=== PATIENT | male | born 1950 | race Caucasian/White ===

== ENCOUNTER 2016-05-22 19:21 | Inpatient (IN) ==
[2016-05-22 20:03] LABS: Basophils % 0.2 %; Segmented Neutrophils % 90.3 %
[2016-05-22 20:05] LABS: Basophils # 0.1 K/mcL (0.0-0.2); Hematocrit 33.7 % (37.5-50.1); Immature Granulocytes % 0.8 % (0-4); Lymphocytes # 0.7 K/mcL (0.6-4.6); Lymphocytes % 2.6 %; Mean Corpuscular HGB Conc 32.6 g/dL (31.6-35.5); Mean Corpuscular Hemoglobin 26.6 pg (28.0-33.3); Mean Corpuscular Volume 81.6 fL (83.0-100.0); Mean Platelet Volume 9.2 fL (9.4-12.4); Monocytes # 1.6 K/mcL (0.0-1.3); Monocytes % 6.1 %; Platelet Count 377 K/mcL (140-400); Red Blood Count 4.13 M/mcL (4.19-5.50); Red Cell Distribution Width 17.1 % (11.5-14.5)
[2016-05-22] MEDS: Ipratropium/Albuterol Neb 3 ML IH SCH ×2 (20:09→20:10)
[2016-05-22] MEDS ORDERED: Piperacillin/Tazobactam 3.375 GM in D5% in Water (Mini-Bag+) 100 ML IVPB ONE (20:11)
[2016-05-22] MEDS ORDERED: Vancomycin 1,000 MG in D5% in Water 250 ML IVPB ONE (20:11)
[2016-05-22 20:21] LABS: Albumin 2.3 g/dL (3.5-5.0); Albumin/Globulin Ratio 0.4 (1.1-2.2); Bilirubin,Total 0.8 mg/dL (0.2-1.2); Calcium 10.3 mg/dL (8.6-10.8); Potassium 5.1 mEq/L (3.5-4.5); Total Protein 8.3 g/dL (6.0-8.3)
[2016-05-22 20:23] LABS: Dohle Bodies Present (Not Present); Large Platelets Present (Not Present); Platelet Estimate Normal (Normal)
[2016-05-22 20:24] LABS: Polychromasia 1+ (Not Present)
--- NOTE | 2016-05-22 21:05 | Emergency Department Note ---
Disposition Clinical Impression: Pneumothorax Qualifiers: Pneumothorax type: spontaneous, primary Qualified Code(s): J93.11 - Primary spontaneous pneumothorax Pneumonia Qualifiers: Pneumonia type: due to unspecified organism Laterality: right Lung location: unspecified part of lung Qualified Code(s): J18.9 - Pneumonia, unspecified organism Disposition: Admitted As Inpatient SOB HPI - General Chief Complaint: ED Shortness of Breath/Dyspnea Stated Complaint: HEIDI Time Seen by Provider: 05/22/16 19:35 Source: patient Limitations: no limitations Nursing Notes Reviewed: Yes Vital Signs Reviewed: Yes - History of Present Illness Patient comes in complaining shortness of breath that has been going on for a couple weeks. Patient notes a progressively getting worse. Patient states that he was put on antibiotic but his family doctor but he is not sure what antibiotic it was. States his symptoms are continuing to get worse. Also notes he said some discharge coming from his trach. Patient denies fevers and chills denies chest pain. The family notes that he said a decrease in his exercise tolerance. - Related Data Home Medications Medication Instructions Recorded Confirmed Calcitriol [Rocaltrol] 0.5 mcg PO BID 03/08/15 05/22/16 Calcium Carbonate/Vitamin D3 1 each PO DAILY 03/08/15 05/22/16 [Calcium 500 + D Tablet] Guaifenesin 400 mg PO AD 04/24/16 05/22/16 Previous Rx's Medication Instructions Recorded Lenvatinib Mesylate [Lenvima] 24 mg PO DAILY #30 capsule 03/22/16 OxyCODONE/APAP 7.5/325 [Percocet 1 tab PO Q6H PRN #120 tablet 05/07/16 7.5/325] Venlafaxine XR (24 HR) [Effexor Xr] 37.5 mg PO DAILY #30 cap.er.24h 05/10/16 Levothyroxine [Synthroid] 175 mcg PO DAILY #30 tablet 05/15/16 Allergies Allergy/AdvReac Type Severity Reaction Status Date / Time No Known Allergies Allergy Verified 05/22/16 22:43 All systems ED: reviewed and negative except as stated. Past Medical History - Past Medical History Source: obtained from family Medical history: Reports: cancer, COPD, hyperlipidemia, hypertension, thyroid disease Psychiatric history: Reports: anxiety, depression - Social History Smoking Status: Current every day smoker Smokeless Tobacco Status: No Alcohol use: Reports: none Drug use: Reports: none Physical Exam - General Limitations: physical limitation General appearance: alert - Head Head exam: atraumatic, normocephalic, normal inspection - Eye Eye exam: Present: normal appearance, PERRL, EOMI - ENT ENT exam: normal exam, normal oropharynx, mucous membranes moist - Neck Neck exam: Present: full ROM, other (Discharged noted from trach). Absent: tenderness - Chest Chest inspection: Present: normal inspection, symmetric chest wall rise - Respiratory Respiratory exam: Present: wheezes, prolonged expiratory phase - Cardiovascular Cardiovascular exam: Present: tachycardia - Abdominal Exam Abdominal exam: Present: soft, Non-Tender. Absent: tenderness, distention, guarding, rebound, rigidity - Extremities Exam Extremities exam: Present: normal inspection, full ROM. Absent: tenderness, pedal edema - Back Exam Back exam: Present: normal inspection, full ROM. Absent: tenderness - Neurological Exam Neurological exam: Present: alert, oriented X3 - Psychiatric Psychiatric exam: Present: normal affect, normal mood - Skin Skin exam: Present: warm, dry, intact, normal color Course - Consultations Consultation #1: Cardiothoracic surgeons consult digit. Due to patient's low oxygen saturation and symptoms, chest tube was electively ordered Vital Signs Temperature 97.6 F 05/22/16 19:43 Pulse Rate 120 05/22/16 19:43 Respiratory Rate 26 05/22/16 19:43 Blood Pressure 136/82 05/22/16 19:43 O2 Sat by Pulse Oximetry 98 05/22/16 19:43 Temperature 97.6 F 05/22/16 19:43 Pulse Rate 99 05/22/16 23:28 Respiratory Rate 24 05/22/16 23:28 Blood Pressure 144/79 05/22/16 23:28 O2 Sat by Pulse Oximetry 96 05/22/16 23:28 Oxygen Delivery Oxygen Delivery Trach Mask Procedures - Chest Tube Chest Tube 1 Chest Tube Location: fifth interspace Chest Tube Prep: sterile drapes applied Local Anesthetic: lidocaine 1% Amount of Anesthesia Used (mL): 5 Incision Made With: #10 blade Post Procedure: sutured to skin Tube Drainage: none Post Procedure CXR?: Yes Patient Tolerated Procedure: Yes Shortness of Breath/Dyspnea - Differential Diagnosis Likely: acute exacerbation of chronic obstructive airways disease, congestive heart failure, pneumonia, pulmonary embolism, pneumothorax - Lab Data Result diagrams: 05/22/16 19:48 05/22/16 19:48 Lab Results 05/22/16 05/22/16 05/22/16 Range/Units 19:48 19:48 19:48 WBC 26.6 H (4.3-11.1) K/mcL RBC 4.13 L (4.19-5.50) M/mcL Hgb 11.0 L (12.9-16.9) g/dL Hct 33.7 L (37.5-50.1) % MCV 81.6 L (83.0-100.0) fL MCH 26.6 L (28.0-33.3) pg MCHC 32.6 (31.6-35.5) g/dL RDW 17.1 H (11.5-14.5) % Plt Count 377 (140-400) K/mcL MPV 9.2 L (9.4-12.4) fL Immature Gran % 0.8 (0-4) % Seg Neutrophils % 90.3 % Lymphocytes % 2.6 % Monocytes % 6.1 % Eosinophils % 0.0 % Basophils % 0.2 % Neutrophils # 24.0 H (1.6-8.9) K/mcL Lymphocytes # 0.7 (0.6-4.6) K/mcL Monocytes # 1.6 H (0.0-1.3) K/mcL Eosinophils # 0.0 (0.0-0.6) K/mcL Basophils # 0.1 (0.0-0.2) K/mcL Dohle Bodies Present A (Not Present) Platelet Estimate Normal (Normal) Large Platelets Present A (Not Present) Polychromasia 1+ A (Not Present) Sodium 131 L (136-145) mEq/L Potassium 5.1 H (3.5-4.5) mEq/L Chloride 89 L (98-109) mEq/L Carbon Dioxide 27 (19-29) mEq/L BUN 39 H (8-26) mg/dL Creatinine 1.79 H (0.72-1.25) mg/dL Est GFR ( Amer) 46 L (> 60) Est GFR (Non-Af Amer) 38 L (> 60) BUN/Creatinine Ratio 22 (6-26) Glucose 147 H (70-99) mg/dL Calculated Osmolality 284 (280-300) Lactic Acid (0.5-2.2) mmol/L Calcium 10.3 (8.6-10.8) mg/dL Total Bilirubin 0.8 (0.2-1.2) mg/dL AST 20 (5-34) Units/L ALT 20 (0-55) Units/L Alkaline Phosphatase 113 (38-126) Units/L Troponin I (0-0.03) ng/mL B-Natriuretic Peptide 60 (0-100) pg/mL Serum Total Protein 8.3 (6.0-8.3) g/dL Albumin 2.3 L (3.5-5.0) g/dL Globulin 6.0 H (2.4-3.5) g/dL Albumin/Globulin Ratio 0.4 L (1.1-2.2) 05/22/16 05/22/16 Range/Units 19:48 21:11 WBC (4.3-11.1) K/mcL RBC (4.19-5.50) M/mcL Hgb (12.9-16.9) g/dL Hct (37.5-50.1) % MCV (83.0-100.0) fL MCH (28.0-33.3) pg MCHC (31.6-35.5) g/dL RDW (11.5-14.5) % Plt Count (140-400) K/mcL MPV (9.4-12.4) fL Immature Gran % (0-4) % Seg Neutrophils % % Lymphocytes % % Monocytes % % Eosinophils % % Basophils % % Neutrophils # (1.6-8.9) K/mcL Lymphocytes # (0.6-4.6) K/mcL Monocytes # (0.0-1.3) K/mcL Eosinophils # (0.0-0.6) K/mcL Basophils # (0.0-0.2) K/mcL Dohle Bodies (Not Present) Platelet Estimate (Normal) Large Platelets (Not Present) Polychromasia (Not Present) Sodium (136-145) mEq/L Potassium (3.5-4.5) mEq/L Chloride (98-109) mEq/L Carbon Dioxide (19-29) mEq/L BUN (8-26) mg/dL Creatinine (0.72-1.25) mg/dL Est GFR ( Amer) (> 60) Est GFR (Non-Af Amer) (> 60) BUN/Creatinine Ratio (6-26) Glucose (70-99) mg/dL Calculated Osmolality (280-300) Lactic Acid 2.0 (0.5-2.2) mmol/L Calcium (8.6-10.8) mg/dL Total Bilirubin (0.2-1.2) mg/dL AST (5-34) Units/L ALT (0-55) Units/L Alkaline Phosphatase (38-126) Units/L Troponin I 0.03 (0-0.03) ng/mL B-Natriuretic Peptide (0-100) pg/mL Serum Total Protein (6.0-8.3) g/dL Albumin (3.5-5.0) g/dL Globulin (2.4-3.5) g/dL Albumin/Globulin Ratio (1.1-2.2) - Radiology Data Radiology results reviewed: Yes I reviewed the patient's radiology results. Chest X-Ray 05/22/16 19:37 IMPRESSION: There is a small right pneumothorax, approximately 15%. Right lower lobe consolidation is also noted possibly representing pneumonia. D/ / Ant Alvarado MD / Ant Alvarado MD Interpreting Provider: Ant Alvarado MD - EKG Data EKG attestation: Yes I reviewed and interpreted this EKG. EKG shows normal: Reports: sinus rhythm Rate: Reports: tachycardia Rhythm: Reports: NSR Critical Care Time Total Critical Care Time: 60 Attestation: Critical care performed: Time is exclusive of separately billable procedures. Time includes: direct patient care, patient reassessment, coordination of patient care, interpretation of data (laboratory data, radiology data, and respiratory data), review of patient's medical records, medical consultation and documentation of patient care. Procedures included in critical care time: Procedures excluded from critical care time:
[2016-05-23] MEDS ORDERED: Lidocaine -MPF 1% 2 ML VIAL ONE (00:28)
[2016-05-23] MEDS ORDERED: *HR* OxyCODONE/APAP 7.5/325 TABLET PO PRN (02:20)
[2016-05-23] MEDS ORDERED: Ondansetron 4 MG/2 ML VIAL IVP PRN ×2 (02:25→11:13)
[2016-05-23] MEDS ORDERED: Acetaminophen 325 MG TABLET PO PRN ×2 (02:25→11:13)
[2016-05-23] MEDS ORDERED: *HR* Morphine 2 MG/ML SYRINGE IVP PRN (02:25)
[2016-05-23] MEDS ORDERED: Naloxone 0.4 MG/ML INJ IVP PRN ×2 (02:25→11:13)
[2016-05-23] MEDS ORDERED: GuaiFENesin Liq 200 MG/10 ML UDC PO PRN ×3 (02:30→11:13)
[2016-05-23] MEDS ORDERED: Vancomycin 1,250 MG in D5% in Water 250 ML IVPB SCH ×3 (03:00→20:00)
[2016-05-23] MEDS ORDERED: 0.9 % Sodium Chloride 1,000 ML IVC SCH (03:15)
[2016-05-23] MEDS: Ipratropium/Albuterol Neb 3 ML IH SCH ×3 (05:18→16:54)
[2016-05-23] MEDS ORDERED: Piperacillin/Tazobactam 3.375 GM in D5% in Water (Mini-Bag+) 100 ML IVPB SCH (06:00)
[2016-05-23] MEDS ORDERED: *HR* Enoxaparin 30 MG/0.3 ML SYRINGE SQ SCH (06:00)
--- NOTE | 2016-05-23 06:31 | Internal Med History&Physical ---
Date of Encounter: 05/23/16 Time of Encounter: 01:20 Internal Medicine - H&P: HPI Chief complaint: SOB X 1 week Admitted From: Emergency Dept Plans for Post Hospital Care: Home History of present illness: Mr. 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 He reports drainage of copious amount of yellow-green secretion from tracheostomy. He denies chest pain or trauma. No fever, chills or rigors. His sisters reports much more dyspnea even with mild exertion. The patient was evaluated by his by his PCP and prescribed an antibiotic recently, but been unable to return for follow-up. He lives alone but his sisters come around often. They are very surportive. The patient continues to smoke. He is FULL CODE as per discussion, he vehemently states he does not want to be intubated, his sister Cici Cantrell ([phone]) is his NOK/POA. Medical history: Follicular thyroid cancer, COPD, hyperlipidemia, hypertension, thyroid disease Surgical history: Thyroidectomy for thyroid cancer. Psychiatric history: anxiety, depression Smoking Status: Current every day smoker Smokeless Tobacco Status: No Alcohol use: none Drug use: none Family Hx: Mother: HTN, DM2, SANJEEV: HEART DISEASE, sister: HTN Vital Signs Temperature 97.6 F 05/22/16 19:43 Pulse Rate 120 05/22/16 19:43 Respiratory Rate 26 05/22/16 19:43 Blood Pressure 136/82 05/22/16 19:43 O2 Sat by Pulse Oximetry 98 05/22/16 19:43 Temperature 97.6 F 05/22/16 19:43 Pulse Rate 99 05/22/16 23:28 Respiratory Rate 24 05/22/16 23:28 Blood Pressure 144/79 05/22/16 23:28 O2 Sat by Pulse Oximetry 96 05/22/16 23:28 O/E: Not in distress palor+, anicteric, afebrile to touch, acyanotic HEENT: No cervical or jugular lymphadenopathy, tracheostomy with a oxygen mccall. Chest: Tachypneic, expiratory wheezing, scatter, reduced air entry on the right , pleux tube connected to under-water seal, Heart: RRR, HS1/2. Abdomen: non-distended, soft, non-tender, no masses : No flank tenderness, no CVA tenderness, no suprapubic tenderness PROJECT INTERNSHIP: AAO X 3, no gross focal neurological deficits SKIN: No active skin lesions. Extemities: No pedal edema. 05/22/16 19:48 Lab Results 05/22/16 05/22/16 05/22/16 Range/Units 19:48 19:48 19:48 WBC 26.6 H (4.3-11.1) K/mcL RBC 4.13 L (4.19-5.50) M/mcL Hgb 11.0 L (12.9-16.9) g/dL Hct 33.7 L (37.5-50.1) % MCV 81.6 L (83.0-100.0) fL MCH 26.6 L (28.0-33.3) pg MCHC 32.6 (31.6-35.5) g/dL RDW 17.1 H (11.5-14.5) % Plt Count 377 (140-400) K/mcL MPV 9.2 L (9.4-12.4) fL Immature Gran % 0.8 (0-4) % Seg Neutrophils % 90.3 % Lymphocytes % 2.6 % Monocytes % 6.1 % Eosinophils % 0.0 % Basophils % 0.2 % Neutrophils # 24.0 H (1.6-8.9) K/mcL Lymphocytes # 0.7 (0.6-4.6) K/mcL Monocytes # 1.6 H (0.0-1.3) K/mcL Eosinophils # 0.0 (0.0-0.6) K/mcL Basophils # 0.1 (0.0-0.2) K/mcL Dohle Bodies Present A (Not Present) Platelet Estimate Normal (Normal) Large Platelets Present A (Not Present) Polychromasia 1+ A (Not Present) Sodium 131 L (136-145) mEq/L Potassium 5.1 H (3.5-4.5) mEq/L Chloride 89 L (98-109) mEq/L Carbon Dioxide 27 (19-29) mEq/L BUN 39 H (8-26) mg/dL Creatinine 1.79 H (0.72-1.25) mg/dL Est GFR ( Amer) 46 L (> 60) Est GFR (Non-Af Amer) 38 L (> 60) BUN/Creatinine Ratio 22 (6-26) Glucose 147 H (70-99) mg/dL Calculated Osmolality 284 (280-300) Lactic Acid (0.5-2.2) mmol/L Calcium 10.3 (8.6-10.8) mg/dL Total Bilirubin 0.8 (0.2-1.2) mg/dL AST 20 (5-34) Units/L ALT 20 (0-55) Units/L Alkaline Phosphatase 113 (38-126) Units/L Troponin I (0-0.03) ng/mL B-Natriuretic Peptide 60 (0-100) pg/mL Serum Total Protein 8.3 (6.0-8.3) g/dL Albumin 2.3 L (3.5-5.0) g/dL Globulin 6.0 H (2.4-3.5) g/dL Albumin/Globulin Ratio 0.4 L (1.1-2.2) 05/22/16 05/22/16 Range/Units 19:48 21:11 WBC (4.3-11.1) K/mcL RBC (4.19-5.50) M/mcL Hgb (12.9-16.9) g/dL Hct (37.5-50.1) % MCV (83.0-100.0) fL MCH (28.0-33.3) pg MCHC (31.6-35.5) g/dL RDW (11.5-14.5) % Plt Count (140-400) K/mcL MPV (9.4-12.4) fL Immature Gran % (0-4) % Seg Neutrophils % % Lymphocytes % % Monocytes % % Eosinophils % % Basophils % % Neutrophils # (1.6-8.9) K/mcL Lymphocytes # (0.6-4.6) K/mcL Monocytes # (0.0-1.3) K/mcL Eosinophils # (0.0-0.6) K/mcL Basophils # (0.0-0.2) K/mcL Dohle Bodies (Not Present) Platelet Estimate (Normal) Large Platelets (Not Present) Polychromasia (Not Present) Sodium (136-145) mEq/L Potassium (3.5-4.5) mEq/L Chloride (98-109) mEq/L Carbon Dioxide (19-29) mEq/L BUN (8-26) mg/dL Creatinine (0.72-1.25) mg/dL Est GFR ( Amer) (> 60) Est GFR (Non-Af Amer) (> 60) BUN/Creatinine Ratio (6-26) Glucose (70-99) mg/dL Calculated Osmolality (280-300) Lactic Acid 2.0 (0.5-2.2) mmol/L Calcium (8.6-10.8) mg/dL Total Bilirubin (0.2-1.2) mg/dL AST (5-34) Units/L ALT (0-55) Units/L Alkaline Phosphatase (38-126) Units/L Troponin I 0.03 (0-0.03) ng/mL B-Natriuretic Peptide (0-100) pg/mL Serum Total Protein (6.0-8.3) g/dL Albumin (3.5-5.0) g/dL Globulin (2.4-3.5) g/dL Albumin/Globulin Ratio (1.1-2.2) CXR: There is a small right pneumothorax, approximately 15%. Right lower lobe consolidation is also noted possibly representing pneumonia. imp Acute on chronic respiratory failure Spontaneous right pneumothorax related pneumonia and COPD s/p chest tube placement to under water seal. Right lobar pneumonia s/p trachesotomy after thyroidectomy for thyroid cancer Acute renal failure Chronic morbidities HTN HLD COPD Hypothyroidism s/p thyroidectomy for thyroid cancer Mild chronic microcytic , hypochromic anemia, iron deficiency vs anemia of chronic medical disease. PLAN Admit Chest tube care, connect to under water seal Serial CXR Triple antiboitic coverage for HCAP: Vanco/Zosyn and Levaquin. Oxygen supplementation via tracheostomy mccall. Bundle Breaker care Tracheostomy care IV hydration, trend serum creatinine and BUN DVT prophylaxis with Lovenox. I discussed my findings and assessment with the patient, his family at bedside, they verbalized understanding and are agreeable to admission. He is high risk as he is symptoms of pneumothrorax, especially in the setting of right lobar pneumonia in a patient with background COPD who continues to smoke. Past Med Surg Social Fam HX - Past Medical History Medical history: cancer, COPD, hyperlipidemia, hypertension, thyroid disease Psychiatric history: anxiety, depression - Social History Smoking Status: Current every day smoker Smokeless Tobacco Status: No Alcohol use: none Drug use: none Internal Medicine - H&P: Meds Calcitriol [Rocaltrol] 0.5 mcg PO BID 03/08/15 [History] Calcium Carbonate/Vitamin D3 [Calcium 500 + D Tablet] 1 each PO DAILY 03/08/15 [ History] Lenvatinib Mesylate [Lenvima] 24 mg PO DAILY #30 capsule 03/22/16 [Rx] Guaifenesin 400 mg PO AD 04/24/16 [History] OxyCODONE/APAP 7.5/325 [Percocet 7.5/325] 1 tab PO Q6H PRN #120 tablet 05/07/16 [Rx] Venlafaxine XR (24 HR) [Effexor Xr] 37.5 mg PO DAILY #30 cap.er.24h 05/10/16 [Rx ] Levothyroxine [Synthroid] 175 mcg PO DAILY #30 tablet 05/15/16 [Rx] Allergies No Known Allergies Allergy (Verified 05/22/16 22:43) All Systems PM: A 10-system review of systems was performed and is negative for pertinent findings except as documented above in the HPI. - Constitutional Vitals: Temp Pulse Resp BP Pulse Ox 98.8 F 86 28 126/69 95 05/23/16 02:30 05/23/16 06:06 05/23/16 06:06 05/23/16 06:06 05/23/16 06:06 Internal Med - H&P Results - Labs CBC & Chem 7: 05/24/16 03:13 05/24/16 03:13 - Impressions ITS Impressions Chest X-Ray 05/23/16 00:55 IMPRESSION: 1. Minimal increase in the small right pleural effusion status post percutaneous chest tube. D/ / Haile Bah MD / Haile Bah MD Interpreting Provider: Haile Bah MD Chest X-Ray 05/23/16 01:25 IMPRESSION: 1. No significant change. D/ / Haile Bah MD / Haile Bah MD Interpreting Provider: Haile Bah MD
--- NOTE | 2016-05-23 07:03 | Pulmonology Consult Note ---
Addendum entered and electronically signed by Adiel Duran DO 05/23/16 15:49: Signout was provided to the admitting hospitalist, Dr. Vela, who accepted the patient for transfer. Original Note: <Alfred Sotelo W - Last Filed: 05/23/16 11:24> Date of Encounter: 05/23/16 Medications and Allergies Calcitriol [Rocaltrol] 0.5 mcg PO BID 03/08/15 [History] Calcium Carbonate/Vitamin D3 [Calcium 500 + D Tablet] 1 each PO DAILY 03/08/15 [ History] Lenvatinib Mesylate [Lenvima] 24 mg PO DAILY #30 capsule 03/22/16 [Rx] Guaifenesin 400 mg PO AD 04/24/16 [History] OxyCODONE/APAP 7.5/325 [Percocet 7.5/325] 1 tab PO Q6H PRN #120 tablet 05/07/16 [Rx] Venlafaxine XR (24 HR) [Effexor Xr] 37.5 mg PO DAILY #30 cap.er.24h 05/10/16 [Rx ] Levothyroxine [Synthroid] 175 mcg PO DAILY #30 tablet 05/15/16 [Rx] Allergies No Known Allergies Allergy (Verified 05/22/16 22:43) All Systems: A 10-system review of systems was performed and is negative for pertinent findings except as documented above in the HPI. Physical Examination Vital Signs: Vital Signs, Last 4 Hours Temp Pulse Resp BP Pulse Ox 05/23/16 07:52 94 05/23/16 07:24 97.7 F 05/23/16 06:06 86 28 126/69 95 05/23/16 05:22 30 124/71 95 05/23/16 05:15 88 28 124/71 96 Results - Laboratory Findings CBC and BMP: 05/23/16 09:28 05/23/16 09:28 Abnormal lab findings: Abnormal lab results WBC 26.6 K/mcL (4.3-11.1) H 05/22/16 19:48 RBC 4.13 M/mcL (4.19-5.50) L 05/22/16 19:48 Hgb 11.0 g/dL (12.9-16.9) L 05/22/16 19:48 Hct 33.7 % (37.5-50.1) L 05/22/16 19:48 MCV 81.6 fL (83.0-100.0) L 05/22/16 19:48 MCH 26.6 pg (28.0-33.3) L 05/22/16 19:48 RDW 17.1 % (11.5-14.5) H 05/22/16 19:48 MPV 9.2 fL (9.4-12.4) L 05/22/16 19:48 Neutrophils # 24.0 K/mcL (1.6-8.9) H 05/22/16 19:48 Monocytes # 1.6 K/mcL (0.0-1.3) H 05/22/16 19:48 Dohle Bodies Present (Not Present) A 05/22/16 19:48 Large Platelets Present (Not Present) A 05/22/16 19:48 Polychromasia 1+ (Not Present) A 05/22/16 19:48 Sodium 131 mEq/L (136-145) L 05/22/16 19:48 Potassium 5.1 mEq/L (3.5-4.5) H 05/22/16 19:48 Chloride 89 mEq/L (98-109) L 05/22/16 19:48 BUN 39 mg/dL (8-26) H 05/22/16 19:48 Creatinine 1.79 mg/dL (0.72-1.25) H 05/22/16 19:48 Est GFR ( Amer) 46 (> 60) L 05/22/16 19:48 Est GFR (Non-Af Amer) 38 (> 60) L 05/22/16 19:48 Glucose 147 mg/dL (70-99) H 05/22/16 19:48 POC Glucose 119 (58-89) H 05/23/16 02:20 Albumin 2.3 g/dL (3.5-5.0) L 05/22/16 19:48 Globulin 6.0 g/dL (2.4-3.5) H 05/22/16 19:48 Albumin/Globulin Ratio 0.4 (1.1-2.2) L 05/22/16 19:48 - Clinical Findings Intake & Output: Intake & Output 05/22/16 05/23/1605/23/16 23:59 07:59 15:59 Intake Total 0 / 0 180 / 180 Output Total 220 / 220 400 / 400 Balance -220 / -220 -220 / -220 Weight 75.75 kg Consult Discharge Plan - Plan Referrals: Dalton Monterroso Jr, MD [Primary Care Provider] - - Attending Attestation I examined this patient and my medical decision-making was reviewed with the MATERIAL MANAGER/PA/Advanced Practice Nurse/Resident Physician. I agree with the documented findings, disposition and treatment plan as described except to the extent set forth below. Impression: 1. Acute Respiratory Failure 2. Spontaneous PTX s/p Pleural Drain 3. Sepsis s/tHAP 4. COPD 5. Chronic Trach 6. SHWETA 7. Metastatic Thyroid CA Plan: 1. Good Sats on Trach collar wean to keep O2 sats >88% to 92% 2. Cont Chest tube to suction; CT Thorax 3. BP stable. lacate wnl. Cultures pending, ABx Vanc/Pip-Tazo/Levaquin covering for atypicals PSDA and MRSA 4. Cont Duonebs and Steroids 5. improved with IV fluids (normalized) monitor UOP 6. continued f/u with ENT as outpatient 7. Oncology Consult DVT prophylaxis with Lovenox CODE: Full <Adiel Duran - Last Filed: 05/23/16 13:14> Date of Encounter: 05/23/16 Time of Encounter: 07:03 Assessment and Plan (1) Pneumothorax Current Visit: Yes Status: Acute Patient had pneumothorax on presentation, 9-Nepalese chest tube was placed in the emergency department. CT scan showed a hydropneumothorax, patient will likely require a larger chest tube. IR has been consulted for placement. Qualifiers: Pneumothorax type: spontaneous, primary Qualified Code(s): J93.11 - Primary spontaneous pneumothorax (2) Pneumonia Current Visit: Yes Status: Acute Patient appears to have consolidation on chest CT concerning for pneumonia. Would cultures and sputum cultures been obtained. We will cover with broad coverage empirically with vancomycin Levaquin and Zosyn. Qualifiers: Pneumonia type: due to unspecified organism Laterality: right Lung location: unspecified part of lung Qualified Code(s): J18.9 - Pneumonia, unspecified organism (3) Follicular thyroid cancer Current Visit: No Status: Acute Issue is currently on treatment for follicular thyroid carcinoma. Patient takes tyrosine kinase inhibitor at home. We will continue this. (4) Lung metastasis Current Visit: No Status: Acute Patient has significant lung metastasis as seen on CT. There are multiple nodules throughout the lungs that are stable from approximately 1 month ago. Qualifiers: Laterality: right Qualified Code(s): C78.01 - Secondary malignant neoplasm of right lung (5) 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 Visit: No Status: Acute Continue usual trach care. Patient is on the trach mask supplemental oxygen. There is no evidence of drainage from the trach at this time. (6) DVT prophylaxis Current Visit: Yes Status: Acute Lovenox 40 mg subcutaneous daily. History of Present Illness Consult date: 05/23/16 Requesting physician: Trey Mckeon Reason for consult: dyspnea Chief complaint: Dyspnea History of present illness: Patient is a 66-year-old male with history of follicular thyroid carcinoma with metastatic lung disease and chronic tracheostomy who presents with progressive shortness of breath. Per records, the patient had progressive shortness of breath over several days and also increased amount of thick drainage from his tracheostomy. Apparently he was recently started on an antibiotic as an outpatient but is unknown what this was. At the time of my exam the patient states he feels better, he has no acute complaints at this time. He states his breathing is improved. Past Med Surg Social Fam HX - Past Medical History Medical history: cancer, COPD, hyperlipidemia, hypertension, thyroid disease Psychiatric history: anxiety, depression - Past Surgical History Surgical History: tracheostomy - Social History Smoking Status: Current every day smoker Smokeless Tobacco Status: No Alcohol use: none Drug use: none ROS unobtainable: other (Patient is minimally verbal with the tracheostomy therefore review of systems was unable to be obtained) All Systems: A 10-system review of systems was performed and is negative for pertinent findings except as documented above in the HPI. Physical Examination Vital Signs: Vital Signs, Last 4 Hours Pulse Resp BP Pulse Ox 05/23/16 06:06 86 28 126/69 95 05/23/16 05:22 30 124/71 95 05/23/16 05:15 88 28 124/71 96 05/23/16 04:11 93 40 134/74 95 05/23/16 03:08 93 40 159/91 95 General appearance: no acute distress ENT: oropharynx dry Neck: other (Tracheostomy present, dressing is clean and dry.) Effort: normal Auscultation: right: rhonchi Cardiovascular: regular rate and rhythm Gastrointestinal: normoactive bowel sounds, soft, non-tender, non-distended Extremities: no cyanosis, no edema, no clubbing normal mental status, non-focal exam Results - Laboratory Findings CBC and BMP: 05/23/16 09:28 05/23/16 09:28 Abnormal lab findings: Abnormal lab results WBC 26.6 K/mcL (4.3-11.1) H 05/22/16 19:48 RBC 4.13 M/mcL (4.19-5.50) L 05/22/16 19:48 Hgb 11.0 g/dL (12.9-16.9) L 05/22/16 19:48 Hct 33.7 % (37.5-50.1) L 05/22/16 19:48 MCV 81.6 fL (83.0-100.0) L 05/22/16 19:48 MCH 26.6 pg (28.0-33.3) L 05/22/16 19:48 RDW 17.1 % (11.5-14.5) H 05/22/16 19:48 MPV 9.2 fL (9.4-12.4) L 05/22/16 19:48 Neutrophils # 24.0 K/mcL (1.6-8.9) H 05/22/16 19:48 Monocytes # 1.6 K/mcL (0.0-1.3) H 05/22/16 19:48 Dohle Bodies Present (Not Present) A 05/22/16 19:48 Large Platelets Present (Not Present) A 05/22/16 19:48 Polychromasia 1+ (Not Present) A 05/22/16 19:48 Sodium 131 mEq/L (136-145) L 05/22/16 19:48 Potassium 5.1 mEq/L (3.5-4.5) H 05/22/16 19:48 Chloride 89 mEq/L (98-109) L 05/22/16 19:48 BUN 39 mg/dL (8-26) H 05/22/16 19:48 Creatinine 1.79 mg/dL (0.72-1.25) H 05/22/16 19:48 Est GFR ( Amer) 46 (> 60) L 05/22/16 19:48 Est GFR (Non-Af Amer) 38 (> 60) L 05/22/16 19:48 Glucose 147 mg/dL (70-99) H 05/22/16 19:48 POC Glucose 119 (58-89) H 05/23/16 02:20 Albumin 2.3 g/dL (3.5-5.0) L 05/22/16 19:48 Globulin 6.0 g/dL (2.4-3.5) H 05/22/16 19:48 Albumin/Globulin Ratio 0.4 (1.1-2.2) L 05/22/16 19:48 - Clinical Findings Intake & Output: Intake & Output 05/22/16 05/22/16 05/23/16 15:59 23:59 07:59 Intake Total 0 / 0 Output Total 220 / 220 Balance -220 / -220 Weight 75.75 kg
[2016-05-23] MEDS ORDERED: LENVATINIB PO SCH (09:00)
[2016-05-23] MEDS ORDERED: Levofloxacin 750 MG/150 ML 750 MG/150 ML BAG IVPB SCH (09:00)
[2016-05-23] MEDS ORDERED: Venlafaxine XR (24 HR) 37.5 MG CAP.ER.24H PO SCH (09:00)
[2016-05-23] MEDS ORDERED: Calcium 500-Vit D3 PO SCH (09:00)
--- NOTE | 2016-05-23 09:08 | Cardiothoracic Consult Note ---
Date of Encounter: 05/23/16 Time of Encounter: 09:06 Assessment and Plan (1) Pneumothorax Current Visit: Yes Status: Acute The patient is a 66-year-old hypertensive man with COPD and metastatic follicular cell thyroid carcinoma. He presented to [facility] merged permanent with worsening shortness of breath and dyspnea exertion. Chest x-ray revealed a right spontaneous pneumothorax and a small bore chest tube was inserted in the emergency department. The chest tube has been on suction and immediately after the procedure there was no change in the size of the pneumothorax. the chest tube should remain on suction until the pneumothorax resolves. The assessment and plan as outlined above was discussed with the patient and/or family members who expressed understanding and agreement. All questions were answered. Qualifiers: Pneumothorax type: spontaneous, primary Qualified Code(s): J93.11 - Primary spontaneous pneumothorax - History of Present Illness Consult date: 05/23/16 Requesting physician: Alfred Sotelo Consult reason: Chest tube management. Chief complaint: Right spontaneous pneumothorax. History of present illness: Mr. Parikh is a 66 year old hypertensive man with COPD and metastatic follicular cell thyroid carcinoma who has had progressive shortness of breath and dyspnea on exertion for the last several days. The respiratory symptoms became significantly last evening and the patient was evaluated at [facility] emergency department. The patient was found to have a right spontaneous pneumothorax and a chest tube was inserted in the emergency department. The patient was admitted and CT surgery was consulted for chest tube management. Past Med Surg Social Fam HX - Past Medical History Medical history: cancer (Follicular cell thyroid carcinoma), COPD, hyperlipidemia, hypertension, thyroid disease (Hypothyroidism (surgically induced)) Psychiatric history: anxiety, depression - Past Surgical History Surgical History: thyroidectomy, tracheostomy - Social History Smoking Status: Current every day smoker Smokeless Tobacco Status: No Alcohol use: none Drug use: none Occupational status: retired Current living situation: Home - Independent Activity Level: Independent ambulation Recent Out of Country Travel Within the Last 8 Weeks: No Exposure or Possible Exposure to Illness During Travel: No Medications and Allergies Calcitriol [Rocaltrol] 0.5 mcg PO BID 03/08/15 [History] Calcium Carbonate/Vitamin D3 [Calcium 500 + D Tablet] 1 each PO DAILY 03/08/15 [ History] Lenvatinib Mesylate [Lenvima] 24 mg PO DAILY #30 capsule 03/22/16 [Rx] Guaifenesin 400 mg PO AD 04/24/16 [History] OxyCODONE/APAP 7.5/325 [Percocet 7.5/325] 1 tab PO Q6H PRN #120 tablet 05/07/16 [Rx] Venlafaxine XR (24 HR) [Effexor Xr] 37.5 mg PO DAILY #30 cap.er.24h 05/10/16 [Rx ] Levothyroxine [Synthroid] 175 mcg PO DAILY #30 tablet 05/15/16 [Rx] Allergies No Known Allergies Allergy (Verified 05/22/16 22:43) All Systems Review: A 10-system review of systems was performed and is negative for pertinent findings except as documented above in the HPI. Physical Examination Vital Signs, Last 4 Hours Temp Pulse Resp BP Pulse Ox 05/23/16 07:52 94 05/23/16 07:24 97.7 F 05/23/16 06:06 86 28 126/69 95 05/23/16 05:22 30 124/71 95 05/23/16 05:15 88 28 124/71 96 General: Conversant, No Apparent Distress HEENT: Atraumatic, Normocephaly, Other (Permanent tracheostomy) Neck: No JVD, Normal carotid pulses Cardiac: Reg Rate and Rhythm, Normal S1 and S2, No Murmur Lungs: Normal Breath Sounds, No Wheeze, Rales, Rhonchi Neuro: Alert and responsive, No focal deficits noted Vascular: Normal capillary refill Abdomen: Soft, Non-tender Skin: No rashes noted on visualized skin Musculoskeletal: No Chest Wall Tenderness Extremities: No Clubbing, No Cyanosis, No Edema Results 05/22/16 19:48 05/22/16 19:48 - Imaging Chest Xray: image reviewed (Right lateral pneumothorax, unchanged after chest tube insertion.) Consult Discharge Plan - Plan Referrals: Dalton Monterroso Jr, MD [Primary Care Provider] -
[2016-05-23 09:36] LABS: Basophils % 0.1 %; Eosinophils % 0.2 %; Hematocrit 29.2 % (37.5-50.1); Hemoglobin 9.6 g/dL (12.9-16.9); Immature Granulocytes % 1.1 % (0-4); Immature Platelets 1.8 % (1.1-6.1); Lymphocytes # 0.5 K/mcL (0.6-4.6); Lymphocytes % 2.6 %; Mean Corpuscular HGB Conc 32.9 g/dL (31.6-35.5); Mean Corpuscular Hemoglobin 26.3 pg (28.0-33.3); Mean Platelet Volume 8.8 fL (9.4-12.4); Monocytes % 5.2 %; Neutrophils # 16.7 K/mcL (1.6-8.9); Platelet Count 349 K/mcL (140-400); Red Blood Count 3.65 M/mcL (4.19-5.50); Red Cell Distribution Width 16.8 % (11.5-14.5); Segmented Neutrophils % 90.8 %
[2016-05-23 09:55] LABS: BUN/Creatinine Ratio 31 (6-26); Blood Urea Nitrogen 32 mg/dL (8-26); Calcium 9.2 mg/dL (8.6-10.8); Carbon Dioxide 28 mEq/L (19-29); Chloride 92 mEq/L (98-109); Glucose 148 mg/dL (70-99); Osmolality,Calculated 280 (280-300); Potassium 4.3 mEq/L (3.5-4.5); Sodium 130 mEq/L (136-145); eGFR For African Americans > 60 (> 60); eGFR For Non-African Americans > 60 (> 60)
[2016-05-23] MEDS: MethylPREDNISolone 40 MG/ML VIAL IVP SCH ×3 (11:25→23:36)
[2016-05-23] MEDS ORDERED: MethylPREDNISolone 40 MG/ML VIAL IVP SCH (12:00)
[2016-05-23] MEDS ORDERED: 0.9 % Sodium Chloride 500 ML IVC ONE (12:50)
[2016-05-23] MEDS: Vancomycin 750 MG in D5% in Water 250 ML IVPB SCH (13:34)
[2016-05-23] MEDS: *HR* Morphine 2 MG/ML SYRINGE IVP PRN (13:40)
--- NOTE | 2016-05-23 14:40 | Electrocardiograph Report ---
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
--- NOTE | 2016-05-23 14:53 | IR Procedure Note ---
Date of procedure: 05/23/16 Consent Obtained: Verbal consent Timeout: Correct patient and procedure verified, Correct site verified, Time out performed, Skin prep completed Local anesthetic: Lidocaine 1% Indications: Small 8-9fr pleural drain placed in ER not working well. Procedure Performed: Replacement of chest tube for larger bore drain Site/Technique: Right lateral chest. Initially tried exchange, though course was kinked. Results/Findings: Pt reaccessed using u/s by myself at bedside in unit. 14fr chest tube used. Estimated blood loss (cc): 1 Complications: None; Tolerated procedure well Post Procedure Treatment Plan: New 14fr chest tube placed. Tolerated well.
[2016-05-23] MEDS: Piperacillin/Tazobactam 3.375 GM in D5% in Water (Mini-Bag+) 100 ML IVPB SCH ×2 (15:21→21:17)
[2016-05-23] MEDS: *HR* OxyCODONE/APAP 7.5/325 TABLET PO PRN (17:33)
[2016-05-23] MEDS ORDERED: Furosemide 40 MG/4 ML VIAL IVP ONE (18:05)
[2016-05-23 18:25] LABS: ABG Base Excess 7.1 mEq/L (-2.0 to 3.0); ABG HCO3 32.5 mEQ/L (21-27); ABG Oxygen Saturation 95 % (95-98); ABG PCO2 49 mmHg (35-45); ABG PH 7.43 pH Units (7.32-7.45); ABG PO2 72 mmHg (85-104); Blood Gas FiO2 60 %
--- NOTE | 2016-05-23 19:17 | Event Note ---
Date of Encounter: 05/23/16 Time of Encounter: 18:10 I was called by the RN to evaluate this patient. Tachypneic, tachycardic. Was otherwise stable in the ICU prior to transfer to . DVT prophylaxis with lovenox was resumed today. Gave a dose of lasix iv, got an abg and a cxr. Will obtain a ct angio of the chset. D/W nursing staff.
[2016-05-24] MEDS: Ipratropium/Albuterol Neb 3 ML IH SCH ×5 (00:04→22:39)
[2016-05-24] MEDS: Vancomycin 750 MG in D5% in Water 250 ML IVPB SCH ×2 (00:09→13:38)
[2016-05-24 03:23] LABS: Basophils % 0.1 %; Hematocrit 31.7 % (37.5-50.1); Hemoglobin 10.4 g/dL (12.9-16.9); Immature Granulocytes % 0.8 % (0-4); Lymphocytes # 0.3 K/mcL (0.6-4.6); Lymphocytes % 1.6 %; Mean Corpuscular HGB Conc 32.8 g/dL (31.6-35.5); Mean Corpuscular Volume 79.3 fL (83.0-100.0); Mean Platelet Volume 9.2 fL (9.4-12.4); Monocytes # 0.3 K/mcL (0.0-1.3); Monocytes % 1.5 %; Neutrophils # 20.5 K/mcL (1.6-8.9); Platelet Count 319 K/mcL (140-400); Red Cell Distribution Width 16.7 % (11.5-14.5)
[2016-05-24 03:35] LABS: BUN/Creatinine Ratio 27 (6-26); Blood Urea Nitrogen 23 mg/dL (8-26); Calcium 9.3 mg/dL (8.6-10.8); Carbon Dioxide 29 mEq/L (19-29); Chloride 91 mEq/L (98-109); Glucose 180 mg/dL (70-99); Osmolality,Calculated 278 (280-300); Potassium 4.2 mEq/L (3.5-4.5); Sodium 130 mEq/L (136-145); eGFR For African Americans > 60 (> 60); eGFR For Non-African Americans > 60 (> 60)
[2016-05-24] MEDS ORDERED: *HR* Enoxaparin 40 MG/0.4 ML SYRINGE SQ SCH (06:00)
[2016-05-24] MEDS: Piperacillin/Tazobactam 3.375 GM in D5% in Water (Mini-Bag+) 100 ML IVPB SCH ×3 (06:19→21:26)
[2016-05-24] MEDS: MethylPREDNISolone 40 MG/ML VIAL IVP SCH ×4 (06:19→23:01)
[2016-05-24] MEDS: *HR* Enoxaparin 40 MG/0.4 ML SYRINGE SQ SCH (06:21)
--- NOTE | 2016-05-24 07:15 | Cardiothoracic Progress Note ---
Date of Encounter: 05/24/16 Time of Encounter: 07:11 - Assessment and plan (1) Pneumothorax Current Visit: Yes Status: Acute The patient is a 66-year-old hypertensive man with COPD and metastatic follicular cell thyroid carcinoma. He presented to [facility] with worsening shortness of breath and dyspnea exertion. Chest x-ray revealed a right spontaneous pneumothorax and a small bore chest tube was inserted in the emergency department. The small bore chest tube was replaced with a larger chest tube which resolved the pneumothorax. The chest tube should remain on suction today. The chest x-ray will be repeated tomorrow morning. The assessment and plan as outlined above was discussed with the patient and/or family members who expressed understanding and agreement. All questions were answered. Qualifiers: Pneumothorax type: spontaneous, primary Qualified Code(s): J93.11 - Primary spontaneous pneumothorax - Subjective Interval history: The patient is resting comfortably in his hospital bed. He is breathing comfortably and has no complaints. Vital Signs, Last 4 Hours Temp Pulse Resp BP Pulse Ox 05/24/16 05:57 22 93 L 05/24/16 04:40 86 05/24/16 04:24 98.1 F 85 22 144/86 92 L [place] Flow Rate Oxygen Flow Rate (LPM) 10 Clinical Data, last 8 Hours Output, Chest Tube Drainage 100 Amount [Right Lateral Chest #4 ] Weight 05/22/16 05/23/16 05/24/16 23:59 23:59 23:59 Weight 75.75 kg 76.9 kg - Physical Examination General: Conversant, No Apparent Distress Neck: No JVD, Normal carotid pulses Cardiac: Reg Rate and Rhythm, Normal S1 and S2, No Murmur Incision: No signs of infection, Dry/intact dressing Chest tubes: Minimal drainage, Other (No air leak.) Lungs: Normal Breath Sounds, No Wheeze, Rales, Rhonchi Neuro: Alert and responsive, No focal deficits noted Vascular: Normal capillary refill Musculoskeletal: No Chest Wall Tenderness Extremities: No Clubbing, No Cyanosis, No Edema - Labs 05/24/16 03:13 05/24/16 03:13 Lab Results, Last 24 hours 05/23/16 05/23/16 05/24/16 09:28 09:28 03:13 WBC 18.4 H 21.3 H Hgb 9.6 L 10.4 L Hct 29.2 L 31.7 L Plt Count 349 319 Sodium 130 L Potassium 4.3 Chloride 92 L Carbon Dioxide 28 BUN 32 H Creatinine 1.03 Glucose 148 H Calcium 9.2 05/24/16 03:13 WBC Hgb Hct Plt Count Sodium 130 L Potassium 4.2 Chloride 91 L Carbon Dioxide 29 BUN 23 Creatinine 0.84 Glucose 180 H Calcium 9.3 - Imaging Chest Xray: image reviewed (No pneumothorax.) Consult Discharge Plan - Plan Referrals: Dalton Monterroso Jr, MD [Primary Care Provider] -
--- NOTE | 2016-05-24 07:34 | Pulmonology Progress Note ---
Date of Encounter: 05/24/16 Time of Encounter: 07:34 Assessment and Plan (1) Sepsis Current Visit: Yes Status: Acute Qualifiers: Sepsis type: sepsis due to unspecified organism Qualified Code(s): A41.9 - Sepsis, unspecified organism (2) DVT prophylaxis Current Visit: Yes Status: Acute (3) Pneumonia Current Visit: Yes Status: Acute Qualifiers: Pneumonia type: due to unspecified organism Laterality: right Lung location: unspecified part of lung Qualified Code(s): J18.9 - Pneumonia, unspecified organism (4) Pneumothorax Current Visit: Yes Status: Acute Qualifiers: Pneumothorax type: spontaneous, primary Qualified Code(s): J93.11 - Primary spontaneous pneumothorax (5) Follicular thyroid cancer Current Visit: No Status: Acute (6) Lung metastasis Current Visit: No Status: Acute Qualifiers: Laterality: right Qualified Code(s): C78.01 - Secondary malignant neoplasm of right lung (7) 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 Visit: No Status: Acute Subjective Principal diagnosis: PTX Interval history: Transferred out of ICU last night but overnight became acutely dyspneic and hypoxic CTA done which was negative for PE. Resolved He is quite comfortable now and generally appears much better than my exam in ICU yesterday CT notable for dense RML consolidation and improving but not totally resolved PTx Objective PUL Vital signs: Last Vital Signs Temp 98.5 F 05/24/16 07:24 Pulse 89 05/24/16 07:24 Resp 20 05/24/16 07:24 BP 152/81 05/24/16 07:24 Pulse Ox 92 L 05/24/16 07:24 General appearance: no acute distress ENT: oropharynx moist Effort: normal Auscultation: bilateral: diminished breath sounds, wheezes, rhonchi Cardiovascular: regular rate and rhythm Gastrointestinal: non-tender normal mental status, non-focal exam mood appropriate Results - Laboratory Findings CBC and BMP: 05/24/16 03:13 05/24/16 03:13 ABG ABG pH 7.43 pH Units (7.32-7.45) 05/23/16 18:15 ABG pCO2 49 mmHg (35-45) H 05/23/16 18:15 ABG pO2 72 mmHg (85-104) L 05/23/16 18:15 ABG O2 Saturation 95 % (95-98) 05/23/16 18:15 Abnormal lab findings: Abnormal lab results WBC 21.3 K/mcL (4.3-11.1) H 05/24/16 03:13 RBC 4.00 M/mcL (4.19-5.50) L 05/24/16 03:13 Hgb 10.4 g/dL (12.9-16.9) L 05/24/16 03:13 Hct 31.7 % (37.5-50.1) L 05/24/16 03:13 MCV 79.3 fL (83.0-100.0) L 05/24/16 03:13 MCH 26.0 pg (28.0-33.3) L 05/24/16 03:13 RDW 16.7 % (11.5-14.5) H 05/24/16 03:13 MPV 9.2 fL (9.4-12.4) L 05/24/16 03:13 Neutrophils # 20.5 K/mcL (1.6-8.9) H 05/24/16 03:13 Lymphocytes # 0.3 K/mcL (0.6-4.6) L 05/24/16 03:13 Dohle Bodies Present (Not Present) A 05/22/16 19:48 Large Platelets Present (Not Present) A 05/22/16 19:48 Polychromasia 1+ (Not Present) A 05/22/16 19:48 ABG pCO2 49 mmHg (35-45) H 05/23/16 18:15 ABG pO2 72 mmHg (85-104) L 05/23/16 18:15 ABG HCO3 32.5 mEQ/L (21-27) H 05/23/16 18:15 ABG Total CO2 34.0 mEq/L (20-26) H 05/23/16 18:15 ABG Base Excess 7.1 mEq/L (-2.0 to 3.0) H 05/23/16 18:15 Sodium 130 mEq/L (136-145) L 05/24/16 03:13 Chloride 91 mEq/L (98-109) L 05/24/16 03:13 BUN/Creatinine Ratio 27 (6-26) H 05/24/16 03:13 Glucose 180 mg/dL (70-99) H 05/24/16 03:13 POC Glucose 119 (58-89) H 05/23/16 02:20 Calculated Osmolality 278 (280-300) L 05/24/16 03:13 Albumin 2.3 g/dL (3.5-5.0) L 05/22/16 19:48 Globulin 6.0 g/dL (2.4-3.5) H 05/22/16 19:48 Albumin/Globulin Ratio 0.4 (1.1-2.2) L 05/22/16 19:48 - Diagnostic Findings Chest x-ray: report reviewed, image reviewed CT scan - chest: report reviewed, image reviewed - Clinical Findings Intake & Output: Intake & Output 05/23/16 05/23/16 05/24/16 15:59 23:59 07:59 Intake Total 2230 / 2230 590 / 590 100 / 100 Output Total 1000 / 1000 1500 / 1500 100 / 100 Balance 1230 / 1230 -910 / -910 0 / 0 Weight 76.9 kg Consult Discharge Plan - Plan Referrals: Dalton Monterroso Jr, MD [Primary Care Provider] - - Attending Attestation Impression: 1. Acute Respiratory Failure 2. Spontaneous PTX (likely s/t PNA) s/p Pleural Drain 14F catheter placed yesterday by IR improvement in PTx 3. Sepsis s/t HAP (RML consolidation) 4. COPD with acute exacerbation 5. Chronic Trach 6. SHWETA 7. Metastatic Thyroid CA Plan: 1. Good Sats on Trach collar wean to keep O2 sats >88% to 92% 2. Cont Chest tube to suction; 3. BP stable. lacate wnl. Cultures pending, ABx Vanc/Pip-Tazo/Levaquin covering for atypicals PSDA and MRSA; Bronch based upon clinical course/cultures 4. Cont Duonebs and Steroids 5. improved with IV fluids (normalized) monitor UOP 6. continued f/u with ENT as outpatient 7. Oncology Consult DVT prophylaxis with Lovenox
[2016-05-24] MEDS: Venlafaxine XR (24 HR) 37.5 MG CAP.ER.24H PO SCH (08:17)
[2016-05-24] MEDS: *HR* OxyCODONE/APAP 7.5/325 TABLET PO PRN ×3 (08:17→23:01)
[2016-05-24] MEDS: Levofloxacin 750 MG/150 ML 750 MG/150 ML BAG IVPB SCH (08:18)
[2016-05-24] MEDS: Patient Taking Own Medication 1 EACH PO SCH (08:19)
[2016-05-24] MEDS: amLODIPine 5 MG TABLET PO SCH (11:37)
--- NOTE | 2016-05-24 17:17 | Internal Med Progress Note ---
Date of Encounter: 05/24/16 Time of Encounter: 10:50 - Assessment and plan (1) Pneumonia Current Visit: Yes Status: Acute Assessment and plan: Day 3 on Zosyn, Levflox and Vanco Continue same Qualifiers: Pneumonia type: due to unspecified organism Laterality: right Lung location: unspecified part of lung Qualified Code(s): J18.9 - Pneumonia, unspecified organism (2) Pneumothorax Current Visit: Yes Status: Acute Assessment and plan: Continue chest tube Management of chest tube per CTS Qualifiers: Pneumothorax type: spontaneous, primary Qualified Code(s): J93.11 - Primary spontaneous pneumothorax (3) Sepsis Current Visit: Yes Status: Acute Assessment and plan: Afebrile, BP WNL. Lactate WNL. Sputum and blood cultures WNL. continue antibiotics, as above Qualifiers: Sepsis type: sepsis due to unspecified organism Qualified Code(s): A41.9 - Sepsis, unspecified organism (4) Follicular thyroid cancer Current Visit: Yes Status: Chronic Assessment and plan: follow oncology (5) Hypertension Current Visit: Yes Status: Chronic Qualifiers: Hypertension type: essential hypertension Qualified Code(s): I10 - Essential (primary) hypertension (6) 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 Status: Chronic Assessment and plan: suction prn (7) SHWETA (acute kidney injury) Current Visit: Yes Status: Acute - Subjective Interval history: 66 Y/O M with Metastatic follicular thyroid CA , COPD Admitted for management of acute respiratory failure , sepsis secondary to HCAP , COPDE and Spontaneous pneumothorax, SHWETA Seen at bedside, reports improvement Was transferred from ICU to SDU yesterday with acute worsening of his respiratory status. CTA ruled out PE, he improved with lasix and O2 He is s/p chest tube insertion and being followed by CTS BP noted to be high on vital signs, patient denies prior hx of same - Constitutional Vitals: Temp Pulse Resp BP Pulse Ox 97.9 F 85 16 155/99 92 L 05/24/16 15:33 05/24/16 15:33 05/24/16 15:33 05/24/16 15:33 05/24/16 15:33 General appearance: Present: A&O X 3, pleasant, no acute distress - Head Head exam: Present: atraumatic, normocephalic - Eye Eye exam: Present: PERRL, conjuntiva pink, sclera anicteric Pupils: Present: PERRL - ENT ENT exam: Present: mucous membranes moist - Neck Additional comments: on trach collar, minimal serous secretions - Respiratory Respiratory exam: Present: rhonchi Additional comments: chest tube connected to suction - Cardiovascular Cardiovascular exam: Present: RRR, +S1, +S2 - GI/Abdominal GI/Abdominal exam: Present: normal bowel sounds, soft, no peritoneal signs. Absent: distended, tenderness - Extremities Exam Extremities exam: Present: warm, radial pulses palpable and symetrical. Absent : calf tenderness, cyanotic, pedal edema - Neurological Exam Neurological exam: Present: CN II-XII intact, oriented X3, no focal deficits, speech deficit. Absent: pronater drift, facial droop - Skin Skin exam: Present: dry, intact Internal Medicine: Result - Labs CBC & Chem 7: 05/24/16 03:13 05/24/16 03:13 Labs: Short CBC 05/24/16 Range/Units 03:13 WBC 21.3 H (4.3-11.1) K/mcL Hgb 10.4 L (12.9-16.9) g/dL Hct 31.7 L (37.5-50.1) % Plt Count 319 (140-400) K/mcL Neutrophils # 20.5 H (1.6-8.9) K/mcL BMP 05/24/16 03:13 Sodium 130 L Potassium 4.2 Chloride 91 L Carbon Dioxide 29 BUN 23 Creatinine 0.84 Glucose 180 H Calcium 9.3 - ABG Interpretation ABG results: ABG ABG pH 7.43 pH Units (7.32-7.45) 05/23/16 18:15 ABG pCO2 49 mmHg (35-45) H 05/23/16 18:15 ABG pO2 72 mmHg (85-104) L 05/23/16 18:15 ABG O2 Saturation 95 % (95-98) 05/23/16 18:15 - Impressions Impressions Chest X-Ray 05/23/16 18:04 IMPRESSION: 1. Improving right pleural effusion. 2. Small right apical pneumothorax D/ / Osorio Bourne MD / Osorio Bourne MD Interpreting Provider: Osorio Bourne MD Chest CTA 05/23/16 18:33 IMPRESSION: Decreasing size of right hydropneumothorax, after right chest tube placement. Improving atelectasis of the right lower lobe. Persistent dense consolidation within the right middle lobe, likely pneumonia. Persistent sequela of diffuse pulmonary metastatic disease. No findings to suggest large central pulmonary embolism as discussed above. D/ / Epifanio Garcia MD / Epifanio Garcia MD Interpreting Provider: Epifanio Garcia MD Chest X-Ray 05/24/16 06:00 IMPRESSION: Supportive tubing, including right basilar chest tube, are in stable positions. Persistent consolidation in right lung base. Possible small component of pleural effusion. No pneumothorax is identified. D/ / Dario Rogers MD / Dario Rogers MD Interpreting Provider: Dario Rogers MD Consult Discharge Plan - Plan Referrals: Dalton Monterroso Jr, MD [Primary Care Provider] -
[2016-05-24 22:41] LABS: Adenovirus Not Detected (Not Detect); Bordetella Pertussis Not Detected (Not Detect); Chlamydophila pneumoniae Not Detected (Not Detect); Coronavirus 229E Not Detected (Not Detect); Coronavirus HKU1 Not Detected (Not Detect); Coronavirus NL63 Not Detected (Not Detect); Coronavirus OC43 Not Detected (Not Detect); Human Metapneumovirus Not Detected (Not Detect); Human Rhinovirus/Enterovirus Not Detected (Not Detect); Influenza A Subtype 2009 H1 Not Detected (Not Detect); Influenza A Untypeable Not Detected (Not Detect); Influenza B Not Detected (Not Detect); Mycoplasma pneumoniae Not Detected (Not Detect); Parainfluenza Virus 1 Not Detected (Not Detect); Parainfluenza Virus 2 Not Detected (Not Detect); Parainfluenza Virus 3 Not Detected (Not Detect); Parainfluenza Virus 4 Not Detected (Not Detect); Respiratory Syncytial Virus Not Detected (Not Detect)
[2016-05-25] MEDS: Vancomycin 1,250 MG in D5% in Water 250 ML IVPB SCH ×2 (02:25→15:32)
[2016-05-25] MEDS: Ipratropium/Albuterol Neb 3 ML IH SCH ×4 (04:41→23:06)
[2016-05-25] MEDS: MethylPREDNISolone 40 MG/ML VIAL IVP SCH ×4 (06:13→23:50)
[2016-05-25] MEDS: *HR* Enoxaparin 40 MG/0.4 ML SYRINGE SQ SCH (06:14)
[2016-05-25] MEDS: Piperacillin/Tazobactam 3.375 GM in D5% in Water (Mini-Bag+) 100 ML IVPB SCH ×3 (06:14→22:25)
--- NOTE | 2016-05-25 08:33 | Cardiothoracic Progress Note ---
Date of Encounter: 05/25/16 Time of Encounter: 08:32 - Assessment and plan (1) Pneumothorax Current Visit: Yes Status: Acute The patient is a 66-year-old hypertensive man with COPD and metastatic follicular cell thyroid carcinoma. He presented to [facility] with worsening shortness of breath and dyspnea exertion. Chest x-ray revealed a right spontaneous pneumothorax and a small bore chest tube was inserted in the emergency department. The small bore chest tube was replaced with a larger chest tube which resolved the pneumothorax initially; however, the patient has a new right apical pneumothorax this morning. The chest tube should remain on suction today. The chest x-ray will be repeated tomorrow morning. The assessment and plan as outlined above was discussed with the patient and/or family members who expressed understanding and agreement. All questions were answered. Qualifiers: Pneumothorax type: spontaneous, primary Qualified Code(s): J93.11 - Primary spontaneous pneumothorax - Subjective Interval history: The patient is resting comfortably in his hospital bed. He is breathing comfortably and has no complaints. Vital Signs, Last 4 Hours Temp Pulse Resp BP Pulse Ox 05/25/16 07:49 92 05/25/16 07:12 97.7 F 87 16 134/83 97 05/25/16 04:41 15 95 Oxgyen Flow Rate Oxygen Flow Rate (LPM) 10 Clinical Data, last 8 Hours Output, Chest Tube Drainage 30 Amount [Right Lateral Chest #4 ] Output, Urine Amount 250 Weight 05/23/16 05/24/16 05/25/16 23:59 23:59 23:59 Weight 75.75 kg 76.9 kg 77 kg - Physical Examination General: Conversant, No Apparent Distress Cardiac: Reg Rate and Rhythm, Normal S1 and S2, No Murmur Chest tubes: Minimal drainage, Other (No air leak.) Lungs: Normal Breath Sounds, No Wheeze, Rales, Rhonchi Neuro: Alert and responsive, No focal deficits noted Vascular: Normal capillary refill Musculoskeletal: No Chest Wall Tenderness Extremities: No Clubbing, No Cyanosis, No Edema - Labs 05/24/16 03:13 05/24/16 03:13 - Imaging Chest Xray: image reviewed (New right apical pneumothorax.) Consult Discharge Plan - Plan Referrals: Dalton Monterroso Jr, MD [Primary Care Provider] -
--- NOTE | 2016-05-25 08:57 | Pulmonology Progress Note ---
Date of Encounter: 05/25/16 Time of Encounter: 08:56 Assessment and Plan (1) Pneumonia Current Visit: Yes Status: Acute Impression: 1. Acute Respiratory Failure 2. Spontaneous PTX (likely s/t PNA) s/p Pleural Drain 14F catheter placed development of PTx overnight ?related to clogging of small bore catheter this was flushed with temporary air leak noted in chest tube. 3. Sepsis s/t HAP (RML consolidation) 4. COPD with acute exacerbation 5. Chronic Trach 6. SHWETA 7. Metastatic Thyroid CA Plan: 1. Good Sats on Trach collar wean to keep O2 sats >88% to 92% 2. Cont Chest tube to suction; Repeat CXR. may need to flush catheter BID 3. BP stable. lacate wnl. Cultures pending, Prelim GNR (?PSDA) cont ABx Vanc/ Pip-Tazo/Levaquin covering for atypicals PSDA and MRSA; Bronch based upon clinical course/cultures 4. Cont Duonebs and Steroids 5. improved with IV fluids (normalized) monitor UOP 6. continued f/u with ENT as outpatient 7. Oncology f/u DVT prophylaxis with Lovenox Qualifiers: Pneumonia type: due to unspecified organism Laterality: right Lung location: unspecified part of lung Qualified Code(s): J18.9 - Pneumonia, unspecified organism (2) Sepsis Current Visit: Yes Status: Acute Qualifiers: Sepsis type: sepsis due to unspecified organism Qualified Code(s): A41.9 - Sepsis, unspecified organism (3) DVT prophylaxis Current Visit: Yes Status: Acute (4) Pneumothorax Current Visit: Yes Status: Acute Qualifiers: Pneumothorax type: spontaneous, primary Qualified Code(s): J93.11 - Primary spontaneous pneumothorax (5) Follicular thyroid cancer Current Visit: Yes Status: Chronic (6) Lung metastasis Current Visit: No Status: Acute Qualifiers: Laterality: right Qualified Code(s): C78.01 - Secondary malignant neoplasm of right lung (7) 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 Status: Chronic Subjective Principal diagnosis: PTX Interval history: Much better color today. He reports he feels much better with less secretions from trach noted CXR today showed return of PTx Pleural drain has remained on wall suction Objective PUL Vital signs: Last Vital Signs Temp 97.7 F 05/25/16 07:12 Pulse 92 05/25/16 07:49 Resp 16 05/25/16 07:12 BP 134/83 05/25/16 07:12 Pulse Ox 97 05/25/16 07:12 General appearance: no acute distress ENT: oropharynx moist Auscultation: bilateral: diminished breath sounds, wheezes (improved from prior exam ), rhonchi Cardiovascular: regular rate and rhythm Gastrointestinal: non-tender Extremities: no edema Musculoskeletal: no deformities normal mental status, non-focal exam mood appropriate Results - Laboratory Findings CBC and BMP: 05/24/16 03:13 05/24/16 03:13 ABG ABG pH 7.43 pH Units (7.32-7.45) 05/23/16 18:15 ABG pCO2 49 mmHg (35-45) H 05/23/16 18:15 ABG pO2 72 mmHg (85-104) L 05/23/16 18:15 ABG O2 Saturation 95 % (95-98) 05/23/16 18:15 Abnormal lab findings: Abnormal lab results WBC 21.3 K/mcL (4.3-11.1) H 05/24/16 03:13 RBC 4.00 M/mcL (4.19-5.50) L 05/24/16 03:13 Hgb 10.4 g/dL (12.9-16.9) L 05/24/16 03:13 Hct 31.7 % (37.5-50.1) L 05/24/16 03:13 MCV 79.3 fL (83.0-100.0) L 05/24/16 03:13 MCH 26.0 pg (28.0-33.3) L 05/24/16 03:13 RDW 16.7 % (11.5-14.5) H 05/24/16 03:13 MPV 9.2 fL (9.4-12.4) L 05/24/16 03:13 Neutrophils # 20.5 K/mcL (1.6-8.9) H 05/24/16 03:13 Lymphocytes # 0.3 K/mcL (0.6-4.6) L 05/24/16 03:13 Dohle Bodies Present (Not Present) A 05/22/16 19:48 Large Platelets Present (Not Present) A 05/22/16 19:48 Polychromasia 1+ (Not Present) A 05/22/16 19:48 ABG pCO2 49 mmHg (35-45) H 05/23/16 18:15 ABG pO2 72 mmHg (85-104) L 05/23/16 18:15 ABG HCO3 32.5 mEQ/L (21-27) H 05/23/16 18:15 ABG Total CO2 34.0 mEq/L (20-26) H 05/23/16 18:15 ABG Base Excess 7.1 mEq/L (-2.0 to 3.0) H 05/23/16 18:15 Sodium 130 mEq/L (136-145) L 05/24/16 03:13 Chloride 91 mEq/L (98-109) L 05/24/16 03:13 BUN/Creatinine Ratio 27 (6-26) H 05/24/16 03:13 Glucose 180 mg/dL (70-99) H 05/24/16 03:13 POC Glucose 119 (58-89) H 05/23/16 02:20 Calculated Osmolality 278 (280-300) L 05/24/16 03:13 Albumin 2.3 g/dL (3.5-5.0) L 05/22/16 19:48 Globulin 6.0 g/dL (2.4-3.5) H 05/22/16 19:48 Albumin/Globulin Ratio 0.4 (1.1-2.2) L 05/22/16 19:48 Vancomycin Trough 9.1 mcg/mL (10-20) L 05/25/16 00:34 - Microbiology Findings Microbiology Findings: Microbiology, Last 48 Hours 05/24/16 08:05 Sputum Culture - Preliminary Sputum Gram Negative Marlon Yeast Species - Diagnostic Findings Chest x-ray: report reviewed CT scan - chest: report reviewed, image reviewed - Clinical Findings Intake & Output: Intake & Output 05/24/16 05/25/16 05/25/16 23:59 07:59 15:59 Intake Total 300 / 300 450 / 450 Output Total 705 / 705 280 / 280 Balance -405 / -405 170 / 170 Weight 77 kg Consult Discharge Plan - Plan Referrals: Dalton Monterroso Jr, MD [Primary Care Provider] -
[2016-05-25] MEDS: Venlafaxine XR (24 HR) 37.5 MG CAP.ER.24H PO SCH (09:49)
[2016-05-25] MEDS: amLODIPine 5 MG TABLET PO SCH (09:50)
[2016-05-25] MEDS: Levofloxacin 750 MG/150 ML 750 MG/150 ML BAG IVPB SCH (09:50)
[2016-05-25 09:56] LABS: Basophils % 0.1 %; Hematocrit 34.2 % (37.5-50.1); Hemoglobin 10.9 g/dL (12.9-16.9); Immature Granulocytes % 1.5 % (0-4); Lymphocytes # 0.6 K/mcL (0.6-4.6); Lymphocytes % 2.7 %; Mean Corpuscular HGB Conc 31.9 g/dL (31.6-35.5); Mean Corpuscular Volume 81.4 fL (83.0-100.0); Mean Platelet Volume 9.2 fL (9.4-12.4); Monocytes # 0.4 K/mcL (0.0-1.3); Neutrophils # 19.3 K/mcL (1.6-8.9); Platelet Count 434 K/mcL (140-400); Segmented Neutrophils % 93.7 %
[2016-05-25 09:59] LABS: Alanine Aminotransferase 31 Units/L (0-55); Albumin/Globulin Ratio 0.3 (1.1-2.2); Alkaline Phosphatase 110 Units/L (38-126); Aspartate Amino Transferase 31 Units/L (5-34); BUN/Creatinine Ratio 31 (6-26); Bilirubin,Total 0.3 mg/dL (0.2-1.2); Blood Urea Nitrogen 30 mg/dL (8-26); Calcium 8.9 mg/dL (8.6-10.8); Carbon Dioxide 31 mEq/L (19-29); Chloride 90 mEq/L (98-109); Globulin 5.4 g/dL (2.4-3.5); Glucose 231 mg/dL (70-99); Osmolality,Calculated 288 (280-300); Potassium 4.2 mEq/L (3.5-4.5); Sodium 132 mEq/L (136-145); Total Protein 7.2 g/dL (6.0-8.3); eGFR For African Americans > 60 (> 60); eGFR For Non-African Americans > 60 (> 60)
[2016-05-25 10:01] LABS: Albumin 1.8 g/dL (3.5-5.0)
[2016-05-25] MEDS: Patient Taking Own Medication 1 EACH PO SCH (10:35)
--- NOTE | 2016-05-25 11:37 | Internal Med Progress Note ---
Date of Encounter: 05/25/16 Time of Encounter: 09:40 - Assessment and plan (1) Pneumonia Current Visit: Yes Status: Acute Assessment and plan: Day 4 on Zosyn, Levflox and Vanco Sputum culture with GNR Will follow sensitivity when available and de-escalate antibiotics prn Continue same regimen for now Qualifiers: Pneumonia type: due to unspecified organism Laterality: right Lung location: unspecified part of lung Qualified Code(s): J18.9 - Pneumonia, unspecified organism (2) Pneumothorax Current Visit: Yes Status: Acute Assessment and plan: Continue chest tube Management of chest tube per CTS Qualifiers: Pneumothorax type: spontaneous, primary Qualified Code(s): J93.11 - Primary spontaneous pneumothorax (3) Sepsis Current Visit: Yes Status: Acute Assessment and plan: Afebrile, BP WNL. Lactate WNL. Sputum culture noted Blood culture preliminary negative Persistent leukocytosis, will monitor continue antibiotics, as above Qualifiers: Sepsis type: sepsis due to unspecified organism Qualified Code(s): A41.9 - Sepsis, unspecified organism (4) Follicular thyroid cancer Current Visit: Yes Status: Chronic Assessment and plan: follow oncology (5) Hypertension Current Visit: Yes Status: Chronic Qualifiers: Hypertension type: essential hypertension Qualified Code(s): I10 - Essential (primary) hypertension (6) 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 Status: Chronic Assessment and plan: suction prn (7) SHWETA (acute kidney injury) Current Visit: Yes Status: Resolved Assessment and plan: Resolved, creatinine WNL - Subjective Interval history: 66 Y/O M with Metastatic follicular thyroid CA , COPD Admitted for management of acute respiratory failure , sepsis secondary to HCAP , COPDE and Spontaneous pneumothorax, SHWETA Seen at bedside, reports improvement, has no new complains New diagnosis of HTN yesterday BP has improved with meds CXR today shows persistence of pneumothorax, CTS is on board Sputum culture growing GNR and yeast, patient is on triple a/b coverage Blood culture preliminary negative - Constitutional Vitals: Temp Pulse Resp BP Pulse Ox 97.9 F 90 18 121/76 93 L 05/25/16 11:09 05/25/16 11:17 05/25/16 11:09 05/25/16 11:09 05/25/16 11:09 General appearance: Present: A&O X 3, pleasant, no acute distress - Head Head exam: Present: atraumatic, normocephalic - Eye Eye exam: Present: PERRL, conjuntiva pink, sclera anicteric Pupils: Present: PERRL - ENT ENT exam: Present: mucous membranes moist - Neck Additional comments: Trach collar with mucoid discharge - Respiratory Respiratory exam: Present: rhonchi Additional comments: Chest tube no air leak - Cardiovascular Cardiovascular exam: Present: RRR, +S1, +S2 - GI/Abdominal GI/Abdominal exam: Present: normal bowel sounds, soft, no peritoneal signs. Absent: tenderness - Extremities Exam Extremities exam: Present: normal inspection, warm. Absent: pedal edema - Neurological Exam Neurological exam: Present: CN II-XII intact, oriented X3, no focal deficits, speech deficit (From trach). Absent: pronater drift, facial droop - Skin Skin exam: Present: dry Internal Medicine: Result - Labs CBC & Chem 7: 05/25/16 09:35 05/25/16 09:35 Labs: Short CBC 05/25/16 Range/Units 09:35 WBC 20.6 H (4.3-11.1) K/mcL Hgb 10.9 L (12.9-16.9) g/dL Hct 34.2 L (37.5-50.1) % Plt Count 434 H (140-400) K/mcL Neutrophils # 19.3 H (1.6-8.9) K/mcL BMP 05/25/16 09:35 Sodium 132 L Potassium 4.2 Chloride 90 L Carbon Dioxide 31 H BUN 30 H Creatinine 0.97 Glucose 231 H Calcium 8.9 Liver Function 05/25/16 Range/Units 09:35 Total Bilirubin 0.3 (0.2-1.2) mg/dL AST 31 (5-34) Units/L ALT 31 (0-55) Units/L Alkaline Phosphatase 110 (38-126) Units/L Albumin 1.8 L D (3.5-5.0) g/dL - ABG Interpretation ABG results: ABG ABG pH 7.43 pH Units (7.32-7.45) 05/23/16 18:15 ABG pCO2 49 mmHg (35-45) H 05/23/16 18:15 ABG pO2 72 mmHg (85-104) L 05/23/16 18:15 ABG O2 Saturation 95 % (95-98) 05/23/16 18:15 - Impressions Impressions Chest X-Ray 05/25/16 06:00 IMPRESSION: Right apical pneumothorax. Stable bibasilar atelectasis D/ / Juan J Licea MD / Juan J Licea MD Interpreting Provider: Juan J Licea MD Consult Discharge Plan - Plan Referrals: Dalton Monterroso Jr, MD [Primary Care Provider] -
[2016-05-25] MEDS: *HR* Morphine 2 MG/ML SYRINGE IVP PRN ×2 (17:43→22:24)
[2016-05-25 17:56] LABS: ABG Base Excess 10.6 mEq/L (-2.0 to 3.0); ABG HCO3 34.3 mEQ/L (21-27); ABG Oxygen Saturation 93 % (95-98); ABG PCO2 41 mmHg (35-45); ABG PH 7.53 pH Units (7.32-7.45); ABG PO2 59 mmHg (85-104); ABG TCO2 35.6 mEq/L (20-26); Blood Gas FiO2 28 %
[2016-05-25] MEDS: *HR* OxyCODONE/APAP 7.5/325 TABLET PO PRN (20:46)
[2016-05-26 00:34] LABS: Basophils % 0.1 %; Hematocrit 30.6 % (37.5-50.1); Hemoglobin 9.9 g/dL (12.9-16.9); Immature Granulocytes % 0.8 % (0-4); Lymphocytes # 0.6 K/mcL (0.6-4.6); Lymphocytes % 4.1 %; Mean Corpuscular HGB Conc 32.4 g/dL (31.6-35.5); Mean Corpuscular Hemoglobin 26.2 pg (28.0-33.3); Mean Platelet Volume 9.2 fL (9.4-12.4); Monocytes # 0.6 K/mcL (0.0-1.3); Monocytes % 3.6 %; Platelet Count 339 K/mcL (140-400); Red Blood Count 3.78 M/mcL (4.19-5.50); Red Cell Distribution Width 16.7 % (11.5-14.5); Segmented Neutrophils % 91.4 %
[2016-05-26] MEDS ORDERED: *HR* LORazepam 2 MG/ML VIAL IVP STA (01:45)
[2016-05-26] MEDS ORDERED: *HR* LORazepam 2 MG/ML VIAL ONE (01:48)
[2016-05-26] MEDS: *HR* OxyCODONE/APAP 7.5/325 TABLET PO PRN (01:54)
[2016-05-26] MEDS: Vancomycin 1,250 MG in D5% in Water 250 ML IVPB SCH (02:12)
[2016-05-26] MEDS: *HR* Morphine 2 MG/ML SYRINGE IVP PRN (02:54)
[2016-05-26] MEDS ORDERED: *HR* LORazepam 2 MG/ML VIAL IVP ONE (03:35)
[2016-05-26] MEDS ORDERED: Haloperidol Lactate 5 MG/ML VIAL IVP ONE (03:35)
[2016-05-26] MEDS: Ipratropium/Albuterol Neb 3 ML IH SCH ×4 (03:50→22:41)
[2016-05-26] MEDS: Piperacillin/Tazobactam 3.375 GM in D5% in Water (Mini-Bag+) 100 ML IVPB SCH (06:06)
[2016-05-26] MEDS: MethylPREDNISolone 40 MG/ML VIAL IVP SCH ×3 (06:06→15:10)
[2016-05-26] MEDS: *HR* Enoxaparin 40 MG/0.4 ML SYRINGE SQ SCH (06:06)
[2016-05-26] MEDS ORDERED: Aminoglycoside Consult 1 EACH MC ONE (09:05)
[2016-05-26] MEDS: Levofloxacin 750 MG/150 ML 750 MG/150 ML BAG IVPB SCH (09:20)
--- NOTE | 2016-05-26 11:45 | Cardiothoracic Progress Note ---
Date of Encounter: 05/26/16 Time of Encounter: 11:43 - Assessment and plan (1) Pneumothorax Current Visit: Yes Status: Acute The patient is a 66-year-old hypertensive man with COPD and metastatic follicular cell thyroid carcinoma. He presented to [facility] with worsening shortness of breath and dyspnea exertion. Chest x-ray revealed a right spontaneous pneumothorax and a small bore chest tube was inserted in the emergency department. The small bore chest tube was replaced with a larger chest tube which resolved the pneumothorax initially; however, the patient has a persistent right apical pneumothorax this morning. This may be due to clogging of the small bore chest tube. The chest tube should remain on suction today. The chest x-ray will be repeated tomorrow morning, and if the patient has a persistent pneumothorax a larger chest tube should be considered. The assessment and plan as outlined above was discussed with the patient and/or family members who expressed understanding and agreement. All questions were answered. Qualifiers: Pneumothorax type: spontaneous, primary Qualified Code(s): J93.11 - Primary spontaneous pneumothorax - Subjective Interval history: The patient is resting comfortably in his hospital bed. He is breathing comfortably and has no complaints. Vital Signs, Last 4 Hours Temp Pulse Resp BP Pulse Ox 05/26/16 11:29 97.4 F L 86 14 123/98 94 L 05/26/16 10:21 14 95 05/26/16 09:25 70 95 Oxgyen Flow Rate Oxygen Flow Rate (LPM) 3.5 Clinical Data, last 8 Hours Output, Chest Tube Drainage 20 Amount [Right Lateral Chest #4 ] Output, Chest Tube Drainage 0 Amount [Right Lateral Chest #4 ] Weight 05/24/16 05/25/16 05/26/16 23:59 23:59 23:59 Weight 76.9 kg 77 kg 76.6 kg - Physical Examination General: Conversant, No Apparent Distress Neck: No JVD, Normal carotid pulses Cardiac: Reg Rate and Rhythm, Normal S1 and S2, No Murmur Incision: No signs of infection Chest tubes: Minimal drainage, Other (No air leak.) Lungs: Normal Breath Sounds, No Wheeze, Rales, Rhonchi Neuro: Alert and responsive, No focal deficits noted Extremities: No Clubbing, No Cyanosis, No Edema - Labs 05/26/16 00:27 05/25/16 09:35 Lab Results, Last 24 hours 05/26/16 00:27 WBC 15.4 H Hgb 9.9 L Hct 30.6 L Plt Count 339 - Imaging Chest Xray: image reviewed (No change in right apical pneumothorax.) Consult Discharge Plan - Plan Referrals: Dalton Monterroso Jr, MD [Primary Care Provider] -
--- NOTE | 2016-05-26 14:36 | Internal Med Progress Note ---
Date of Encounter: 05/26/16 Time of Encounter: 09:45 - Assessment and plan (1) Pneumonia Current Visit: Yes Status: Acute Assessment and plan: Received 4 days of Zosyn, Levflox and Vanco Sputum culture with pansnsitive psudomonas, sensitive to Levoflox Bld culture is negative D/C Zosyn and Vanco Continue Levoflox, day 5 Taper down steroids Continue O2 therapy Qualifiers: Pneumonia type: due to unspecified organism Laterality: right Lung location: unspecified part of lung Qualified Code(s): J18.9 - Pneumonia, unspecified organism (2) Pneumothorax Current Visit: Yes Status: Acute Assessment and plan: Continue chest tube Management of chest tube per CTS Qualifiers: Pneumothorax type: spontaneous, primary Qualified Code(s): J93.11 - Primary spontaneous pneumothorax (3) Sepsis Current Visit: Yes Status: Acute Assessment and plan: Afebrile, BP WNL. Lactate WNL. Sputum culture noted Blood culture preliminary negative Persistent leukocytosis, will monitor continue antibiotics, as above Qualifiers: Sepsis type: sepsis due to unspecified organism Qualified Code(s): A41.9 - Sepsis, unspecified organism (4) Follicular thyroid cancer Current Visit: Yes Status: Chronic Assessment and plan: follow oncology (5) Hypertension Current Visit: Yes Status: Chronic Assessment and plan: Increase amlodipine Qualifiers: Hypertension type: essential hypertension Qualified Code(s): I10 - Essential (primary) hypertension (6) 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 Status: Chronic Assessment and plan: suction prn (7) SHWETA (acute kidney injury) Current Visit: Yes Status: Resolved Assessment and plan: Resolved, creatinine WNL (8) Delirium Current Visit: Yes Status: Acute Assessment and plan: Oreintation and reoreintation Avoid benzodiazepine fall precautions - Subjective Interval history: 66 Y/O M with Metastatic follicular thyroid CA , COPD Admitted for management of acute respiratory failure , sepsis secondary to HCAP from hansen-sensitive pseudomonas, COPDE and Spontaneous pneumothorax, SHWETA In this admission, with new diagnosis of HTN Patient said to have been agitated and somewhat aggressive to staff and received ativan and haldol At my time of review, he was fast asleep with vocal response to name call and greetings His CXR shows pneumothorax is persistent Sputum culture with pseudomonas hansen-sensitive Will de-escalate to Levoquin only - Constitutional Vitals: Temp Pulse Resp BP Pulse Ox 97.4 F L 79 14 123/98 99 05/26/16 11:29 05/26/16 12:25 05/26/16 11:29 05/26/16 11:29 05/26/16 13:16 General appearance: Present: pleasant, no acute distress - Head Head exam: Present: atraumatic, normocephalic - Eye Eye exam: Present: PERRL, conjuntiva pink, sclera anicteric Pupils: Present: PERRL - Neck Additional comments: trach, no discharge - Respiratory Respiratory exam: Present: rhonchi - Cardiovascular Cardiovascular exam: Present: RRR, +S1, +S2 - GI/Abdominal GI/Abdominal exam: Present: normal bowel sounds, soft, no peritoneal signs. Absent: tenderness - Extremities Exam Extremities exam: Absent: pedal edema - Neurological Exam Additional comments: Sleeping but rousable to name call MOves all limbs spontaneously - Skin Skin exam: Present: dry Internal Medicine: Result - Labs CBC & Chem 7: 05/26/16 00:27 05/25/16 09:35 Labs: Short CBC 05/26/16 Range/Units 00:27 WBC 15.4 H (4.3-11.1) K/mcL Hgb 9.9 L (12.9-16.9) g/dL Hct 30.6 L (37.5-50.1) % Plt Count 339 (140-400) K/mcL Neutrophils # 14.0 H (1.6-8.9) K/mcL - ABG Interpretation ABG results: ABG ABG pH 7.53 pH Units (7.32-7.45) H 05/25/16 17:47 ABG pCO2 41 mmHg (35-45) 05/25/16 17:47 ABG pO2 59 mmHg (85-104) L 05/25/16 17:47 ABG O2 Saturation 93 % (95-98) L 05/25/16 17:47 - Impressions Impressions Chest X-Ray 05/26/16 06:00 IMPRESSION: No change. D/ / 05/26/2016 10:20:30 Jeremy Ochoa MD / earnold Interpreting Provider: Jeremy Ochoa MD Consult Discharge Plan - Plan Referrals: Dalton Monterroso Jr, MD [Primary Care Provider] -
--- NOTE | 2016-05-26 14:55 | Pulmonology Progress Note ---
Date of Encounter: 05/26/16 Time of Encounter: 14:51 Assessment and Plan (1) Pneumonia Current Visit: Yes Status: Acute Impression: 1. Acute Respiratory Failure 2. Spontaneous PTX (likely s/t PNA) s/p Pleural Drain 14F catheter placed development of PTx overnight ?related to clogging of small bore catheter this was flushed with temporary air leak noted in chest tube.. [place] pus continues to come from pleural space discussed case with cardiothoracic surgery today possible upgrade to a larger bore chest tube based upon clinical course of no resolution of pneumothorax with increased purulent drainage clinically patient appears to be improving decreased white count and is on appropriate antimicrobials 3. Sepsis s/t HAP (RML consolidation) has pansensitive pseudomonas 4. COPD with acute exacerbation 5. Chronic Trach Plan: 1. Good Sats on Trach collar wean to keep O2 sats >88% to 92% 2. Cont Chest tube to suction; 3. BP stable. lacate wnl. Cultures pending, continue Levaquin recommend at least 14 day course 4. Cont Duonebs and Steroids 5. improved with IV fluids (normalized) monitor UOP DVT prophylaxis with Lovenox Qualifiers: Pneumonia type: due to unspecified organism Laterality: right Lung location: unspecified part of lung Qualified Code(s): J18.9 - Pneumonia, unspecified organism (2) Sepsis Current Visit: Yes Status: Acute Qualifiers: Sepsis type: sepsis due to unspecified organism Qualified Code(s): A41.9 - Sepsis, unspecified organism (3) DVT prophylaxis Current Visit: Yes Status: Acute (4) Pneumothorax Current Visit: Yes Status: Acute Qualifiers: Pneumothorax type: spontaneous, primary Qualified Code(s): J93.11 - Primary spontaneous pneumothorax (5) Follicular thyroid cancer Current Visit: Yes Status: Chronic (6) Lung metastasis Current Visit: No Status: Acute Qualifiers: Laterality: right Qualified Code(s): C78.01 - Secondary malignant neoplasm of right lung (7) 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 Status: Chronic Subjective Principal diagnosis: PTX Interval history: Overnight up really became altered and combative and was given anxiolytics 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 Remains afebrile Objective PUL Vital signs: Last Vital Signs Temp 97.4 F L 05/26/16 11:29 Pulse 79 05/26/16 12:25 Resp 14 05/26/16 11:29 BP 123/98 05/26/16 11:29 Pulse Ox 99 05/26/16 13:16 General appearance: lethargic, asleep Effort: normal Auscultation: right: diminished breath sounds, bilateral: rhonchi Cardiovascular: regular rate and rhythm Gastrointestinal: tender Extremities: no clubbing unable to assess due to mental status Results - Laboratory Findings CBC and BMP: 05/26/16 00:27 05/25/16 09:35 ABG ABG pH 7.53 pH Units (7.32-7.45) H 05/25/16 17:47 ABG pCO2 41 mmHg (35-45) 05/25/16 17:47 ABG pO2 59 mmHg (85-104) L 05/25/16 17:47 ABG O2 Saturation 93 % (95-98) L 05/25/16 17:47 Abnormal lab findings: Abnormal lab results WBC 15.4 K/mcL (4.3-11.1) H 05/26/16 00:27 RBC 3.78 M/mcL (4.19-5.50) L 05/26/16 00:27 Hgb 9.9 g/dL (12.9-16.9) L 05/26/16 00:27 Hct 30.6 % (37.5-50.1) L 05/26/16 00:27 MCV 81.0 fL (83.0-100.0) L 05/26/16 00:27 MCH 26.2 pg (28.0-33.3) L 05/26/16 00:27 RDW 16.7 % (11.5-14.5) H 05/26/16 00:27 MPV 9.2 fL (9.4-12.4) L 05/26/16 00:27 Neutrophils # 14.0 K/mcL (1.6-8.9) H 05/26/16 00:27 Dohle Bodies Present (Not Present) A 05/22/16 19:48 Large Platelets Present (Not Present) A 05/22/16 19:48 Polychromasia 1+ (Not Present) A 05/22/16 19:48 ABG pH 7.53 pH Units (7.32-7.45) H 05/25/16 17:47 ABG pO2 59 mmHg (85-104) L 05/25/16 17:47 ABG HCO3 34.3 mEQ/L (21-27) H 05/25/16 17:47 ABG Total CO2 35.6 mEq/L (20-26) H 05/25/16 17:47 ABG O2 Saturation 93 % (95-98) L 05/25/16 17:47 ABG Base Excess 10.6 mEq/L (-2.0 to 3.0) H 05/25/16 17:47 Sodium 132 mEq/L (136-145) L 05/25/16 09:35 Chloride 90 mEq/L (98-109) L 05/25/16 09:35 Carbon Dioxide 31 mEq/L (19-29) H 05/25/16 09:35 BUN 30 mg/dL (8-26) H 05/25/16 09:35 BUN/Creatinine Ratio 31 (6-26) H 05/25/16 09:35 Glucose 231 mg/dL (70-99) H 05/25/16 09:35 POC Glucose 119 (58-89) H 05/23/16 02:20 Albumin 1.8 g/dL (3.5-5.0) L D 05/25/16 09:35 Globulin 5.4 g/dL (2.4-3.5) H 05/25/16 09:35 Albumin/Globulin Ratio 0.3 (1.1-2.2) L 05/25/16 09:35 - Microbiology Findings Microbiology Findings: Microbiology, Last 48 Hours 05/24/16 08:05 Sputum Culture - Preliminary Sputum Pseudomonas aeruginosa Yeast Species - Clinical Findings Intake & Output: Intake & Output 05/25/16 05/26/16 05/26/16 23:59 07:59 15:59 Intake Total 350 / 350 100 / 100 236 / 236 Output Total 430 / 430 0 / 0 Balance -80 / -80 100 / 100 216 / 216 Weight 76.6 kg Consult Discharge Plan - Plan Referrals: Dalton Monterroso Jr, MD [Primary Care Provider] -
[2016-05-26] MEDS: amLODIPine 5 MG TABLET PO SCH (15:07)
[2016-05-26] MEDS: Venlafaxine XR (24 HR) 37.5 MG CAP.ER.24H PO SCH (15:07)
[2016-05-26] MEDS: Patient Taking Own Medication 1 EACH PO SCH (15:08)
[2016-05-27] MEDS: *HR* Enoxaparin 40 MG/0.4 ML SYRINGE SQ SCH (05:10)
[2016-05-27] MEDS: Ipratropium/Albuterol Neb 3 ML IH SCH ×4 (05:20→22:50)
[2016-05-27 06:20] LABS: Basophils % 0.2 %; Hematocrit 34.3 % (37.5-50.1); Hemoglobin 10.7 g/dL (12.9-16.9); Immature Granulocytes % 1.1 % (0-4); Lymphocytes # 0.6 K/mcL (0.6-4.6); Lymphocytes % 3.9 %; Mean Corpuscular HGB Conc 31.2 g/dL (31.6-35.5); Mean Corpuscular Hemoglobin 25.4 pg (28.0-33.3); Mean Corpuscular Volume 81.5 fL (83.0-100.0); Mean Platelet Volume 9.2 fL (9.4-12.4); Monocytes # 0.8 K/mcL (0.0-1.3); Monocytes % 4.7 %; Neutrophils # 14.4 K/mcL (1.6-8.9); Platelet Count 414 K/mcL (140-400); Red Blood Count 4.21 M/mcL (4.19-5.50); Red Cell Distribution Width 16.9 % (11.5-14.5); Segmented Neutrophils % 90.1 %
[2016-05-27 06:36] LABS: BUN/Creatinine Ratio 42 (6-26); Blood Urea Nitrogen 33 mg/dL (8-26); Calcium 8.2 mg/dL (8.6-10.8); Carbon Dioxide 29 mEq/L (19-29); Chloride 97 mEq/L (98-109); Glucose 154 mg/dL (70-99); Osmolality,Calculated 292 (280-300); Potassium 4.7 mEq/L (3.5-4.5); Sodium 136 mEq/L (136-145); eGFR For African Americans > 60 (> 60); eGFR For Non-African Americans > 60 (> 60)
--- NOTE | 2016-05-27 07:17 | Cardiothoracic Progress Note ---
Date of Encounter: 05/27/16 Time of Encounter: 07:15 - Assessment and plan (1) Pneumothorax Current Visit: Yes Status: Acute The patient is a 66-year-old hypertensive man with COPD and metastatic follicular cell thyroid carcinoma. He has a persistent right apical pneumothorax despite a smallbore chest tube being in appropriate position. A larger chest tube will be inserted later today in hopes of resolving the pneumothorax and allowing more complete drainage of the purulent pleural effusion. The assessment and plan as outlined above was discussed with the patient and/or family members who expressed understanding and agreement. All questions were answered. Qualifiers: Pneumothorax type: spontaneous, primary Qualified Code(s): J93.11 - Primary spontaneous pneumothorax - Subjective Interval history: The patient is resting comfortably in his hospital bed. He is breathing comfortably and has no complaints. Vital Signs, Last 4 Hours Temp Pulse Resp BP Pulse Ox 05/27/16 03:50 97.5 F L 74 22 126/77 93 L Oxgyen Flow Rate Oxygen Flow Rate (LPM) 10 Clinical Data, last 8 Hours Output, Chest Tube Drainage 10 Amount [Right Lateral Chest #4 ] Output, Chest Tube Drainage 20 Amount [Right Lateral Chest #4 ] Output, Urine Amount 325 Weight 05/25/16 05/26/16 05/27/16 23:59 23:59 23:59 Weight 77 kg 76.6 kg 75.3 kg - Physical Examination General: Conversant, No Apparent Distress Neck: No JVD, Normal carotid pulses Cardiac: Reg Rate and Rhythm, Normal S1 and S2, No Murmur Incision: No signs of infection, Dry/intact dressing Chest tubes: Minimal drainage, Other (No air leak.) Lungs: Normal Breath Sounds, No Wheeze, Rales, Rhonchi Neuro: Alert and responsive, No focal deficits noted Vascular: Normal capillary refill Extremities: No Clubbing, No Cyanosis, No Edema - Labs 05/27/16 05:05 05/27/16 05:05 Lab Results, Last 24 hours 05/27/16 05/27/16 05:05 05:05 WBC 16.0 H Hgb 10.7 L Hct 34.3 L Plt Count 414 H Sodium 136 Potassium 4.7 H Chloride 97 L Carbon Dioxide 29 BUN 33 H Creatinine 0.78 Glucose 154 H Calcium 8.2 L - Imaging Chest Xray: image reviewed (Small right apical pneumothorax, unchanged.) Consult Discharge Plan - Plan Referrals: Dalton Monterroso Jr, MD [Primary Care Provider] -
[2016-05-27] MEDS: Venlafaxine XR (24 HR) 37.5 MG CAP.ER.24H PO SCH (08:46)
[2016-05-27] MEDS: amLODIPine 5 MG TABLET PO SCH (08:47)
[2016-05-27] MEDS: Levofloxacin 750 MG/150 ML 750 MG/150 ML BAG IVPB SCH (08:49)
[2016-05-27] MEDS: MethylPREDNISolone 40 MG/ML VIAL IVP SCH ×3 (08:50→14:53)
[2016-05-27] MEDS: Patient Taking Own Medication 1 EACH PO SCH (08:59)
[2016-05-27] MEDS ORDERED: Sennosides 8.6 MG TABLET PO PRN (10:26)
[2016-05-27] MEDS: *HR* Morphine 2 MG/ML SYRINGE IVP PRN (12:37)
--- NOTE | 2016-05-27 13:40 | Operative Note ---
Date of procedure: 05/27/16 Pre-op diagnosis: Persistent right apical pneumothorax. Post-op diagnosis: same Procedure: 1. Right chest tube insertion. Implants: 1. 32 Czech chest tube. Complications: None. Anesthesia: local Local Anesthetics: 1% Lidocaine HCL SubQ (cc) (7) Surgeon: González Clarke Specimen: None. Condition: stable Disposition: floor Procedure in Detail: INDICATIONS FOR PROCEDURE: The patient is a 66-year-old hypertensive man with COPD and metastatic follicular cell thyroid carcinoma. He presented to [facility] with worsening shortness of breath and dyspnea exertion. Chest x-ray revealed a right spontaneous pneumothorax and a small bore chest tube was inserted in the emergency department. The chest tube has been on suction and immediately after the procedure there was no change in the size of the pneumothorax. This smallbore chest tube however would become blocked easily with the thick pleural effusion, thus requiring multiple flushes to reestablish patency. Although the right lateral pneumothorax resolved initially, a subsequent right apical pneumothorax developed once the chest tube became blocked. The pneumothorax did not resolve despite multiple flushes. A large bore chest tube was thought to be indicated to help resolve the issue. FINDINGS AT PROCEDURE: The lung was not adherent to the parietal pleura. A free space was available for chest tube insertion. Air escape was noted with chest tube insertion. DESCRIPTION OF PROCEDURE: After obtaining informed operative consent from the patient, he was placed in the left lateral decubitus position in his hospital bed. The patient's right lateral chest was and prepped and draped in a sterile fashion. The skin, subcutaneous tissue, and latissimus dorsi muscle was anesthetized with lidocaine 1% without epinephrine. A transverse incision was then made in the right midaxillary line in the lower intercostal space. Incision was carried through the skin and subcutaneous tissue to the latissimus dorsi muscle. Additional lidocaine 1% without epinephrine was then used and further anesthetize the latissimus dorsi muscle group. Using blunt dissection with a hemostat a lower intercostal space was entered. Upon entering the space a finger sweep was performed and this revealed no adhesion between the lung and the chest wall. A 32 Czech chest tube was then inserted posteriorly and apically through the incision. This was advanced to 20 cm. The chest tube was then secured to the skin edge. Sterile dressings were then applied to the chest tube site. The smallbore chest tube was removed. This site was covered with a sterile dressing. Chest x-ray was pending at time of dictation. There were no procedure complications. The patient tolerated the procedure well.
--- NOTE | 2016-05-27 14:46 | Internal Med Progress Note ---
Date of Encounter: 05/27/16 Time of Encounter: 09:50 - Assessment and plan (1) Pneumonia Current Visit: Yes Status: Acute Assessment and plan: Received 4 days of Zosyn, Levflox and Vanco Sputum culture with pansnsitive psudomonas, sensitive to Levoflox Bld culture is negative D/C Zosyn and Vanco Continue Levoflox, day 6 Taper down steroids Continue O2 therapy Qualifiers: Pneumonia type: due to unspecified organism Laterality: right Lung location: unspecified part of lung Qualified Code(s): J18.9 - Pneumonia, unspecified organism (2) Pneumothorax Current Visit: Yes Status: Acute Assessment and plan: Continue chest tube Management of chest tube per CTS Qualifiers: Pneumothorax type: spontaneous, primary Qualified Code(s): J93.11 - Primary spontaneous pneumothorax (3) Sepsis Current Visit: Yes Status: Acute Assessment and plan: Afebrile, BP WNL. Lactate WNL. Sputum culture noted Blood culture preliminary negative Persistent leukocytosis, will monitor continue antibiotics, as above Qualifiers: Sepsis type: sepsis due to unspecified organism Qualified Code(s): A41.9 - Sepsis, unspecified organism (4) Follicular thyroid cancer Current Visit: Yes Status: Chronic Assessment and plan: follow oncology (5) Hypertension Current Visit: Yes Status: Chronic Assessment and plan: Now controlled, continue amlodipine Qualifiers: Hypertension type: essential hypertension Qualified Code(s): I10 - Essential (primary) hypertension (6) 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 Status: Chronic Assessment and plan: suction prn (7) SHWETA (acute kidney injury) Current Visit: Yes Status: Resolved Assessment and plan: Resolved, creatinine WNL (8) Delirium Current Visit: Yes Status: Resolved Assessment and plan: Oreintation and reoreintation Avoid benzodiazepine fall precautions - Subjective Interval history: 66 Y/O M with Metastatic follicular thyroid CA , COPD Admitted for management of acute respiratory failure , sepsis secondary to HCAP from hansen-sensitive pseudomonas, COPDE and Spontaneous pneumothorax, SHWETA SHWETA has resolved In this admission, with new diagnosis of HTN and One episode of agitation requiring ativan and haldol Has since been stable Seen today, no new complains CXR with persistent pneumothorax, plan by CTS for larger chest tube placement - Constitutional Vitals: Temp Pulse Resp BP Pulse Ox 97.5 F L 123 20 132/78 98 05/27/16 11:25 05/27/16 12:01 05/27/16 12:01 05/27/16 11:25 05/27/16 12:01 General appearance: Present: A&O X 3, pleasant, no acute distress - Head Head exam: Present: atraumatic, normocephalic - Eye Eye exam: Present: PERRL, conjuntiva pink, sclera anicteric Pupils: Present: PERRL - Neck Neck exam general surgery: Present: supple, trachea midline. Absent: lymphadenopathy - Respiratory Respiratory exam: Present: rhonchi (Right side). Absent: accessory muscle use, rales, wheezes - Cardiovascular Cardiovascular exam: Present: RRR, +S1, +S2. Absent: diastolic murmur, gallop, rubs, systolic murmur - GI/Abdominal GI/Abdominal exam: Present: normal bowel sounds, soft, no peritoneal signs. Absent: distended, tenderness - Extremities Exam Extremities exam: Present: warm, radial pulses palpable and symetrical. Absent : calf tenderness, cyanotic, pedal edema - Neurological Exam Neurological exam: Present: CN II-XII intact, oriented X3, no focal deficits, speech deficit (From trach). Absent: pronater drift, facial droop - Skin Skin exam: Present: dry Internal Medicine: Result - Labs CBC & Chem 7: 05/27/16 05:05 05/27/16 05:05 Labs: Short CBC 05/27/16 Range/Units 05:05 WBC 16.0 H (4.3-11.1) K/mcL Hgb 10.7 L (12.9-16.9) g/dL Hct 34.3 L (37.5-50.1) % Plt Count 414 H (140-400) K/mcL Neutrophils # 14.4 H (1.6-8.9) K/mcL BMP 05/27/16 05:05 Sodium 136 Potassium 4.7 H Chloride 97 L Carbon Dioxide 29 BUN 33 H Creatinine 0.78 Glucose 154 H Calcium 8.2 L - ABG Interpretation ABG results: ABG ABG pH 7.53 pH Units (7.32-7.45) H 05/25/16 17:47 ABG pCO2 41 mmHg (35-45) 05/25/16 17:47 ABG pO2 59 mmHg (85-104) L 05/25/16 17:47 ABG O2 Saturation 93 % (95-98) L 05/25/16 17:47 - Impressions Impressions Chest X-Ray 05/27/16 06:00 IMPRESSION: Right apical pneumothorax measuring 1.9 cm has slightly decreased. D/ / Beka Leigh MD / Beka Leigh MD Interpreting Provider: Beka Leigh MD Chest X-Ray 05/27/16 13:37 IMPRESSION: 1. Interval removal of the right pleural pigtail catheter with placement of a new chest tube. The right-sided pneumothorax is no longer appreciated. 2. Stable right base opacity with pleural effusion. 3. Nodular opacities throughout the lungs are unchanged from the prior study and compatible with granulomatous disease. 4. Tracheostomy. D/ / 05/27/2016 14:20:31 Christen Damon MD / jae Interpreting Provider: Christen Damon MD Consult Discharge Plan - Plan Referrals: Jammie Zhou, CURED MEAT PACKING SUPERVISOR [Advanced Practice Nurse] - 06/04/16 9:40 am
[2016-05-27] MEDS: *HR* OxyCODONE/APAP 7.5/325 TABLET PO PRN ×3 (14:53→22:20)
--- NOTE | 2016-05-27 16:29 | Pulmonology Progress Note ---
Date of Encounter: 05/27/16 Time of Encounter: 07:25 Assessment and Plan (1) Pneumonia Current Visit: Yes Status: Acute Continue current treatment and discussed with Dr. Clarke, agree with his plan to change to larger chest tube. Qualifiers: Pneumonia type: due to unspecified organism Laterality: right Lung location: unspecified part of lung Qualified Code(s): J18.9 - Pneumonia, unspecified organism (2) Pneumothorax Current Visit: Yes Status: Acute Chest tube has helped this problem. Qualifiers: Pneumothorax type: spontaneous, primary Qualified Code(s): J93.11 - Primary spontaneous pneumothorax Subjective Principal diagnosis: PTX Interval history: Patient stated he is feeling better and he wants to go home Objective PUL Vital signs: Last Vital Signs Temp 97.7 F 05/27/16 15:23 Pulse 92 05/27/16 15:23 Resp 24 05/27/16 15:23 BP 149/82 05/27/16 15:23 Pulse Ox 93 L 05/27/16 15:23 General appearance: no acute distress Eyes: nonicteric Neck: other (trach) Effort: normal Auscultation: left: rhonchi, right: diminished breath sounds Cardiovascular: regular rate and rhythm Gastrointestinal: normoactive bowel sounds, soft Extremities: no cyanosis normal mental status mood appropriate Results - Laboratory Findings CBC and BMP: 05/27/16 05:05 05/27/16 05:05 ABG ABG pH 7.53 pH Units (7.32-7.45) H 05/25/16 17:47 ABG pCO2 41 mmHg (35-45) 05/25/16 17:47 ABG pO2 59 mmHg (85-104) L 05/25/16 17:47 ABG O2 Saturation 93 % (95-98) L 05/25/16 17:47 Abnormal lab findings: Abnormal lab results WBC 16.0 K/mcL (4.3-11.1) H 05/27/16 05:05 Hgb 10.7 g/dL (12.9-16.9) L 05/27/16 05:05 Hct 34.3 % (37.5-50.1) L 05/27/16 05:05 MCV 81.5 fL (83.0-100.0) L 05/27/16 05:05 MCH 25.4 pg (28.0-33.3) L 05/27/16 05:05 MCHC 31.2 g/dL (31.6-35.5) L 05/27/16 05:05 RDW 16.9 % (11.5-14.5) H 05/27/16 05:05 Plt Count 414 K/mcL (140-400) H 05/27/16 05:05 MPV 9.2 fL (9.4-12.4) L 05/27/16 05:05 Neutrophils # 14.4 K/mcL (1.6-8.9) H 05/27/16 05:05 Dohle Bodies Present (Not Present) A 05/22/16 19:48 Large Platelets Present (Not Present) A 05/22/16 19:48 Polychromasia 1+ (Not Present) A 05/22/16 19:48 ABG pH 7.53 pH Units (7.32-7.45) H 05/25/16 17:47 ABG pO2 59 mmHg (85-104) L 05/25/16 17:47 ABG HCO3 34.3 mEQ/L (21-27) H 05/25/16 17:47 ABG Total CO2 35.6 mEq/L (20-26) H 05/25/16 17:47 ABG O2 Saturation 93 % (95-98) L 05/25/16 17:47 ABG Base Excess 10.6 mEq/L (-2.0 to 3.0) H 05/25/16 17:47 Potassium 4.7 mEq/L (3.5-4.5) H 05/27/16 05:05 Chloride 97 mEq/L (98-109) L 05/27/16 05:05 BUN 33 mg/dL (8-26) H 05/27/16 05:05 BUN/Creatinine Ratio 42 (6-26) H 05/27/16 05:05 Glucose 154 mg/dL (70-99) H 05/27/16 05:05 POC Glucose 119 (58-89) H 05/23/16 02:20 Calcium 8.2 mg/dL (8.6-10.8) L 05/27/16 05:05 Albumin 1.8 g/dL (3.5-5.0) L D 05/25/16 09:35 Globulin 5.4 g/dL (2.4-3.5) H 05/25/16 09:35 Albumin/Globulin Ratio 0.3 (1.1-2.2) L 05/25/16 09:35 - Microbiology Findings Microbiology Findings: Microbiology, Last 48 Hours 05/24/16 08:05 Sputum Culture - Final Sputum Pseudomonas aeruginosa Yeast Species - Diagnostic Findings Chest x-ray: report reviewed, image reviewed - Clinical Findings Intake & Output: Intake & Output 05/27/16 05/27/16 05/27/16 07:59 15:59 23:59 Intake Total 550 / 550 150 / 150 Output Total 335 / 335 0 / 0 Balance 215 / 215 150 / 150 Weight 75.3 kg Consult Discharge Plan - Plan Referrals: Jammie Zhou, PHYSICIAN ASSISTANT CERTIFIED [Advanced Practice Nurse] - 06/04/16 9:40 am
[2016-05-28] MEDS: MethylPREDNISolone 40 MG/ML VIAL IVP SCH ×4 (00:33→23:21)
[2016-05-28] MEDS: *HR* OxyCODONE/APAP 7.5/325 TABLET PO PRN ×4 (02:22→20:17)
[2016-05-28] MEDS: Ipratropium/Albuterol Neb 3 ML IH SCH ×4 (03:34→23:47)
[2016-05-28 06:14] LABS: Basophils % 0.2 %; Hematocrit 34.9 % (37.5-50.1); Hemoglobin 10.8 g/dL (12.9-16.9); Immature Granulocytes % 1.5 % (0-4); Lymphocytes # 0.6 K/mcL (0.6-4.6); Mean Corpuscular HGB Conc 30.9 g/dL (31.6-35.5); Mean Corpuscular Hemoglobin 25.6 pg (28.0-33.3); Mean Corpuscular Volume 82.7 fL (83.0-100.0); Mean Platelet Volume 9.1 fL (9.4-12.4); Monocytes # 0.6 K/mcL (0.0-1.3); Monocytes % 2.9 %; Platelet Count 395 K/mcL (140-400); Red Blood Count 4.22 M/mcL (4.19-5.50); Red Cell Distribution Width 16.8 % (11.5-14.5); Segmented Neutrophils % 92.4 %
[2016-05-28] MEDS: *HR* Enoxaparin 40 MG/0.4 ML SYRINGE SQ SCH (06:29)
[2016-05-28 06:36] LABS: BUN/Creatinine Ratio 42 (6-26); Blood Urea Nitrogen 32 mg/dL (8-26); Calcium 8.4 mg/dL (8.6-10.8); Carbon Dioxide 29 mEq/L (19-29); Chloride 98 mEq/L (98-109); Glucose 161 mg/dL (70-99); Osmolality,Calculated 292 (280-300); Potassium 4.9 mEq/L (3.5-4.5); Sodium 136 mEq/L (136-145); eGFR For African Americans > 60 (> 60); eGFR For Non-African Americans > 60 (> 60)
--- NOTE | 2016-05-28 06:58 | Cardiothoracic Progress Note ---
Date of Encounter: 05/28/16 Time of Encounter: 06:56 - Assessment and plan (1) Pneumothorax Current Visit: Yes Status: Acute The patient is a 66-year-old hypertensive man with COPD and metastatic follicular cell thyroid carcinoma. A large bore chest tube was placed yesterday with resolution of the right apical pneumothorax; however, a right lateral component persists. The chest tube will remain on suction until the pneumothorax resolves completely. The assessment and plan as outlined above was discussed with the patient and/or family members who expressed understanding and agreement. All questions were answered. - Subjective Interval history: The patient is resting comfortably in his hospital bed. He is breathing comfortably and has no complaints. Vital Signs, Last 4 Hours Temp Pulse Resp BP Pulse Ox 05/28/16 04:18 97.6 F 72 21 154/89 96 05/28/16 03:35 20 95 Oxgyen Flow Rate Oxygen Flow Rate (LPM) 10 Clinical Data, last 8 Hours Output, Chest Tube Drainage 3 Amount [Right Mid-Axillary Chest #4] Output, Chest Tube Drainage 2 Amount [Right Mid-Axillary Chest #4] Output, Urine Amount 300 Output, Urine Amount 250 Weight 05/26/16 05/27/16 05/28/16 23:59 23:59 23:59 Weight 76.6 kg 75.3 kg 75.3 kg - Physical Examination General: Conversant, No Apparent Distress Neck: No JVD, Normal carotid pulses Cardiac: Reg Rate and Rhythm, Normal S1 and S2, No Murmur Incision: No signs of infection, Dry/intact dressing Chest tubes: Minimal drainage, Air leak (No air leak.) Lungs: Normal Breath Sounds, No Wheeze, Rales, Rhonchi Neuro: Alert and responsive, No focal deficits noted Vascular: Normal capillary refill Extremities: No Clubbing, No Cyanosis, No Edema - Labs 05/28/16 05:49 05/28/16 05:49 Lab Results, Last 24 hours 05/28/16 05/28/16 05:49 05:49 WBC 19.4 H Hgb 10.8 L Hct 34.9 L Plt Count 395 Sodium 136 Potassium 4.9 H Chloride 98 Carbon Dioxide 29 BUN 32 H Creatinine 0.76 Glucose 161 H Calcium 8.4 L - Imaging Chest Xray: image reviewed (Small right lateral pneumothorax.) Consult Discharge Plan - Plan Referrals: Jammie Zhou, SENIOR SCIENCE CONSULTANT [Advanced Practice Nurse] - 06/04/16 9:40 am
[2016-05-28] MEDS: Venlafaxine XR (24 HR) 37.5 MG CAP.ER.24H PO SCH (08:41)
[2016-05-28] MEDS: amLODIPine 5 MG TABLET PO SCH (08:41)
[2016-05-28] MEDS: Levofloxacin 750 MG/150 ML 750 MG/150 ML BAG IVPB SCH (08:45)
[2016-05-28] MEDS: Patient Taking Own Medication 1 EACH PO SCH (09:38)
--- NOTE | 2016-05-28 09:53 | Electrocardiograph Report ---
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
--- NOTE | 2016-05-28 10:20 | Internal Med Progress Note ---
Date of Encounter: 05/28/16 Time of Encounter: 09:20 - Assessment and plan (1) Pneumonia Current Visit: Yes Status: Acute Assessment and plan: Received 4 days of Zosyn, Levflox and Vanco ,Sputum culture with pansnsitive psudomonas, sensitive to Levofloxin, Blood culture is negative. Continue levofloxacin. Chest physiotherapy.counselling on deep breathing y Qualifiers: Pneumonia type: due to unspecified organism Laterality: right Lung location: unspecified part of lung Qualified Code(s): J18.9 - Pneumonia, unspecified organism (2) Pneumothorax Current Visit: Yes Status: Acute Assessment and plan: Per pulmonary and cardiothoracic surgery plan to change chest tube to larger chest tube. 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 He ss still continue to have too much Secretion from His Tracheostomy . - Constitutional Vitals: Temp Pulse Resp BP Pulse Ox 97.8 F 85 18 144/87 94 L 05/28/16 07:28 05/28/16 08:52 05/28/16 10:00 05/28/16 07:28 05/28/16 10:00 General appearance: Present: pleasant, no acute distress - Head Head exam: Present: atraumatic, normocephalic - Respiratory Respiratory exam: Present: decreased breath sounds, CTAB, rales, wheezes ( Diffuse crackles and wheezing bilateral). Absent: accessory muscle use, rhonchi - Cardiovascular Cardiovascular exam: Present: RRR, +S1, +S2. Absent: diastolic murmur, gallop, rubs, systolic murmur - GI/Abdominal GI/Abdominal exam: Present: normal bowel sounds, soft, no peritoneal signs. Absent: distended, tenderness - Extremities Exam Extremities exam: Present: warm. Absent: calf tenderness, cyanotic Internal Medicine: Result - Labs CBC & Chem 7: 05/28/16 05:49 05/28/16 05:49 Labs: Short CBC 05/28/16 Range/Units 05:49 WBC 19.4 H (4.3-11.1) K/mcL Hgb 10.8 L (12.9-16.9) g/dL Hct 34.9 L (37.5-50.1) % Plt Count 395 (140-400) K/mcL Neutrophils # 18.0 H (1.6-8.9) K/mcL BMP 05/28/16 05:49 Sodium 136 Potassium 4.9 H Chloride 98 Carbon Dioxide 29 BUN 32 H Creatinine 0.76 Glucose 161 H Calcium 8.4 L - ABG Interpretation ABG results: ABG ABG pH 7.53 pH Units (7.32-7.45) H 05/25/16 17:47 ABG pCO2 41 mmHg (35-45) 05/25/16 17:47 ABG pO2 59 mmHg (85-104) L 05/25/16 17:47 ABG O2 Saturation 93 % (95-98) L 05/25/16 17:47 - Impressions Impressions Chest X-Ray 05/27/16 13:37 IMPRESSION: 1. Interval removal of the right pleural pigtail catheter with placement of a new chest tube. The right-sided pneumothorax is no longer appreciated. 2. Stable right base opacity with pleural effusion. 3. Nodular opacities throughout the lungs are unchanged from the prior study and compatible with granulomatous disease. 4. Tracheostomy. D/ / 05/27/2016 14:20:31 Christen Damon MD / jae Interpreting Provider: Christen Damon MD Chest X-Ray 05/28/16 06:00 IMPRESSION: Small right basilar pneumothorax, slightly greater than prior examination. Persistent soft tissue emphysema and right greater than left basilar parenchymal disease. D/ / Epifanio Garcia MD / Epifanio Garcai MD Interpreting Provider: Epifanio Garcia MD Consult Discharge Plan - Plan Referrals: Jammie Zhou, MARINE GEAR KEEPER [Advanced Practice Nurse] - 06/04/16 9:40 am
[2016-05-28] MEDS: Ketorolac 15 MG/ML VIAL IVP SCH ×3 (10:28→23:21)
[2016-05-28 11:06] LABS: Albumin 2.1 g/dL (3.5-5.0); Magnesium 2.1 mg/dL (1.6-2.6); Phosphorous 4.3 mg/dL (2.3-4.7)
[2016-05-29] MEDS: *HR* OxyCODONE/APAP 7.5/325 TABLET PO PRN ×4 (04:15→20:31)
[2016-05-29 04:39] LABS: Basophils % 0.2 %; Hematocrit 34.6 % (37.5-50.1); Hemoglobin 10.7 g/dL (12.9-16.9); Lymphocytes # 0.6 K/mcL (0.6-4.6); Lymphocytes % 3.2 %; Mean Corpuscular HGB Conc 30.9 g/dL (31.6-35.5); Mean Corpuscular Hemoglobin 25.8 pg (28.0-33.3); Mean Corpuscular Volume 83.6 fL (83.0-100.0); Mean Platelet Volume 9.2 fL (9.4-12.4); Monocytes # 0.3 K/mcL (0.0-1.3); Neutrophils # 15.8 K/mcL (1.6-8.9); Platelet Count 355 K/mcL (140-400); Red Blood Count 4.14 M/mcL (4.19-5.50); Red Cell Distribution Width 16.9 % (11.5-14.5); Segmented Neutrophils % 91.6 %
[2016-05-29] MEDS: Ipratropium/Albuterol Neb 3 ML IH SCH ×4 (04:49→22:31)
[2016-05-29 04:56] LABS: BUN/Creatinine Ratio 49 (6-26); Blood Urea Nitrogen 41 mg/dL (8-26); Carbon Dioxide 32 mEq/L (19-29); Chloride 98 mEq/L (98-109); Glucose 210 mg/dL (70-99); Osmolality,Calculated 300 (280-300); Potassium 5.9 mEq/L (3.5-4.5); Sodium 137 mEq/L (136-145); eGFR For African Americans > 60 (> 60); eGFR For Non-African Americans > 60 (> 60)
[2016-05-29] MEDS: MethylPREDNISolone 40 MG/ML VIAL IVP SCH ×3 (06:46→23:37)
[2016-05-29] MEDS: *HR* Enoxaparin 40 MG/0.4 ML SYRINGE SQ SCH (06:46)
[2016-05-29] MEDS: Ketorolac 15 MG/ML VIAL IVP SCH ×4 (06:46→23:37)
[2016-05-29] MEDS: Venlafaxine XR (24 HR) 37.5 MG CAP.ER.24H PO SCH (07:34)
[2016-05-29] MEDS: amLODIPine 5 MG TABLET PO SCH (07:35)
[2016-05-29] MEDS: Levofloxacin 750 MG/150 ML 750 MG/150 ML BAG IVPB SCH (07:35)
--- NOTE | 2016-05-29 07:38 | Cardiothoracic Progress Note ---
Date of Encounter: 05/29/16 Time of Encounter: 07:36 - Assessment and plan (1) Pneumothorax Current Visit: Yes Status: Acute The patient is a 66-year-old hypertensive man with COPD and metastatic follicular cell thyroid carcinoma. The right basilar pneumothorax has decreased in size. The chest tube will remain on suction until the pneumothorax resolves completely. The assessment and plan as outlined above was discussed with the patient and/or family members who expressed understanding and agreement. All questions were answered. Qualifiers: Pneumothorax type: spontaneous, primary Qualified Code(s): J93.11 - Primary spontaneous pneumothorax - Subjective Interval history: The patient is resting comfortably in his hospital bed. He is breathing comfortably and has no complaints. Vital Signs, Last 4 Hours Temp Pulse Resp BP Pulse Ox 05/29/16 07:15 98.0 F 89 20 130/83 94 L 05/29/16 04:49 16 97 05/29/16 04:00 98.1 F 87 20 161/83 96 Oxgyen Flow Rate Oxygen Flow Rate (LPM) 8 Clinical Data, last 8 Hours Output, Chest Tube Drainage 5 Amount [Right Mid-Axillary Chest #4] Output, Urine Amount 550 Weight 05/27/16 05/28/16 05/29/16 23:59 23:59 23:59 Weight 75.3 kg 75.3 kg 74.7 kg - Physical Examination General: Conversant, No Apparent Distress Neck: No JVD, Normal carotid pulses Cardiac: Reg Rate and Rhythm, Normal S1 and S2, No Murmur Incision: No signs of infection, Dry/intact dressing Chest tubes: Minimal drainage, Other (No air leak.) Lungs: Normal Breath Sounds, No Wheeze, Rales, Rhonchi Neuro: Alert and responsive, No focal deficits noted Vascular: Normal capillary refill Musculoskeletal: No Chest Wall Tenderness Extremities: No Clubbing, No Cyanosis, No Edema - Labs 05/29/16 04:06 05/29/16 04:06 Lab Results, Last 24 hours 05/28/16 05/29/16 05/29/16 10:47 04:06 04:06 WBC 17.2 H Hgb 10.7 L Hct 34.6 L Plt Count 355 Sodium 137 Potassium 5.9 H D Chloride 98 Carbon Dioxide 32 H BUN 41 H Creatinine 0.83 Glucose 210 H Calcium 9.0 Magnesium 2.1 - Imaging Chest Xray: image reviewed (Small right basilar pneumothorax, decreased in size. ) Consult Discharge Plan - Plan Referrals: Jammie Zhou CNP [Advanced Practice Nurse] - 06/04/16 9:40 am
[2016-05-29] MEDS: Patient Taking Own Medication 1 EACH PO SCH (08:01)
--- NOTE | 2016-05-29 12:06 | Internal Med Progress Note ---
Date of Encounter: 05/29/16 Time of Encounter: 12:00 - Assessment and plan (1) Pneumonia Current Visit: Yes Status: Acute Assessment and plan: Received 4 days of Zosyn, Levflox and Vanco ,Sputum culture with pansnsitive psudomonas, sensitive to Levofloxin, Blood culture is negative. Continue levofloxacin. 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 Patient denies any nausea or vomiting. He still has large amount of secretion from his tracheostomy - Constitutional Vitals: Temp Pulse Resp BP Pulse Ox 98.0 F 83 16 130/83 94 L 05/29/16 07:15 05/29/16 11:39 05/29/16 11:44 05/29/16 07:15 05/29/16 11:44 General appearance: Present: pleasant, no acute distress - Head Head exam: Present: atraumatic, normocephalic - Neck Neck exam general surgery: Present: supple, trachea midline. Absent: lymphadenopathy - Respiratory Respiratory exam: Present: decreased breath sounds, CTAB, rales, rhonchi ( Diffuse crackles and wheezing bilateral). Absent: accessory muscle use, wheezes - Cardiovascular Cardiovascular exam: Present: RRR, +S1, +S2. Absent: diastolic murmur, gallop, rubs, systolic murmur - GI/Abdominal GI/Abdominal exam: Present: normal bowel sounds, soft, no peritoneal signs. Absent: distended, tenderness - Extremities Exam Extremities exam: Present: pedal edema, warm. Absent: calf tenderness, cyanotic - Neurological Exam Neurological exam: Present: CN II-XII intact, oriented X3, no focal deficits. Absent: pronater drift, facial droop, speech deficit - Skin Skin exam: Present: dry, intact Internal Medicine: Result - Labs CBC & Chem 7: 05/29/16 04:06 05/29/16 04:06 Labs: Short CBC 05/29/16 Range/Units 04:06 WBC 17.2 H (4.3-11.1) K/mcL Hgb 10.7 L (12.9-16.9) g/dL Hct 34.6 L (37.5-50.1) % Plt Count 355 (140-400) K/mcL Neutrophils # 15.8 H (1.6-8.9) K/mcL BMP 05/29/16 04:06 Sodium 137 Potassium 5.9 H D Chloride 98 Carbon Dioxide 32 H BUN 41 H Creatinine 0.83 Glucose 210 H Calcium 9.0 - ABG Interpretation ABG results: ABG ABG pH 7.53 pH Units (7.32-7.45) H 05/25/16 17:47 ABG pCO2 41 mmHg (35-45) 05/25/16 17:47 ABG pO2 59 mmHg (85-104) L 05/25/16 17:47 ABG O2 Saturation 93 % (95-98) L 05/25/16 17:47 - Impressions Impressions Chest X-Ray 05/26/16 06:00 IMPRESSION: No change. D/ / 05/26/2016 10:20:30 Jeremy Ochoa MD / earnold Interpreting Provider: Jeremy Ochoa MD Chest X-Ray 05/29/16 06:00 IMPRESSION: Persistent small right basilar pneumothorax, slightly improved since the prior exam. Otherwise stable chest. D/ / Bertha Victor MD / Bertha Victor MD Interpreting Provider: Bertha Victor MD Consult Discharge Plan - Plan Referrals: Jammie Zhou CNP [Advanced Practice Nurse] - 06/04/16 9:40 am
[2016-05-30] MEDS: Ipratropium/Albuterol Neb 3 ML IH SCH ×4 (04:35→23:14)
[2016-05-30 06:01] LABS: Basophils % 0.2 %; Hematocrit 34.6 % (37.5-50.1); Hemoglobin 10.7 g/dL (12.9-16.9); Immature Granulocytes % 4.5 % (0-4); Lymphocytes # 0.5 K/mcL (0.6-4.6); Lymphocytes % 3.2 %; Mean Corpuscular HGB Conc 30.9 g/dL (31.6-35.5); Mean Corpuscular Hemoglobin 25.8 pg (28.0-33.3); Mean Corpuscular Volume 83.4 fL (83.0-100.0); Mean Platelet Volume 9.5 fL (9.4-12.4); Monocytes # 0.4 K/mcL (0.0-1.3); Monocytes % 2.4 %; Platelet Count 340 K/mcL (140-400); Red Blood Count 4.15 M/mcL (4.19-5.50); Segmented Neutrophils % 89.7 %
[2016-05-30 06:11] LABS: BUN/Creatinine Ratio 52 (6-26); Blood Urea Nitrogen 39 mg/dL (8-26); Calcium 8.7 mg/dL (8.6-10.8); Carbon Dioxide 31 mEq/L (19-29); Chloride 99 mEq/L (98-109); Glucose 162 mg/dL (70-99); Osmolality,Calculated 297 (280-300); Potassium 5.4 mEq/L (3.5-4.5); Sodium 137 mEq/L (136-145); eGFR For African Americans > 60 (> 60); eGFR For Non-African Americans > 60 (> 60)
[2016-05-30] MEDS: *HR* Enoxaparin 40 MG/0.4 ML SYRINGE SQ SCH (06:23)
[2016-05-30] MEDS: Ketorolac 15 MG/ML VIAL IVP SCH ×3 (06:23→18:09)
--- NOTE | 2016-05-30 09:26 | Cardiothoracic Progress Note ---
Date of Encounter: 05/30/16 Time of Encounter: 09:24 - Assessment and plan (1) Pneumothorax Current Visit: Yes Status: Acute The assessment and plan as outlined above was discussed with the patient and/or family members who expressed understanding and agreement. All questions were answered. I discontinued his chest tube suction. We will check a chest x-ray tomorrow morning. Qualifiers: Pneumothorax type: spontaneous, primary Qualified Code(s): J93.11 - Primary spontaneous pneumothorax - Subjective Interval history: The patient has no complaints and is anxious to go home. Vital Signs, Last 4 Hours Temp Pulse Resp BP Pulse Ox 05/30/16 07:39 98.2 F 91 18 115/73 95 Oxgyen Flow Rate Oxygen Flow Rate (LPM) 8 Clinical Data, last 8 Hours Output, Chest Tube Drainage 0 Amount [Right Mid-Axillary Chest #4] Weight 05/28/16 05/29/16 05/30/16 23:59 23:59 23:59 Weight 75.3 kg 74.7 kg 74.8 kg Lungs are clear to percussion and auscultation. Heart is in a normal sinus rhythm. O2 saturation is 93 on oxygen. Chest tubes had minimal drainage and no air leak. - Labs 05/30/16 04:56 05/30/16 04:56 Lab Results, Last 24 hours 05/30/16 05/30/16 04:56 04:56 WBC 16.8 H Hgb 10.7 L Hct 34.6 L Plt Count 340 Sodium 137 Potassium 5.4 H Chloride 99 Carbon Dioxide 31 H BUN 39 H Creatinine 0.75 Glucose 162 H Calcium 8.7 Consult Discharge Plan - Plan Referrals: Jammie Zhou BOOKKEEPING CLERK [Advanced Practice Nurse] - 06/04/16 9:40 am
[2016-05-30] MEDS: Levofloxacin 750 MG/150 ML 750 MG/150 ML BAG IVPB SCH (09:32)
[2016-05-30] MEDS: MethylPREDNISolone 40 MG/ML VIAL IVP SCH ×2 (09:32→14:57)
[2016-05-30] MEDS: amLODIPine 5 MG TABLET PO SCH (09:33)
[2016-05-30] MEDS: Patient Taking Own Medication 1 EACH PO SCH (09:33)
[2016-05-30] MEDS: Venlafaxine XR (24 HR) 37.5 MG CAP.ER.24H PO SCH (09:33)
--- NOTE | 2016-05-30 13:04 | Internal Med Progress Note ---
Date of Encounter: 05/30/16 Time of Encounter: 10:35 - Assessment and plan (1) Pneumonia Current Visit: Yes Status: Acute Assessment and plan: Cultures showed Pseudomonas pneumonia sensitive to Levaquin and continue Levaquin, taper down steroids Qualifiers: Pneumonia type: due to Pseudomonas Laterality: right Lung location: unspecified part of lung Qualified Code(s): J15.1 - Pneumonia due to Pseudomonas (2) Pneumothorax Current Visit: Yes Status: Acute Assessment and plan: Based on cardiothoracic surgery continue chest tube. Possible removal next a.m. 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 - Constitutional Vitals: Temp Pulse Resp BP Pulse Ox 97.6 F 112 18 139/81 94 L 05/30/16 11:44 05/30/16 12:00 05/30/16 11:44 05/30/16 11:44 05/30/16 11:44 General appearance: Present: pleasant, no acute distress - Respiratory Respiratory exam: Present: decreased breath sounds, CTAB, rales (More crackles and wheezing right lower lung), wheezes. Absent: rhonchi - Cardiovascular Cardiovascular exam: Present: RRR, +S1, +S2. Absent: diastolic murmur, gallop, rubs, systolic murmur - GI/Abdominal GI/Abdominal exam: Present: normal bowel sounds, soft, no peritoneal signs. Absent: distended, tenderness - Extremities Exam Extremities exam: Present: warm, radial pulses palpable and symetrical. Absent : calf tenderness, cyanotic, pedal edema Internal Medicine: Result - Labs CBC & Chem 7: 05/30/16 04:56 05/30/16 04:56 Labs: Short CBC 05/30/16 Range/Units 04:56 WBC 16.8 H (4.3-11.1) K/mcL Hgb 10.7 L (12.9-16.9) g/dL Hct 34.6 L (37.5-50.1) % Plt Count 340 (140-400) K/mcL Neutrophils # 15.0 H (1.6-8.9) K/mcL BMP 05/30/16 04:56 Sodium 137 Potassium 5.4 H Chloride 99 Carbon Dioxide 31 H BUN 39 H Creatinine 0.75 Glucose 162 H Calcium 8.7 - ABG Interpretation ABG results: ABG ABG pH 7.53 pH Units (7.32-7.45) H 05/25/16 17:47 ABG pCO2 41 mmHg (35-45) 05/25/16 17:47 ABG pO2 59 mmHg (85-104) L 05/25/16 17:47 ABG O2 Saturation 93 % (95-98) L 05/25/16 17:47 - Impressions Impressions Chest X-Ray 05/29/16 21:31 IMPRESSION: 1. No significant change in trace to small right pneumothorax with a subpulmonic component. Unchanged positioning of the right chest tube. 2. Increased right basilar atelectasis and/or pneumonia. 3. Questionable right pleural effusion. 4. Pulmonary vascular congestion. D/ / Adiel Ann MD / Adiel Ann MD Interpreting Provider: Adiel Ann MD Chest X-Ray 05/30/16 06:00 IMPRESSION: Stable small right pneumothorax with presence of a stable right chest tube. Stable right lower lobe partial opacification likely representing atelectasis. D/ / 05/30/2016 07:53:01 Jv Wetzel MD / james Interpreting Provider: Jv Wetzel MD Consult Discharge Plan - Plan Referrals: Jammie Zhou, ASSEMBLER DC FIELD RING [Advanced Practice Nurse] - 06/04/16 9:40 am
[2016-05-30] MEDS: *HR* OxyCODONE/APAP 7.5/325 TABLET PO PRN (20:08)
[2016-05-31] MEDS: Ketorolac 15 MG/ML VIAL IVP SCH ×2 (00:30→06:11)
[2016-05-31] MEDS: Ipratropium/Albuterol Neb 3 ML IH SCH ×4 (04:41→21:23)
[2016-05-31 05:27] LABS: Basophils % 0.2 %; Hematocrit 34.3 % (37.5-50.1); Hemoglobin 10.8 g/dL (12.9-16.9); Immature Granulocytes % 4.8 % (0-4); Lymphocytes # 0.9 K/mcL (0.6-4.6); Lymphocytes % 5.8 %; Mean Corpuscular HGB Conc 31.5 g/dL (31.6-35.5); Mean Corpuscular Hemoglobin 26.2 pg (28.0-33.3); Mean Corpuscular Volume 83.3 fL (83.0-100.0); Monocytes # 0.8 K/mcL (0.0-1.3); Monocytes % 5.1 %; Neutrophils # 13.1 K/mcL (1.6-8.9); Platelet Count 332 K/mcL (140-400); Red Blood Count 4.12 M/mcL (4.19-5.50); Red Cell Distribution Width 17.1 % (11.5-14.5); Segmented Neutrophils % 84.1 %
[2016-05-31 05:37] LABS: BUN/Creatinine Ratio 57 (6-26); Blood Urea Nitrogen 43 mg/dL (8-26); Calcium 8.7 mg/dL (8.6-10.8); Carbon Dioxide 33 mEq/L (19-29); Chloride 98 mEq/L (98-109); Glucose 125 mg/dL (70-99); Osmolality,Calculated 300 (280-300); Potassium 5.3 mEq/L (3.5-4.5); Sodium 139 mEq/L (136-145); eGFR For African Americans > 60 (> 60); eGFR For Non-African Americans > 60 (> 60)
[2016-05-31] MEDS: *HR* Enoxaparin 40 MG/0.4 ML SYRINGE SQ SCH (06:11)
[2016-05-31] MEDS: amLODIPine 5 MG TABLET PO SCH (08:54)
[2016-05-31] MEDS: Levofloxacin 750 MG/150 ML 750 MG/150 ML BAG IVPB SCH (08:54)
[2016-05-31] MEDS: Venlafaxine XR (24 HR) 37.5 MG CAP.ER.24H PO SCH (08:54)
[2016-05-31] MEDS: MethylPREDNISolone 40 MG/ML VIAL IVP SCH (08:54)
[2016-05-31] MEDS: Patient Taking Own Medication 1 EACH PO SCH (08:57)
--- NOTE | 2016-05-31 09:05 | Internal Med Progress Note ---
Date of Encounter: 05/31/16 Time of Encounter: 09:03 - Assessment and plan (1) Sepsis Current Visit: Yes Status: Acute Assessment and plan: Sepsis secondary to Pseudomonas pneumonia/gram-negative pneumonia pneumonia Levaquin day 9, consider discontinuing antibiotics Received also Zosyn and vancomycin upon admission which were discontinued Blood culture preliminary negative Persistent leukocytosis, will monitor Qualifiers: Sepsis type: sepsis due to unspecified organism Qualified Code(s): A41.9 - Sepsis, unspecified organism (2) Pneumothorax Current Visit: Yes Status: Acute Assessment and plan: cardiothoracic surgery recommendations appreciated continue chest tube for now. Qualifiers: Pneumothorax type: spontaneous, primary Qualified Code(s): J93.11 - Primary spontaneous pneumothorax (3) Hyperkalemia Current Visit: Yes Status: Acute Assessment and plan: Consider giving more Kayexalate low potassium diet (4) Malnutrition Current Visit: Yes Status: Acute Assessment and plan: Protein calorie malnutrition Dietitian on board , continue supplement (5) Follicular thyroid cancer Current Visit: Yes Status: Chronic Assessment and plan: follow with oncology (6) Hypertension Current Visit: Yes Status: Chronic Assessment and plan: Now controlled, continue amlodipine Qualifiers: Hypertension type: essential hypertension Qualified Code(s): I10 - Essential (primary) hypertension (7) 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 Status: Chronic Assessment and plan: Continue Mucinex suction as needed counseling on deep breathing chest percussion (8) SHWETA (acute kidney injury) Current Visit: Yes Status: Resolved Assessment and plan: Secondary to sepsis: Resolved, creatinine WNL (9) Lung metastasis Current Visit: No Status: Acute Assessment and plan: High risk due to chest tube Qualifiers: Laterality: right Qualified Code(s): C78.01 - Secondary malignant neoplasm of right lung - Time Spent With Patient Greater than 35 minutes - Subjective Interval history: Sick complaint of pleuritic pain on the right side/base of his lung, denies any other type of chest pain, mild shortness of breath, no dysuria or diarrhea. No abdominal pain, no fevers - Constitutional Vitals: Temp Pulse Resp BP Pulse Ox 98.1 F 86 18 145/78 94 L 05/31/16 07:00 05/31/16 07:00 05/31/16 07:00 05/31/16 07:00 05/31/16 07:00 General appearance: Present: A&O X 3, pleasant, no acute distress, underweight - Head Head exam: Present: atraumatic, normocephalic - Eye Eye exam: Present: PERRL, conjuntiva pink, sclera anicteric Pupils: Present: PERRL - Neck Neck exam general surgery: Present: supple, trachea midline. Absent: lymphadenopathy - Respiratory Respiratory exam: Present: CTAB, rales (Coarse crackles in the right base, no wheezing). Absent: accessory muscle use, rhonchi, wheezes Additional comments: Chest tube on the right thorax - Cardiovascular Cardiovascular exam: Present: RRR, +S1, +S2. Absent: diastolic murmur, gallop, rubs, systolic murmur - GI/Abdominal GI/Abdominal exam: Present: normal bowel sounds, soft, no peritoneal signs. Absent: distended, tenderness - Extremities Exam Extremities exam: Present: warm, radial pulses palpable and symetrical. Absent : calf tenderness, cyanotic, pedal edema - Neurological Exam Neurological exam: Present: CN II-XII intact, oriented X3, no focal deficits. Absent: pronater drift, facial droop, speech deficit - Skin Skin exam: Present: dry, intact Internal Medicine: Result - Labs CBC & Chem 7: 05/31/16 05:12 05/31/16 05:12 Labs: Short CBC 05/31/16 Range/Units 05:12 WBC 15.6 H (4.3-11.1) K/mcL Hgb 10.8 L (12.9-16.9) g/dL Hct 34.3 L (37.5-50.1) % Plt Count 332 (140-400) K/mcL Neutrophils # 13.1 H (1.6-8.9) K/mcL BMP 05/31/16 05:12 Sodium 139 Potassium 5.3 H Chloride 98 Carbon Dioxide 33 H BUN 43 H Creatinine 0.75 Glucose 125 H Calcium 8.7 - ABG Interpretation ABG results: ABG ABG pH 7.53 pH Units (7.32-7.45) H 05/25/16 17:47 ABG pCO2 41 mmHg (35-45) 05/25/16 17:47 ABG pO2 59 mmHg (85-104) L 05/25/16 17:47 ABG O2 Saturation 93 % (95-98) L 05/25/16 17:47 - Impressions Impressions Chest X-Ray 05/30/16 06:00 IMPRESSION: Stable small right pneumothorax with presence of a stable right chest tube. Stable right lower lobe partial opacification likely representing atelectasis. D/ / 05/30/2016 07:53:01 Jv Wetzel MD / james Interpreting Provider: Jv Wetzel MD Chest X-Ray 05/31/16 00:01 IMPRESSION: Right chest tube appears unchanged in position. Small right pneumothorax not significantly changed. D/ / Adrian Pinto MD / Adrian Pinto MD Interpreting Provider: Adrian Pinto MD Consult Discharge Plan - Plan Referrals: Jammie Zhou, MACHINE II CUTTER [Advanced Practice Nurse] - 06/04/16 9:40 am
--- NOTE | 2016-05-31 11:05 | Cardiothoracic Progress Note ---
Date of Encounter: 05/31/16 Time of Encounter: 11:03 - Assessment and plan (1) Pneumothorax Current Visit: Yes Status: Acute The chest tube was removed. We will check a stat portable chest x-ray in one tomorrow morning. If these are okay, the patient can be discharged tomorrow. Qualifiers: Pneumothorax type: spontaneous, primary Qualified Code(s): J93.11 - Primary spontaneous pneumothorax - Subjective Interval history: The patient has no complaints and is anxious to go home. Vital Signs, Last 4 Hours Temp Pulse Resp BP Pulse Ox 05/31/16 08:40 98.1 F 86 18 145/78 94 L Oxgyen Flow Rate Oxygen Flow Rate (LPM) 8 Clinical Data, last 8 Hours Output, Chest Tube Drainage 10 Amount [Right Mid-Axillary Chest #4] Output, Chest Tube Drainage 0 Amount [Right Mid-Axillary Chest #4] Output, Chest Tube Drainage 0 Amount [Right Mid-Axillary Chest #4] Output, Urine Amount 350 Output, Urine Amount 600 Weight 05/29/16 05/30/16 05/31/16 23:59 23:59 23:59 Weight 74.7 kg 75.5 kg Lungs are clear to percussion and auscultation. Heart is in a normal sinus rhythm. The chest tube has no air leak and minimal drainage. Chest x-ray off suction reveals a tiny, stable basilar pneumothorax. - Labs 05/31/16 05:12 05/31/16 05:12 Lab Results, Last 24 hours 05/31/16 05/31/16 05:12 05:12 WBC 15.6 H Hgb 10.8 L Hct 34.3 L Plt Count 332 Sodium 139 Potassium 5.3 H Chloride 98 Carbon Dioxide 33 H BUN 43 H Creatinine 0.75 Glucose 125 H Calcium 8.7 Consult Discharge Plan - Plan Referrals: Jammie Zhou, SUPERVISOR CELLARS [Advanced Practice Nurse] - 06/04/16 9:40 am
[2016-05-31] MEDS: *HR* OxyCODONE/APAP 7.5/325 TABLET PO PRN (19:44)
[2016-06-01] MEDS: *HR* OxyCODONE/APAP 7.5/325 TABLET PO PRN ×5 (01:11→20:22)
[2016-06-01] MEDS: Ipratropium/Albuterol Neb 3 ML IH SCH ×4 (03:57→22:36)
[2016-06-01 04:51] LABS: Hematocrit 33.2 % (37.5-50.1); Hemoglobin 10.4 g/dL (12.9-16.9); Mean Corpuscular HGB Conc 31.3 g/dL (31.6-35.5); Mean Corpuscular Hemoglobin 26.1 pg (28.0-33.3); Mean Corpuscular Volume 83.4 fL (83.0-100.0); Mean Platelet Volume 9.2 fL (9.4-12.4); Platelet Count 308 K/mcL (140-400); Red Blood Count 3.98 M/mcL (4.19-5.50); Red Cell Distribution Width 17.3 % (11.5-14.5)
[2016-06-01 05:13] LABS: BUN/Creatinine Ratio 54 (6-26); Blood Urea Nitrogen 38 mg/dL (8-26); Calcium 8.2 mg/dL (8.6-10.8); Carbon Dioxide 29 mEq/L (19-29); Chloride 100 mEq/L (98-109); Glucose 109 mg/dL (70-99); Osmolality,Calculated 298 (280-300); Potassium 4.3 mEq/L (3.5-4.5); Sodium 139 mEq/L (136-145); eGFR For African Americans > 60 (> 60); eGFR For Non-African Americans > 60 (> 60)
[2016-06-01] MEDS: *HR* Enoxaparin 40 MG/0.4 ML SYRINGE SQ SCH (05:54)
[2016-06-01] MEDS: Levofloxacin 750 MG/150 ML 750 MG/150 ML BAG IVPB SCH (09:07)
[2016-06-01] MEDS: amLODIPine 5 MG TABLET PO SCH (09:07)
[2016-06-01] MEDS: MethylPREDNISolone 40 MG/ML VIAL IVP SCH (09:08)
[2016-06-01] MEDS: Venlafaxine XR (24 HR) 37.5 MG CAP.ER.24H PO SCH (09:08)
[2016-06-01] MEDS: Patient Taking Own Medication 1 EACH PO SCH (09:08)
--- NOTE | 2016-06-01 09:55 | Internal Med Progress Note ---
Date of Encounter: 06/01/16 Time of Encounter: 09:53 - Assessment and plan (1) Sepsis Current Visit: Yes Status: Acute Assessment and plan: Sepsis secondary to Pseudomonas pneumonia/gram-negative pneumonia pneumonia Levaquin day 10, can discontinue antibiotics Received also Zosyn and vancomycin upon admission which were discontinued Blood culture preliminary negative Persistent leukocytosis, will monitor Qualifiers: Sepsis type: sepsis due to unspecified organism Qualified Code(s): A41.9 - Sepsis, unspecified organism (2) Pneumothorax Current Visit: Yes Status: Acute Assessment and plan: cardiothoracic surgery recommendations appreciated chest tube removed on 05/31/16 CXR shows slight worsening of right pneumothorax may discharge tomorrow if CXR shows stable pneumothorax Qualifiers: Pneumothorax type: spontaneous, primary Qualified Code(s): J93.11 - Primary spontaneous pneumothorax (3) Hyperkalemia Current Visit: Yes Status: Acute Assessment and plan: Resolved Consider giving more Kayexalate if worse low potassium diet (4) Malnutrition Current Visit: Yes Status: Acute Assessment and plan: Protein calorie malnutrition Dietitian on board , continue supplement (5) Follicular thyroid cancer Current Visit: Yes Status: Chronic Assessment and plan: follow with oncology (6) Hypertension Current Visit: Yes Status: Chronic Assessment and plan: Now controlled, continue amlodipine Qualifiers: Hypertension type: essential hypertension Qualified Code(s): I10 - Essential (primary) hypertension (7) 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 Status: Chronic Assessment and plan: Continue Mucinex suction as needed counseling on deep breathing chest percussion (8) SHWETA (acute kidney injury) Current Visit: Yes Status: Resolved Assessment and plan: Secondary to sepsis: Resolved, creatinine WNL (9) Lung metastasis Current Visit: No Status: Acute Qualifiers: Laterality: right Qualified Code(s): C78.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 No abdominal pain, no fevers overnight - Constitutional Vitals: Temp Pulse Resp BP Pulse Ox 98.0 F 84 20 128/76 90 L 06/01/16 07:42 06/01/16 07:42 06/01/16 09:47 06/01/16 07:42 06/01/16 09:47 General appearance: Present: A&O X 3, pleasant, no acute distress, underweight Exam: trachesotomy in place - Head Head exam: Present: atraumatic, normocephalic - Eye Eye exam: Present: PERRL, conjuntiva pink, sclera anicteric Pupils: Present: PERRL - Neck Neck exam general surgery: Present: supple, trachea midline. Absent: lymphadenopathy - Respiratory Respiratory exam: Present: CTAB, rales (righ base crackles). Absent: accessory muscle use, rhonchi, wheezes - Cardiovascular Cardiovascular exam: Present: RRR, +S1, +S2. Absent: diastolic murmur, gallop, rubs, systolic murmur - GI/Abdominal GI/Abdominal exam: Present: normal bowel sounds, soft, no peritoneal signs. Absent: distended, tenderness - Extremities Exam Extremities exam: Present: warm, radial pulses palpable and symetrical. Absent : calf tenderness, cyanotic, pedal edema - Neurological Exam Neurological exam: Present: CN II-XII intact, oriented X3, no focal deficits. Absent: pronater drift, facial droop, speech deficit - Skin Skin exam: Present: dry, intact Internal Medicine: Result - Labs CBC & Chem 7: 06/01/16 03:14 06/01/16 03:14 Labs: Short CBC 06/01/16 Range/Units 03:14 WBC 16.3 H (4.3-11.1) K/mcL Hgb 10.4 L (12.9-16.9) g/dL Hct 33.2 L (37.5-50.1) % Plt Count 308 (140-400) K/mcL BMP 06/01/16 03:14 Sodium 139 Potassium 4.3 D Chloride 100 Carbon Dioxide 29 BUN 38 H Creatinine 0.70 L Glucose 109 H Calcium 8.2 L - ABG Interpretation ABG results: ABG ABG pH 7.53 pH Units (7.32-7.45) H 05/25/16 17:47 ABG pCO2 41 mmHg (35-45) 05/25/16 17:47 ABG pO2 59 mmHg (85-104) L 05/25/16 17:47 ABG O2 Saturation 93 % (95-98) L 05/25/16 17:47 - Impressions Impressions Chest X-Ray 05/31/16 11:06 IMPRESSION: No pneumothorax after right chest tube removal D/ / Ant Alvarado MD / Ant Alvarado MD Interpreting Provider: Ant Alvarado MD Chest X-Ray 06/01/16 00:01 IMPRESSION: Interval increase in loculated right pneumothorax. Small apical component is now suggested. Stable right basilar opacification. No mediastinal shift. D/ / 06/01/2016 07:41:01 Colton Tillman MD / larry Interpreting Provider: Colton Tillman MD Consult Discharge Plan - Plan Referrals: Jammie Zhou CNP [Advanced Practice Nurse] - 06/04/16 9:40 am
--- NOTE | 2016-06-01 10:05 | Cardiothoracic Progress Note ---
Date of Encounter: 06/01/16 Time of Encounter: 10:03 - Assessment and plan (1) Pneumothorax Current Visit: Yes Status: Acute The patient should stay in the hospital until tomorrow to check another x-ray. He is also thinking about home health and this may delay his discharge until Friday. Qualifiers: Pneumothorax type: spontaneous, primary Qualified Code(s): J93.11 - Primary spontaneous pneumothorax - Subjective Interval history: The patient has no complaints. His O2 saturation is 90 on room air. Vital Signs, Last 4 Hours Temp Pulse Resp BP Pulse Ox 06/01/16 09:47 20 90 L 06/01/16 08:00 92 06/01/16 07:42 98.0 F 84 18 128/76 92 L Oxgyen Flow Rate Oxygen Flow Rate (LPM) 0 Weight 05/30/16 05/31/16 06/01/16 23:59 23:59 23:59 Weight 75.5 kg 75.4 kg Lungs are clear to percussion and auscultation. Heart is in a normal sinus rhythm. Chest x-ray done this morning reveals increased basilar pneumothorax and a tiny apical pneumothorax on the right. - Labs 06/01/16 03:14 06/01/16 03:14 Lab Results, Last 24 hours 06/01/16 06/01/16 03:14 03:14 WBC 16.3 H Hgb 10.4 L Hct 33.2 L Plt Count 308 Sodium 139 Potassium 4.3 D Chloride 100 Carbon Dioxide 29 BUN 38 H Creatinine 0.70 L Glucose 109 H Calcium 8.2 L Consult Discharge Plan - Plan Referrals: Jammie Zhou, FIRER MARINE [Advanced Practice Nurse] - 06/04/16 9:40 am
[2016-06-02] MEDS: Ipratropium/Albuterol Neb 3 ML IH SCH ×4 (04:50→22:30)
[2016-06-02] MEDS: *HR* Enoxaparin 40 MG/0.4 ML SYRINGE SQ SCH (06:01)
[2016-06-02] MEDS: *HR* OxyCODONE/APAP 7.5/325 TABLET PO PRN ×4 (06:02→21:31)
--- NOTE | 2016-06-02 08:40 | Cardiothoracic Progress Note ---
Date of Encounter: 06/02/16 Time of Encounter: 08:37 - Assessment and plan (1) Pneumothorax Current Visit: Yes Status: Acute I discussed the situation with the patient. I will place a right chest tube today. The patient may need to go home with a Heimlich valve on the chest tube. He has metastatic thyroid cancer and must have a small, slow air leak that will be difficult to heal. Qualifiers: Pneumothorax type: spontaneous, primary Qualified Code(s): J93.11 - Primary spontaneous pneumothorax - Subjective Interval history: The patient took a walk this morning and complains of no shortness of breath. Vital Signs, Last 4 Hours Temp Pulse Resp BP Pulse Ox 06/02/16 07:07 98.3 F 86 16 114/74 91 L 06/02/16 04:50 16 90 L Oxgyen Flow Rate Oxygen Flow Rate (LPM) 5 Clinical Data, last 8 Hours Output, Urine Amount 350 Output, Urine Amount 500 Weight 05/31/16 06/01/16 06/02/16 23:59 23:59 23:59 Weight 75.4 kg 73.845 kg Lungs have decreased breath sounds on the right side and it is tympanic to percussion on the right side. Heart is in a normal sinus rhythm. Chest x-ray reveals an increased right pneumothorax. - Labs 06/01/16 03:14 06/01/16 03:14 Consult Discharge Plan - Plan Referrals: Jammie Zhou, FOUNDER PRESIDENT AND CEO [Advanced Practice Nurse] - 06/04/16 9:40 am
[2016-06-02] MEDS ORDERED: *HR* Midazolam HCl 2 MG/2 ML VIAL IVP ONE (08:41)
[2016-06-02] MEDS ORDERED: *HR* HYDROmorphone 2 MG/ML SYRINGE IVP ONE (08:41)
--- NOTE | 2016-06-02 09:01 | Internal Med Progress Note ---
Date of Encounter: 06/02/16 Time of Encounter: 08:59 - Assessment and plan (1) Pneumothorax Current Visit: Yes Status: Acute Assessment and plan: cardiothoracic surgery recommendations appreciated chest tube removed on 05/31/16 CXR from 06/02/2016 showed worsening of right severe pneumothorax Dr. Diamond will place another chest tube today with a Heimlich valve patient nothing by mouth until procedures Qualifiers: Pneumothorax type: spontaneous, primary Qualified Code(s): J93.11 - Primary spontaneous pneumothorax (2) Sepsis Current Visit: Yes Status: Acute Assessment and plan: Sepsis secondary to Pseudomonas pneumonia/gram-negative pneumonia pneumonia completed 10 days of Levaquin Received also Zosyn and vancomycin upon admission which were discontinued Blood culture preliminary negative Persistent leukocytosis, will monitor Qualifiers: Sepsis type: sepsis due to unspecified organism Qualified Code(s): A41.9 - Sepsis, unspecified organism (3) Hyperkalemia Current Visit: Yes Status: Acute Assessment and plan: Resolved Consider giving more Kayexalate if worse low potassium diet (4) Malnutrition Current Visit: Yes Status: Acute Assessment and plan: Protein calorie malnutrition Dietitian on board , continue supplement (5) Follicular thyroid cancer Current Visit: Yes Status: Chronic Assessment and plan: follow with oncology (6) Hypertension Current Visit: Yes Status: Chronic Assessment and plan: Now controlled, continue amlodipine Qualifiers: Hypertension type: essential hypertension Qualified Code(s): I10 - Essential (primary) hypertension (7) 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 Status: Chronic Assessment and plan: Continue Mucinex suction as needed counseling on deep breathing chest percussion (8) SHWETA (acute kidney injury) Current Visit: Yes Status: Resolved Assessment and plan: Secondary to sepsis: Resolved, creatinine WNL (9) Lung metastasis Current Visit: No Status: Acute Assessment and plan: High risk due to chest tube Qualifiers: Laterality: right Qualified Code(s): C78.01 - Secondary malignant neoplasm of right lung - Time Spent With Patient Greater than 35 minutes - Subjective Interval history: The patient is still complaining of pleuritic pain on the right side/base of his lung, denies any other type of chest pain, mild shortness of breath, no dysuria or diarrhea. No abdominal pain, no fevers overnight - Constitutional Vitals: Temp Pulse Resp BP Pulse Ox 98.3 F 86 16 114/74 91 L 06/02/16 07:07 06/02/16 07:07 06/02/16 07:07 06/02/16 07:07 06/02/16 07:07 General appearance: Present: A&O X 3, pleasant, no acute distress, underweight - Head Head exam: Present: atraumatic, normocephalic - Eye Eye exam: Present: PERRL, conjuntiva pink, sclera anicteric Pupils: Present: PERRL Additional comments: Tracheostomy in place - Neck Neck exam general surgery: Present: supple, trachea midline. Absent: lymphadenopathy - Respiratory Respiratory exam: Present: decreased breath sounds (Diminished breath sounds in the right base), CTAB. Absent: accessory muscle use, rales, rhonchi, wheezes - Cardiovascular Cardiovascular exam: Present: RRR, +S1, +S2. Absent: diastolic murmur, gallop, rubs, systolic murmur - GI/Abdominal GI/Abdominal exam: Present: normal bowel sounds, soft, no peritoneal signs. Absent: distended, tenderness - Extremities Exam Extremities exam: Present: warm, radial pulses palpable and symetrical. Absent : calf tenderness, cyanotic, pedal edema - Neurological Exam Neurological exam: Present: CN II-XII intact, oriented X3, no focal deficits. Absent: pronater drift, facial droop, speech deficit - Skin Skin exam: Present: dry, intact Internal Medicine: Result - Labs CBC & Chem 7: 06/01/16 03:14 06/01/16 03:14 - ABG Interpretation ABG results: ABG ABG pH 7.53 pH Units (7.32-7.45) H 05/25/16 17:47 ABG pCO2 41 mmHg (35-45) 05/25/16 17:47 ABG pO2 59 mmHg (85-104) L 05/25/16 17:47 ABG O2 Saturation 93 % (95-98) L 05/25/16 17:47 - Impressions Impressions Chest X-Ray 06/01/16 00:01 IMPRESSION: Interval increase in loculated right pneumothorax. Small apical component is now suggested. Stable right basilar opacification. No mediastinal shift. D/ / 06/01/2016 07:41:01 Colton Tillman MD / larry Interpreting Provider: Colton Tillman MD Chest X-Ray 06/02/16 00:01 IMPRESSION: Large right-sided pneumothorax with increasing right lung collapse. No significant mediastinal shift. The findings were sent to the Radiology Results Communication Center at 6:46 am on 06/02/2016to be communicated to a licensed caregiver. D/ / 06/02/2016 08:16:32 Colton Tillman MD / earnold Interpreting Provider: Colton Tillman MD Consult Discharge Plan - Plan Referrals: Jammie Zhou BRINE TANK TENDER [Advanced Practice Nurse] - 06/04/16 9:40 am
[2016-06-02] MEDS ORDERED: Lidocaine 1% 20 ML MDV ID ONE (10:24)
--- NOTE | 2016-06-02 10:37 | Operative Note ---
Date of procedure: 06/02/16 Procedure in Detail: Preoperative diagnosis. Right pneumothorax. Postoperative diagnosis. Same. Procedures. Right #[address] Hardik Diamond. Patient is a 66- year-old gentleman who has a history of metastatic thyroid cancer and right pneumothorax. He has had 2 previous chest tubes. The right chest tube was removed 3 days ago. Each day he had a progressive increase in the size of a right pneumothorax. Today's chest x-ray revealed a larger right pneumothorax with some mediastinal shift. Therefore we elected to place a chest tube. The patient was asymptomatic and walking without difficulty. Operative consent was obtained. I placed my initials on the right side and a timeout on the left side. The patient did receive 2 mg IV of Versed and 2 mg IV of Dilaudid. He was on a manager monitoring throughout the procedure. The patient was placed with the right side up. I went one interspace higher than the previous chest tube. This area was prepped 3 with Betadine. It was then draped. The area was numbed with a total of 20 mL of 1% lidocaine without epinephrine. An incision was made with the 15 blade. This was carried down using the tonsil clamp to the intercostal space the intercostal space was entered and there was a helm of air. A #28 chest tube was inserted without difficulty. The tube was sewn 2 with 0 silk sutures to the skin. It was then dressed and attached to a Pleur-evac with 20 cm of suction. There was good respiratory variation and a small air leak. A stat portable chest x-ray was ordered. At the conclusion of the procedure, the patient was awake and alert and answering questions appropriately.
[2016-06-02] MEDS: MethylPREDNISolone 40 MG/ML VIAL IVP SCH (11:45)
[2016-06-02] MEDS: Venlafaxine XR (24 HR) 37.5 MG CAP.ER.24H PO SCH (11:46)
[2016-06-02] MEDS: amLODIPine 5 MG TABLET PO SCH (11:46)
[2016-06-02] MEDS: Patient Taking Own Medication 1 EACH PO SCH (19:42)
[2016-06-03] MEDS: *HR* OxyCODONE/APAP 7.5/325 TABLET PO PRN ×4 (03:09→21:53)
[2016-06-03 04:03] LABS: Hematocrit 36.9 % (37.5-50.1); Hemoglobin 11.5 g/dL (12.9-16.9); Mean Corpuscular HGB Conc 31.2 g/dL (31.6-35.5); Mean Corpuscular Hemoglobin 25.8 pg (28.0-33.3); Mean Corpuscular Volume 82.9 fL (83.0-100.0); Mean Platelet Volume 9.3 fL (9.4-12.4); Platelet Count 290 K/mcL (140-400); Red Blood Count 4.45 M/mcL (4.19-5.50); Red Cell Distribution Width 17.5 % (11.5-14.5)
[2016-06-03] MEDS: Ipratropium/Albuterol Neb 3 ML IH SCH ×4 (04:05→23:05)
[2016-06-03 04:16] LABS: BUN/Creatinine Ratio 44 (6-26); Blood Urea Nitrogen 35 mg/dL (8-26); Calcium 8.8 mg/dL (8.6-10.8); Carbon Dioxide 29 mEq/L (19-29); Chloride 96 mEq/L (98-109); Glucose 158 mg/dL (70-99); Osmolality,Calculated 293 (280-300); Potassium 5.1 mEq/L (3.5-4.5); Sodium 136 mEq/L (136-145); eGFR For African Americans > 60 (> 60); eGFR For Non-African Americans > 60 (> 60)
[2016-06-03] MEDS: amLODIPine 5 MG TABLET PO SCH (08:16)
[2016-06-03] MEDS: MethylPREDNISolone 40 MG/ML VIAL IVP SCH (08:16)
[2016-06-03] MEDS: Venlafaxine XR (24 HR) 37.5 MG CAP.ER.24H PO SCH (08:16)
--- NOTE | 2016-06-03 09:10 | Cardiothoracic Progress Note ---
Date of Encounter: 06/03/16 Time of Encounter: 09:08 - Assessment and plan (1) Pneumothorax Current Visit: Yes Status: Acute I will plan to place talc in the chest tube tomorrow. If the patient has to go home with a chest tube he prefers a small chest tube. This can be placed in invasive radiology prior to the end of the week. Qualifiers: Pneumothorax type: spontaneous, primary Qualified Code(s): J93.11 - Primary spontaneous pneumothorax - Subjective Interval history: The patient complains of soreness around his chest tube site. Vital Signs, Last 4 Hours Temp Pulse Resp BP Pulse Ox 06/03/16 07:42 98.5 F 85 18 147/82 95 Oxgyen Flow Rate Oxygen Flow Rate (LPM) 5 Clinical Data, last 8 Hours Output, Chest Tube Drainage 0 Amount [Right Upper Mid- Axillary Chest #3] Output, Chest Tube Drainage 32 Amount [Right Upper Mid- Axillary Chest #3] Output, Urine Amount 825 Output, Urine Amount 600 Weight 06/01/16 06/02/16 06/03/16 23:59 23:59 23:59 Weight 75.4 kg 73.845 kg 72.665 kg Lungs are clear to percussion and auscultation. Heart is in a normal sinus rhythm. The chest tube drainage is minimal. Chest x-ray reveals a small basilar pneumothorax. - Labs 06/03/16 03:35 06/03/16 03:35 Lab Results, Last 24 hours 06/03/16 06/03/16 03:35 03:35 WBC 16.9 H Hgb 11.5 L Hct 36.9 L Plt Count 290 Sodium 136 Potassium 5.1 H Chloride 96 L Carbon Dioxide 29 BUN 35 H Creatinine 0.79 Glucose 158 H Calcium 8.8 Consult Discharge Plan - Plan Referrals: Jammie Zhou, HOTEL ASSOCIATE [Advanced Practice Nurse] - 06/04/16 9:40 am
--- NOTE | 2016-06-03 14:02 | Internal Med Progress Note ---
Date of Encounter: 06/03/16 Time of Encounter: 13:59 - Assessment and plan (1) Pneumothorax Current Visit: Yes Status: Acute Assessment and plan: Right recurrent pneumothorax might be related to metastatic disease chest tube removed on 05/31/16 CXR from 06/02/2016 showed worsening of right severe pneumothorax Dr. Diamond placed another chest tube on June 02 Cardiothoracic surgery recommendations: plan to place talc in the chest tube tomorrow. If the patient has to go home with a chest tube he prefers a small chest tube. This can be placed in invasive radiology prior to the end of the week. Qualifiers: Pneumothorax type: spontaneous, primary Qualified Code(s): J93.11 - Primary spontaneous pneumothorax (2) Sepsis Current Visit: Yes Status: Acute Assessment and plan: Sepsis secondary to Pseudomonas pneumonia/gram-negative pneumonia pneumonia completed 10 days of Levaquin Received also Zosyn and vancomycin upon admission which were discontinued Blood culture preliminary negative Persistent leukocytosis, will monitor Qualifiers: Sepsis type: sepsis due to unspecified organism Qualified Code(s): A41.9 - Sepsis, unspecified organism (3) Hyperkalemia Current Visit: Yes Status: Acute Assessment and plan: May give more Kayexalate if worse low potassium diet (4) Malnutrition Current Visit: Yes Status: Acute Assessment and plan: Protein calorie malnutrition Dietitian on board , continue supplement (5) Follicular thyroid cancer Current Visit: Yes Status: Chronic Assessment and plan: follow with oncology (6) Hypertension Current Visit: Yes Status: Chronic Assessment and plan: Now controlled, continue amlodipine Qualifiers: Hypertension type: essential hypertension Qualified Code(s): I10 - Essential (primary) hypertension (7) 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 Status: Chronic Assessment and plan: Continue Mucinex suction as needed counseling on deep breathing chest percussion (8) SHWETA (acute kidney injury) Current Visit: Yes Status: Resolved Assessment and plan: Secondary to sepsis: Resolved, creatinine WNL (9) Lung metastasis Current Visit: No Status: Acute Assessment and plan: High risk due to chest tube Qualifiers: Laterality: right Qualified Code(s): C78.01 - Secondary malignant neoplasm of right lung - Time Spent With Patient Greater than 35 minutes - Subjective Interval history: The patient is complaining of mild pleuritic pain on the right side/base of his lung, denies any other type of chest pain, mild shortness of breath, no dysuria or diarrhea. No abdominal pain, no fevers overnight - Constitutional Vitals: Temp Pulse Resp BP Pulse Ox 97.7 F 92 18 121/75 96 06/03/16 11:18 06/03/16 11:18 06/03/16 11:18 06/03/16 11:18 06/03/16 11:18 General appearance: Present: A&O X 3, pleasant, no acute distress, underweight - Head Head exam: Present: atraumatic, normocephalic - Eye Eye exam: Present: PERRL, conjuntiva pink, sclera anicteric Pupils: Present: PERRL - Neck Neck exam general surgery: Present: supple, trachea midline. Absent: lymphadenopathy - Respiratory Respiratory exam: Present: CTAB. Absent: accessory muscle use, rales, rhonchi, wheezes Additional comments: Diminished breath sounds in the right base, with fine crackles bilaterally - Cardiovascular Cardiovascular exam: Present: RRR, +S1, +S2. Absent: diastolic murmur, gallop, rubs, systolic murmur - GI/Abdominal GI/Abdominal exam: Present: normal bowel sounds, soft, no peritoneal signs. Absent: distended, tenderness - Extremities Exam Extremities exam: Present: warm, radial pulses palpable and symetrical. Absent : calf tenderness, cyanotic, pedal edema - Neurological Exam Neurological exam: Present: CN II-XII intact, oriented X3, no focal deficits. Absent: pronater drift, facial droop, speech deficit - Skin Skin exam: Present: dry, intact Internal Medicine: Result - Labs CBC & Chem 7: 06/03/16 03:35 06/03/16 03:35 Labs: Short CBC 06/03/16 Range/Units 03:35 WBC 16.9 H (4.3-11.1) K/mcL Hgb 11.5 L (12.9-16.9) g/dL Hct 36.9 L (37.5-50.1) % Plt Count 290 (140-400) K/mcL BMP 06/03/16 03:35 Sodium 136 Potassium 5.1 H Chloride 96 L Carbon Dioxide 29 BUN 35 H Creatinine 0.79 Glucose 158 H Calcium 8.8 - ABG Interpretation ABG results: ABG ABG pH 7.53 pH Units (7.32-7.45) H 12/31/16 17:47 ABG pCO2 41 mmHg (35-45) 05/25/16 17:47 ABG pO2 59 mmHg (85-104) L 05/25/16 17:47 ABG O2 Saturation 93 % (95-98) L 05/25/16 17:47 - Impressions Impressions Chest X-Ray 06/02/16 00:01 IMPRESSION: Large right-sided pneumothorax with increasing right lung collapse. No significant mediastinal shift. The findings were sent to the Radiology Results Communication Center at 6:46 am on 06/02/2016to be communicated to a licensed caregiver. D/ / 06/02/2016 08:16:32 Colton Tillman MD / earnold Interpreting Provider: Colton Tillman MD Chest X-Ray 06/03/16 00:01 IMPRESSION: Stable right basilar airspace disease and loculated right basilar pneumothorax. D/ / Adrian Bryan MD / Adrian Bryan MD Interpreting Provider: Adrian Bryan MD Consult Discharge Plan - Plan Referrals: Jammie Zhou, HEAD BOOKKEEPER [Advanced Practice Nurse] - 06/04/16 9:40 am
[2016-06-03] MEDS: Patient Taking Own Medication 1 EACH PO SCH (21:54)
[2016-06-04] MEDS: Ipratropium/Albuterol Neb 3 ML IH SCH ×2 (04:18→10:09)
[2016-06-04] MEDS: *HR* OxyCODONE/APAP 7.5/325 TABLET PO PRN ×3 (04:53→22:48)
[2016-06-04] MEDS: *HR* Enoxaparin 40 MG/0.4 ML SYRINGE SQ SCH (05:28)
[2016-06-04 06:51] LABS: Hematocrit 35.5 % (37.5-50.1); Hemoglobin 11.1 g/dL (12.9-16.9); Mean Corpuscular HGB Conc 31.3 g/dL (31.6-35.5); Mean Corpuscular Hemoglobin 25.8 pg (28.0-33.3); Mean Corpuscular Volume 82.4 fL (83.0-100.0); Mean Platelet Volume 9.3 fL (9.4-12.4); Platelet Count 265 K/mcL (140-400); Red Blood Count 4.31 M/mcL (4.19-5.50); Red Cell Distribution Width 17.6 % (11.5-14.5)
[2016-06-04 07:04] LABS: BUN/Creatinine Ratio 53 (6-26); Blood Urea Nitrogen 39 mg/dL (8-26); Calcium 8.4 mg/dL (8.6-10.8); Carbon Dioxide 28 mEq/L (19-29); Chloride 97 mEq/L (98-109); Glucose 120 mg/dL (70-99); Osmolality,Calculated 293 (280-300); Potassium 4.8 mEq/L (3.5-4.5); Sodium 136 mEq/L (136-145); eGFR For African Americans > 60 (> 60); eGFR For Non-African Americans > 60 (> 60)
[2016-06-04] MEDS ORDERED: Talc (sterile) 5 GM, 0.9 % Sodium Chloride 50 ML IX ONE (08:00)
--- NOTE | 2016-06-04 09:10 | Cardiothoracic Progress Note ---
Date of Encounter: 06/04/16 Time of Encounter: 09:08 - Assessment and plan (1) Pneumothorax Current Visit: Yes Status: Acute The chest tube was taken off suction and clamped. Talc was instilled into the chest tube. We will leave the tube clamped and off suction for 4 hours and then restart 20 cm of suction. We will check a chest x-ray tomorrow morning. Qualifiers: Pneumothorax type: spontaneous, primary Qualified Code(s): J93.11 - Primary spontaneous pneumothorax - Subjective Interval history: The patient has some mild pain around his chest tube site. Vital Signs, Last 4 Hours Temp Pulse Resp BP Pulse Ox 06/04/16 07:25 97.7 F 79 16 152/88 94 L Oxgyen Flow Rate Oxygen Flow Rate (LPM) 5 Clinical Data, last 8 Hours Output, Chest Tube Drainage 0 Amount [Right Upper Mid- Axillary Chest #3] Output, Urine Amount 350 Weight 06/02/16 06/03/16 06/04/16 23:59 23:59 23:59 Weight 73.845 kg 72.665 kg 73.028 kg Lungs are clear to percussion and auscultation. Heart is in a normal sinus rhythm. Chest tube drainage is minimal and there appears to be no air leak. - Labs 06/04/16 06:30 06/04/16 06:30 Lab Results, Last 24 hours 06/04/16 06/04/16 06:30 06:30 WBC 15.8 H Hgb 11.1 L Hct 35.5 L Plt Count 265 Sodium 136 Potassium 4.8 H Chloride 97 L Carbon Dioxide 28 BUN 39 H Creatinine 0.73 Glucose 120 H Calcium 8.4 L Consult Discharge Plan - Plan Referrals: Jammie Zhou, NATIONAL ACCOUNT MANAGER [Advanced Practice Nurse] - 06/04/16 9:40 am
[2016-06-04] MEDS: MethylPREDNISolone 40 MG/ML VIAL IVP SCH (09:56)
[2016-06-04] MEDS: amLODIPine 5 MG TABLET PO SCH (09:56)
[2016-06-04] MEDS: Venlafaxine XR (24 HR) 37.5 MG CAP.ER.24H PO SCH (09:56)
[2016-06-04] MEDS: *HR* HYDROmorphone 2 MG/ML SYRINGE IVP PRN (09:57)
[2016-06-04] MEDS ORDERED: Ipratropium/Albuterol Neb 3 ML IH PRN (14:33)
[2016-06-04] MEDS: LEVOFLOXACIN 750 MG/150 ML IVPB SCH (15:08)
--- NOTE | 2016-06-04 18:25 | Internal Med Progress Note ---
Date of Encounter: 06/04/16 Time of Encounter: 12:00 - Assessment and plan (1) DVT prophylaxis Current Visit: Yes Status: Acute Assessment and plan: Continue with Lovenox subcutaneous. (2) Hyperkalemia Current Visit: Yes Status: Acute Assessment and plan: Kidney function is within normal limits. We will monitor every 2-3 days. low potassium diet (3) Pneumothorax Current Visit: Yes Status: Acute Assessment and plan: Right recurrent pneumothorax might be related to metastatic disease chest tube removed on 05/31/16 CXR from 06/02/2016 showed worsening of right severe pneumothorax Dr. Diamond placed another chest tube on June 02 Cardiothoracic surgery recommendations: Status post talc treatment today. We will follow-up chest x-ray in the morning, follow-up with CT surgery regarding discharge. She may need to be discharged with a chest tube in which to case will have interventional radiology insert a new smaller tube. Qualifiers: Pneumothorax type: spontaneous, primary Qualified Code(s): J93.11 - Primary spontaneous pneumothorax (4) 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 Status: Chronic Assessment and plan: Continue Mucinex suction as needed counseling on deep breathing chest percussion - Subjective Interval history: patient reports shortnes improved since yesterday. Mild depressed. Reports dull right-sided chest pain and the chest tube insertion site worsens this morning after he has had talc treatment - Constitutional Vitals: Temp Pulse Resp BP Pulse Ox 98.0 F 84 16 127/79 96 06/04/16 15:35 06/04/16 15:35 06/04/16 15:35 06/04/16 15:35 06/04/16 15:35 General appearance: Present: A&O X 3, pleasant, no acute distress, underweight - Eye Eye exam: Present: PERRL, conjuntiva pink, sclera anicteric Pupils: Present: PERRL - Neck Neck exam general surgery: Present: supple, trachea midline. Absent: lymphadenopathy - Respiratory Respiratory exam: Present: CTAB. Absent: accessory muscle use, rales, rhonchi, wheezes Additional comments: Decreased breath sounds on the right lung field. Right sided chest tube present. - Cardiovascular Cardiovascular exam: Present: RRR, +S1, +S2. Absent: diastolic murmur, gallop, rubs, systolic murmur - Extremities Exam Extremities exam: Present: warm, radial pulses palpable and symetrical. Absent : calf tenderness, cyanotic, pedal edema - Neurological Exam Neurological exam: Present: CN II-XII intact, oriented X3, no focal deficits. Absent: pronater drift, facial droop, speech deficit Internal Medicine: Result - Labs CBC & Chem 7: 06/04/16 06:30 06/04/16 06:30 Labs: Short CBC 06/04/16 Range/Units 06:30 WBC 15.8 H (4.3-11.1) K/mcL Hgb 11.1 L (12.9-16.9) g/dL Hct 35.5 L (37.5-50.1) % Plt Count 265 (140-400) K/mcL BMP 06/04/16 06:30 Sodium 136 Potassium 4.8 H Chloride 97 L Carbon Dioxide 28 BUN 39 H Creatinine 0.73 Glucose 120 H Calcium 8.4 L - ABG Interpretation ABG results: ABG ABG pH 7.53 pH Units (7.32-7.45) H 05/25/16 17:47 ABG pCO2 41 mmHg (35-45) 05/25/16 17:47 ABG pO2 59 mmHg (85-104) L 05/25/16 17:47 ABG O2 Saturation 93 % (95-98) L 05/25/16 17:47 Consult Discharge Plan - Plan Referrals: Jammie Zhou POULTRY PICKING MACHINE TENDER [Advanced Practice Nurse] - 06/04/16 9:40 am
[2016-06-04] MEDS: LENVATINIB PO SCH (22:48)
[2016-06-05] MEDS: *HR* OxyCODONE/APAP 7.5/325 TABLET PO PRN ×3 (05:47→16:22)
[2016-06-05] MEDS: *HR* Enoxaparin 40 MG/0.4 ML SYRINGE SQ SCH (05:48)
--- NOTE | 2016-06-05 09:10 | Cardiothoracic Progress Note ---
Date of Encounter: 06/05/16 Time of Encounter: 09:07 - Assessment and plan (1) Pneumothorax Current Visit: Yes Status: Acute I will take the chest tube off suction. We will check a chest x-ray tomorrow morning. Hopefully, we can remove the chest tube tomorrow but he may require a Heimlich valve. Qualifiers: Pneumothorax type: spontaneous, primary Qualified Code(s): J93.11 - Primary spontaneous pneumothorax - Subjective Interval history: The patient has no complaints. He tolerated the talc very well yesterday. Vital Signs, Last 4 Hours Temp Pulse Resp BP Pulse Ox 06/05/16 07:36 98.1 F 97 19 107/75 96 Oxgyen Flow Rate Oxygen Flow Rate (LPM) 5 Clinical Data, last 8 Hours Output, Urine Amount 650 Weight 06/03/16 06/04/16 06/05/16 23:59 23:59 23:59 Weight 72.665 kg 73.028 kg 72.575 kg Lungs are clear to percussion and auscultation. Heart is in a normal sinus rhythm. The chest tube has minimal drainage and I am unable to see an air leak. Chest x-ray reveals a tiny apical pneumothorax and atelectasis at the base. - Labs 06/04/16 06:30 06/04/16 06:30 - VTE Documentation of Mechanical Device: Intermittent pneumatic compression device Consult Discharge Plan - Plan Referrals: Jammie Zhou WORKSHOP MANAGER [Advanced Practice Nurse] - 06/04/16 9:40 am
[2016-06-05] MEDS: amLODIPine 5 MG TABLET PO SCH (10:14)
[2016-06-05] MEDS: Venlafaxine XR (24 HR) 37.5 MG CAP.ER.24H PO SCH (10:14)
[2016-06-05] MEDS: predniSONE 20 MG TABLET PO SCH (10:15)
[2016-06-05] MEDS: LEVOFLOXACIN 750 MG/150 ML IVPB SCH (10:17)
--- NOTE | 2016-06-05 17:19 | Internal Med Progress Note ---
Date of Encounter: 06/05/16 Time of Encounter: 15:00 - Assessment and plan (1) DVT prophylaxis Current Visit: Yes Status: Acute Assessment and plan: Continue with Lovenox subcutaneous. (2) Hyperkalemia Current Visit: Yes Status: Acute Assessment and plan: Kidney function is within normal limits. We will monitor every 2-3 days. low potassium diet (3) Pneumothorax Current Visit: Yes Status: Acute Assessment and plan: Chest x-ray this morning shows small residual stable pneumothorax. Tube has been clamped. Check x-ray in the morning. Right recurrent pneumothorax might be related to metastatic disease chest tube removed on 05/31/16 CXR from 06/02/2016 showed worsening of right severe pneumothorax Dr. Diamond placed another chest tube on June 02 Cardiothoracic surgery recommendations: Status post talc treatment today. We will follow-up chest x-ray in the morning, follow-up with CT surgery regarding discharge. She may need to be discharged with a chest tube in which to case will have interventional radiology insert a new smaller tube. Qualifiers: Pneumothorax type: spontaneous, primary Qualified Code(s): J93.11 - Primary spontaneous pneumothorax (4) 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 Status: Chronic Assessment and plan: Continue Mucinex suction as needed counseling on deep breathing chest percussion (5) COPD (chronic obstructive pulmonary disease) with acute bronchitis Current Visit: Yes Status: Acute Assessment and plan: Culture the patient on Levaquin steroids and bronchodilators. - Subjective Interval history: patient reports shortness of breath. Reports dull right-sided chest pain and the chest tube insertion site mild to moderate, improved from yesterday when - Constitutional Vitals: Temp Pulse Resp BP Pulse Ox 98.0 F 92 18 111/70 95 06/05/16 15:35 06/05/16 15:35 06/05/16 15:35 06/05/16 15:35 06/05/16 15:35 General appearance: Present: A&O X 3, pleasant, no acute distress, underweight - Neck Neck exam general surgery: Present: supple, trachea midline. Absent: lymphadenopathy - Respiratory Respiratory exam: Present: decreased breath sounds (On the right side), wheezes. Absent: accessory muscle use, rales, rhonchi - Cardiovascular Cardiovascular exam: Present: RRR, +S1, +S2. Absent: diastolic murmur, gallop, rubs, systolic murmur - GI/Abdominal GI/Abdominal exam: Present: normal bowel sounds, soft, no peritoneal signs. Absent: distended, tenderness - Neurological Exam Neurological exam: Present: CN II-XII intact, oriented X3, no focal deficits. Absent: pronater drift, facial droop, speech deficit Internal Medicine: Result - Labs CBC & Chem 7: 06/04/16 06:30 06/04/16 06:30 - ABG Interpretation ABG results: ABG ABG pH 7.53 pH Units (7.32-7.45) H 05/25/16 17:47 ABG pCO2 41 mmHg (35-45) 05/25/16 17:47 ABG pO2 59 mmHg (85-104) L 05/25/16 17:47 ABG O2 Saturation 93 % (95-98) L 05/25/16 17:47 - Impressions Impressions Chest X-Ray 06/05/16 00:01 IMPRESSION: 1. Small right apical pneumothorax, stable. There is a right-sided chest tube, stable in position, with side port projecting over the chest wall. Stable atelectasis and volume loss at the right base 2. Multiple bilateral pulmonary nodules, suspicious for metastatic disease, stable. 3. No significant interval change. D/ / 06/05/2016 07:23:35 Colton James MD / earnold Interpreting Provider: Colton James MD - VTE Documentation of Mechanical Device: Intermittent pneumatic compression device Consult Discharge Plan - Plan Referrals: Jammie Zhou NURSING TEACHER [Advanced Practice Nurse] - 06/04/16 9:40 am
[2016-06-05] MEDS: LENVATINIB PO SCH (21:25)
[2016-06-06] MEDS: *HR* OxyCODONE/APAP 7.5/325 TABLET PO PRN ×4 (05:06→20:19)
[2016-06-06] MEDS: *HR* Enoxaparin 40 MG/0.4 ML SYRINGE SQ SCH (05:08)
--- NOTE | 2016-06-06 08:15 | Cardiothoracic Progress Note ---
Date of Encounter: 06/06/16 Time of Encounter: 08:13 - Assessment and plan (1) Pneumothorax Current Visit: Yes Status: Acute I will place a Heimlich valve on the chest tube today. If the chest x-ray tomorrow morning looks good, he can be discharged tomorrow from my standpoint. I will see him in the office in 2 weeks to remove the chest tube. He will need a visiting nurse. Qualifiers: Pneumothorax type: spontaneous, primary Qualified Code(s): J93.11 - Primary spontaneous pneumothorax - Subjective Interval history: The patient has no complaints. He ambulated well without difficulty. His voice is improved. Vital Signs, Last 4 Hours Temp Pulse Resp BP Pulse Ox 06/06/16 07:09 97.7 F 76 18 135/83 96 06/06/16 04:30 98.1 F 80 20 158/84 95 Oxgyen Flow Rate Oxygen Flow Rate (LPM) 5 Clinical Data, last 8 Hours Output, Urine Amount 0 Output, Urine Amount 300 Weight 06/04/16 06/05/16 06/06/16 23:59 23:59 23:59 Weight 73.028 kg 72.575 kg 73 kg Lungs are clear to percussion and auscultation. Heart is in a normal sinus rhythm. The chest tube drainage is minimal and there is no air leak. Chest x- ray reveals a tiny basilar pneumothorax. - Labs 06/04/16 06:30 06/04/16 06:30 - VTE Documentation of Mechanical Device: Intermittent pneumatic compression device Consult Discharge Plan - Plan Referrals: Jammie Zhou CNP [Advanced Practice Nurse] - 06/04/16 9:40 am
[2016-06-06] MEDS: levoFLOXacin 250 MG TABLET PO SCH (10:19)
[2016-06-06] MEDS: Venlafaxine XR (24 HR) 37.5 MG CAP.ER.24H PO SCH (10:20)
[2016-06-06] MEDS: predniSONE 20 MG TABLET PO SCH (10:20)
[2016-06-06] MEDS: amLODIPine 5 MG TABLET PO SCH (10:21)
--- NOTE | 2016-06-06 19:20 | Internal Med Progress Note ---
Date of Encounter: 06/06/16 Time of Encounter: 16:00 - Assessment and plan (1) DVT prophylaxis Current Visit: Yes Status: Acute Assessment and plan: Continue with Lovenox subcutaneous. (2) Hyperkalemia Current Visit: Yes Status: Acute Assessment and plan: Kidney function is within normal limits. We will monitor every 2-3 days. low potassium diet (3) Pneumothorax Current Visit: Yes Status: Acute Assessment and plan: Chest x-ray this morning shows small residual stable pneumothorax. Tube has been clamped. Check x-ray in the morning. Plan for discharge tomorrow if stable. Right recurrent pneumothorax might be related to metastatic disease chest tube removed on 05/31/16 CXR from 06/02/2016 showed worsening of right severe pneumothorax Dr. Diamond placed another chest tube on June 02 Cardiothoracic surgery recommendations: Status post talc treatment today. We will follow-up chest x-ray in the morning, follow-up with CT surgery regarding discharge. She may need to be discharged with a chest tube in which to case will have interventional radiology insert a new smaller tube. Qualifiers: Pneumothorax type: spontaneous, primary Qualified Code(s): J93.11 - Primary spontaneous pneumothorax (4) 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 Status: Chronic (5) COPD (chronic obstructive pulmonary disease) with acute bronchitis Current Visit: Yes Status: Acute - Subjective Interval history: patient reports shortness of breath. Reports dull right-sided chest pain and the chest tube insertion site mild to moderate, improved from yesterday when - Constitutional Vitals: Temp Pulse Resp BP Pulse Ox 98.2 F 88 19 124/77 96 06/06/16 16:24 06/06/16 16:24 06/06/16 16:24 06/06/16 16:24 06/06/16 16:24 General appearance: Present: A&O X 3, pleasant, no acute distress, underweight - Respiratory Respiratory exam: Present: CTAB. Absent: accessory muscle use, rales, rhonchi, wheezes Additional comments: Right side chest tube in place - Cardiovascular Cardiovascular exam: Present: RRR, +S1, +S2. Absent: diastolic murmur, gallop, rubs, systolic murmur - GI/Abdominal GI/Abdominal exam: Present: normal bowel sounds, soft, no peritoneal signs. Absent: distended, tenderness Internal Medicine: Result - Labs CBC & Chem 7: 01/10/17 06:30 06/04/16 06:30 - ABG Interpretation ABG results: ABG ABG pH 7.53 pH Units (7.32-7.45) H 05/25/16 17:47 ABG pCO2 41 mmHg (35-45) 05/25/16 17:47 ABG pO2 59 mmHg (85-104) L 05/25/16 17:47 ABG O2 Saturation 93 % (95-98) L 05/25/16 17:47 - Impressions Impressions Chest X-Ray 06/06/16 00:01 IMPRESSION: Stable right-sided pneumothorax and right basilar airspace disease. D/ / Adrian Bryan MD / Adrian Bryan MD Interpreting Provider: Adrian Bryan MD - VTE Documentation of Mechanical Device: Intermittent pneumatic compression device Consult Discharge Plan - Plan Referrals: Jammie Zhou, LEGAL RECEPTIONIST [Advanced Practice Nurse] - 06/04/16 9:40 am
[2016-06-06] MEDS: LENVATINIB PO SCH (20:20)
[2016-06-07] MEDS: *HR* OxyCODONE/APAP 7.5/325 TABLET PO PRN ×4 (00:25→23:17)
[2016-06-07] MEDS: *HR* Enoxaparin 40 MG/0.4 ML SYRINGE SQ SCH (05:26)
[2016-06-07] MEDS: levoFLOXacin 250 MG TABLET PO SCH (09:30)
[2016-06-07] MEDS: amLODIPine 5 MG TABLET PO SCH (09:31)
[2016-06-07] MEDS: predniSONE 20 MG TABLET PO SCH (09:31)
[2016-06-07] MEDS: Venlafaxine XR (24 HR) 37.5 MG CAP.ER.24H PO SCH (09:31)
--- NOTE | 2016-06-07 10:04 | Cardiothoracic Progress Note ---
Date of Encounter: 06/07/16 Time of Encounter: 10:02 - Assessment and plan (1) Pneumothorax Current Visit: Yes Status: Acute The Heimlich valve be removed and the chest tube was placed back on suction. The chest x-ray will be repeated in the morning. The assessment and plan as outlined above was discussed with the patient and/or family members who expressed understanding and agreement. All questions were answered. Qualifiers: Pneumothorax type: spontaneous, primary Qualified Code(s): J93.11 - Primary spontaneous pneumothorax - Subjective Interval history: The patient is resting comfortably in his hospital bed. He is breathing comfortably and has no complaints. Vital Signs, Last 4 Hours Temp Pulse Resp BP Pulse Ox 06/07/16 07:16 97.3 F L 73 16 108/72 92 L Oxgyen Flow Rate Oxygen Flow Rate (LPM) 5 Clinical Data, last 8 Hours Output, Urine Amount 0 Output, Urine Amount 700 Output, Urine Amount 400 Weight 06/05/16 06/06/16 06/07/16 23:59 23:59 23:59 Weight 72.575 kg 73 kg 73.028 kg - Physical Examination General: Conversant, No Apparent Distress Neck: No JVD, Normal carotid pulses Cardiac: Reg Rate and Rhythm, Normal S1 and S2, No Murmur Incision: No signs of infection, Dry/intact dressing Chest tubes: Other (No air leak.) Lungs: Normal Breath Sounds, No Wheeze, Rales, Rhonchi Neuro: Alert and responsive, No focal deficits noted Vascular: Normal capillary refill Musculoskeletal: No Chest Wall Tenderness Extremities: No Clubbing, No Cyanosis, No Edema - Labs 06/04/16 06:30 06/04/16 06:30 - Imaging Chest Xray: image reviewed (Increased size of right pneumothorax.) - VTE Documentation of Mechanical Device: Intermittent pneumatic compression device Consult Discharge Plan - Plan Referrals: Jammie Zhou STATION MANAGER [Advanced Practice Nurse] - 06/04/16 9:40 am
[2016-06-07] MEDS: *HR* HYDROmorphone 2 MG/ML SYRINGE IVP PRN ×2 (10:32→12:43)
--- NOTE | 2016-06-07 17:21 | Internal Med Progress Note ---
Date of Encounter: 06/07/16 Time of Encounter: 11:00 - Assessment and plan (1) DVT prophylaxis Current Visit: Yes Status: Acute Assessment and plan: Continue with Lovenox subcutaneous. (2) Hyperkalemia Current Visit: Yes Status: Acute Assessment and plan: Kidney function is within normal limits. We will monitor every 2-3 days. low potassium diet (3) Pneumothorax Current Visit: Yes Status: Acute Assessment and plan: Chest x-ray this morning shows small residual stable pneumothorax. Chest x- ray revealed some enlarging pneumothorax, chest tube was reconnected to suction. We will follow-up with CT surgery. Right recurrent pneumothorax might be related to metastatic disease chest tube removed on 05/31/16 CXR from 06/02/2016 showed worsening of right severe pneumothorax Dr. 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 Start tapering steroids. - Subjective Interval history: patient reports shortness of breath. Reports dull right-sided chest pain and the chest tube insertion site mild to moderate, improved from yesterday when - Constitutional Vitals: Temp Pulse Resp BP Pulse Ox 97.5 F L 98 16 118/72 93 L 06/07/16 16:37 06/07/16 16:37 06/07/16 16:37 06/07/16 16:37 06/07/16 16:37 General appearance: Present: A&O X 3, pleasant, no acute distress, underweight - Respiratory Respiratory exam: Present: CTAB. Absent: accessory muscle use, rales, rhonchi, wheezes Additional comments: Right chest wall subcutaneous emphysema. - Cardiovascular Cardiovascular exam: Present: RRR, +S1, +S2. Absent: diastolic murmur, gallop, rubs, systolic murmur - GI/Abdominal GI/Abdominal exam: Present: normal bowel sounds, soft, no peritoneal signs. Absent: distended, tenderness Internal Medicine: Result - Labs CBC & Chem 7: 06/04/16 06:30 06/04/16 06:30 - ABG Interpretation ABG results: ABG ABG pH 7.53 pH Units (7.32-7.45) H 05/25/16 17:47 ABG pCO2 41 mmHg (35-45) 05/25/16 17:47 ABG pO2 59 mmHg (85-104) L 05/25/16 17:47 ABG O2 Saturation 93 % (95-98) L 05/25/16 17:47 - Impressions Impressions Chest X-Ray 06/07/16 00:01 IMPRESSION: Enlarging right-sided pneumothorax with chest tube in place. D/ / Adrian Bryan MD / Adrian Bryan MD Interpreting Provider: Adrian Bryan MD - VTE Documentation of Mechanical Device: Intermittent pneumatic compression device Consult Discharge Plan - Plan Referrals: Jammie Zhou, SERVICE SPRINKLER HELPER [Advanced Practice Nurse] - 06/13/16 9:40 am ()
[2016-06-07] MEDS: LENVATINIB PO SCH (23:11)
[2016-06-08] MEDS: *HR* OxyCODONE/APAP 7.5/325 TABLET PO PRN ×4 (04:49→21:10)
[2016-06-08] MEDS: *HR* Enoxaparin 40 MG/0.4 ML SYRINGE SQ SCH (05:58)
[2016-06-08 07:25] LABS: BUN/Creatinine Ratio 42 (6-26); Blood Urea Nitrogen 28 mg/dL (8-26); Calcium 8.7 mg/dL (8.6-10.8); Carbon Dioxide 31 mEq/L (19-29); Chloride 99 mEq/L (98-109); Glucose 108 mg/dL (70-99); Osmolality,Calculated 298 (280-300); Potassium 4.7 mEq/L (3.5-4.5); Sodium 141 mEq/L (136-145); eGFR For African Americans > 60 (> 60); eGFR For Non-African Americans > 60 (> 60)
[2016-06-08 07:27] LABS: Basophils % 0.2 %; Eosinophils # 0.2 K/mcL (0.0-0.6); Eosinophils % 1.8 %; Hematocrit 35.1 % (37.5-50.1); Lymphocytes # 1.5 K/mcL (0.6-4.6); Lymphocytes % 12.7 %; Mean Corpuscular HGB Conc 31.3 g/dL (31.6-35.5); Mean Platelet Volume 10.2 fL (9.4-12.4); Monocytes # 0.4 K/mcL (0.0-1.3); Monocytes % 3.8 %; Neutrophils # 9.2 K/mcL (1.6-8.9); Nucleated Red Blood Cells 0.2 /100 WBC (0); Platelet Count 202 K/mcL (140-400); Red Blood Count 4.23 M/mcL (4.19-5.50); Red Cell Distribution Width 17.9 % (11.5-14.5); Segmented Neutrophils % 80.5 %
[2016-06-08] MEDS: predniSONE 20 MG TABLET PO SCH (09:29)
[2016-06-08] MEDS: levoFLOXacin 250 MG TABLET PO SCH (09:29)
[2016-06-08] MEDS: amLODIPine 5 MG TABLET PO SCH (09:30)
[2016-06-08] MEDS: Venlafaxine XR (24 HR) 37.5 MG CAP.ER.24H PO SCH (09:30)
--- NOTE | 2016-06-08 10:36 | Cardiothoracic Progress Note ---
Date of Encounter: 06/08/16 Time of Encounter: 10:34 - Assessment and plan (1) Pneumothorax Current Visit: Yes Status: Acute The chest x-ray appearance has improved with decreased size of the right pneumothorax on suction. A chest tube should remain to suction for 1-2 days prior to attempting waterseal again. The assessment and plan as outlined above was discussed with the patient and/or family members who expressed understanding and agreement. All questions were answered. Qualifiers: Pneumothorax type: spontaneous, primary Qualified Code(s): J93.11 - Primary spontaneous pneumothorax - Subjective Interval history: The patient is sitting in a chair at the bedside. He is breathing comfortably and has no complaints. Vital Signs, Last 4 Hours Temp Pulse Resp BP Pulse Ox 06/08/16 07:16 97.6 F 81 14 143/78 97 Oxgyen Flow Rate Oxygen Flow Rate (LPM) 5 Clinical Data, last 8 Hours Output, Chest Tube Drainage 26 Amount [Right Upper Mid- Axillary Chest #3] Output, Urine Amount 300 Weight 06/06/16 06/07/16 06/08/16 23:59 23:59 23:59 Weight 73 kg 73.028 kg 72.121 kg - Physical Examination General: Conversant, No Apparent Distress Neck: No JVD, Normal carotid pulses Cardiac: Reg Rate and Rhythm, Normal S1 and S2, No Murmur Incision: No signs of infection Chest tubes: Minimal drainage, Other (No air leak.) Lungs: Other (Rhonchi bilaterally.) Neuro: Alert and responsive, No focal deficits noted Vascular: Normal capillary refill Musculoskeletal: No Chest Wall Tenderness Extremities: No Clubbing, No Cyanosis, No Edema - Labs 06/08/16 06:46 06/08/16 06:46 Lab Results, Last 24 hours 06/08/16 06/08/16 06:46 06:46 WBC 11.4 H Hgb 11.0 L Hct 35.1 L Plt Count 202 Sodium 141 Potassium 4.7 H Chloride 99 Carbon Dioxide 31 H BUN 28 H Creatinine 0.67 L Glucose 108 H Calcium 8.7 - Imaging Chest Xray: image reviewed (Decreased size of right pneumothorax. Subcutaneous emphysema.) - VTE Documentation of Mechanical Device: Intermittent pneumatic compression device Consult Discharge Plan - Plan Referrals: Jammie Zhou, MANAGER STONE [Advanced Practice Nurse] - 06/13/16 9:40 am ()
--- NOTE | 2016-06-08 12:22 | Internal Med Progress Note ---
Date of Encounter: 06/08/16 Time of Encounter: 12:20 - Assessment and plan (1) DVT prophylaxis Current Visit: Yes Status: Acute Assessment and plan: Continue with Lovenox subcutaneous. (2) Hyperkalemia Current Visit: Yes Status: Acute Assessment and plan: Kidney function is within normal limits. We will monitor every 2-3 days. low potassium diet (3) Pneumothorax Current Visit: Yes Status: Acute Assessment and plan: 06/08/16: CXR w/ enlarging pneumo yesterday, chest tube was connected to suction. Chest x-ray revealed some enlarging pneumothorax, chest tube was reconnected to suction. We will follow-up with CT surgery. Right recurrent pneumothorax might be related to metastatic disease chest tube removed on 05/31/16 CXR from 06/02/2016 showed worsening of right severe pneumothorax Dr. 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 Start tapering steroids. 30mg for 3 days - Subjective Interval history: patient reports mild shortness of breath on/off. Reports dull right-sided chest pain and the chest tube insertion site mild. - Constitutional Vitals: Temp Pulse Resp BP Pulse Ox 97.4 F L 83 16 150/77 97 06/08/16 10:48 06/08/16 10:48 06/08/16 10:48 06/08/16 10:48 06/08/16 10:48 General appearance: Present: A&O X 3, pleasant, no acute distress, underweight - Respiratory Respiratory exam: Present: CTAB, wheezes. Absent: accessory muscle use, rales, rhonchi Additional comments: subQ emphysema localized R chest wall, chest tube to sucction - Cardiovascular Cardiovascular exam: Present: RRR, +S1, +S2. Absent: diastolic murmur, gallop, rubs, systolic murmur - GI/Abdominal GI/Abdominal exam: Present: normal bowel sounds, soft, no peritoneal signs. Absent: distended, tenderness - Skin Skin exam: Present: dry, intact Internal Medicine: Result - Labs CBC & Chem 7: 06/08/16 06:46 06/08/16 06:46 Labs: Short CBC 06/08/16 Range/Units 06:46 WBC 11.4 H (4.3-11.1) K/mcL Hgb 11.0 L (12.9-16.9) g/dL Hct 35.1 L (37.5-50.1) % Plt Count 202 (140-400) K/mcL Neutrophils # 9.2 H (1.6-8.9) K/mcL BMP 06/08/16 06:46 Sodium 141 Potassium 4.7 H Chloride 99 Carbon Dioxide 31 H BUN 28 H Creatinine 0.67 L Glucose 108 H Calcium 8.7 - ABG Interpretation ABG results: ABG ABG pH 7.53 pH Units (7.32-7.45) H 05/25/16 17:47 ABG pCO2 41 mmHg (35-45) 05/25/16 17:47 ABG pO2 59 mmHg (85-104) L 05/25/16 17:47 ABG O2 Saturation 93 % (95-98) L 05/25/16 17:47 - Impressions Impressions Chest X-Ray 06/08/16 06:00 IMPRESSION: Improving right-sided pneumothorax with right lower lobe atelectasis. Numerous bilateral pulmonary nodules unchanged. D/ / 06/08/2016 07:04:22 Jeremy Ochoa MD / Zoë Layne Interpreting Provider: Jeremy Ochoa MD - VTE Documentation of Mechanical Device: Intermittent pneumatic compression device Consult Discharge Plan - Plan Referrals: Jammie Zhou, WOOD VENEER TAPER [Advanced Practice Nurse] - 06/13/16 9:40 am ()
[2016-06-08] MEDS: LENVATINIB PO SCH (21:21)
[2016-06-09] MEDS: *HR* OxyCODONE/APAP 7.5/325 TABLET PO PRN ×4 (02:31→20:24)
[2016-06-09] MEDS: *HR* Enoxaparin 40 MG/0.4 ML SYRINGE SQ SCH (06:18)
[2016-06-09] MEDS: amLODIPine 5 MG TABLET PO SCH (09:23)
[2016-06-09] MEDS: Venlafaxine XR (24 HR) 37.5 MG CAP.ER.24H PO SCH (09:23)
[2016-06-09] MEDS: levoFLOXacin 250 MG TABLET PO SCH (09:23)
[2016-06-09] MEDS: predniSONE 20 MG TABLET PO SCH (09:23)
--- NOTE | 2016-06-09 09:41 | Cardiothoracic Progress Note ---
Date of Encounter: 06/09/16 Time of Encounter: 09:36 - Assessment and plan (1) Pneumothorax Current Visit: Yes Status: Acute The chest x-ray appearance has improved with decreased size of the right pneumothorax on suction. The subcutaneous emphysema; however, has increased. I will attempt to advance the chest tube so that the distal port is within the right hemithorax. The chest tube should remain to suction for 1-2 days prior to attempting waterseal again. The assessment and plan as outlined above was discussed with the patient and/or family members who expressed understanding and agreement. All questions were answered. Qualifiers: Pneumothorax type: spontaneous, primary Qualified Code(s): J93.11 - Primary spontaneous pneumothorax - Subjective Interval history: The patient is sitting in a chair at the bedside. He is breathing comfortably and has no complaints. Vital Signs, Last 4 Hours Temp Pulse Resp BP Pulse Ox 06/09/16 08:16 98.3 F 104 20 123/77 95 06/09/16 06:10 98.3 F 62 18 132/76 93 L Oxgyen Flow Rate Oxygen Flow Rate (LPM) 5 Clinical Data, last 8 Hours Output, Chest Tube Drainage 42 Amount [Right Upper Mid- Axillary Chest #3] Output, Urine Amount 400 Weight 06/07/16 06/08/16 06/09/16 23:59 23:59 23:59 Weight 73.028 kg 72.121 kg 75.75 kg - Physical Examination General: Conversant, No Apparent Distress Neck: No JVD, Normal carotid pulses Cardiac: Reg Rate and Rhythm, Normal S1 and S2, No Murmur Incision: No signs of infection, Dry/intact dressing Chest tubes: Other (No air leak.) Lungs: Normal Breath Sounds, No Wheeze, Rales, Rhonchi Neuro: Alert and responsive, No focal deficits noted Vascular: Normal capillary refill Musculoskeletal: No Chest Wall Tenderness Extremities: No Clubbing, No Cyanosis, No Edema - Labs 06/08/16 06:46 06/08/16 06:46 - Imaging Chest Xray: image reviewed (Small right basal/lateral pneumothorax.) - VTE Documentation of Mechanical Device: Intermittent pneumatic compression device Consult Discharge Plan - Plan Referrals: Jammie Zhou, TOOL ADJUSTER [Advanced Practice Nurse] - 06/13/16 9:40 am ()
--- NOTE | 2016-06-09 18:33 | Internal Med Progress Note ---
Date of Encounter: 06/09/16 Time of Encounter: 18:31 - Assessment and plan (1) DVT prophylaxis Current Visit: Yes Status: Acute Assessment and plan: Continue with Lovenox subcutaneous. (2) Hyperkalemia Current Visit: Yes Status: Acute Assessment and plan: Kidney function is within normal limits. We will monitor every 2-3 days. low potassium diet (3) Pneumothorax Current Visit: Yes Status: Acute Assessment and plan: 06/09/2016: Chest tube continued on wall suction. 06/08/16: CXR w/ enlarging pneumo yesterday, chest tube was connected to suction. Chest x-ray revealed some enlarging pneumothorax, chest tube was reconnected to suction. We will follow-up with CT surgery. Right recurrent pneumothorax might be related to metastatic disease chest tube removed on 05/31/16 CXR from 06/02/2016 showed worsening of right severe pneumothorax Dr. Diamond placed another chest tube on June 02 Qualifiers: Pneumothorax type: spontaneous, primary Qualified Code(s): J93.11 - Primary spontaneous pneumothorax (4) 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 Status: Chronic Assessment and plan: Continue Mucinex suction as needed counseling on deep breathing chest percussion (5) COPD (chronic obstructive pulmonary disease) with acute bronchitis Current Visit: Yes Status: Acute Assessment and plan: Cont the patient on oral steroids and bronchodilators. Continue tapering steroids. 30mg for 3 days. Completed course of Levaquin. - Subjective Interval history: patient reports 0/10 shortness of breath at rest. Reports dull right-sided chest tenderness at the chest tube insertion site mild. - Constitutional Vitals: Temp Pulse Resp BP Pulse Ox 98 F 100 20 96/67 97 06/09/16 16:00 06/09/16 16:00 06/09/16 16:00 06/09/16 16:00 06/09/16 16:00 General appearance: Present: A&O X 3, pleasant, no acute distress, underweight - Eye Eye exam: Present: PERRL, conjuntiva pink, sclera anicteric Pupils: Present: PERRL - Respiratory Respiratory exam: Present: CTAB. Absent: accessory muscle use, rales, rhonchi, wheezes - Cardiovascular Cardiovascular exam: Present: RRR, +S1, +S2. Absent: diastolic murmur, gallop, rubs, systolic murmur - GI/Abdominal GI/Abdominal exam: Present: normal bowel sounds, soft, no peritoneal signs. Absent: distended, tenderness - Skin Additional comments: Chest subcutaneous emphysema Internal Medicine: Result - Labs CBC & Chem 7: 06/08/16 06:46 06/08/16 06:46 - ABG Interpretation ABG results: ABG ABG pH 7.53 pH Units (7.32-7.45) H 05/25/16 17:47 ABG pCO2 41 mmHg (35-45) 05/25/16 17:47 ABG pO2 59 mmHg (85-104) L 05/25/16 17:47 ABG O2 Saturation 93 % (95-98) L 05/25/16 17:47 - Impressions Impressions Chest X-Ray 06/09/16 06:00 IMPRESSION: Stable chest with miniscule right apical/ medial pneumothorax and right basilar opacity. D/ / Cirilo Lopes MD / Cirilo Lopes MD Interpreting Provider: Cirilo Lopes MD - VTE Documentation of Mechanical Device: Intermittent pneumatic compression device Consult Discharge Plan - Plan Referrals: Jammie Zhou, OCCUPATIONAL THERAPY CO DIRECTOR [Advanced Practice Nurse] - 06/13/16 9:40 am ()
[2016-06-09] MEDS: LENVATINIB PO SCH (20:31)
[2016-06-10] MEDS: *HR* OxyCODONE/APAP 7.5/325 TABLET PO PRN ×5 (00:35→17:38)
[2016-06-10] MEDS: *HR* Enoxaparin 40 MG/0.4 ML SYRINGE SQ SCH (05:48)
--- NOTE | 2016-06-10 08:56 | Cardiothoracic Progress Note ---
Date of Encounter: 06/10/16 Time of Encounter: 08:53 - Assessment and plan (1) Pneumothorax Current Visit: Yes Status: Acute I took the patient's chest tube off suction. It is okay for him to ambulate. We will check a chest x-ray tomorrow morning. Qualifiers: Pneumothorax type: spontaneous, primary Qualified Code(s): J93.11 - Primary spontaneous pneumothorax - Subjective Interval history: The patient has no complaints. Vital Signs, Last 4 Hours Temp Pulse Resp BP Pulse Ox 06/10/16 07:15 97.6 F 74 12 133/81 97 Oxgyen Flow Rate Oxygen Flow Rate (LPM) 5 Clinical Data, last 8 Hours Output, Urine Amount 360 Weight 06/08/16 06/09/16 06/10/16 23:59 23:59 23:59 Weight 72.121 kg 75.75 kg 75.115 kg Lungs are clear to percussion and auscultation. The chest tube has minimal drainage and I am unable to see an air leak. He does have a small amount of crepitus and subcutaneous air in the right lateral chest wall. - Labs 06/08/16 06:46 06/08/16 06:46 - VTE Documentation of Mechanical Device: Intermittent pneumatic compression device Consult Discharge Plan - Plan Referrals: Jammie Zhou, BRUSHER [Advanced Practice Nurse] - 06/13/16 9:40 am ()
[2016-06-10] MEDS: amLODIPine 5 MG TABLET PO SCH (09:55)
[2016-06-10] MEDS: Venlafaxine XR (24 HR) 37.5 MG CAP.ER.24H PO SCH (09:56)
[2016-06-10] MEDS: predniSONE 20 MG TABLET PO SCH (09:56)
[2016-06-10] MEDS: levoFLOXacin 250 MG TABLET PO SCH (09:57)
--- NOTE | 2016-06-10 21:14 | Internal Med Progress Note ---
Date of Encounter: 06/10/16 Time of Encounter: 14:00 - Assessment and plan (1) DVT prophylaxis Current Visit: Yes Status: Acute Assessment and plan: Continue with Lovenox subcutaneous. (2) Hyperkalemia Current Visit: Yes Status: Acute Assessment and plan: Kidney function is within normal limits. We will monitor every 2-3 days. low potassium diet (3) Pneumothorax Current Visit: Yes Status: Acute Assessment and plan: 06/10/2016: Continue chest tube to suction with intermittent water seal. Check chest x-ray in the morning. I have discussed the case with Dr. Clarke. The patient is not a good candidate for VATS pleurodesis to general medical conditions, debilitated state and metastatic disease. 06/09/2016: Chest tube continued on wall suction. 06/08/16: CXR w/ enlarging pneumo yesterday, chest tube was connected to suction. Chest x-ray revealed some enlarging pneumothorax, chest tube was reconnected to suction. We will follow-up with CT surgery. Right recurrent pneumothorax might be related to metastatic disease chest tube removed on 05/31/16 CXR from 06/02/2016 showed worsening of right severe pneumothorax Dr. Diamond placed another chest tube on June 02 Qualifiers: Pneumothorax type: spontaneous, primary Qualified Code(s): J93.11 - Primary spontaneous pneumothorax (4) 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 Status: Chronic Assessment and plan: Continue Mucinex suction as needed counseling on deep breathing chest percussion (5) COPD (chronic obstructive pulmonary disease) with acute bronchitis Current Visit: Yes Status: Acute Assessment and plan: Cont the patient on oral steroids and bronchodilators. Continue tapering steroids. We will taper down to 20 mg daily for 2 days then 10 mg 5 mg. Completed course of Levaquin. - Subjective Interval history: patient reports 0/10 shortness of breath at rest. No associated cough. Reports dull right-sided chest tenderness at the chest tube insertion site mild. - Constitutional Vitals: Temp Pulse Resp BP Pulse Ox 98.2 F 102 18 94/65 97 06/10/16 21:00 06/10/16 21:00 06/10/16 21:00 06/10/16 21:00 06/10/16 21:00 General appearance: Present: A&O X 3, pleasant, no acute distress, underweight - Eye Eye exam: Present: PERRL, conjuntiva pink, sclera anicteric Pupils: Present: PERRL - Respiratory Respiratory exam: Present: CTAB. Absent: accessory muscle use, rales, rhonchi, wheezes Additional comments: Right posterior chest tube subcutaneous emphysema - Cardiovascular Cardiovascular exam: Present: RRR, +S1, +S2. Absent: diastolic murmur, gallop, rubs, systolic murmur - GI/Abdominal GI/Abdominal exam: Present: normal bowel sounds, soft, no peritoneal signs. Absent: distended, tenderness - Neurological Exam Neurological exam: Present: CN II-XII intact, oriented X3, no focal deficits. Absent: pronater drift, facial droop, speech deficit Internal Medicine: Result - Labs CBC & Chem 7: 06/08/16 06:46 06/08/16 06:46 - ABG Interpretation ABG results: ABG ABG pH 7.53 pH Units (7.32-7.45) H 05/25/16 17:47 ABG pCO2 41 mmHg (35-45) 05/25/16 17:47 ABG pO2 59 mmHg (85-104) L 05/25/16 17:47 ABG O2 Saturation 93 % (95-98) L 05/25/16 17:47 - Impressions Impressions Chest X-Ray 06/10/16 08:01 IMPRESSION: Small right basilar pneumothorax 1.2 cm. Numerous bilateral pulmonary nodules. D/ / Jeremy Ochoa MD / Jeremy Ochoa MD Interpreting Provider: Jeremy Ochoa MD - VTE Documentation of Mechanical Device: Intermittent pneumatic compression device Consult Discharge Plan - Plan Referrals: Jammie Zhou, HORTICULTURAL FARMWORKER [Advanced Practice Nurse] - 06/13/16 9:40 am ()
[2016-06-10] MEDS: LENVATINIB PO SCH (21:15)
[2016-06-11] MEDS: *HR* OxyCODONE/APAP 7.5/325 TABLET PO PRN ×4 (01:06→14:37)
[2016-06-11 04:54] LABS: Hematocrit 32.7 % (37.5-50.1); Hemoglobin 10.5 g/dL (12.9-16.9); Mean Corpuscular HGB Conc 32.1 g/dL (31.6-35.5); Mean Corpuscular Hemoglobin 26.4 pg (28.0-33.3); Mean Corpuscular Volume 82.4 fL (83.0-100.0); Mean Platelet Volume 9.7 fL (9.4-12.4); Platelet Count 164 K/mcL (140-400); Red Blood Count 3.97 M/mcL (4.19-5.50); Red Cell Distribution Width 18.2 % (11.5-14.5)
[2016-06-11 05:15] LABS: BUN/Creatinine Ratio 36 (6-26); Blood Urea Nitrogen 26 mg/dL (8-26); Calcium 8.4 mg/dL (8.6-10.8); Carbon Dioxide 29 mEq/L (19-29); Chloride 97 mEq/L (98-109); Glucose 118 mg/dL (70-99); Osmolality,Calculated 288 (280-300); Sodium 136 mEq/L (136-145); eGFR For African Americans > 60 (> 60); eGFR For Non-African Americans > 60 (> 60)
[2016-06-11 05:25] LABS: Potassium 5.3 mEq/L (3.5-4.5)
[2016-06-11] MEDS: *HR* Enoxaparin 40 MG/0.4 ML SYRINGE SQ SCH (05:28)
[2016-06-11 08:12] VITALS: BP 116/76
--- NOTE | 2016-06-11 08:58 | Cardiothoracic Progress Note ---
Date of Encounter: 06/11/16 Time of Encounter: 08:56 - Assessment and plan (1) Pneumothorax Current Visit: Yes Status: Acute The chest x-ray appearance improved with decreased size of the right pneumothorax on suction and remained unchanged on waterseal. A Heimlich valve was placed on the chest tube. The patient may be discharged home later today and should follow up in the office with Dr. Hardik Diamond in 1-2 weeks. The assessment and plan as outlined above was discussed with the patient and/or family members who expressed understanding and agreement. All questions were answered. Qualifiers: Pneumothorax type: spontaneous, primary Qualified Code(s): J93.11 - Primary spontaneous pneumothorax - Subjective Interval history: The patient is sitting in a chair at the bedside. He is breathing comfortably and has no complaints. Vital Signs, Last 4 Hours Temp Pulse Resp BP Pulse Ox 06/11/16 08:05 97.9 F 90 16 116/76 97 Oxgyen Flow Rate Oxygen Flow Rate (LPM) 4 Weight 06/09/16 06/10/16 06/11/16 23:59 23:59 23:59 Weight 75.75 kg 75.115 kg 74.933 kg - Physical Examination General: Conversant, No Apparent Distress Neck: No JVD, Normal carotid pulses Cardiac: Reg Rate and Rhythm, Normal S1 and S2, No Murmur Incision: No signs of infection, Dry/intact dressing Chest tubes: Minimal drainage, Other (No air leak.) Lungs: Normal Breath Sounds Neuro: Alert and responsive, No focal deficits noted Vascular: Normal capillary refill Musculoskeletal: No Chest Wall Tenderness Extremities: No Clubbing, No Cyanosis, No Edema - Labs 06/11/16 04:03 06/11/16 04:03 Lab Results, Last 24 hours 06/11/16 06/11/16 04:03 04:03 WBC 8.7 Hgb 10.5 L Hct 32.7 L Plt Count 164 Sodium 136 Potassium 5.3 H Chloride 97 L Carbon Dioxide 29 BUN 26 Creatinine 0.73 Glucose 118 H Calcium 8.4 L - Imaging Chest Xray: image reviewed (Small right lateral pneumothorax, unchanged on waterseal.) - VTE Documentation of Mechanical Device: Intermittent pneumatic compression device Consult Discharge Plan - Plan Referrals: Jammie Zhou, DIVIDEND DEPOSIT ENTRY CLERK [Advanced Practice Nurse] - 06/13/16 9:40 am ()
[2016-06-11] MEDS ORDERED: predniSONE 20 MG TABLET PO SCH (09:00)
[2016-06-11] MEDS: levoFLOXacin 250 MG TABLET PO SCH (09:36)
[2016-06-11] MEDS: Venlafaxine XR (24 HR) 37.5 MG CAP.ER.24H PO SCH (09:37)
[2016-06-11] MEDS: amLODIPine 5 MG TABLET PO SCH (09:37)
--- NOTE | 2016-06-11 09:50 | Discharge Summary ---
Date of Encounter: 06/11/16 Time of Encounter: 09:48 - Discharge Diagnosis (1) COPD (chronic obstructive pulmonary disease) with acute bronchitis Priority: Secondary Status: Acute (2) Pneumothorax Priority: Primary Status: Acute Qualifiers: Pneumothorax type: spontaneous, primary Qualified Code(s): J93.11 - Primary spontaneous pneumothorax (3) Tracheostomy in place Priority: Secondary Status: Chronic - Discharge Medications Prescriptions: Amlodipine [Norvasc] 10 mg PO DAILY #30 tablet PredniSONE 10 mg PO DAILY #5 tablet PredniSONE 5 mg PO DAILY #5 tablet Home Medications: Calcitriol [Rocaltrol] 0.5 mcg PO BID 03/08/15 [History] Calcium Carbonate/Vitamin D3 [Calcium 500-Vit D3 400 Tablet] 1 each PO DAILY [History] Lenvatinib Mesylate [Lenvima] 24 mg PO DAILY #30 capsule 03/22/16 [Rx] Guaifenesin 400 mg PO AD 04/24/16 [History] OxyCODONE/APAP 7.5/325 [Percocet 7.5/325 MG] 1 tab PO Q6H PRN #120 tablet [Rx] Venlafaxine XR (24 HR) [Effexor Xr] 37.5 mg PO DAILY #30 cap.er.24h 05/10/16 [Rx ] Levothyroxine [Synthroid] 175 mcg PO DAILY #30 tablet 05/15/16 [Rx] Amlodipine [Norvasc] 10 mg PO DAILY #30 tablet 06/11/16 [Rx] PredniSONE 5 mg PO DAILY #5 tablet 06/11/16 [Rx] PredniSONE 10 mg PO DAILY #5 tablet 06/11/16 [Rx] Allergies/Adverse Reactions: Allergies No Known Allergies Allergy (Verified 05/22/16 22:43) Date of admission: 05/22/16 23:05 Primary care physician: Dalton Monterroso Jr, MD Consults: 05/28/16 10:29 Consult to Physical Therapy [CONS] Routine Comment: Evaluate, develop and implement POC 05/23/16 02:38 Consult to Falafel Cart Cook [CONS] Routine Reason for SW Consult: discharge planning 05/23/16 02:51 Consult to Pulmonology [CONS] Routine Consulting Provider: [facility] [place] Reason for Consult: pneumothorax, pneumonia Call Completed: No 05/23/16 13:07 Consult to Interventional Radiology [CONS] Routine Consulting Provider: Radiology Interventional [place] Reason for Consult: Chest tube placement Call Completed: Yes 05/24/16 07:19 Consult to Respiratory Therapy [CONS] Stat Reason for Consult: tracheal aspirate suctioning Call Completed: Yes Discharging clinician: Stevenson James Anticipated date of discharge: 06/11/16 - Patient Status Disposition: Home Health Service Condition: Fair Functional capacity at discharge: independent ambulation Overall status at discharge: patient is back to baseline - Discharge Instructions Instructions: Spontaneous Pneumothorax (DC), Chronic Bronchitis (DC), Chronic Hypertension (DC) Follow Up With: Hardik Diamond MD [Partnered Physician] - (Dr. Diamond Office staff will call for an appointment...) Jammie Zhou CNP [Advanced Practice Nurse] - 06/13/16 9:40 am () - Diet and Activity Activity: as per physical therapy, resume usual activities as tolerated Diet: advance to your usual diet Interval History: Mr. 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 He reports drainage of copious amount of yellow-green secretion from tracheostomy. He denies chest pain or trauma. No fever, chills or rigors. His sisters reports much more dyspnea even with mild exertion. The patient was evaluated by his by his PCP and prescribed an antibiotic recently, but been unable to return for follow-up. He lives alone but his sisters come around often. They are very surportive. The patient continues to smoke. He is FULL CODE as per discussion, he vehemently states he does not want to be intubated, his sister Cici Cantrell ([phone]) is his NOK/POA. He is admitted for Acute on chronic respiratory failure to AICU 2/2 Spontaneous right pneumothorax , pneumonia and COPD s/p chest tube placement to under water seal.Chest x-ray revealed a right spontaneous pneumothorax and a small bore chest tube was inserted in the emergency department. The chest tube was placed on suction and immediately after the procedure there was no change in the size of the pneumothorax. Replacement of chest tube was done for larger bore drain,Small 8-9fr pleural drain placed in ER not working well. faith was also tretaed with IV antibiotics for pneumonia. HE imporved cinically and was transferred out of ICU. eventually The chest x-ray appearance improved with decreased size of the right pneumothorax on suction and remained unchanged on waterseal. A Heimlich valve was placed on the chest tube. The patient is being discharged home today in stable condition and should follow up in the office with Dr. Hardik Diamond in 1 -2 weeks. The assessment and plan as outlined above was discussed with the patient and/or family members who expressed understanding and agreement. All questions were answered. Hospital course: Mr. Parikh is a 66 year old male Time spent discussing smoking cessation with patient: more than 10 minutes - Time Spent with Patient Total time spent providing and/or coordinating discharge services: Greater than 30 minutes - Constitutional Vitals: Temp Pulse Resp BP Pulse Ox 97.9 F 90 16 116/76 97 06/11/16 08:05 06/11/16 08:05 06/11/16 08:05 06/11/16 08:05 06/11/16 08:05 General appearance: Present: A&O X 3, pleasant, no acute distress, underweight Exam: General: Conversant, No Apparent Distress Neck: No JVD, Normal carotid pulses Cardiac: Reg Rate and Rhythm, Normal S1 and S2, No Murmur Incision: No signs of infection, Dry/intact dressing Chest tubes: Minimal drainage, Other (No air leak.) Lungs: Normal Breath Sounds Neuro: Alert and responsive, No focal deficits noted Vascular: Normal capillary refill Musculoskeletal: No Chest Wall Tenderness Extremities: No Clubbing, No Cyanosis, No Edema - VTE Documentation of Mechanical Device: Intermittent pneumatic compression device
--- NOTE | 2016-06-11 09:54 | Physician Discharge Referral ---
Home Health/Hosp Referral Info Transfer to: Home Health Attending Provider: primo - Diagnosis (1) COPD (chronic obstructive pulmonary disease) with acute bronchitis Status: Acute (2) Pneumothorax Status: Acute (3) Tracheostomy in place Status: Chronic - Respiratory Orders Oxygen / L per min (4.5l) Smoking Cessation: Smoking cessation has been advised. For more information, call the [place] Tobacco Quit Line at 7-826-GMVW-NOW. - Diet/Nutrition Diet/Nutrition Orders: Regular - Activity Activity Orders: Up ad do - Services Needed Following services are medically necessary services: Nursing, Home Health Aide, Physical Therapy, Occupational Therapy - Transfer Medications Prescriptions: Amlodipine [Norvasc] 10 mg PO DAILY #30 tablet PredniSONE 10 mg PO DAILY #5 tablet PredniSONE 5 mg PO DAILY #5 tablet Home Medications: Calcitriol [Rocaltrol] 0.5 mcg PO BID 03/08/15 [History] Calcium Carbonate/Vitamin D3 [Calcium 500-Vit D3 400 Tablet] 1 each PO DAILY [History] Lenvatinib Mesylate [Lenvima] 24 mg PO DAILY #30 capsule 03/22/16 [Rx] Guaifenesin 400 mg PO AD 04/24/16 [History] OxyCODONE/APAP 7.5/325 [Percocet 7.5/325 MG] 1 tab PO Q6H PRN #120 tablet [Rx] Venlafaxine XR (24 HR) [Effexor Xr] 37.5 mg PO DAILY #30 cap.er.24h 05/10/16 [Rx ] Levothyroxine [Synthroid] 175 mcg PO DAILY #30 tablet 05/15/16 [Rx] Amlodipine [Norvasc] 10 mg PO DAILY #30 tablet 06/11/16 [Rx] PredniSONE 5 mg PO DAILY #5 tablet 06/11/16 [Rx] PredniSONE 10 mg PO DAILY #5 tablet 06/11/16 [Rx] Allergies/Adverse Reactions: Allergies No Known Allergies Allergy (Verified 05/22/16 22:43) Certification: Further, I certify that my clinical findings support that this patient is homebound (i.e. absences from home require considerable and taxing effort and are for medical reasons or orthodox services or infrequently or short duration when for other reasons) because: Homebound Reason: Patient requires assistance of a person or device to safely leave home Attestation: My signature below is to certify that this patient is under my care and that I, or nurse practitioner, or a physician's nursing assistant working with me, has a face-to -face encounter with this patient.
[2016-06-13] MEDS ORDERED: predniSONE 5 MG TABLET PO SCH (09:00)
[2016-06-15] MEDS ORDERED: predniSONE 5 MG TABLET PO SCH (09:00)
== END 2016-06-11 14:52 | disposition home health service (06) | DRG 871 ==
LOC: EMEROO 19:21 → ICNU 23:05 → SUATTDRO 23:05 → ICNU 05-23 02:00 → 2NNU 05-23 17:05 → ICNU 06-01 01:29 → 2NNU 06-01 02:32 → 2ANU 06-01 10:31
PROVIDERS: ADMIT Family Medicine; ATTEND Internal Medicine

== ENCOUNTER 2017-02-07 19:09 | Inpatient (IN) ==
--- NOTE | 2017-02-07 19:43 | Emergency Department Note ---
Disposition Clinical Impression: Severe sepsis, Shortness of breath, Elevated troponin I level UTI (urinary tract infection) Qualifiers: Urinary tract infection type: site unspecified Hematuria presence: without hematuria Qualified Code(s): N39.0 - Urinary tract infection, site not specified Disposition: Admitted As Inpatient Condition: Serious Time of Disposition: 22:39 SOB HPI - General Chief Complaint: ED Shortness of Breath/Dyspnea Stated Complaint: having problems breathing post port, Time Seen by Provider: 02/07/17 19:35 Source: patient Nursing Notes Reviewed: Yes Vital Signs Reviewed: Yes - History of Present Illness Patient is a 66-year-old male with history of thyroid cancer status post tracheostomy, and newly diagnosed pancreatic cancer. Patient under the care of Dr. Moyer of oncology. Patient states he had a tunneled port placed in the right chest 2 days ago here at [place]. Patient states that this morning he has sudden onset of shortness of breath. Patient is having copious secretions out of his tracheostomy. Patient is brought for evaluation. - Related Data Home Medications Medication Instructions Recorded Confirmed Calcitriol [Rocaltrol] 0.5 mcg PO BID 03/08/15 02/07/17 Calcium Carbonate/Vitamin D3 1 tab PO DAILY 03/08/15 02/07/17 [Calcium 500-Vit D3 400 Tablet] Losartan [Cozaar] 25 mg PO DAILY 08/07/16 02/07/17 Albuterol Sulfate [Albuterol 1 puff IH Q6H PRN 11/13/16 02/07/17 Inhaler] Budesonide/Formoterol 160/4.5 2 puff IH BID 11/13/16 02/07/17 [Symbicort 160/4.5] Levothyroxine Sodium [Synthroid] 200 mcg PO DAILY 01/22/17 02/07/17 Lenvatinib Mesylate [Lenvima] 24 mg PO AD 02/07/17 02/07/17 Oxycodone HCl/Acetaminophen 1 tab PO Q6H PRN 02/07/17 02/07/17 [Percocet 10-325 mg Tablet] Previous Rx's Medication Instructions Recorded Venlafaxine XR (24 HR) [Effexor Xr] 37.5 mg PO DAILY #30 cap.er.24h 11/27/16 Levothyroxine [Synthroid] 25 mcg PO DAILY #30 tablet 02/04/17 Allergies Allergy/AdvReac Type Severity Reaction Status Date / Time No Known Allergies Allergy Verified 02/03/17 09:30 All systems ED: reviewed and negative except as stated. Review of Systems: As Per HPI Constitutional: Denies: fever, weakness Eyes: Denies: vision change ENT ED: Reports: congestion Cardiovascular: Denies: chest pain, palpitations Respiratory: Reports: cough, wheezes Gastrointestinal: Denies: abdominal pain, nausea, vomiting, diarrhea, hematemesis, melena, hematochezia Genitourinary: Reports: urgency Musculoskeletal: Reports: back pain Integumentary: Denies: rash Neurological: Denies: headache Psychiatric: Denies: anxiety Endocrine: Reports: fatigue Past Medical History - Past Medical History Attestation: Yes The following information was validated with the patient. Source: patient Medical history: Reports: cancer, COPD, hyperlipidemia, hypertension, thyroid disease Surgical history: Reports: tracheostomy Psychiatric history: Reports: anxiety, depression - Social History Smoking Status: Current every day smoker Smokeless Tobacco Status: No Alcohol use: Reports: none Drug use: Reports: none Physical Exam - General Limitations: other (Tracheostomy. Difficulty understanding secondary to clogged trach) General appearance: alert, in no apparent distress - Head Head exam: atraumatic, normocephalic, normal inspection - Eye Eye exam: Present: normal appearance, PERRL, EOMI - ENT ENT exam: normal exam, normal oropharynx, mucous membranes moist - Neck Neck exam: Present: normal inspection, full ROM, trachea midline - Chest Chest inspection: Present: normal inspection, symmetric chest wall rise - Respiratory Respiratory exam: Present: wheezes, other (Rhonchi at bilateral lung doyle) - Cardiovascular Cardiovascular exam: Present: normal rhythm, tachycardia - Abdominal Exam Abdominal exam: Present: soft, Non-Tender. Absent: tenderness, distention, guarding, rebound, rigidity - Extremities Exam Extremities exam: Present: pedal edema (Bilateral lower extremity edema) - Back Exam Back exam: Present: other (Patient states his back hurts along his flanks when he turns). Absent: tenderness, CVA tenderness (R), CVA tenderness (L) - Neurological Exam Neurological exam: Present: alert, oriented X3, CN II-XII intact - Skin Skin exam: Present: warm, dry Course - Reevaluation(s) Reevaluation #1: Labs and imaging ordered Time: 19:39 - Consultations Consultation #1: Dr. Roy the hospitalist as except the patient for admission 2226 hrs. Time: 22:26 Consultation #2: Dr. Monteiro of cardiology was consulted. The patient will be seen inpatient Time: 22:00 Vital Signs Temperature 97.8 F 02/07/17 19:31 Pulse Rate 101 02/07/17 19:31 Respiratory Rate 32 02/07/17 19:31 Blood Pressure 138/87 02/07/17 19:31 O2 Sat by Pulse Oximetry 89 02/07/17 19:31 Temperature 97.8 F 02/07/17 19:31 Pulse Rate 102 02/07/17 22:17 Respiratory Rate 22 02/07/17 22:17 Blood Pressure 120/90 02/07/17 22:17 O2 Sat by Pulse Oximetry 97 02/07/17 22:17 Oxygen Delivery Oxygen Delivery Trach Mask Shortness of Breath/Dyspnea - MDM Narrative Medical decision making narrative: Patient shortness of breath and copious secretions from the tracheostomy tube with a history of thyroid cancer and newly diagnosed pancreatic cancers concerning heavily for sepsis. Sepsis workup was initiated. Fluids initiated. 2 L normal saline bolus. Cultures and labs ordered as well peripheral as well as tube secretions. Chest x-ray was ordered. All this to look for source of infection. Urine ordered as well. Patient's white count came back elevated 11.2, patient has elevation of lactic acid and troponin. Patient's chest x-ray came back negative for pneumonia but urine came back positive for UTI. Patient is being treated for severe sepsis. Levofloxacin, vancomycin, and Zosyn was initiated. Patient's been in creatinine are within normal limits. 1 mg of Dilaudid given for patient's pain. Patient has been directed to take lenvatinib 10 mg for his cancer treatment. Patient is except decision for admission. Patient was admitted. Dr. Roy the hospitalist as except the patient for admission 2226 hrs. - Lab Data Lab results reviewed: Yes I reviewed the patient's lab results. Lab results narrative: Short CBC 02/07/17 Range/Units 20:38 WBC 11.2 H (4.3-11.1) K/mcL Hgb 14.1 (12.9-16.9) g/dL Hct 45.2 (37.5-50.1) % Plt Count 147 (140-400) K/mcL Neutrophils # 9.4 H (1.6-8.9) K/mcL BMP 02/07/17 Range/Units 20:38 Sodium 136 (136-145) mEq/L Potassium 4.5 (3.5-4.5) mEq/L Chloride 100 (98-109) mEq/L Carbon Dioxide 20 (19-29) mEq/L BUN 26 (8-26) mg/dL Creatinine 0.86 (0.72-1.25) mg/dL Glucose 111 H (70-99) mg/dL Calcium 9.0 (8.6-10.8) mg/dL Cardiac Enzymes 02/07/17 Range/Units 20:38 Troponin I 0.14 H* (0-0.03) ng/mL Liver Function 02/07/17 Range/Units 20:38 Total Bilirubin 2.0 H (0.2-1.2) mg/dL Direct Bilirubin 1.3 H (0.0-0.5) mg/dL AST 50 H (5-34) Units/L ALT 56 H (0-55) Units/L Alkaline Phosphatase 636 H (38-126) Units/L Albumin 2.6 L (3.5-5.0) g/dL Urine 02/07/17 Range/Units 19:50 Urine Color Dark Yellow (Yellow) Urine Clarity Cloudy A (Clear) Urine pH 6.0 (5.0-8.0) pH Units Ur Specific Conway 1.025 (1.010-1.025) Urine Protein 100 H (Neg-Trace) mg/dL Urine Glucose (UA) Normal (Normal) mg/dL Result diagrams: 02/07/17 20:38 02/07/17 20:38 Lab Results 02/07/17 02/07/17 02/07/17 Range/Units 19:50 20:38 20:38 WBC 11.2 H (4.3-11.1) K/mcL RBC 5.11 (4.19-5.50) M/mcL Hgb 14.1 (12.9-16.9) g/dL Hct 45.2 (37.5-50.1) % MCV 88.5 (83.0-100.0) fL MCH 27.6 L (28.0-33.3) pg MCHC 31.2 L (31.6-35.5) g/dL RDW 16.6 H (11.5-14.5) % Plt Count 147 (140-400) K/mcL MPV 10.9 (9.4-12.4) fL Immature Gran % 0.4 (0-4) % Seg Neutrophils % 83.9 % Lymphocytes % 5.0 % Monocytes % 10.2 % Eosinophils % 0.2 % Basophils % 0.3 % Neutrophils # 9.4 H (1.6-8.9) K/mcL Lymphocytes # 0.6 (0.6-4.6) K/mcL Monocytes # 1.2 (0.0-1.3) K/mcL Eosinophils # 0.0 (0.0-0.6) K/mcL Basophils # 0.0 (0.0-0.2) K/mcL PT 17.2 H (9.4-12.1) Seconds INR 1.6 APTT 34.6 (26.0-36.0) Seconds Sodium (136-145) mEq/L Potassium (3.5-4.5) mEq/L Chloride (98-109) mEq/L Carbon Dioxide (19-29) mEq/L BUN (8-26) mg/dL Creatinine (0.72-1.25) mg/dL Est GFR ( Amer) (> 60) Est GFR (Non-Af Amer) (> 60) BUN/Creatinine Ratio (6-26) Glucose (70-99) mg/dL Calculated Osmolality (280-300) Lactic Acid (0.5-2.2) mmol/L Calcium (8.6-10.8) mg/dL Phosphorus (2.3-4.7) mg/dL Magnesium (1.6-2.6) mg/dL Total Bilirubin (0.2-1.2) mg/dL Direct Bilirubin (0.0-0.5) mg/dL Indirect Bilirubin (0.0-1.2) mg/dL AST (5-34) Units/L ALT (0-55) Units/L Alkaline Phosphatase (38-126) Units/L Troponin I (0-0.03) ng/mL Serum Total Protein (6.0-8.3) g/dL Albumin (3.5-5.0) g/dL Globulin (2.4-3.5) g/dL Albumin/Globulin Ratio (1.1-2.2) Lipase (8-78) Units/L Urine Color Dark Yellow (Yellow) Urine Clarity Cloudy A (Clear) Urine pH 6.0 (5.0-8.0) pH Units Ur Specific Conway 1.025 (1.010-1.025) Urine Protein 100 H (Neg-Trace) mg/dL Urine Glucose (UA) Normal (Normal) mg/dL Urine Ketones Negative (Negative) mg/dL Urine Blood Large H (Negative) Urine Nitrite Negative (Negative) Urine Bilirubin Small H (Negative) Urine Urobilinogen Normal (Normal) mg/dL Ur Leukocyte Esterase Small H (Negative) Urine Microscopic RBC 50-100 H (0-3) per hpf Urine Microscopic WBC 50-100 H (0-3) per hpf Ur Squamous Epith Cells Many H (None-Few) per lpf Urine Bacteria Few (None-Few) per hpf Hyaline Casts Few (None-Few) per lpf Urine Mucus Few (Few) Ur Culture Indicated? YES A (NO) 02/07/17 02/07/17 02/07/17 Range/Units 20:38 20:38 20:38 WBC (4.3-11.1) K/mcL RBC (4.19-5.50) M/mcL Hgb (12.9-16.9) g/dL Hct (37.5-50.1) % MCV (83.0-100.0) fL MCH (28.0-33.3) pg MCHC (31.6-35.5) g/dL RDW (11.5-14.5) % Plt Count (140-400) K/mcL MPV (9.4-12.4) fL Immature Gran % (0-4) % Seg Neutrophils % % Lymphocytes % % Monocytes % % Eosinophils % % Basophils % % Neutrophils # (1.6-8.9) K/mcL Lymphocytes # (0.6-4.6) K/mcL Monocytes # (0.0-1.3) K/mcL Eosinophils # (0.0-0.6) K/mcL Basophils # (0.0-0.2) K/mcL PT (9.4-12.1) Seconds INR APTT (26.0-36.0) Seconds Sodium 136 (136-145) mEq/L Potassium 4.5 (3.5-4.5) mEq/L Chloride 100 (98-109) mEq/L Carbon Dioxide 20 (19-29) mEq/L BUN 26 (8-26) mg/dL Creatinine 0.86 (0.72-1.25) mg/dL Est GFR ( Amer) > 60 (> 60) Est GFR (Non-Af Amer) > 60 (> 60) BUN/Creatinine Ratio 30 H (6-26) Glucose 111 H (70-99) mg/dL Calculated Osmolality 287 (280-300) Lactic Acid 3.4 H (0.5-2.2) mmol/L Calcium 9.0 (8.6-10.8) mg/dL Phosphorus 5.0 H (2.3-4.7) mg/dL Magnesium 1.4 L (1.6-2.6) mg/dL Total Bilirubin 2.0 H (0.2-1.2) mg/dL Direct Bilirubin 1.3 H (0.0-0.5) mg/dL Indirect Bilirubin 0.7 (0.0-1.2) mg/dL AST 50 H (5-34) Units/L ALT 56 H (0-55) Units/L Alkaline Phosphatase 636 H (38-126) Units/L Troponin I 0.14 H* (0-0.03) ng/mL Serum Total Protein 7.0 (6.0-8.3) g/dL Albumin 2.6 L (3.5-5.0) g/dL Globulin 4.4 H (2.4-3.5) g/dL Albumin/Globulin Ratio 0.6 L (1.1-2.2) Lipase < 10 (8-78) Units/L Urine Color (Yellow) Urine Clarity (Clear) Urine pH (5.0-8.0) pH Units Ur Specific Conway (1.010-1.025) Urine Protein (Neg-Trace) mg/dL Urine Glucose (UA) (Normal) mg/dL Urine Ketones (Negative) mg/dL Urine Blood (Negative) Urine Nitrite (Negative) Urine Bilirubin (Negative) Urine Urobilinogen (Normal) mg/dL Ur Leukocyte Esterase (Negative) Urine Microscopic RBC (0-3) per hpf Urine Microscopic WBC (0-3) per hpf Ur Squamous Epith Cells (None-Few) per lpf Urine Bacteria (None-Few) per hpf Hyaline Casts (None-Few) per lpf Urine Mucus (Few) Ur Culture Indicated? (NO) 02/07/17 Range/Units 21:38 WBC (4.3-11.1) K/mcL RBC (4.19-5.50) M/mcL Hgb (12.9-16.9) g/dL Hct (37.5-50.1) % MCV (83.0-100.0) fL MCH (28.0-33.3) pg MCHC (31.6-35.5) g/dL RDW (11.5-14.5) % Plt Count (140-400) K/mcL MPV (9.4-12.4) fL Immature Gran % (0-4) % Seg Neutrophils % % Lymphocytes % % Monocytes % % Eosinophils % % Basophils % % Neutrophils # (1.6-8.9) K/mcL Lymphocytes # (0.6-4.6) K/mcL Monocytes # (0.0-1.3) K/mcL Eosinophils # (0.0-0.6) K/mcL Basophils # (0.0-0.2) K/mcL PT (9.4-12.1) Seconds INR APTT (26.0-36.0) Seconds Sodium (136-145) mEq/L Potassium (3.5-4.5) mEq/L Chloride (98-109) mEq/L Carbon Dioxide (19-29) mEq/L BUN (8-26) mg/dL Creatinine (0.72-1.25) mg/dL Est GFR ( Amer) (> 60) Est GFR (Non-Af Amer) (> 60) BUN/Creatinine Ratio (6-26) Glucose (70-99) mg/dL Calculated Osmolality (280-300) Lactic Acid 2.6 H (0.5-2.2) mmol/L Calcium (8.6-10.8) mg/dL Phosphorus (2.3-4.7) mg/dL Magnesium (1.6-2.6) mg/dL Total Bilirubin (0.2-1.2) mg/dL Direct Bilirubin (0.0-0.5) mg/dL Indirect Bilirubin (0.0-1.2) mg/dL AST (5-34) Units/L ALT (0-55) Units/L Alkaline Phosphatase (38-126) Units/L Troponin I (0-0.03) ng/mL Serum Total Protein (6.0-8.3) g/dL Albumin (3.5-5.0) g/dL Globulin (2.4-3.5) g/dL Albumin/Globulin Ratio (1.1-2.2) Lipase (8-78) Units/L Urine Color (Yellow) Urine Clarity (Clear) Urine pH (5.0-8.0) pH Units Ur Specific Conway (1.010-1.025) Urine Protein (Neg-Trace) mg/dL Urine Glucose (UA) (Normal) mg/dL Urine Ketones (Negative) mg/dL Urine Blood (Negative) Urine Nitrite (Negative) Urine Bilirubin (Negative) Urine Urobilinogen (Normal) mg/dL Ur Leukocyte Esterase (Negative) Urine Microscopic RBC (0-3) per hpf Urine Microscopic WBC (0-3) per hpf Ur Squamous Epith Cells (None-Few) per lpf Urine Bacteria (None-Few) per hpf Hyaline Casts (None-Few) per lpf Urine Mucus (Few) Ur Culture Indicated? (NO) - Radiology Data Radiology results reviewed: Yes I reviewed the patient's radiology results. Chest X-Ray 02/07/17 19:34 IMPRESSION: Multiple bilateral pulmonary nodules, presumed metastatic and grossly stable. No superimposed acute cardiopulmonary process. D/ / 02/07/2017 20:49:21 Colton Tillman MD / [facility] Interpreting Provider: Colton Tillman MD - EKG Data EKG attestation: Yes I reviewed and interpreted this EKG. EKG results narrative: EKG taken 02/07/2017 and 1917 hrs. sinus tachycardia with no acute ST elevations or depressions name leads, widened QT prolongation. Patient's EKG is negative for wellens, scarbosa, and brugada. Previous EKG taken 05/25/2016 shows sinus rhythm at 82 bpm also no signs of ischemia. Critical Care Time Critical Care Time: Yes Total Critical Care Time: 35 Attestation: Critical care time 35 minutes. Attestation Statement - Attestation Attestation: Patient was seen with resident physician. I reviewed the history, physical, assessment and plan, and agree with the findings. I also personally evaluated this patient and had [id number] time with this patient. 66-year-old male presents to the emergency Department chief complaint of trouble breathing and burning on urination. Patient has a trach and is unable to really give a history, most of history is from the family did speak for him. Apparently he has had increased trouble breathing since approximately Friday when he had a Port-A-Cath placed. He has several different kinds of cancer for which she is currently being treated. Patient's has had increased mucus production and difficulty breathing for the lungs. And he says shakes his head yes to having had trouble urinating. No fevers or chills. Some mild epigastric discomfort. On examination vital signs patient's tachycardic blood pressure stable no significant fever. ENT patient has intact trach with mucus production. Lungs diffuse crackles and wheezes heard throughout with rales and rhonchi as well. Generally lung sounds are poor. But he is breathing okay and moving air. Abdomen mild discomfort with palpation midepigastric area positive bowel sounds no guarding or rigidity. Extremities mild swelling in the lower extremities bilaterally. Neurologically does not appear to have focal neurologic deficits moves all extremities okay. ED course urinalysis was positive. Lactate was positive detectably met criteria for severe sepsis. Patient was given IV hydration triple antibiotic therapy and attempt to cover for urosepsis as well as other causes of pulmonary infection. Chest x-ray did not show acute infiltrate. Discussed patient's elevated troponin with cardiology who agreed to see the patient on the floor without further recommendations for treatment at this time. Patient will be admitted to the hospitalist service for further evaluation and treatment. He remained in guarded condition while in the emergency department. Agree with the resident physician assessment and plan. Care time for this patient was 35 minutes.
[2017-02-07 19:58] LABS: Bilirubin,Urine Small (Negative); Blood,Urine Large (Negative); Clarity,Urine Cloudy (Clear); Color,Urine Dark Yellow (Yellow); Glucose,Urine (UA) Normal (Normal); Ketones,Urine Negative (Negative); Leukocyte Esterase,Urine Small (Negative); Nitrite,Urine Negative (Negative); Protein,Urine 100 mg/dL (Neg-Trace); Specific Gravity,Urine 1.025 (1.010-1.025); Urobilinogen,Urine Normal (Normal)
[2017-02-07 20:00] LABS: Hyaline Casts,Urine Few per lpf (None-Few); Squamous Epithelial Cell,Urine Many per lpf (None-Few); WBC,Urine 50-100 per hpf (0-3)
[2017-02-07] MEDS ORDERED: Ipratropium/Albuterol Neb 3 ML IH ONE (20:13)
[2017-02-07 20:25] LABS: RBC,Urine 50-100 per hpf (0-3)
[2017-02-07 20:26] LABS: Bacteria,Urine Few per hpf (None-Few); Mucus,Urine Few (Few)
[2017-02-07 20:51] LABS: Basophils % 0.3 %; Eosinophils % 0.2 %; Hematocrit 45.2 % (37.5-50.1); Hemoglobin 14.1 g/dL (12.9-16.9); Immature Granulocytes % 0.4 % (0-4); Lymphocytes # 0.6 K/mcL (0.6-4.6); Mean Corpuscular HGB Conc 31.2 g/dL (31.6-35.5); Mean Corpuscular Hemoglobin 27.6 pg (28.0-33.3); Mean Corpuscular Volume 88.5 fL (83.0-100.0); Mean Platelet Volume 10.9 fL (9.4-12.4); Monocytes # 1.2 K/mcL (0.0-1.3); Monocytes % 10.2 %; Neutrophils # 9.4 K/mcL (1.6-8.9); Platelet Count 147 K/mcL (140-400); Red Blood Count 5.11 M/mcL (4.19-5.50); Red Cell Distribution Width 16.6 % (11.5-14.5); Segmented Neutrophils % 83.9 %
[2017-02-07 21:01] LABS: INR 1.6; Prothrombin Time 17.2 Seconds (9.4-12.1)
[2017-02-07 21:03] LABS: Activated Partial Thrombo Time 34.6 Seconds (26.0-36.0)
[2017-02-07 21:06] LABS: Alanine Aminotransferase 56 Units/L (0-55); Albumin 2.6 g/dL (3.5-5.0); Albumin/Globulin Ratio 0.6 (1.1-2.2); Alkaline Phosphatase 636 Units/L (38-126); Aspartate Amino Transferase 50 Units/L (5-34); BUN/Creatinine Ratio 30 (6-26); Bilirubin,Direct 1.3 mg/dL (0.0-0.5); Bilirubin,Indirect 0.7 mg/dL (0.0-1.2); Blood Urea Nitrogen 26 mg/dL (8-26); Carbon Dioxide 20 mEq/L (19-29); Chloride 100 mEq/L (98-109); Globulin 4.4 g/dL (2.4-3.5); Glucose 111 mg/dL (70-99); Magnesium 1.4 mg/dL (1.6-2.6); Osmolality,Calculated 287 (280-300); Sodium 136 mEq/L (136-145); eGFR For African Americans > 60 (> 60); eGFR For Non-African Americans > 60 (> 60)
[2017-02-07 21:07] LABS: Lipase < 10 Units/L (8-78); Potassium 4.5 mEq/L (3.5-4.5)
[2017-02-07] MEDS ORDERED: 0.9 % Sodium Chloride 1,000 ML IVC ONE ×2 (21:12→21:27)
[2017-02-07] MEDS ORDERED: Piperacillin/Tazobactam 4.5 GM in D5% in Water (Mini-Bag+) 100 ML IVPB ONE (21:18)
[2017-02-07] MEDS ORDERED: Vancomycin 1,000 MG in D5% in Water 250 ML IVPB ONE (21:18)
[2017-02-07] MEDS ORDERED: Levofloxacin 750 MG/150 ML 750 MG/150 ML BAG IVPB ONE (21:23)
[2017-02-07] MEDS ORDERED: *HR* HYDROmorphone (PF) 1 MG/ML SYRINGE IVP ONE (22:05)
[2017-02-07] MEDS ORDERED: 0.9 % Sodium Chloride 1,000 ML IVC SCH ×2 (22:45→23:30)
--- NOTE | 2017-02-07 23:17 | Internal Med History&Physical ---
<Colton Bruce - Last Filed: 02/08/17 00:28> Date of Encounter: 02/08/17 Time of Encounter: 23:16 Assessment and Plan (1) Severe sepsis Current visit: Yes Status: Acute patient met 3 SIRS criteria of WBC 11.2, tachycardia HR 101, RR 32, initial lactic acid 3.4 and repeat lactic acid 2.6. UA was positive for UTI. Blood, urine, and sputum cultures ordered Elevated LFTs likely secondary to pancreatic cancer. Patient had a tunneled port placed in the right chest 2 days ago, no signs of infection. CXR rerveals multiple bilateral pulmonary nodules, presumed metastatic and grossly stable. No superimposed acute cardiopulmonary process. Continue empiric Vanc and Zosyn until cultures resulted. Given sepsis bolus in ED. Hold further IVF due to significant pedal edema and difficulty breathing Patient has guarded prognosis and risk of worsening despite treatment given extent of metastatic disease. (2) Acute exacerbation of chronic obstructive airways disease Current visit: Yes Status: Acute Continue Solumedol, Duonebs, and antibiotics. (3) UTI (urinary tract infection) Current visit: Yes Status: Acute Continue empiric antibiotics as above. Qualifiers: Urinary tract infection type: site unspecified Hematuria presence: without hematuria Qualified Code(s): N39.0 - Urinary tract infection, site not specified (4) Elevated troponin I level Current visit: Yes Status: Acute His troponin was 0.14, trend serial troponins. ED physician discussed patient's elevated troponin with cardiology who agreed to see the patient on the floor without further recommendations for treatment at this time. Likely demand ischemia secondary to sepsis. EKG shows sinus tachycardai, no signs of acute AK. (5) Pancreatic cancer Current visit: No Status: Acute Elevated LFTs. Abd tenderness on exam. Oncologist/ Dr. Moyer consulted Qualifiers: Pancreatic malignancy location: unspecified Qualified Code(s): C25.9 - Malignant neoplasm of pancreas, unspecified (6) Follicular thyroid cancer Current visit: No Status: Chronic Oncologist/ Dr. Moyer consulted (7) Lung metastasis Current visit: No Status: Acute CXR shows multiple bilateral pulmonary nodules, presumed metastatic and grossly stable. Oncologist/ Dr. Moyer consulted Qualifiers: Laterality: right Qualified Code(s): C78.01 - Secondary malignant neoplasm of right lung (8) 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 visit: No Status: Chronic Continue trach care, RT management (9) Tobacco dependence Current visit: Yes Status: Acute Tobacco cessation discussed (10) DVT prophylaxis Current visit: No Status: Acute Heparin TID Internal Medicine - H&P: HPI Chief complaint: SOB Admitted From: Home Plans for Post Hospital Care: Home History of present illness: Mr. Parikh is a 66 year old male with a PMH of tracheostomy due to thyroid cancer , COPD, and newly diagnosed pancreatic cancer presented c/o SOB since this AM with copious secretions out of his tracheostomy. Patient reports congestion and bilateral flank pain. Of note, patient had a tunneled port placed in the right chest 2 days ago and sees oncologist/ Dr. Moyer. Patient denies fever, chills , CP, abd pain, N/V/D, or lower extremity edema. In the ED, patient met 3 SIRS criteria of WBC 11.2, tachycardia HR 101, RR 32, initial lactic acid 3.4 and repeat lactic acid 2.6. UA was positive for UTI. His troponin was 0.14 Past Med Surg Social Fam HX - Past Medical History Medical history: cancer, COPD, hyperlipidemia, hypertension, thyroid disease Psychiatric history: anxiety, depression - Past Surgical History Surgical History: tracheostomy - Social History Smoking Status: Current every day smoker Smokeless Tobacco Status: No Alcohol use: none Drug use: none - Family History Mother Hx Family Cardiac Disorders: Yes (HTN) Hx Family Endocrine Disorder: Yes (DM) Father Hx Family Cardiac Disorders: Yes ([place], HTN) Hx Family Endocrine Disorder: Yes (DM) Internal Medicine - H&P: Meds Calcitriol [Rocaltrol] 0.5 mcg PO BID 03/08/15 [History] Calcium Carbonate/Vitamin D3 [Calcium 500-Vit D3 400 Tablet] 1 tab PO DAILY [History] Losartan [Cozaar] 25 mg PO DAILY 08/07/16 [History] Albuterol Sulfate [Albuterol Inhaler] 1 puff IH Q6H PRN 11/13/16 [History] Budesonide/Formoterol 160/4.5 [Symbicort 160/4.5] 2 puff IH BID 11/13/16 [ History] Venlafaxine XR (24 HR) [Effexor Xr] 37.5 mg PO DAILY #30 cap.er.24h 11/27/16 [Rx ] Levothyroxine Sodium [Synthroid] 200 mcg PO DAILY 01/22/17 [History] Levothyroxine [Synthroid] 25 mcg PO DAILY #30 tablet 02/04/17 [Rx] Lenvatinib Mesylate [Lenvima] 24 mg PO AD 02/07/17 [History] Oxycodone HCl/Acetaminophen [Percocet 10-325 mg Tablet] 1 tab PO Q6H PRN [History] 3 Allergy/AdvReac Type Severity Reaction Status Date / Time No Known Allergies Allergy Verified 02/03/17 09:30 All Systems PM: A 10-system review of systems was performed and is negative for pertinent findings except as documented above in the HPI. - Constitutional Constitutional: no chills, no fever(s), no weight gain, no weight loss - EENT Eyes: no blurry vision, no change in vision Nose, mouth and throat: hoarseness, nasal congestion, no sinus pressure - Cardiovascular Cardiovascular ROS IM: palpitations, no chest pain - Respiratory Respiratory: dyspnea, chest congestion, excessive phlegm production, change in phlegm color - Gastrointestinal Gastrointestinal: no bloating, no diarrhea, no nausea, no vomiting - Genitourinary Genitourinary ROS male: no dysuria, no urinary frequency, no urinary urgency - Musculoskeletal Musculoskeletal ROS IM: no arthralgias, no muscle cramps, no numbness, no tingling - Integumentary Integumentary IM: no erythema, no rash - Neurological Neurological ROS: no confusion, no loss of vision, no numbness, no tingling, no weakness - Psychiatric Psychiatric: depression, no anxiety - Endocrine Endocrine IM: no polydipsia, no polyphagia, no polyuria - Constitutional Vitals: Temp Pulse Resp BP Pulse Ox 97.8 F 102 22 120/90 97 02/07/17 19:31 02/07/17 22:17 02/07/17 22:17 02/07/17 22:17 02/07/17 22:17 General appearance: Present: cooperative, mild distress, A&O X 3, pleasant, answers questions appropriately - Head Head exam: Present: atraumatic, normal inspection, normocephalic - Eye Eye exam: Present: EOMI, PERRL - ENT ENT exam: Present: mucous membranes moist, normal oropharynx Additional comments: trach - Neck Neck exam general surgery: Present: supple. Absent: lymphadenopathy, tenderness Additional comments: trach collar in place - Respiratory Respiratory exam: Present: accessory muscle use, prolonged expiratory phase, rhonchi, wheezes, tachypnea. Absent: CTAB, respiratory distress - Cardiovascular Cardiovascular exam: Present: +S1, +S2, tachycardia - GI/Abdominal GI/Abdominal exam: Present: firm, normal bowel sounds, tenderness. Absent: distended, guarding - Extremities Exam Extremities exam: Present: normal capillary refill, pedal edema (2+), warm - Incison Incision: Present: clean and dry (Right upper chest Port-a-cath site C/D/I), intact. Absent: red, swollen, inflamed, erythema - Back Exam Back exam: Present: normal inspection. Absent: tenderness - Neurological Exam Neurological exam: Present: alert, oriented X3, strengths equal and symetr throughout. Absent: altered, no focal deficits - Psychiatric Psychiatric exam: Present: normal affect, normal mood. Absent: anxious, depressed - Skin Skin exam: Present: dry, intact, normal color (no signs of ifection right upper chest), warm Internal Med - H&P Results - Labs CBC & Chem 7: 02/07/17 20:38 02/07/17 20:38 - EKG Data -: EKG Interpreted by Myself EKG shows normal: sinus rhythm Rate: tachycardia - Impressions Impressions Chest X-Ray 02/07/17 19:34 IMPRESSION: Multiple bilateral pulmonary nodules, presumed metastatic and grossly stable. No superimposed acute cardiopulmonary process. D/ / 02/07/2017 20:49:21 Colton Tillman MD / [facility] Interpreting Provider: Colton Tillman MD <Andi Ordonez - Last Filed: 02/08/17 02:05> Date of Encounter: 02/08/17 Internal Medicine - H&P: HPI History of present illness: Mr. Parikh is a 66 year old male All Systems PM: A 10-system review of systems was performed and is negative for pertinent findings except as documented above in the HPI. - Constitutional Vitals: Temp Pulse Resp BP Pulse Ox 98.6 F 99 20 135/88 92 02/08/17 00:21 02/08/17 00:21 02/08/17 00:30 02/08/17 00:21 02/08/17 00:30 Internal Med - H&P Results - Labs CBC & Chem 7: 02/07/17 20:38 02/07/17 20:38 - Attending Attestation I examined this patient and my medical decision-making was reviewed with the Resident Physician. I agree with the documented findings, disposition and treatment plan as described except to the extent set forth below. Patient is a 66-year-old male with past medical history of COPD, hyperlipidemia , hypertension, thyroid disease, anxiety, depression, thyroid cancer and metastatic prostate cancer. He presents to the ED with complaints of shortness of breath. Patient has a tracheostomy tube in place. He seems to have copious secretions. He is troponin is elevated. Patient is admitted for severe sepsis likely secondary to UTI. Chest x-ray reveals multiple bilateral pulmonary nodules likely metastatic disease. He was given IV fluid bolus in the ED. We will continue Solu-Medrol and DuoNeb breathing treatment and IV antibiotics. Troponin elevation is likely nonspecific and probably due to sepsis. We will trend troponin. Oncology consult pending. No other complaints. Patient condition is guarded and prognosis is poor due to metastatic pancreatic cancer.
[2017-02-07] MEDS ORDERED: Magnesium Sulfate 2 GM in D5% in Water 100 ML IVPB ONE (23:27)
[2017-02-07] MEDS ORDERED: Vancomycin (wt based) 1,000 MG VIAL IVPB SCH (23:45)
[2017-02-08] MEDS ORDERED: Furosemide 40 MG/4 ML VIAL IVP ONE (00:18)
[2017-02-08] MEDS ORDERED: Ipratropium/Albuterol Neb 3 ML IH ONE (00:19)
[2017-02-08] MEDS ORDERED: Ipratropium/Albuterol Neb 3 ML ONE (00:27)
[2017-02-08] MEDS ORDERED: Furosemide 40 MG/4 ML VIAL ONE (00:30)
[2017-02-08] MEDS ORDERED: methylPREDNISolone 125 MG/2 ML VIAL IVP ONE (00:45)
[2017-02-08] MEDS ORDERED: Ondansetron 4 MG/2 ML VIAL IVP PRN (01:12)
[2017-02-08] MEDS ORDERED: *HR* Morphine 2 MG/ML SYRINGE IVP PRN (01:12)
[2017-02-08] MEDS ORDERED: LENVATINIB PO SCH (01:15)
[2017-02-08] MEDS: Piperacillin/Tazobactam 3.375 GM in D5% in Water (Mini-Bag+) 100 ML IVPB SCH ×4 (01:30→23:51)
[2017-02-08] MEDS: Ipratropium/Albuterol Neb 3 ML IH SCH ×6 (04:43→23:01)
[2017-02-08 04:58] LABS: Basophils # 0.1 K/mcL (0.0-0.2); Basophils % 0.4 %; Eosinophils % 0.1 %; Hematocrit 45.4 % (37.5-50.1); Immature Granulocytes % 0.3 % (0-4); Immature Platelets 6.4 % (1.1-6.1); Lymphocytes # 0.9 K/mcL (0.6-4.6); Lymphocytes % 7.9 %; Mean Corpuscular HGB Conc 30.8 g/dL (31.6-35.5); Mean Corpuscular Hemoglobin 27.7 pg (28.0-33.3); Mean Corpuscular Volume 89.9 fL (83.0-100.0); Mean Platelet Volume 10.8 fL (9.4-12.4); Monocytes # 1.8 K/mcL (0.0-1.3); Monocytes % 15.5 %; Neutrophils # 8.8 K/mcL (1.6-8.9); Platelet Count 147 K/mcL (140-400); Red Blood Count 5.05 M/mcL (4.19-5.50); Red Cell Distribution Width 16.9 % (11.5-14.5); Segmented Neutrophils % 75.8 %
[2017-02-08] MEDS: *HR* Heparin 5,000 UNIT/ML VIAL SQ SCH ×3 (05:31→22:01)
[2017-02-08] MEDS: Famotidine 20 MG/2 ML VIAL IVP SCH ×2 (05:31→16:41)
[2017-02-08 06:13] LABS: Alanine Aminotransferase 52 Units/L (0-55); Alkaline Phosphatase 576 Units/L (38-126); BUN/Creatinine Ratio 24 (6-26); Blood Urea Nitrogen 26 mg/dL (8-26); Calcium 8.5 mg/dL (8.6-10.8); Carbon Dioxide 22 mEq/L (19-29); Chloride 100 mEq/L (98-109); Glucose 139 mg/dL (70-99); Osmolality,Calculated 293 (280-300); Potassium 4.4 mEq/L (3.5-4.5); Sodium 138 mEq/L (136-145); Total Protein 6.7 g/dL (6.0-8.3); eGFR For African Americans > 60 (> 60); eGFR For Non-African Americans > 60 (> 60)
[2017-02-08 06:50] LABS: Aspartate Amino Transferase 49 Units/L (5-34)
[2017-02-08 07:34] LABS: Albumin 2.9 g/dL (3.5-5.0); Albumin/Globulin Ratio 0.8 (1.1-2.2); Globulin 3.8 g/dL (2.4-3.5)
[2017-02-08] MEDS: Budesonide/Formoterol 160/4.5 MDI IH SCH ×2 (07:58→19:30)
[2017-02-08] MEDS: Nicotine 14 MG PATCH.TD24 TD SCH (09:22)
[2017-02-08] MEDS: Venlafaxine XR (24 HR) 37.5 MG CAP.ER.24H PO SCH (09:23)
[2017-02-08] MEDS: MethylPREDNISolone 40 MG/ML VIAL IVP SCH ×3 (09:23→23:51)
[2017-02-08] MEDS: Vancomycin 1,500 MG in D5% in Water 250 ML IVPB SCH ×2 (09:30→22:01)
--- NOTE | 2017-02-08 10:26 | Cardiology Consult Note ---
Date of Encounter: 02/08/17 Time of Encounter: 10:24 Assessment and Plan (1) Elevated troponin I level Current Visit: Yes Status: Acute Likely secondary to demand ischemia. Will check echo, invasive cardiac eval. will be defferred. Discussion w patient/family: The assessment and plan as outlined above was discussed with the patient and/or family members who expressed understanding and agreement. All questions were answered. Thank you for involving us in the care of your patient. Please call with any questions. History of Present Illness Consult date: 02/08/17 Requesting physician: Carlos Stahl Consult reason: Elevated trop Chief complaint: SOB History of present illness: Mr. Parikh is a 66 year old male with apparent metastatic CA ( possiblu thyroid and pancreatic) who presents with SOB, possible sepsis. Troponin noted to he mildy elevated. Past Med Surg Social Fam HX - Past Medical History Medical history: cancer, COPD, hyperlipidemia, hypertension, thyroid disease Psychiatric history: anxiety, depression - Past Surgical History Surgical History: tracheostomy - Social History Smoking Status: Current every day smoker Smokeless Tobacco Status: No Alcohol use: none Drug use: none - Family History Mother Hx Family Cardiac Disorders: Yes (HTN) Hx Family Endocrine Disorder: Yes (DM) Father Hx Family Cardiac Disorders: Yes ([place], HTN) Hx Family Endocrine Disorder: Yes (DM) Medications and Allergies Calcitriol [Rocaltrol] 0.5 mcg PO BID 03/08/15 [History] Calcium Carbonate/Vitamin D3 [Calcium 500-Vit D3 400 Tablet] 1 tab PO DAILY [History] Losartan [Cozaar] 25 mg PO DAILY 08/07/16 [History] Albuterol Sulfate [Albuterol Inhaler] 1 puff IH Q6H PRN 11/13/16 [History] Budesonide/Formoterol 160/4.5 [Symbicort 160/4.5] 2 puff IH BID 11/13/16 [ History] Venlafaxine XR (24 HR) [Effexor Xr] 37.5 mg PO DAILY #30 cap.er.24h 11/27/16 [Rx ] Levothyroxine Sodium [Synthroid] 200 mcg PO DAILY 01/22/17 [History] Levothyroxine [Synthroid] 25 mcg PO DAILY #30 tablet 02/04/17 [Rx] Lenvatinib Mesylate [Lenvima] 24 mg PO AD 02/07/17 [History] Oxycodone HCl/Acetaminophen [Percocet 10-325 mg Tablet] 1 tab PO Q6H PRN [History] 3 Allergy/AdvReac Type Severity Reaction Status Date / Time No Known Allergies Allergy Verified 02/03/17 09:30 All Systems Review: A 10-system review of systems was performed and is negative for pertinent findings except as documented above in the HPI. Physical Examination Vital Signs, Last 4 Hours Temp Pulse Resp BP Pulse Ox 02/08/17 09:41 94 02/08/17 07:49 97.9 F 93 18 138/94 92 General: Conversant, No Apparent Distress HEENT: Atraumatic, Normocephaly, Mucus Membranes Moist, Other (trach) Neck: No JVD, Normal carotid pulses Cardiac: Reg Rate and Rhythm, Normal S1 and S2, No Murmur Lungs: Other (scattered ronchi) Neuro: Alert and responsive, No focal deficits noted Abdomen: Soft, Non-Tender Skin: No rashes noted on visualized skin Musculoskeletal: No Chest Wall Tenderness Results 02/08/17 04:37 02/08/17 04:37 Lab Results 02/08/17 02/08/17 04:37 04:37 WBC 11.6 H Hgb 14.0 Hct 45.4 Plt Count 147 Sodium 138 Potassium 4.4 Chloride 100 Carbon Dioxide 22 BUN 26 Creatinine 1.09 Glucose 139 H Calcium 8.5 L Total Bilirubin 2.0 H AST 49 H ALT 52 Alkaline Phosphatase 576 H - EKG Interpretation EKG results cardiology: other (unable to locate on floor, reportedly showed no acute ST changes.) Consult Discharge Plan - Plan Referrals: Dalton Monterroso Jr, MD [Primary Care Provider] -
[2017-02-08] MEDS: *HR* OxyCODONE/APAP 10/325 TABLET PO PRN ×2 (10:38→22:14)
--- NOTE | 2017-02-08 12:41 | Internal Med Progress Note ---
Date of Encounter: 02/08/17 Time of Encounter: 10:00 - Assessment and plan (1) Severe sepsis Current Visit: Yes Status: Acute Assessment and plan: Patient to meet criteria of sepsis. With elevated lactate. Consider severe sepsis. Infectious sites might be UTI. However, intra-abdominal infection need to be ruled out as patient did complain of abdominal pain. - We will continue Vanco and Zosyn. - Continue IV fluid. Recheck lactate. - Abdominal CT stat. - Follow up the urine culture and blood culture. Patient is at high risk because of severe sepsis, vancomycin use which need close monitoring. (2) UTI (urinary tract infection) Current Visit: Yes Status: Acute Assessment and plan: Continue antibiotic treatment. Follow-up urine culture Qualifiers: Urinary tract infection type: site unspecified Hematuria presence: without hematuria Qualified Code(s): N39.0 - Urinary tract infection, site not specified (3) Elevated troponin I level Current Visit: Yes Status: Acute Assessment and plan: Patient has no chest pain. Cardiology consult appreciated. We will check echocardiogram. Consider demand ischemia. (4) Pancreatic cancer Current Visit: No Status: Acute Assessment and plan: Follow-up oncology Qualifiers: Pancreatic malignancy location: body of pancreas Qualified Code(s): C25.1 - Malignant neoplasm of body of pancreas (5) Liver metastases Current Visit: No Status: Acute Assessment and plan: Had the biopsy 3 days ago (6) Follicular thyroid cancer Current Visit: No Status: Chronic Assessment and plan: Patient had tracheostomy. Follow-up with oncology (7) 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 Visit: No Status: Chronic Assessment and plan: Continue tracheostomy care per protocol (8) Hypertension Current Visit: No Status: Chronic Assessment and plan: Continue home medications Qualifiers: Hypertension type: essential hypertension Qualified Code(s): I10 - Essential (primary) hypertension (9) Lung metastasis Current Visit: No Status: Acute Assessment and plan: Follow-up with oncology Qualifiers: Laterality: right Qualified Code(s): C78.01 - Secondary malignant neoplasm of right lung (10) DVT prophylaxis Current Visit: No Status: Acute Assessment and plan: Heparin subcutaneously - Time Spent With Patient Greater than 35 minutes - Subjective Interval history: Patient is a 66-year-old male admitted for fever and shortness of breath. He has history of thyroid cancer, recently diagnosed pancreas adenocarcinoma possibly has liver and/or lung metastasis. Patient has a liver biopsy 3 days ago. Other history include COPD, hyperlipidemia. Patient was seen and examined. Still weak, mild shortness of breath. Complaint abdominal pain. Vitals generally stable. We will continue antibiotic treatment for sepsis. Order abdominal CT to rule out intra-abdominal infection. - Constitutional Vitals: Temp Pulse Resp BP Pulse Ox 98.4 F 85 22 140/94 95 02/08/17 12:24 02/08/17 12:12 02/08/17 12:12 02/08/17 12:12 02/08/17 12:12 General appearance: Present: cooperative, mild distress, A&O X 3, answers questions appropriately - Head Head exam: Present: atraumatic, normocephalic - Eye Eye exam: Present: PERRL, conjuntiva pink, sclera anicteric Pupils: Present: PERRL - Neck Neck exam general surgery: Present: supple, trachea midline. Absent: lymphadenopathy - Respiratory Respiratory exam: Present: CTAB, rhonchi (Bilaterally). Absent: accessory muscle use, rales, wheezes - Cardiovascular Cardiovascular exam: Present: RRR, +S1, +S2. Absent: diastolic murmur, gallop, rubs, systolic murmur - GI/Abdominal GI/Abdominal exam: Present: normal bowel sounds, soft, tenderness (in 4Q, has guarding), no peritoneal signs. Absent: distended - Extremities Exam Extremities exam: Present: warm, radial pulses palpable and symmetrical. Absent : calf tenderness, cyanotic, pedal edema - Neurological Exam Neurological exam: Present: CN II-XII intact, oriented X3, no focal deficits. Absent: pronater drift, facial droop, speech deficit - Skin Skin exam: Present: dry, intact Internal Medicine: Result - Labs CBC & Chem 7: 02/08/17 04:37 02/08/17 04:37 Labs: Short CBC 02/08/17 Range/Units 04:37 WBC 11.6 H (4.3-11.1) K/mcL Hgb 14.0 (12.9-16.9) g/dL Hct 45.4 (37.5-50.1) % Plt Count 147 (140-400) K/mcL Neutrophils # 8.8 (1.6-8.9) K/mcL BMP 02/08/17 04:37 Sodium 138 Potassium 4.4 Chloride 100 Carbon Dioxide 22 BUN 26 Creatinine 1.09 Glucose 139 H Calcium 8.5 L Liver Function 02/08/17 Range/Units 04:37 Total Bilirubin 2.0 H (0.2-1.2) mg/dL AST 49 H (5-34) Units/L ALT 52 (0-55) Units/L Alkaline Phosphatase 576 H (38-126) Units/L Albumin 2.9 L (3.5-5.0) g/dL - ABG Interpretation ABG results: PT/INR, D-dimer PT 17.2 Seconds (9.4-12.1) H 02/07/17 20:38 Consult Discharge Plan - Plan Referrals: Dalton Monterroso Jr, MD [Primary Care Provider] -
--- NOTE | 2017-02-08 15:13 | Oncology Inp Consult Note ---
Date of Encounter: 02/08/17 Time of Encounter: 11:45 Assessment and Plan (1) Pancreatic cancer Status: Acute Assessment and plan: Recently diagnosed metastatic pancreatic cancer. Will hold on further therapy pending discharge. Unsure can tolerate FOLFIRINOX given other issues. Will defer to Dr. Moyer. Prognosis guarded given history of metastatic thyroid cancer. If performance status does not improve, palliative care will be consulted. Qualifiers: Pancreatic malignancy location: body of pancreas Qualified Code(s): C25.1 - Malignant neoplasm of body of pancreas (2) Follicular thyroid cancer Status: Chronic Assessment and plan: Given pancreatic cancer and rapidity of progression, Lenvantinib can be safely discontinued. This cancer and its treatment will not impact prognosis. (3) Sepsis Status: Acute Assessment and plan: Have assess procalcitonin to better delineate picture. Agree with broad spectrum antibiotics and excellent care provided by the hospitalists. Qualifiers: Sepsis type: sepsis due to unspecified organism Qualified Code(s): A41.9 - Sepsis, unspecified organism - Data of Consult Requesting Physician: Lisandra Crum MD Primary Care Provider: Dalton Monterroso Jr, MD - Consult Narrative Reason for consult: Patient known to you History of present illness: Mr. 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 Found to have metastatic disease in 09/06 and most recently has been managed on palliative Lenvatinib. Restaging scans in 11/09 revealed a metastatic process in the liver and a pancreatic mass. Biopsies have confirmed metastatic pancreatic adenocarcinoma. Port was placed earlier this week, and chemotherapy planned in the near future under the care of Dr. Moyer. He presented to the ED last night with secretions and generalized myalgias. No fever, chills or infection. UA was contaminated but concerning for UTI. Has been placed on broad spectrum abx. Denies SOB currently. Sleepy and does not have much to say. Past Med Surg Social Fam HX - Past Medical History Medical history: cancer, COPD, hyperlipidemia, hypertension, thyroid disease Psychiatric history: anxiety, depression - Past Surgical History Surgical History: tracheostomy - Social History Smoking Status: Current every day smoker Smokeless Tobacco Status: No Alcohol use: none Drug use: none - Family History Mother Hx Family Cardiac Disorders: Yes (HTN) Hx Family Endocrine Disorder: Yes (DM) Father Hx Family Cardiac Disorders: Yes ([place], HTN) Hx Family Endocrine Disorder: Yes (DM) Medications and Allergies Calcitriol [Rocaltrol] 0.5 mcg PO BID 03/08/15 [History] Calcium Carbonate/Vitamin D3 [Calcium 500-Vit D3 400 Tablet] 1 tab PO DAILY [History] Losartan [Cozaar] 25 mg PO DAILY 08/07/16 [History] Albuterol Sulfate [Albuterol Inhaler] 1 puff IH Q6H PRN 11/13/16 [History] Budesonide/Formoterol 160/4.5 [Symbicort 160/4.5] 2 puff IH BID 11/13/16 [ History] Venlafaxine XR (24 HR) [Effexor Xr] 37.5 mg PO DAILY #30 cap.er.24h 11/27/16 [Rx ] Levothyroxine Sodium [Synthroid] 200 mcg PO DAILY 01/22/17 [History] Levothyroxine [Synthroid] 25 mcg PO DAILY #30 tablet 02/04/17 [Rx] Lenvatinib Mesylate [Lenvima] 24 mg PO AD 02/07/17 [History] Oxycodone HCl/Acetaminophen [Percocet 10-325 mg Tablet] 1 tab PO Q6H PRN [History] 3 Allergy/AdvReac Type Severity Reaction Status Date / Time No Known Allergies Allergy Verified 02/03/17 09:30 All systems: reviewed and no additional remarkable complaints except as stated Oncology - Exam - Constitutional Vitals: Temp Pulse Resp BP Pulse Ox 97.9 F 85 16 125/86 94 02/08/17 14:22 02/08/17 14:22 02/08/17 14:22 02/08/17 14:22 02/08/17 14:22 - Head Head exam: Present: atraumatic, normal inspection, normocephalic - Eye Eye exam: Present: conjuntiva pink, sclera anicteric - ENT ENT exam: Present: mucous membranes moist, normal exam - Neck Neck exam: Present: normal inspection Additional comments: tracheostomy in place - Respiratory Respiratory exam: Present: rhonchi - Cardiovascular Cardiovascular exam: Present: tachycardia - GI/Abdominal GI/Abdominal exam: Present: normal bowel sounds, soft - Extremities Exam Extremities exam: Present: normal inspection Oncology - Results Labs: Short CBC 02/08/17 Range/Units 04:37 WBC 11.6 H (4.3-11.1) K/mcL Hgb 14.0 (12.9-16.9) g/dL Hct 45.4 (37.5-50.1) % Plt Count 147 (140-400) K/mcL Neutrophils # 8.8 (1.6-8.9) K/mcL BMP 02/08/17 04:37 Sodium 138 Potassium 4.4 Chloride 100 Carbon Dioxide 22 BUN 26 Creatinine 1.09 Glucose 139 H Calcium 8.5 L Liver Function 02/08/17 Range/Units 04:37 Total Bilirubin 2.0 H (0.2-1.2) mg/dL AST 49 H (5-34) Units/L ALT 52 (0-55) Units/L Alkaline Phosphatase 576 H (38-126) Units/L Albumin 2.9 L (3.5-5.0) g/dL Consult Discharge Plan - Plan Referrals: Dalton Monterroso Jr, MD [Primary Care Provider] -
[2017-02-08 15:30] LABS: ABG Base Excess 2.3 mEq/L (-2.0 to 3.0); ABG HCO3 29 mEq/L (21-27); ABG Oxygen Saturation 94 % (95-98); ABG PCO2 51 mmHg (35-45); ABG PH 7.36 pH Units (7.32-7.45); ABG PO2 73 mmHg (85-104); ABG TCO2 30.4 mEq/L (20-26)
[2017-02-08] MEDS: LENVATINIB PO SCH (16:42)
[2017-02-08] MEDS ORDERED: D5% in 0.45% NACL 1,000 ML IVC SCH (18:00)
[2017-02-09] MEDS: Ipratropium/Albuterol Neb 3 ML IH SCH ×6 (04:10→23:13)
[2017-02-09] MEDS: *HR* Heparin 5,000 UNIT/ML VIAL SQ SCH ×3 (06:27→21:26)
[2017-02-09] MEDS: Famotidine 20 MG/2 ML VIAL IVP SCH ×2 (06:27→18:44)
[2017-02-09] MEDS: Budesonide/Formoterol 160/4.5 MDI IH SCH ×2 (07:50→19:48)
[2017-02-09] MEDS: *HR* OxyCODONE/APAP 10/325 TABLET PO PRN ×2 (07:58→21:26)
[2017-02-09 08:28] LABS: Basophils % 0.1 %; Hematocrit 42.9 % (37.5-50.1); Hemoglobin 13.5 g/dL (12.9-16.9); Immature Granulocytes % 0.7 % (0-4); Lymphocytes # 0.5 K/mcL (0.6-4.6); Lymphocytes % 5.4 %; Mean Corpuscular HGB Conc 31.5 g/dL (31.6-35.5); Mean Corpuscular Hemoglobin 27.9 pg (28.0-33.3); Mean Corpuscular Volume 88.6 fL (83.0-100.0); Mean Platelet Volume 11.8 fL (9.4-12.4); Monocytes # 0.4 K/mcL (0.0-1.3); Monocytes % 4.5 %; Neutrophils # 7.6 K/mcL (1.6-8.9); Platelet Count 121 K/mcL (140-400); Red Blood Count 4.84 M/mcL (4.19-5.50); Red Cell Distribution Width 16.6 % (11.5-14.5); Segmented Neutrophils % 89.3 %
--- NOTE | 2017-02-09 08:53 | Urology - Consult Note ---
Date of Encounter: 02/09/17 Time of Encounter: 08:51 - Assessment and Plan (1) Ureteral stone with hydronephrosis Current Visit: Yes Status: Acute Assessment and plan: I had a long discussion with the patient and his sister regarding the ureteral calculi with hydronephrosis. With his potential sepsis, the stone could cause significant morbidity or even in the very near future. Despite his seemingly poor prognosis from the metastatic pancreatic cancer they both elected to proceed with the ureteral stent to allow more time to properly evaluate and potentially treat pancreatic cancer. We elected to proceed with ureteral stent at the bedside because of current illness and comorbidities. We did discuss that this can be performed in the operating room he voiced an understanding. Stent was placed at the bedside without complication. Please see procedure note. Stent can stay in place for up to 6 months. If patient's prognosis and condition improves significantly we will proceed with ureteroscopic stone extraction as an outpatient. Urology CN:VJ Consult date: 02/08/17 Reason for consult Urology: Hydronephrosis History of present illness: 66-year-old male. New patient to the urology service. Currently admitted for acute illness. Patient has a unfortunate history of metastatic pancreatic cancer in the early stage of evaluation. CT scan reveals a 15 mm proximal right ureteral calculi with hydronephrosis. White cell count elevated at 11,000. Patient has had generalized discomfort, nausea and unwell Past Med Surg Social Fam HX - Past Medical History Medical history: cancer, COPD, hyperlipidemia, hypertension, thyroid disease Psychiatric history: anxiety, depression - Past Surgical History Surgical History: tracheostomy - Social History Smoking Status: Current every day smoker Smokeless Tobacco Status: No Alcohol use: none Drug use: none - Family History Mother Hx Family Cardiac Disorders: Yes (HTN) Hx Family Endocrine Disorder: Yes (DM) Father Hx Family Cardiac Disorders: Yes (OK, HTN) Hx Family Endocrine Disorder: Yes (DM) Medications and Allergies Calcitriol [Rocaltrol] 0.5 mcg PO BID 03/08/15 [History] Calcium Carbonate/Vitamin D3 [Calcium 500-Vit D3 400 Tablet] 1 tab PO DAILY [History] Losartan [Cozaar] 25 mg PO DAILY 08/07/16 [History] Albuterol Sulfate [Albuterol Inhaler] 1 puff IH Q6H PRN 11/13/16 [History] Budesonide/Formoterol 160/4.5 [Symbicort 160/4.5] 2 puff IH BID 11/13/16 [ History] Venlafaxine XR (24 HR) [Effexor Xr] 37.5 mg PO DAILY #30 cap.er.24h 11/27/16 [Rx ] Levothyroxine Sodium [Synthroid] 200 mcg PO DAILY 01/22/17 [History] Levothyroxine [Synthroid] 25 mcg PO DAILY #30 tablet 02/04/17 [Rx] Lenvatinib Mesylate [Lenvima] 24 mg PO AD 02/07/17 [History] Oxycodone HCl/Acetaminophen [Percocet 10-325 mg Tablet] 1 tab PO Q6H PRN [History] 3 Allergy/AdvReac Type Severity Reaction Status Date / Time No Known Allergies Allergy Verified 02/03/17 09:30 Review of Systems - Constitutional fatigue, malaise, weakness, no fever(s) - EENT Nose, mouth and throat: no dizziness - Cardiovascular no chest pain - Respiratory cough - Gastrointestinal abdominal pain, nausea - Genitourinary flank pain - Musculoskeletal back pain - Integumentary no erythema - Neurological no confusion - Psychiatric no anxiety - Hematologic/Lymphatic no easy bleeding - Allergic/Immunologic no throat swelling Exam Initial Vital Signs Temp Pulse Resp BP Pulse Ox 97.8 F 101 32 138/87 89 02/07/17 19:31 02/07/17 19:31 02/07/17 19:31 02/07/17 19:31 02/07/17 19:31 - General physical appearance Present: no distress, chronically ill - Eyes Present: PERRL - ENT Present: normal nares - Neck Present: other (trach in place) - Respiratory Present: normal respiratory effort - Cardiovascular Cardiovascular exam IM: RRR - Abdomen Abdomen: Present: soft - Genitourinary Penis: Present: circumsized Urethral meatis: Present: patent, orthotopic - Integumentary Present: no rash - Neurologic Present: normal coordination. Absent: disoriented, confused Urology Results - Labs 02/09/17 07:47 02/08/17 04:37 Abnormal lab results MCH 27.9 pg (28.0-33.3) L 02/09/17 07:47 MCHC 31.5 g/dL (31.6-35.5) L 02/09/17 07:47 RDW 16.6 % (11.5-14.5) H 02/09/17 07:47 Plt Count 121 K/mcL (140-400) L 02/09/17 07:47 Lymphocytes # 0.5 K/mcL (0.6-4.6) L 02/09/17 07:47 Immature Plt Fraction 6.4 % (1.1-6.1) H 02/08/17 04:37 PT 17.2 Seconds (9.4-12.1) H 02/07/17 20:38 ABG pCO2 51 mmHg (35-45) H 02/08/17 15:22 ABG pO2 73 mmHg (85-104) L 02/08/17 15:22 ABG HCO3 29 mEq/L (21-27) H 02/08/17 15:22 ABG Total CO2 30.4 mEq/L (20-26) H 02/08/17 15:22 ABG O2 Saturation 94 % (95-98) L 02/08/17 15:22 Glucose 139 mg/dL (70-99) H 02/08/17 04:37 POC Glucose 224 (58-89) H 02/08/17 23:52 Calcium 8.5 mg/dL (8.6-10.8) L 02/08/17 04:37 Phosphorus 5.0 mg/dL (2.3-4.7) H 02/07/17 20:38 Magnesium 1.4 mg/dL (1.6-2.6) L 02/07/17 20:38 Total Bilirubin 2.0 mg/dL (0.2-1.2) H 02/08/17 04:37 Direct Bilirubin 1.3 mg/dL (0.0-0.5) H 02/07/17 20:38 AST 49 Units/L (5-34) H 02/08/17 04:37 Alkaline Phosphatase 576 Units/L (38-126) H 02/08/17 04:37 Troponin I 0.14 ng/mL (0-0.03) H* 02/07/17 20:38 Albumin 2.9 g/dL (3.5-5.0) L 02/08/17 04:37 Globulin 3.8 g/dL (2.4-3.5) H 02/08/17 04:37 Albumin/Globulin Ratio 0.8 (1.1-2.2) L 02/08/17 04:37 Urine Clarity Cloudy (Clear) A 02/07/17 19:50 Urine Protein 100 mg/dL (Neg-Trace) H 02/07/17 19:50 Urine Blood Large (Negative) H 02/07/17 19:50 Urine Bilirubin Small (Negative) H 02/07/17 19:50 Ur Leukocyte Esterase Small (Negative) H 02/07/17 19:50 Urine Microscopic RBC 50-100 per hpf (0-3) H 02/07/17 19:50 Urine Microscopic WBC 50-100 per hpf (0-3) H 02/07/17 19:50 Ur Squamous Epith Cells Many per lpf (None-Few) H 02/07/17 19:50 Ur Culture Indicated? YES (NO) A 02/07/17 19:50 All other labs normal. Procedures:Urology - Cystoscopy Time out performed: Yes Reason for Cystoscopy: Placement of right ureteral stent Preparation: Povidone-Iodine Irrigation Fluid Used: Yes (Normal saline) Patient tolerated procedure: well Additional comments: PROCEDURE IN DETAIL: Patient was taken back to the operating room, positioned supine on the operating table. Anesthesia was applied without complication. They were moved into dorsal lithotomy. Careful attention was maintained to cushion all pressure points for patient's safety. They were prepped and draped in sterile fashion. Time-out was performed with the proper patient and procedure. A flexible cystoscope was inserted into the bladder without difficulty. The right ureteral orifice was cannulated using a 5-Setswana ureteral Catheter. A calcification was seen in the area of the proximal right ureter consistent with the stone. With some difficulty I was eventually able to guide the zip wire around the calcification up in the renal pelvis. I used a digital x-ray to confirm placement. I then placed a 4.8 x 28 ureteral stent was placed over the zip wire under xray and it did pass proximal to the calcification. pt tolerated the procedure well Consult Discharge Plan - Plan Referrals: Dalton Monterroso Jr, MD [Primary Care Provider] -
[2017-02-09] MEDS: Piperacillin/Tazobactam 3.375 GM in D5% in Water (Mini-Bag+) 100 ML IVPB SCH ×2 (09:29→15:19)
[2017-02-09] MEDS: MethylPREDNISolone 40 MG/ML VIAL IVP SCH ×2 (09:29→15:19)
[2017-02-09] MEDS: Nicotine 14 MG PATCH.TD24 TD SCH (09:31)
[2017-02-09] MEDS: Venlafaxine XR (24 HR) 37.5 MG CAP.ER.24H PO SCH (09:31)
[2017-02-09] MEDS: Vancomycin 1,500 MG in D5% in Water 250 ML IVPB SCH ×2 (09:32→21:26)
[2017-02-09 10:16] LABS: BUN/Creatinine Ratio 29 (6-26); Blood Urea Nitrogen 27 mg/dL (8-26); Carbon Dioxide 21 mEq/L (19-29); Chloride 99 mEq/L (98-109); Glucose 171 mg/dL (70-99); Osmolality,Calculated 289 (280-300); Potassium 3.9 mEq/L (3.5-4.5); Sodium 135 mEq/L (136-145); eGFR For African Americans > 60 (> 60); eGFR For Non-African Americans > 60 (> 60)
--- NOTE | 2017-02-09 11:12 | Internal Med Progress Note ---
Date of Encounter: 02/09/17 Time of Encounter: 09:00 - Assessment and plan (1) Severe sepsis Current Visit: Yes Status: Acute Assessment and plan: Patient to meet criteria of sepsis. With elevated lactate. Consider severe sepsis. Infectious sites might be UTI or pulmonary. - We will continue Vanco and Zosyn. - Recheck lactate 2.0. - Ureter stone with hydronephrosis was treated with stenting by urologist - Negative urine culture and blood culture. Sputum culture shows Proteus vulgaris, sensitivity is pending. Patient is at high risk because of severe sepsis, vancomycin use which need close monitoring. (2) UTI (urinary tract infection) Current Visit: Yes Status: Acute Assessment and plan: Continue antibiotic treatment. Had a ureteral stent placed. Qualifiers: Urinary tract infection type: site unspecified Hematuria presence: without hematuria Qualified Code(s): N39.0 - Urinary tract infection, site not specified (3) Elevated troponin I level Current Visit: Yes Status: Acute Assessment and plan: Patient has no chest pain. Cardiology consult appreciated. We will check echocardiogram. Consider demand ischemia. (4) Pancreatic cancer Current Visit: No Status: Acute Assessment and plan: Follow-up with oncology Qualifiers: Pancreatic malignancy location: body of pancreas Qualified Code(s): C25.1 - Malignant neoplasm of body of pancreas (5) Liver metastases Current Visit: No Status: Acute Assessment and plan: Had the biopsy recently (6) Follicular thyroid cancer Current Visit: No Status: Chronic Assessment and plan: Patient had tracheostomy. Follow-up with oncology (7) 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 Visit: No Status: Chronic Assessment and plan: Continue tracheostomy care per protocol (8) Hypertension Current Visit: No Status: Chronic Assessment and plan: Continue home medications Qualifiers: Hypertension type: essential hypertension Qualified Code(s): I10 - Essential (primary) hypertension (9) Lung metastasis Current Visit: No Status: Acute Assessment and plan: Follow-up with oncology Qualifiers: Laterality: right Qualified Code(s): C78.01 - Secondary malignant neoplasm of right lung (10) DVT prophylaxis Current Visit: No Status: Acute Assessment and plan: Heparin subcutaneously - Time Spent With Patient Greater than 35 minutes - Subjective Interval history: Patient is a 66-year-old male admitted for fever and shortness of breath. He has history of thyroid cancer, recently diagnosed pancreas adenocarcinoma possibly has liver and/or lung metastasis. Patient has a liver biopsy 3 days ago. Other history include COPD, hyperlipidemia. Patient was seen and examined. Still weak with mild shortness of breath. CT abd find ureter stone with hydronephrosis, urology consult appreciated, bedside stenting placed. Pt's vitals generally stable. We will continue antibiotic treatment for sepsis. Sputum culture shows Proteus vulgaris, patient is on Zosyn , waiting for final sensitivity report. Urine culture negative - Constitutional Vitals: Temp Pulse Resp BP Pulse Ox 97.4 F L 85 18 127/61 97 02/09/17 05:24 02/09/17 05:24 02/09/17 05:24 02/09/17 05:24 02/09/17 05:24 General appearance: Present: cooperative, mild distress, A&O X 3, answers questions appropriately - Head Head exam: Present: atraumatic, normocephalic - Eye Eye exam: Present: PERRL, conjuntiva pink, sclera anicteric Pupils: Present: PERRL - Neck Neck exam general surgery: Present: supple, trachea midline. Absent: lymphadenopathy Additional comments: Tracheostomy tube in place - Respiratory Respiratory exam: Present: CTAB. Absent: accessory muscle use, rales, rhonchi, wheezes Additional comments: Coarse breath sound bilaterally - Cardiovascular Cardiovascular exam: Present: RRR, +S1, +S2. Absent: diastolic murmur, gallop, rubs, systolic murmur - GI/Abdominal GI/Abdominal exam: Present: normal bowel sounds, soft, no peritoneal signs. Absent: distended, tenderness - Extremities Exam Extremities exam: Present: pedal edema (Mild pedal edema bilaterally), warm, radial pulses palpable and symmetrical. Absent: calf tenderness, cyanotic - Neurological Exam Neurological exam: Present: CN II-XII intact, oriented X3, no focal deficits. Absent: pronater drift, facial droop, speech deficit - Skin Skin exam: Present: dry, intact Internal Medicine: Result - Labs CBC & Chem 7: 02/09/17 07:47 02/09/17 07:47 Labs: Short CBC 02/09/17 Range/Units 07:47 WBC 8.5 (4.3-11.1) K/mcL Hgb 13.5 (12.9-16.9) g/dL Hct 42.9 (37.5-50.1) % Plt Count 121 L (140-400) K/mcL Neutrophils # 7.6 (1.6-8.9) K/mcL BMP 02/09/17 07:47 Sodium 135 L Potassium 3.9 Chloride 99 Carbon Dioxide 21 BUN 27 H Creatinine 0.92 Glucose 171 H Calcium 8.0 L - ABG Interpretation ABG results: ABG ABG pH 7.36 pH Units (7.32-7.45) 02/08/17 15:22 ABG pCO2 51 mmHg (35-45) H 02/08/17 15:22 ABG pO2 73 mmHg (85-104) L 02/08/17 15:22 ABG O2 Saturation 94 % (95-98) L 02/08/17 15:22 PT/INR, D-dimer PT 17.2 Seconds (9.4-12.1) H 02/07/17 20:38 - Impressions Impressions Abdomen/Pelvis CT 02/08/17 11:28 IMPRESSION: 1. Disease progression with worsening liver metastases that have increased in size and number since the CT scan 11/21/2016. 2. 15 mm calculus in the proximal right ureter causing mild hydronephrosis. 3. Small pleural effusions. 4. Multiple pulmonary nodules, some of which are calcified. This could be a mixture of metastatic disease and granulomatous disease. D/ / Doe Garcia MD / Doe Garcia MD Interpreting Provider: Doe Garcia MD X-Ray 02/09/17 08:03 IMPRESSION: Images demonstrate right ureteral double-J stent placement. The proximal right ureteral calculus is re-identified. D/ / 02/09/2017 09:22:50 Pablo Guido MD / larry Interpreting Provider: Pablo Guido MD Consult Discharge Plan - Plan Referrals: Dalton Monterroso Jr, MD [Primary Care Provider] -
[2017-02-09] MEDS: LENVATINIB PO SCH (18:44)
[2017-02-10] MEDS: MethylPREDNISolone 40 MG/ML VIAL IVP SCH ×4 (01:15→23:45)
[2017-02-10] MEDS: Piperacillin/Tazobactam 3.375 GM in D5% in Water (Mini-Bag+) 100 ML IVPB SCH ×2 (01:15→09:00)
[2017-02-10 03:39] LABS: Hematocrit 41.2 % (37.5-50.1); Hemoglobin 12.9 g/dL (12.9-16.9); Immature Granulocytes % 0.6 % (0-4); Lymphocytes # 0.4 K/mcL (0.6-4.6); Lymphocytes % 3.8 %; Mean Corpuscular HGB Conc 31.3 g/dL (31.6-35.5); Mean Corpuscular Hemoglobin 27.8 pg (28.0-33.3); Mean Corpuscular Volume 88.8 fL (83.0-100.0); Mean Platelet Volume 11.5 fL (9.4-12.4); Monocytes # 0.5 K/mcL (0.0-1.3); Monocytes % 5.5 %; Neutrophils # 8.5 K/mcL (1.6-8.9); Platelet Count 120 K/mcL (140-400); Red Blood Count 4.64 M/mcL (4.19-5.50); Red Cell Distribution Width 16.2 % (11.5-14.5); Segmented Neutrophils % 90.1 %
[2017-02-10 03:52] LABS: Calcium 8.2 mg/dL (8.6-10.8)
[2017-02-10] MEDS: Ipratropium/Albuterol Neb 3 ML IH SCH ×5 (04:01→20:09)
[2017-02-10] MEDS: Famotidine 20 MG/2 ML VIAL IVP SCH ×2 (05:56→18:44)
[2017-02-10] MEDS: *HR* Heparin 5,000 UNIT/ML VIAL SQ SCH ×3 (05:57→22:23)
--- NOTE | 2017-02-10 07:24 | Urology Progress Note ---
Date of Encounter: 02/10/17 Time of Encounter: 07:21 - Assessment and Plan (1) Ureteral stone with hydronephrosis Current Visit: Yes Status: Acute Assessment and plan: Surprisingly, the patient's GFR decreased overnight after stent placement. Consider prerenal or intrinsic etiology as he was nothing by mouth for an extended period of time yesterday. I reviewed the x-ray images from yesterday and it appears the stent is in good position however it was placed at the bedside without the aid of fluoroscopy and Isovue. If his renal function does not improve over the next 24 hours with IV fluids, I recommend a repeat CT scan to confirm proper position of the stent in the renal pelvis. We'll continue to follow the patient Progress Note Narrative: Patient asleep and resting well. No acute events overnight Objective Initial Vital Signs Temp Pulse Resp BP Pulse Ox 97.8 F 101 32 138/87 89 02/07/17 19:31 02/07/17 19:31 02/07/17 19:31 02/07/17 19:31 02/07/17 19:31 - General physical appearance Present: no distress - Additional Exam No urine available for inspection - Labs 02/10/17 03:25 02/10/17 03:25 Diabetes panel 02/09/17 02/10/17 Range/Units 07:47 03:25 Sodium 135 L 136 (136-145) mEq/L Potassium 3.9 4.0 (3.5-4.5) mEq/L Chloride 99 99 (98-109) mEq/L Carbon Dioxide 21 25 (19-29) mEq/L BUN 27 H 39 H D (8-26) mg/dL Creatinine 0.92 1.44 H D (0.72-1.25) mg/dL Glucose 171 H 221 H (70-99) mg/dL Calcium 8.0 L 8.2 L (8.6-10.8) mg/dL Calcium panel 02/09/17 02/10/17 Range/Units 07:47 03:25 Calcium 8.0 L 8.2 L (8.6-10.8) mg/dL Pituitary panel 02/09/17 02/10/17 Range/Units 07:47 03:25 Sodium 135 L 136 (136-145) mEq/L Potassium 3.9 4.0 (3.5-4.5) mEq/L Chloride 99 99 (98-109) mEq/L Carbon Dioxide 21 25 (19-29) mEq/L BUN 27 H 39 H D (8-26) mg/dL Creatinine 0.92 1.44 H D (0.72-1.25) mg/dL Glucose 171 H 221 H (70-99) mg/dL Calcium 8.0 L 8.2 L (8.6-10.8) mg/dL Adrenal panel 02/09/17 02/10/17 Range/Units 07:47 03:25 Sodium 135 L 136 (136-145) mEq/L Potassium 3.9 4.0 (3.5-4.5) mEq/L Chloride 99 99 (98-109) mEq/L Carbon Dioxide 21 25 (19-29) mEq/L BUN 27 H 39 H D (8-26) mg/dL Creatinine 0.92 1.44 H D (0.72-1.25) mg/dL Glucose 171 H 221 H (70-99) mg/dL Calcium 8.0 L 8.2 L (8.6-10.8) mg/dL Consult Discharge Plan - Plan Referrals: Dalton Monterroso Jr, MD [Primary Care Provider] -
[2017-02-10] MEDS ORDERED: 0.9 % Sodium Chloride 1,000 ML IVC SCH ×2 (07:30→19:20)
--- NOTE | 2017-02-10 08:06 | Oncology Inp Progress Note ---
Date of Encounter: 02/10/17 Time of Encounter: 07:00 (1) Pancreatic cancer Current Visit: No Status: Acute Assessment and plan: Recently diagnosed metastatic pancreatic cancer. Will hold on further therapy pending discharge. Unsure can tolerate FOLFIRINOX given other issues. Will defer to Dr. Moyer. Prognosis guarded given history of metastatic thyroid cancer. Plan for outpatient treatment after d/c Qualifiers: Pancreatic malignancy location: body of pancreas Qualified Code(s): C25.1 - Malignant neoplasm of body of pancreas (2) Follicular thyroid cancer Current Visit: No Status: Chronic Assessment and plan: Given pancreatic cancer and rapidity of progression, Lenvantinib can be safely discontinued. This cancer and its treatment will not impact prognosis. (3) Sepsis Current Visit: No Status: Acute Assessment and plan: Blood and urine cultures sterile. Agree with broad spectrum antibiotics and excellent care provided by the hospitalists. Clinically improving. Qualifiers: Sepsis type: sepsis due to unspecified organism Qualified Code(s): A41.9 - Sepsis, unspecified organism Oncology: Subj Interval history: Patient underwent uneventful ureteral stenting yesterday. He has passed hematuria. However, he feels much better they did yesterday. He is breathing easily. He thinks he is back to baseline. The diffuse aches and pains he experienced yesterday have also resolved. He states he has near back to baseline. No fever or chills. No other new aches or pains or lumps or bumps. - Constitutional Vitals: Vital Signs Temp Pulse Resp BP Pulse Ox 02/10/17 04:02 97.8 F 84 16 123/33 98 02/10/17 04:01 16 96 02/09/17 23:56 97.7 F 92 16 109/74 96 02/09/17 23:32 18 97 02/09/17 20:13 97.8 F 84 18 113/79 93 02/09/17 19:48 18 93 02/09/17 15:57 18 95 02/09/17 15:24 97.3 F L 92 16 106/69 95 02/09/17 11:43 91 02/09/17 11:27 97.5 F L 77 18 107/71 95 02/09/17 11:12 18 94 Intake and Output 02/09/17 02/10/17 02/10/17 16:59 00:59 08:59 Intake Total 1250 / 1250 1180 / 1180 100 / 100 Output Total 100 / 100 200 / 200 200 / 200 Balance 1150 / 1150 980 / 980 -100 / -100 Intake: IV Fluids 1250 / 1250 120 / 120 100 / 100 D5% And 0.45% Nacl 1000 900 / 900 Ml Bag 1,000 ML @ 100 mls /hr IVC .Q10H [facility] Rx#: [id number] Zosyn 3.375 GM In 100 / 100 100 / 100 100 / 100 Dextrose 5% (Minibag+) 100 ML 100 ML @ 25 mls/hr IVPB Q8HR [facility] Rx#: [id number] Vancocin 1,500 MG In 250 / 250 20 / 20 Dextrose 5% 250 ML @ 166. 67 mls/hr IVPB Q12H [facility] Rx#:[id number] Oral 1060 / 1060 Output: Urine 100 / 100 200 / 200 200 / 200 Other: Meal Breakfast Dinner Percent of Meal Consumed 100% 90% # Voids 2 Weight 73.936 kg Blood Glucose* 216 Patient Weight 02/11/17 00:59 Weight 73.936 kg - Head Head exam: Present: atraumatic, normal inspection, normocephalic - Eye Eye exam: Present: normal appearance, conjuntiva pink, sclera anicteric - ENT ENT exam: Present: mucous membranes moist, normal exam - Neck Neck exam: Present: full ROM Additional comments: Tracheostomy - Respiratory Respiratory exam: Present: CTAB - Cardiovascular Cardiovascular exam: Present: RRR - GI/Abdominal GI/Abdominal exam: Present: normal bowel sounds, soft - Extremities Exam Extremities exam: Present: normal inspection - Neurological Exam Neurological exam: Present: alert, CN II-XII intact, oriented X3 Oncology: Obj Data - Labs CBC & Chem 7: 02/10/17 03:25 02/10/17 03:25 Labs: Laboratory Results - last 24 hr 02/08/17 02/09/17 02/09/17 15:01 07:47 07:47 WBC 8.5 RBC 4.84 Hgb 13.5 Hct 42.9 MCV 88.6 MCH 27.9 L MCHC 31.5 L RDW 16.6 H Plt Count 121 L MPV 11.8 Immature Gran % 0.7 Seg Neutrophils % 89.3 Lymphocytes % 5.4 Monocytes % 4.5 Eosinophils % 0.0 Basophils % 0.1 Neutrophils # 7.6 Lymphocytes # 0.5 L Monocytes # 0.4 Eosinophils # 0.0 Basophils # 0.0 Sodium 135 L Potassium 3.9 Chloride 99 Carbon Dioxide 21 BUN 27 H Creatinine 0.92 Est GFR ( Amer) > 60 Est GFR (Non-Af Amer) > 60 BUN/Creatinine Ratio 29 H Glucose 171 H POC Glucose 179 H Calculated Osmolality 289 Calcium 8.0 L Vancomycin Trough 02/09/17 02/09/17 02/10/17 11:30 21:16 03:25 WBC 9.4 RBC 4.64 Hgb 12.9 Hct 41.2 MCV 88.8 MCH 27.8 L MCHC 31.3 L RDW 16.2 H Plt Count 120 L MPV 11.5 Immature Gran % 0.6 Seg Neutrophils % 90.1 Lymphocytes % 3.8 Monocytes % 5.5 Eosinophils % 0.0 Basophils % 0.0 Neutrophils # 8.5 Lymphocytes # 0.4 L Monocytes # 0.5 Eosinophils # 0.0 Basophils # 0.0 Sodium Potassium Chloride Carbon Dioxide BUN Creatinine Est GFR ( Amer) Est GFR (Non-Af Amer) BUN/Creatinine Ratio Glucose POC Glucose 216 H Calculated Osmolality Calcium Vancomycin Trough 25.5 H* 02/10/17 03:25 WBC RBC Hgb Hct MCV MCH MCHC RDW Plt Count MPV Immature Gran % Seg Neutrophils % Lymphocytes % Monocytes % Eosinophils % Basophils % Neutrophils # Lymphocytes # Monocytes # Eosinophils # Basophils # Sodium 136 Potassium 4.0 Chloride 99 Carbon Dioxide 25 BUN 39 H D Creatinine 1.44 H D Est GFR ( Amer) 60 Est GFR (Non-Af Amer) 49 L BUN/Creatinine Ratio 27 H Glucose 221 H POC Glucose Calculated Osmolality 298 Calcium 8.2 L Vancomycin Trough - Impressions Impressions KUB X-Ray 02/09/17 08:03 IMPRESSION: Images demonstrate right ureteral double-J stent placement. The proximal right ureteral calculus is re-identified. D/ / 02/09/2017 09:22:50 Pablo Guido MD / larry Interpreting Provider: Pablo Guido MD - ABG Interpretation ABG results: ABG ABG pH 7.36 pH Units (7.32-7.45) 02/08/17 15:22 ABG pCO2 51 mmHg (35-45) H 02/08/17 15:22 ABG pO2 73 mmHg (85-104) L 02/08/17 15:22 ABG O2 Saturation 94 % (95-98) L 02/08/17 15:22 PT/INR, D-dimer PT 17.2 Seconds (9.4-12.1) H 02/07/17 20:38 Consult Discharge Plan - Plan Referrals: Dalton Monterroso Jr, MD [Primary Care Provider] -
[2017-02-10] MEDS ORDERED: Aminoglycoside Consult 1 EACH MC ONE (08:38)
--- NOTE | 2017-02-10 09:38 | Palliative - Consult Note ---
Date of Encounter: 02/10/17 Time of Encounter: 09:30 - Assessment and Plan (1) Cancer associated pain Current Visit: Yes Status: Acute Assessment and plan: He continues on home dose of Percocet and states this continues to be effective for him. States back pain is less after ureteral stents placed yesterday. Has utilized Percocet x3 last 24 hours. Monitor (2) Counseling regarding advanced care planning and goals of care Current Visit: Yes Status: Acute Assessment and plan: Patient lives alone, still drives. Utilized no medical equipment at this time and is independent with all ADL's. He does have existing DME's of hospital bed/ BSC from previous illness. He has 3 sisters that are his next of kin (Anita Joyner, Cici Cantrell, and Jo Ann Guillory). They help with provided him meals and do assist with accompanying him to doctors appts if needed. He states he completed Adv directives years ago here, however, I cannot find them in medical record. He cannot remember which sister is primary agent. Discussed goals of care - pt understands that he has very serious illness, his judith are his "great nieces/nephews", and whittling canes/walking sticks. He knows that prognosis is poor and disease is not curable. He states that "I'm fighting this to the end" . Discussed code status, he states that he does not want to be on "machines if it does not appear that he will get better". Discussed DNR and he states he will think about this. At this time, he remains full code. Will f/u tomorrow and see if he desires to further discuss or has made any decision. 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 Parikh is a very nice 66 year old male with an unfortunate history of thyroid cancer s/p dissection and tracheostomy, and recently was also diagnosed with pancreatic cancer. He is being followed by Dr. Moyer of [facility]. He presented with increased secretions via trach and bilateral flank pain. He had recent A-port incision as well. He was + for SIRS criteria and admitted and started on treatment for infection with IV fluids and antibiotic therapy. He was seen by [facility] and bilateral stents were placed yesterday for hydronephrosis. Also evaluated by [facility] for increased troponins, which was felt due to demand ischemia. Upon my visit, he appears in no distress and states he is feeling much better and hoping to be discharged soon. He is eating and drinking well. + BM's. States pain is improved after stent placement. He is able to speak with good vocal quality. No visitors are present. CC: Lisandra Crum MD Past Med Surg Social Fam HX - Past Medical History Medical history: cancer, COPD, hyperlipidemia, hypertension, thyroid disease Psychiatric history: anxiety, depression - Past Surgical History Surgical History: tracheostomy - Social History Smoking Status: Current every day smoker Smokeless Tobacco Status: No Alcohol use: none Drug use: none - Family History Mother Hx Family Cardiac Disorders: Yes (HTN) Hx Family Endocrine Disorder: Yes (DM) Father Hx Family Cardiac Disorders: Yes ([place], HTN) Hx Family Endocrine Disorder: Yes (DM) Medications and Allergies Calcitriol [Rocaltrol] 0.5 mcg PO BID 03/08/15 [History] Calcium Carbonate/Vitamin D3 [Calcium 500-Vit D3 400 Tablet] 1 tab PO DAILY [History] Losartan [Cozaar] 25 mg PO DAILY 08/07/16 [History] Albuterol Sulfate [Albuterol Inhaler] 1 puff IH Q6H PRN 11/13/16 [History] Budesonide/Formoterol 160/4.5 [Symbicort 160/4.5] 2 puff IH BID 11/13/16 [ History] Venlafaxine XR (24 HR) [Effexor Xr] 37.5 mg PO DAILY #30 cap.er.24h 11/27/16 [Rx ] Levothyroxine Sodium [Synthroid] 200 mcg PO DAILY 01/22/17 [History] Levothyroxine [Synthroid] 25 mcg PO DAILY #30 tablet 02/04/17 [Rx] Lenvatinib Mesylate [Lenvima] 24 mg PO AD 02/07/17 [History] Oxycodone HCl/Acetaminophen [Percocet 10-325 mg Tablet] 1 tab PO Q6H PRN [History] 3 Allergy/AdvReac Type Severity Reaction Status Date / Time No Known Allergies Allergy Verified 02/03/17 09:30 All systems: reviewed and no additional remarkable complaints except as stated ( increased secretions from trach, generalized weakness, neck pain, lower back pain) Palliative Care-Exam - Constitutional Vitals: Temp Pulse Resp BP Pulse Ox 97.8 F 84 16 123/33 98 02/10/17 04:02 02/10/17 04:02 02/10/17 04:02 02/10/17 04:02 02/10/17 04:02 General appearance: Present: average body habitus, no acute distress - Head Head Exam: Present: normal inspection, normocephalic - ENT Additional comments: Tracheostomy - Respiratory Respiratory exam: Present: decreased breath sounds, CTAB - Cardiovascular Cardiovascular exam: Present: +S1, +S2 - GI/Abdominal Exam GI/Abdominal exam: Present: normal bowel sounds, soft - Additional comments: Voids per urinal - urine blood tinged - Extremities Exam Extremities exam: Present: normal capillary refill, normal inspection - Neurological Exam Neurological exam: Present: alert, oriented X3, strengths equal and symetr throughout - Skin Skin exam: Present: dry, warm Additional comments: Dressing to recent A-port incision Internal Medicine - CN: Reslt - Labs CBC & Chem 7: 02/10/17 03:25 02/10/17 03:25 Labs: Short CBC 02/10/17 Range/Units 03:25 WBC 9.4 (4.3-11.1) K/mcL Hgb 12.9 (12.9-16.9) g/dL Hct 41.2 (37.5-50.1) % Plt Count 120 L (140-400) K/mcL Neutrophils # 8.5 (1.6-8.9) K/mcL BMP 02/09/17 02/10/17 07:47 03:25 Sodium 135 L 136 Potassium 3.9 4.0 Chloride 99 99 Carbon Dioxide 21 25 BUN 27 H 39 H D Creatinine 0.92 1.44 H D Glucose 171 H 221 H Calcium 8.0 L 8.2 L - ABG Interpretation ABG results: ABG ABG pH 7.36 pH Units (7.32-7.45) 02/08/17 15:22 ABG pCO2 51 mmHg (35-45) H 02/08/17 15:22 ABG pO2 73 mmHg (85-104) L 02/08/17 15:22 ABG O2 Saturation 94 % (95-98) L 02/08/17 15:22 PT/INR, D-dimer PT 17.2 Seconds (9.4-12.1) H 02/07/17 20:38 - Impressions Impressions KUB X-Ray 02/09/17 08:03 IMPRESSION: Images demonstrate right ureteral double-J stent placement. The proximal right ureteral calculus is re-identified. D/ / 02/09/2017 09:22:50 Pablo Guido MD / larry Interpreting Provider: Pablo Guido MD Consult Discharge Plan - Plan Referrals: Dalton Monterroso Jr, MD [Primary Care Provider] - Palliative Quality Palliative Quality: Screen for Code Status: Yes, Screen for Goals of Care: Yes, Screen for Pain: Yes, If Pain Regimen Started, Initiate Bowel Regimen: NA, Screen for Nausea/Vomitting: Yes
[2017-02-10] MEDS: Nicotine 14 MG PATCH.TD24 TD SCH (09:56)
[2017-02-10] MEDS: Venlafaxine XR (24 HR) 37.5 MG CAP.ER.24H PO SCH (09:59)
[2017-02-10] MEDS: 0.9 % Sodium Chloride 1,000 ML IVC SCH ×2 (10:00→17:44)
[2017-02-10] MEDS: Budesonide/Formoterol 160/4.5 MDI IH SCH ×2 (11:25→20:04)
--- NOTE | 2017-02-10 15:44 | Internal Med Progress Note ---
Date of Encounter: 02/10/17 Time of Encounter: 10:00 - Assessment and plan (1) Severe sepsis Current Visit: Yes Status: Acute Assessment and plan: Patient to meet criteria of sepsis. With elevated lactate. Consider severe sepsis. Infectious sites might be UTI or pulmonary. Now WBC, HR, and RR all get down, consider sepsis resolved. - We will deescalate abx to rocephin per cx result. - Recheck lactate 2.0. - Ureter stone with hydronephrosis was treated with stenting by urologist - Negative urine culture and blood culture. Sputum culture shows Proteus vulgaris, sensitive to rocephin. (2) UTI (urinary tract infection) Current Visit: Yes Status: Acute Assessment and plan: Continue antibiotic treatment. Had a ureteral stent placed. Qualifiers: Urinary tract infection type: site unspecified Hematuria presence: without hematuria Qualified Code(s): N39.0 - Urinary tract infection, site not specified (3) Elevated troponin I level Current Visit: Yes Status: Acute Assessment and plan: Patient has no chest pain. Cardiology consult appreciated. We will check echocardiogram. Consider demand ischemia. - 02/10: Echo shows LVEF 20%. No previous echo available to compare. Pt appears euvolemic. Patient is on losartan, will add low-dose beta shelby. Will check BNP and reconsult cardiology. (4) Pancreatic cancer Current Visit: No Status: Acute Assessment and plan: Follow-up with oncology. Palliative consult appreciated. Qualifiers: Pancreatic malignancy location: body of pancreas Qualified Code(s): C25.1 - Malignant neoplasm of body of pancreas (5) Liver metastases Current Visit: No Status: Acute Assessment and plan: Had the biopsy recently (6) Follicular thyroid cancer Current Visit: No Status: Chronic Assessment and plan: Patient had tracheostomy. Follow-up with oncology (7) 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 Visit: No Status: Chronic Assessment and plan: Continue tracheostomy care per protocol (8) Hypertension Current Visit: No Status: Chronic Assessment and plan: Continue home medications Qualifiers: Hypertension type: essential hypertension Qualified Code(s): I10 - Essential (primary) hypertension (9) Lung metastasis Current Visit: No Status: Acute Assessment and plan: Follow-up with oncology Qualifiers: Laterality: right Qualified Code(s): C78.01 - Secondary malignant neoplasm of right lung (10) DVT prophylaxis Current Visit: No Status: Acute Assessment and plan: Heparin subcutaneously - Time Spent With Patient 25 - 35 minutes - Subjective Interval history: Patient is a 66-year-old male admitted for fever and shortness of breath. He has history of thyroid cancer, recently diagnosed pancreas adenocarcinoma possibly has liver and/or lung metastasis. Patient has a liver biopsy 3 days ago. Other history include COPD, hyperlipidemia. Patient was seen and examined. Still weak. More alert awake. Improved mild shortness of breath. Pt's vitals generally stable. We will continue antibiotic treatment for sepsis. Sputum culture shows Proteus vulgaris, sensitive to rocephine, will deescalate abx to rocephin. Urine culture negative. Mild elevated Cr, will start IVF. - Constitutional Vitals: Temp Pulse Resp BP Pulse Ox 98.3 F 93 18 130/94 97 02/10/17 15:38 02/10/17 15:38 02/10/17 15:38 02/10/17 15:38 02/10/17 11:31 General appearance: Present: cooperative, A&O X 3, no acute distress, answers questions appropriately - Head Head exam: Present: atraumatic, normocephalic - Eye Eye exam: Present: PERRL, conjuntiva pink, sclera anicteric Pupils: Present: PERRL - Neck Neck exam general surgery: Present: supple, trachea midline. Absent: lymphadenopathy Additional comments: Tracheostomy tube is in place - Respiratory Respiratory exam: Present: CTAB. Absent: accessory muscle use, rales, rhonchi, wheezes - Cardiovascular Cardiovascular exam: Present: RRR, +S1, +S2. Absent: diastolic murmur, gallop, rubs, systolic murmur - GI/Abdominal GI/Abdominal exam: Present: normal bowel sounds, soft, no peritoneal signs. Absent: distended, tenderness - Extremities Exam Extremities exam: Present: warm, radial pulses palpable and symmetrical. Absent : calf tenderness, cyanotic, pedal edema - Neurological Exam Neurological exam: Present: CN II-XII intact, oriented X3, no focal deficits. Absent: pronater drift, facial droop, speech deficit - Skin Skin exam: Present: dry, intact Internal Medicine: Result - Labs CBC & Chem 7: 02/10/17 03:25 02/10/17 03:25 Labs: Short CBC 02/10/17 Range/Units 03:25 WBC 9.4 (4.3-11.1) K/mcL Hgb 12.9 (12.9-16.9) g/dL Hct 41.2 (37.5-50.1) % Plt Count 120 L (140-400) K/mcL Neutrophils # 8.5 (1.6-8.9) K/mcL BMP 02/10/17 03:25 Sodium 136 Potassium 4.0 Chloride 99 Carbon Dioxide 25 BUN 39 H D Creatinine 1.44 H D Glucose 221 H Calcium 8.2 L - ABG Interpretation ABG results: ABG ABG pH 7.36 pH Units (7.32-7.45) 02/08/17 15:22 ABG pCO2 51 mmHg (35-45) H 02/08/17 15:22 ABG pO2 73 mmHg (85-104) L 02/08/17 15:22 ABG O2 Saturation 94 % (95-98) L 02/08/17 15:22 PT/INR, D-dimer PT 17.2 Seconds (9.4-12.1) H 02/07/17 20:38 - Impressions Impressions KUB X-Ray 02/09/17 08:03 IMPRESSION: Images demonstrate right ureteral double-J stent placement. The proximal right ureteral calculus is re-identified. D/ / 02/09/2017 09:22:50 Pablo Guido MD / larry Interpreting Provider: Pablo Guido MD Consult Discharge Plan - Plan Referrals: Dalton Monterroso Jr, MD [Primary Care Provider] - 02/19/17 10:00 am ()
[2017-02-10] MEDS: *HR* OxyCODONE/APAP 10/325 TABLET PO PRN (20:47)
--- NOTE | 2017-02-10 21:31 | Electrocardiograph Report ---
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
[2017-02-10] MEDS: LENVATINIB PO SCH (22:23)
[2017-02-11] MEDS: Ipratropium/Albuterol Neb 3 ML IH SCH ×6 (00:24→21:32)
[2017-02-11 06:19] LABS: Basophils % 0.2 %; Hematocrit 42.9 % (37.5-50.1); Hemoglobin 13.5 g/dL (12.9-16.9); Immature Granulocytes % 1.3 % (0-4); Lymphocytes # 0.4 K/mcL (0.6-4.6); Mean Corpuscular HGB Conc 31.5 g/dL (31.6-35.5); Mean Corpuscular Hemoglobin 27.8 pg (28.0-33.3); Mean Corpuscular Volume 88.5 fL (83.0-100.0); Mean Platelet Volume 11.3 fL (9.4-12.4); Monocytes # 0.4 K/mcL (0.0-1.3); Monocytes % 3.8 %; Neutrophils # 10.1 K/mcL (1.6-8.9); Nucleated Red Blood Cells 0.2 /100 WBC (0); Platelet Count 129 K/mcL (140-400); Red Blood Count 4.85 M/mcL (4.19-5.50); Red Cell Distribution Width 16.4 % (11.5-14.5); Segmented Neutrophils % 90.7 %
[2017-02-11 06:40] LABS: BUN/Creatinine Ratio 37 (6-26); Blood Urea Nitrogen 45 mg/dL (8-26); Carbon Dioxide 22 mEq/L (19-29); Chloride 103 mEq/L (98-109); Glucose 166 mg/dL (70-99); Osmolality,Calculated 305 (280-300); Potassium 4.7 mEq/L (3.5-4.5); Sodium 140 mEq/L (136-145); eGFR For African Americans > 60 (> 60); eGFR For Non-African Americans > 60 (> 60)
[2017-02-11] MEDS: Famotidine 20 MG/2 ML VIAL IVP SCH (06:41)
[2017-02-11] MEDS: *HR* Heparin 5,000 UNIT/ML VIAL SQ SCH ×2 (06:41→14:10)
[2017-02-11] MEDS: Budesonide/Formoterol 160/4.5 MDI IH SCH ×2 (08:02→21:32)
[2017-02-11] MEDS: MethylPREDNISolone 40 MG/ML VIAL IVP SCH ×2 (08:12→18:02)
[2017-02-11] MEDS: Venlafaxine XR (24 HR) 37.5 MG CAP.ER.24H PO SCH (09:12)
--- NOTE | 2017-02-11 10:44 | Neurology - Consult Note ---
Date of Encounter: 02/11/17 Time of Encounter: 08:15 Assessment and Plan (1) Mental status alteration Current Visit: Yes Status: Acute This patient will seem to have a multiple medical conditions including pancreatic cancer as well as COPD now being admitted with the sepsis being treated sepsis seems to be doing better now but he noted to have these episodic mental status changes predominantly in the evening he noted to be confused but now he seems to be back to his baseline and able to answer patient appropriately without any significant mental status changes. The most likely explanation of this patient's symptoms could be related to ing but at the same time it could be due to the medication side effect. On the other hand could be related to hypercapnia particularly with a history of COPD and that could cause fluctuating mental status changes. Other possibility would be off nonconvulsive seizure and for that reason we would like to get an EEG. He has also been scheduled for an MRI of the brain though I do not think that he had any sign of stroke particularly no focal abnormalities on his neurological examination but with his history of multiple cancers with metastatic disease we do need to exclude the possibility of any metastases in his brain. at this time I would not recommend starting him on any medication in fact it is possible may have to cut down some of his medication may be causing sedation. Qualifiers: Altered mental status type: unspecified Qualified Code(s): R41.82 - Altered mental status, unspecified (2) Severe sepsis Current Visit: Yes Status: Acute (3) Pancreatic cancer Current Visit: No Status: Acute Qualifiers: Pancreatic malignancy location: body of pancreas Qualified Code(s): C25.1 - Malignant neoplasm of body of pancreas History of Present Illness HPI: Mr. Parikh is a 66 year old male with history of thyroid cancer s/p dissection and tracheostomy, and recently diagnosed with pancreatic cancer with possibly liver and/or lung metastasis. He presented with increased secretions via trach and bilateral flank pain. found out to be septic, He was positive for SIRS criteria and admitted and started on treatment for infection with IV fluids and antibiotic therapy. He was also seen by [facility] and bilateral stents were placed yesterday for hydronephrosis. he Also evaluated by [facility] for increased troponins, he also has COPD, hyperlipidemia. In the evening patient noted to be confused now he seems to be back to his baseline right-sided visit being consulted for episodic confusion Past Med Surg Social Fam HX - Past Medical History Medical history: cancer, COPD, hyperlipidemia, hypertension, thyroid disease Psychiatric history: anxiety, depression - Past Surgical History Surgical History: tracheostomy - Social History Smoking Status: Current every day smoker Smokeless Tobacco Status: No Alcohol use: none Drug use: none - Family History Mother Hx Family Cardiac Disorders: Yes (HTN) Hx Family Endocrine Disorder: Yes (DM) Father Hx Family Cardiac Disorders: Yes ([place], HTN) Hx Family Endocrine Disorder: Yes (DM) Medications and Allergies Calcitriol [Rocaltrol] 0.5 mcg PO BID 03/08/15 [History] Calcium Carbonate/Vitamin D3 [Calcium 500-Vit D3 400 Tablet] 1 tab PO DAILY [History] Losartan [Cozaar] 25 mg PO DAILY 08/07/16 [History] Albuterol Sulfate [Albuterol Inhaler] 1 puff IH Q6H PRN 11/13/16 [History] Budesonide/Formoterol 160/4.5 [Symbicort 160/4.5] 2 puff IH BID 11/13/16 [ History] Venlafaxine XR (24 HR) [Effexor Xr] 37.5 mg PO DAILY #30 cap.er.24h 11/27/16 [Rx ] Levothyroxine Sodium [Synthroid] 200 mcg PO DAILY 01/22/17 [History] Levothyroxine [Synthroid] 25 mcg PO DAILY #30 tablet 02/04/17 [Rx] Lenvatinib Mesylate [Lenvima] 24 mg PO AD 02/07/17 [History] Oxycodone HCl/Acetaminophen [Percocet 10-325 mg Tablet] 1 tab PO Q6H PRN [History] 3 Allergy/AdvReac Type Severity Reaction Status Date / Time No Known Allergies Allergy Verified 02/03/17 09:30 All Systems: A 10-system review of systems was performed and is negative for pertinent findings except as documented above in the HPI. Physical Examination - Vital Signs Vital Signs: Initial Vital Signs Temp Pulse Resp BP Pulse Ox 97.8 F 101 32 138/87 89 02/07/17 19:31 02/07/17 19:31 02/07/17 19:31 02/07/17 19:31 02/07/17 19:31 - Constitutional General appearance: comfortable - Neurologic Sensorimotor examination: intact Detailed motor examination: grossly full strength in all extremities Detailed sensory examination: intact Reflexes: Biceps: 1+, Triceps: 1+, Brachioradialis: 1+, Patella: 1+, Achilles: 1 + Mental Status Examination: awake, alert, oriented to person, oriented to place, oriented to time, follows commands appropriately, answers questions appropriately, makes eye contact, follows simple commands, localizes noxious stimulation Cranial nerve examination: PERRL, EOMI, visual doyle intact, sensory to face intact Cerebellar examination: no dysmetria (speech OK along with tracheostomy tube) Results - Laboratory Findings CBC and BMP: 02/11/17 06:01 02/11/17 06:01 Abnormal lab findings: Abnormal lab results MCH 27.8 pg (28.0-33.3) L 02/11/17 06:01 MCHC 31.5 g/dL (31.6-35.5) L 02/11/17 06:01 RDW 16.4 % (11.5-14.5) H 02/11/17 06:01 Plt Count 129 K/mcL (140-400) L 02/11/17 06:01 Neutrophils # 10.1 K/mcL (1.6-8.9) H 02/11/17 06:01 Lymphocytes # 0.4 K/mcL (0.6-4.6) L 02/11/17 06:01 Nucleated RBCs/100 WBC 0.2 /100 WBC (0) H 02/11/17 06:01 Immature Plt Fraction 6.4 % (1.1-6.1) H 02/08/17 04:37 PT 17.2 Seconds (9.4-12.1) H 02/07/17 20:38 ABG pCO2 51 mmHg (35-45) H 02/08/17 15:22 ABG pO2 73 mmHg (85-104) L 02/08/17 15:22 ABG HCO3 29 mEq/L (21-27) H 02/08/17 15:22 ABG Total CO2 30.4 mEq/L (20-26) H 02/08/17 15:22 ABG O2 Saturation 94 % (95-98) L 02/08/17 15:22 Potassium 4.7 mEq/L (3.5-4.5) H 02/11/17 06:01 BUN 45 mg/dL (8-26) H 02/11/17 06:01 BUN/Creatinine Ratio 37 (6-26) H 02/11/17 06:01 Glucose 166 mg/dL (70-99) H 02/11/17 06:01 POC Glucose 248 (58-89) H 02/10/17 20:44 Calculated Osmolality 305 (280-300) H 02/11/17 06:01 Calcium 8.0 mg/dL (8.6-10.8) L 02/11/17 06:01 Phosphorus 5.0 mg/dL (2.3-4.7) H 02/07/17 20:38 Magnesium 1.4 mg/dL (1.6-2.6) L 02/07/17 20:38 Total Bilirubin 2.0 mg/dL (0.2-1.2) H 02/08/17 04:37 Direct Bilirubin 1.3 mg/dL (0.0-0.5) H 02/07/17 20:38 AST 49 Units/L (5-34) H 02/08/17 04:37 Alkaline Phosphatase 576 Units/L (38-126) H 02/08/17 04:37 Troponin I 0.14 ng/mL (0-0.03) H* 02/07/17 20:38 B-Natriuretic Peptide 2057 pg/mL (0-100) H 02/11/17 06:01 Albumin 2.9 g/dL (3.5-5.0) L 02/08/17 04:37 Globulin 3.8 g/dL (2.4-3.5) H 02/08/17 04:37 Albumin/Globulin Ratio 0.8 (1.1-2.2) L 02/08/17 04:37 Urine Clarity Cloudy (Clear) A 02/07/17 19:50 Urine Protein 100 mg/dL (Neg-Trace) H 02/07/17 19:50 Urine Blood Large (Negative) H 02/07/17 19:50 Urine Bilirubin Small (Negative) H 02/07/17 19:50 Ur Leukocyte Esterase Small (Negative) H 02/07/17 19:50 Urine Microscopic RBC 50-100 per hpf (0-3) H 02/07/17 19:50 Urine Microscopic WBC 50-100 per hpf (0-3) H 02/07/17 19:50 Ur Squamous Epith Cells Many per lpf (None-Few) H 02/07/17 19:50 Ur Culture Indicated? YES (NO) A 02/07/17 19:50 Vancomycin Trough 25.5 mcg/mL (10-20) H* 02/09/17 21:16 Consult Discharge Plan - Plan Referrals: Dalton Monterroso Jr, MD [Primary Care Provider] - 02/19/17 10:00 am ()
--- NOTE | 2017-02-11 11:22 | Palliative Progress Note ---
Date of Encounter: 02/11/17 Time of Encounter: 11:20 - Assessment and plan (1) Cancer associated pain Current Visit: Yes Status: Acute Assessment and plan: Continue Percocet as ordered. Utilized x2 last 24 hours. 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 Patient's sister Anita was in this afternoon and brought Patient's living will and DPOA. Sister Jo Ann is listed as primary agent with Cici and Anita listed as alternates. Copies made for record. Anita updated on clinical status and aware of echo findings and awaiting recommendations from cardiology and oncology as how to proceed. I did express I was concerned for his ability to care for himself from this point forward, and discussed options of short term rehab, home health, and if he is not a candidate for cancer treatment (r/t cardiac status) possibly hospice care. Patient was asleep during this conversation. Anita is fearful that pt will demand to remain at home, and 2 sister work multimedia specialist. Discussed also he was still undecided as far as code status, and she stated she would attempt to have a conversation with him as well. Will continue to follow closely (3) Severe sepsis Current Visit: Yes Status: Acute (4) Pancreatic cancer Current Visit: No Status: Acute Qualifiers: Qualified Code(s): C25.1 - Malignant neoplasm of body of pancreas (5) Follicular thyroid cancer Current Visit: No Status: Chronic - Time Spent With Patient Total time spent is greater than 50% in coordination of care (as documented) at patient's floor/unit and/or counseling patient: - Subjective Interval history: Patient with episode of confusion last pm. Appears alert and oriented now. Echo yesterday with 20% EF/severely dialated left atrium/ventricle and mod- severe janusz regurg. Awaiting cardiology input. Neurology consulted for episode of confusion, and pt awaiting MRI of brain. States he thinks it was r/ t "nicotine withdrawal". He denies any pain this am, breathing well. States doesn't feel well and had "bad night". No family present. Patient did state sister Anita was here last pm. - Constitutional Vitals: Abnormal lab results MCH 27.8 pg (28.0-33.3) L 02/11/17 06:01 MCHC 31.5 g/dL (31.6-35.5) L 02/11/17 06:01 RDW 16.4 % (11.5-14.5) H 02/11/17 06:01 Plt Count 129 K/mcL (140-400) L 02/11/17 06:01 Neutrophils # 10.1 K/mcL (1.6-8.9) H 02/11/17 06:01 Lymphocytes # 0.4 K/mcL (0.6-4.6) L 02/11/17 06:01 Nucleated RBCs/100 WBC 0.2 /100 WBC (0) H 02/11/17 06:01 Immature Plt Fraction 6.4 % (1.1-6.1) H 02/08/17 04:37 PT 17.2 Seconds (9.4-12.1) H 02/07/17 20:38 ABG pCO2 51 mmHg (35-45) H 02/08/17 15:22 ABG pO2 73 mmHg (85-104) L 02/08/17 15:22 ABG HCO3 29 mEq/L (21-27) H 02/08/17 15:22 ABG Total CO2 30.4 mEq/L (20-26) H 02/08/17 15:22 ABG O2 Saturation 94 % (95-98) L 02/08/17 15:22 Potassium 4.7 mEq/L (3.5-4.5) H 02/11/17 06:01 BUN 45 mg/dL (8-26) H 02/11/17 06:01 BUN/Creatinine Ratio 37 (6-26) H 02/11/17 06:01 Glucose 166 mg/dL (70-99) H 02/11/17 06:01 POC Glucose 248 (58-89) H 02/10/17 20:44 Calculated Osmolality 305 (280-300) H 02/11/17 06:01 Calcium 8.0 mg/dL (8.6-10.8) L 02/11/17 06:01 Phosphorus 5.0 mg/dL (2.3-4.7) H 02/07/17 20:38 Magnesium 1.4 mg/dL (1.6-2.6) L 02/07/17 20:38 Total Bilirubin 2.0 mg/dL (0.2-1.2) H 02/08/17 04:37 Direct Bilirubin 1.3 mg/dL (0.0-0.5) H 02/07/17 20:38 AST 49 Units/L (5-34) H 02/08/17 04:37 Alkaline Phosphatase 576 Units/L (38-126) H 02/08/17 04:37 Troponin I 0.14 ng/mL (0-0.03) H* 02/07/17 20:38 B-Natriuretic Peptide 2057 pg/mL (0-100) H 02/11/17 06:01 Albumin 2.9 g/dL (3.5-5.0) L 02/08/17 04:37 Globulin 3.8 g/dL (2.4-3.5) H 02/08/17 04:37 Albumin/Globulin Ratio 0.8 (1.1-2.2) L 02/08/17 04:37 Urine Clarity Cloudy (Clear) A 02/07/17 19:50 Urine Protein 100 mg/dL (Neg-Trace) H 02/07/17 19:50 Urine Blood Large (Negative) H 02/07/17 19:50 Urine Bilirubin Small (Negative) H 02/07/17 19:50 Ur Leukocyte Esterase Small (Negative) H 02/07/17 19:50 Urine Microscopic RBC 50-100 per hpf (0-3) H 02/07/17 19:50 Urine Microscopic WBC 50-100 per hpf (0-3) H 02/07/17 19:50 Ur Squamous Epith Cells Many per lpf (None-Few) H 02/07/17 19:50 Ur Culture Indicated? YES (NO) A 02/07/17 19:50 Vancomycin Trough 25.5 mcg/mL (10-20) H* 02/09/17 21:16 General appearance: Present: no acute distress - ENT Additional comments: Tracheostomy intact - Respiratory Respiratory exam: Present: decreased breath sounds, CTAB - Cardiovascular Cardiovascular exam: Present: +S1, +S2 - GI/Abdominal GI/Abdominal exam: Present: normal bowel sounds, soft - Extremities Exam Extremities exam: Present: normal capillary refill, normal inspection - Neurological Exam Neurological exam: Present: alert, oriented X3, strengths equal and symetr throughout - Skin Skin exam: Present: dry, pallor, warm Palliative Quality Palliative Quality: Screen for Code Status: Yes, Screen for Goals of Care: Yes, Screen for Pain: Yes, If Pain Regimen Started, Initiate Bowel Regimen: NA, Screen for Nausea/Vomitting: Yes - Labs CBC & Chem 7: 02/11/17 06:01 02/11/17 06:01 Labs: Laboratory Results - last 24 hr 02/10/17 02/10/17 02/11/17 17:22 20:44 06:01 WBC RBC Hgb Hct MCV MCH MCHC RDW Plt Count MPV Immature Gran % Seg Neutrophils % Lymphocytes % Monocytes % Eosinophils % Basophils % Neutrophils # Lymphocytes # Monocytes # Eosinophils # Basophils # Nucleated RBCs/100 WBC Sodium Potassium Chloride Carbon Dioxide BUN Creatinine Est GFR ( Amer) Est GFR (Non-Af Amer) BUN/Creatinine Ratio Glucose POC Glucose 289 H 248 H Calculated Osmolality Calcium B-Natriuretic Peptide 2057 H 02/11/17 02/11/17 06:01 06:01 WBC 11.1 RBC 4.85 Hgb 13.5 Hct 42.9 MCV 88.5 MCH 27.8 L MCHC 31.5 L RDW 16.4 H Plt Count 129 L MPV 11.3 Immature Gran % 1.3 Seg Neutrophils % 90.7 Lymphocytes % 4.0 Monocytes % 3.8 Eosinophils % 0.0 Basophils % 0.2 Neutrophils # 10.1 H Lymphocytes # 0.4 L Monocytes # 0.4 Eosinophils # 0.0 Basophils # 0.0 Nucleated RBCs/100 WBC 0.2 H Sodium 140 Potassium 4.7 H Chloride 103 Carbon Dioxide 22 BUN 45 H Creatinine 1.21 Est GFR ( Amer) > 60 Est GFR (Non-Af Amer) > 60 BUN/Creatinine Ratio 37 H Glucose 166 H POC Glucose Calculated Osmolality 305 H Calcium 8.0 L B-Natriuretic Peptide - Impressions Impressions Echocardiogram 02/10/17 11:18 Impressions: LVEF 20%. Severely dilated left ventricle. Severe global hypokinesis. Mild left ventricular diastolic dysfunction. Mildly dilated right ventricle with near normal appearing function. Severely dilated left atrium. Moderate-severe mitral regurgitation. No evidence of pulmonary hypertension. RVSP not well obtained and could be underestimated. Left Ventricular Wall Motion: Rest Echo Findings The apex, apical inferior, mid inferior, basal inferior, apical anterior, mid anterior, basal anterior, apical septal, mid inferior septal, basal inferior septal, apical lateral, mid anterior lateral, basal anterior lateral, mid anterior septal, mid inferior lateral, basal anterior septal and basal inferior lateral monreal were hypokinetic. Findings: Study Quality * Technically adequate exam. ECG Findings * Sinus rhythm with BBB. Left Ventricle * LVEF 20%. * Severely dilated left ventricle. Severe global hypokinesis. * Mild left ventricular diastolic dysfunction. Right Ventricle * Mildly dilated right ventricle with near normal appearing function. Left Atrium * Severely dilated left atrium. Right Atrium * Mildly dilated right atrium. Interatrial Septum * Interatrial septum not well evaluated. Aortic Valve * Aortic valve not well visualized. * Mildly sclerotic aortic valve leaflets. * No aortic regurgitation. * No aortic stenosis. Mitral Valve * Mildly thickened mitral valve leaflets. * Moderate-severe mitral regurgitation. * No mitral stenosis. Tricuspid Valve * Normal tricuspid valve structure and function. * Trace tricuspid regurgitation. * No evidence of pulmonary hypertension. RVSP not well obtained and could be underestimated. Pulmonic Valve * Normal pulmonic valve structure and function. * No pulmonic regurgitation. Aorta * Normally sized aortic root. Pericardium * There is a trivial pericardial effusion present. IVC * Normal IVC dimensions and inspiratory collapse. Pulmonary Artery * Pulmonary artery not well visualized. - ABG Interpretation ABG results: ABG ABG pH 7.36 pH Units (7.32-7.45) 02/08/17 15:22 ABG pCO2 51 mmHg (35-45) H 02/08/17 15:22 ABG pO2 73 mmHg (85-104) L 02/08/17 15:22 ABG O2 Saturation 94 % (95-98) L 02/08/17 15:22 PT/INR, D-dimer PT 17.2 Seconds (9.4-12.1) H 02/07/17 20:38 Consult Discharge Plan - Plan Referrals: Dalton Monterroso Jr, MD [Primary Care Provider] - 02/19/17 10:00 am ()
--- NOTE | 2017-02-11 12:02 | Cardiology Progress Note ---
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 -Oncologu following. -Management per oncology and primary services. (2) Pancreatic cancer Current Visit: No Status: Acute Per cardiology: -Pancreatic CA. -Oncology following. Per review of note, condition gaurded. -Management per primary and oncology services. Qualifiers: Pancreatic malignancy location: body of pancreas Qualified Code(s): C25.1 - Malignant neoplasm of body of pancreas (3) Cardiomyopathy Current Visit: Yes Status: Acute Per cardiology: -Suspected new cardiomyopathy. -TTE with LVEF 20%, globaol hypokinesis. Moderate-severe MR. -Unknown baseline LVEF. Denies previous cardiac testing. -On beta shelby and ARB. NOt on statin due to liver mets and elevated LFTs. Not on ASA due to thrombocytopenia. -Would typically recommend LHC, however due to patient's metastatic cancer, will discuss with and oncology. states we will review with oncology regarding appropriateness of LHC. Qualifiers: Cardiomyopathy type: unspecified Qualified Code(s): I42.9 - Cardiomyopathy , unspecified Discussion w patient/family: The assessment and plan as outlined above was discussed with the patient who expressed understanding and agreement. All questions were answered. Thank you for involving us in the care of your patient. Please call with any questions. Discussed and reviewed with . Subjective Principal diagnosis: Metastatic cancer Interval history: Patient originally seen by cardiology for elevated troponins. Cardiology has been asked to re-evaluate the patient for LVEF of 20%. Patient denies any echocardiograms prior to this admission. Patient denies previous LHC or other invasive cardiac procedures. Patient states he is doing ok today. Patient states shortness of breath is about baseline. Patient denies chest pain. Objective Vital Signs, Last 4 Hours Temp Pulse Resp BP Pulse Ox 02/11/17 11:30 22 96 02/11/17 11:11 97.4 F L 91 22 130/91 02/11/17 10:58 97.5 F L 96 22 130/88 96 02/11/17 08:14 97.5 F L 95 22 130/88 96 02/11/17 08:04 22 95 General: Conversant, Other (Conversational dyspnea noted. Places finger over tracheostomy site to speak. ) HEENT: Atraumatic, Normocephaly, Mucus Membranes Moist Neck: No JVD, Normal carotid pulses Cardiac: Reg Rate and Rhythm, Normal S1 and S2, No Murmur Lungs: Other (Lung sounds diminished throughout. ) Neuro: Alert and responsive, No focal deficits noted Abdomen: Soft, Non-Tender Skin: No rashes noted on visualized skin Musculoskeletal: No Chest Wall Tenderness Extremities: No Clubbing, No Cyanosis, Normal Pulses, Other (Mild bilateral lower extremity edema, non-pitting. ) Results 02/11/17 06:01 02/11/17 06:01 Lab Results Impressions Echocardiogram 02/10/17 11:18 Impressions: LVEF 20%. Severely dilated left ventricle. Severe global hypokinesis. Mild left ventricular diastolic dysfunction. Mildly dilated right ventricle with near normal appearing function. Severely dilated left atrium. Moderate-severe mitral regurgitation. No evidence of pulmonary hypertension. RVSP not well obtained and could be underestimated. Left Ventricular Wall Motion: Rest Echo Findings The apex, apical inferior, mid inferior, basal inferior, apical anterior, mid anterior, basal anterior, apical septal, mid inferior septal, basal inferior septal, apical lateral, mid anterior lateral, basal anterior lateral, mid anterior septal, mid inferior lateral, basal anterior septal and basal inferior lateral monreal were hypokinetic. Findings: Study Quality * Technically adequate exam. ECG Findings * Sinus rhythm with BBB. Left Ventricle * LVEF 20%. * Severely dilated left ventricle. Severe global hypokinesis. * Mild left ventricular diastolic dysfunction. Right Ventricle * Mildly dilated right ventricle with near normal appearing function. Left Atrium * Severely dilated left atrium. Right Atrium * Mildly dilated right atrium. Interatrial Septum * Interatrial septum not well evaluated. Aortic Valve * Aortic valve not well visualized. * Mildly sclerotic aortic valve leaflets. * No aortic regurgitation. * No aortic stenosis. Mitral Valve * Mildly thickened mitral valve leaflets. * Moderate-severe mitral regurgitation. * No mitral stenosis. Tricuspid Valve * Normal tricuspid valve structure and function. * Trace tricuspid regurgitation. * No evidence of pulmonary hypertension. RVSP not well obtained and could be underestimated. Pulmonic Valve * Normal pulmonic valve structure and function. * No pulmonic regurgitation. Aorta * Normally sized aortic root. Pericardium * There is a trivial pericardial effusion present. IVC * Normal IVC dimensions and inspiratory collapse. Pulmonary Artery * Pulmonary artery not well visualized. Active Medications Albuterol/Ipratropium (Duoneb) 3 ml IH [id number] JULIOCESAR Stop: 08/10/17 04:01 Last Admin: 02/11/17 11:29 Dose: 3 ml Budesonide/Formoterol Fumarate (Symbicort) 2 puff IH BIDRESP JULIOCESAR PRN Reason: Protocol Stop: 08/10/17 10:01 Last Admin: 02/11/17 08:02 Dose: 2 puff Calcitriol (Rocaltrol) 0.5 mcg PO BID JULIOCESAR Stop: 08/10/17 09:01 Last Admin: 02/11/17 09:10 Dose: 0.5 mcg Calcium Carbonate (Tums) 500 mg PO DAILY JULIOCESAR Stop: 08/10/17 09:01 Last Admin: 02/11/17 09:10 Dose: 500 mg Carvedilol (Coreg) 6.25 mg PO BIDWM JULIOCESAR PRN Reason: Protocol Stop: 08/12/17 17:01 Last Admin: 02/11/17 09:12 Dose: 6.25 mg Famotidine (Pepcid) 20 mg IVP Q12HR JULIOCESAR PRN Reason: Protocol Stop: 08/10/17 06:01 Last Admin: 02/11/17 06:41 Dose: 20 mg Heparin Sodium (Porcine) (Heparin) 5,000 unit SQ Q8HCO JULIOCESAR Stop: 08/10/17 06:01 Last Admin: 02/11/17 06:41 Dose: 5,000 unit Ceftriaxone Sodium 1,000 mg/ (Dextrose) 100 mls @ 200 mls/hr IVPB Q24H JULIOCESAR Stop: 08/12/17 16:01 Last Infusion: 02/10/17 19:50 Dose: Infused Levothyroxine Sodium (Synthroid) 200 mcg PO DAILY JULIOCESAR Stop: 08/10/17 09:01 Last Admin: 02/11/17 09:08 Dose: 200 mcg Losartan Potassium (Cozaar) 25 mg PO DAILY JULIOCESAR PRN Reason: Protocol Stop: 08/10/17 09:01 Last Admin: 02/11/17 09:09 Dose: 25 mg Methylprednisolone (Solu-Medrol) 40 mg IVP Q8HR JULIOCESAR Stop: 08/10/17 08:01 Last Admin: 02/11/17 08:12 Dose: 40 mg Nicotine (Nicoderm) 14 mg TD DAILY JULIOCESAR Stop: 08/10/17 09:01 Last Admin: 02/10/17 09:56 Dose: 14 mg Ondansetron HCl (Zofran) 4 mg IVP Q6HR PRN; Protocol PRN Reason: Nausea And Vomiting Stop: 08/10/17 01:13 Oxycodone/Acetaminophen (Percocet 10/325) 1 each PO Q6HR PRN PRN Reason: Pain Stop: 08/10/17 10:12 Last Admin: 02/10/17 20:47 Dose: 1 each Pharmacy Profile Note (Patient Taking Own Medication) 0 each PO DAILY@1900 JULIOCESAR Stop: 08/10/17 01:16 Last Admin: 02/10/17 22:23 Dose: 1 each Venlafaxine HCl (Effexor Xr) 37.5 mg PO DAILY JULIOCESAR PRN Reason: Protocol Stop: 08/10/17 09:01 Last Admin: 02/11/17 09:12 Dose: 37.5 mg Laboratory Tests 02/07/17 02/07/17 02/10/17 20:38 20:38 03:25 Hgb Plt Count 147 120 L Creatinine 0.86 B-Natriuretic Peptide 02/10/17 02/11/17 02/11/17 03:25 06:01 06:01 Hgb 13.5 Plt Count 129 L Creatinine 1.44 H D B-Natriuretic Peptide 2057 H 02/11/17 06:01 Hgb Plt Count Creatinine 1.21 B-Natriuretic Peptide - Imaging and Cardiology Chest Xray: report reviewed Echo: report reviewed - EKG Interpretation EKG results cardiology: personally reviewed (ECG with sinus tachycardia, HR 103. ), other (Telemetry reviewed with average HR 89, sinus rhythm. PVCs, couplets, triplets, PACs, and 1 run of atrial tachycardia noted.) Consult Discharge Plan - Plan Referrals: Dalton Monterroso Jr, MD [Primary Care Provider] - 02/19/17 10:00 am () <Marisol Espinoza - Last Filed: 02/11/17 16:47> Date of Encounter: 02/11/17 Assessment and Plan Discussion w patient/family: I examined this patient and my medical decision-making was reviewed with the Resident Physician. I agree with the documented findings, disposition and treatment plan. Mr. Parikh is a very pleasant 66 year old male with metastatic pancreatic cancer who recently had an echo done demonstrating globally reduced EF, 20%. I discussed these findings with the patient and family member present. I also discussed echo results with his Oncologist. He has not been on any cardiotoxic chemotherapy. Given his guarded oncologic prognosis, conservative medical management is being recommended. We will uptitrate beta shelby and continue ARB. Recommend consideration of the addition of low dose aspirin (with careful watch on platelet count) if okay with Oncology. He is not on statin therapy due to elevated LFTs presumably from liver mets. No further recommendations at this time. Please schedule outpatient follow up as needed. Objective Vital Signs, Last 4 Hours Temp Pulse Resp BP Pulse Ox 02/11/17 16:33 97.6 F 92 23 136/92 96 Results 02/11/17 06:01 02/11/17 06:01 Lab Results 02/11/17 02/11/17 02/11/17 06:01 06:01 06:01 WBC 11.1 Hgb 13.5 Hct 42.9 Plt Count 129 L Sodium 140 Potassium 4.7 H Chloride 103 Carbon Dioxide 22 BUN 45 H Creatinine 1.21 Glucose 166 H Calcium 8.0 L B-Natriuretic Peptide 2057 H
--- NOTE | 2017-02-11 15:25 | Internal Med Progress Note ---
Date of Encounter: 02/11/17 Time of Encounter: 09:00 - Assessment and plan (1) Severe sepsis Current Visit: Yes Status: Acute Assessment and plan: Patient to meet criteria of sepsis. With elevated lactate. Consider severe sepsis. Infectious sites might be UTI or pulmonary. Now WBC, HR, and RR all get down, consider sepsis resolved. - We will deescalate abx to rocephin per cx result. - Recheck lactate 2.0. - Ureter stone with hydronephrosis was treated with stenting by urologist - Negative urine culture and blood culture. Sputum culture shows Proteus vulgaris, sensitive to rocephin. (2) UTI (urinary tract infection) Current Visit: Yes Status: Acute Assessment and plan: Continue antibiotic treatment. Had a ureteral stent placed. Qualifiers: Urinary tract infection type: site unspecified Hematuria presence: without hematuria Qualified Code(s): N39.0 - Urinary tract infection, site not specified (3) Elevated troponin I level Current Visit: Yes Status: Acute Assessment and plan: Patient has no chest pain. Cardiology consult appreciated. - 02/10: Echo shows LVEF 20%. No previous echo available to compare. Pt appears euvolemic. Patient is on losartan, will add low-dose beta shelby. Will check BNP and reconsult cardiology. - Cardio consult appreciated. Consider ischemic cardiomyopathy. Will follow cardio further recommendation. (4) Pancreatic cancer Current Visit: No Status: Acute Assessment and plan: Follow-up with oncology. Palliative consult appreciated. Qualifiers: Pancreatic malignancy location: body of pancreas Qualified Code(s): C25.1 - Malignant neoplasm of body of pancreas (5) Liver metastases Current Visit: No Status: Acute Assessment and plan: Had the biopsy recently (6) Follicular thyroid cancer Current Visit: No Status: Chronic Assessment and plan: Patient had tracheostomy. Follow-up with oncology (7) 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 Visit: No Status: Chronic Assessment and plan: Continue tracheostomy care per protocol (8) Hypertension Current Visit: No Status: Chronic Assessment and plan: Continue home medications Qualifiers: Hypertension type: essential hypertension Qualified Code(s): I10 - Essential (primary) hypertension (9) Lung metastasis Current Visit: No Status: Acute Assessment and plan: Follow-up with oncology Qualifiers: Laterality: right Qualified Code(s): C78.01 - Secondary malignant neoplasm of right lung (10) DVT prophylaxis Current Visit: No Status: Acute Assessment and plan: Heparin subcutaneously (11) Mental status alteration Current Visit: Yes Status: Acute Assessment and plan: Pt has several episodes of AMS/confusion/nonresponsive, neurology consult appreciated. Will order MRI and EEG to r/o brain metastasis or seizure. Qualifiers: Altered mental status type: delirium Qualified Code(s): R41.0 - Disorientation, unspecified - Time Spent With Patient 25 - 35 minutes - Subjective Interval history: Patient is a 66-year-old male admitted for fever and shortness of breath. He has history of thyroid cancer, recently diagnosed pancreas adenocarcinoma possibly has liver and/or lung metastasis. Patient has a liver biopsy 3 days ago. Other history include COPD, hyperlipidemia. Patient was seen and examined. Still weak. More alert awake. Improved shortness of breath. Pt's vitals generally stable. We will continue antibiotic treatment for sepsis. Cr improved after IVF. IVF stopped with concern of CHF (LVEF 20%). Pt has several episodes of confusion/nonresponsive, recover spontanuously. Will order MRI to r/o tumor brain metastasis. Cardio and neuro consult appreciated. - Constitutional Vitals: Temp Pulse Resp BP Pulse Ox 97.4 F L 90 22 130/91 96 02/11/17 12:10 02/11/17 12:10 02/11/17 12:10 02/11/17 12:10 02/11/17 12:10 General appearance: Present: cooperative, A&O X 3, no acute distress, answers questions appropriately - Head Head exam: Present: atraumatic, normocephalic - Eye Eye exam: Present: PERRL, conjuntiva pink, sclera anicteric Pupils: Present: PERRL - Neck Neck exam general surgery: Present: supple, trachea midline. Absent: lymphadenopathy - Respiratory Respiratory exam: Present: CTAB. Absent: accessory muscle use, rales, rhonchi, wheezes - Cardiovascular Cardiovascular exam: Present: RRR, +S1, +S2. Absent: diastolic murmur, gallop, rubs, systolic murmur - GI/Abdominal GI/Abdominal exam: Present: normal bowel sounds, soft, no peritoneal signs. Absent: distended, tenderness - Extremities Exam Extremities exam: Present: pedal edema (Mild pedal edema B/L), warm, radial pulses palpable and symmetrical. Absent: calf tenderness, cyanotic - Neurological Exam Neurological exam: Present: CN II-XII intact, oriented X3, no focal deficits. Absent: pronater drift, facial droop, speech deficit - Skin Skin exam: Present: dry, intact Internal Medicine: Result - Labs CBC & Chem 7: 02/11/17 06:01 02/11/17 06:01 Labs: Short CBC 02/11/17 Range/Units 06:01 WBC 11.1 (4.3-11.1) K/mcL Hgb 13.5 (12.9-16.9) g/dL Hct 42.9 (37.5-50.1) % Plt Count 129 L (140-400) K/mcL Neutrophils # 10.1 H (1.6-8.9) K/mcL BMP 02/11/17 06:01 Sodium 140 Potassium 4.7 H Chloride 103 Carbon Dioxide 22 BUN 45 H Creatinine 1.21 Glucose 166 H Calcium 8.0 L - ABG Interpretation ABG results: ABG ABG pH 7.36 pH Units (7.32-7.45) 02/08/17 15:22 ABG pCO2 51 mmHg (35-45) H 02/08/17 15:22 ABG pO2 73 mmHg (85-104) L 02/08/17 15:22 ABG O2 Saturation 94 % (95-98) L 02/08/17 15:22 PT/INR, D-dimer PT 17.2 Seconds (9.4-12.1) H 02/07/17 20:38 - Impressions Impressions Echocardiogram 02/10/17 11:18 Impressions: LVEF 20%. Severely dilated left ventricle. Severe global hypokinesis. Mild left ventricular diastolic dysfunction. Mildly dilated right ventricle with near normal appearing function. Severely dilated left atrium. Moderate-severe mitral regurgitation. No evidence of pulmonary hypertension. RVSP not well obtained and could be underestimated. Left Ventricular Wall Motion: Rest Echo Findings The apex, apical inferior, mid inferior, basal inferior, apical anterior, mid anterior, basal anterior, apical septal, mid inferior septal, basal inferior septal, apical lateral, mid anterior lateral, basal anterior lateral, mid anterior septal, mid inferior lateral, basal anterior septal and basal inferior lateral monreal were hypokinetic. Findings: Study Quality * Technically adequate exam. ECG Findings * Sinus rhythm with BBB. Left Ventricle * LVEF 20%. * Severely dilated left ventricle. Severe global hypokinesis. * Mild left ventricular diastolic dysfunction. Right Ventricle * Mildly dilated right ventricle with near normal appearing function. Left Atrium * Severely dilated left atrium. Right Atrium * Mildly dilated right atrium. Interatrial Septum * Interatrial septum not well evaluated. Aortic Valve * Aortic valve not well visualized. * Mildly sclerotic aortic valve leaflets. * No aortic regurgitation. * No aortic stenosis. Mitral Valve * Mildly thickened mitral valve leaflets. * Moderate-severe mitral regurgitation. * No mitral stenosis. Tricuspid Valve * Normal tricuspid valve structure and function. * Trace tricuspid regurgitation. * No evidence of pulmonary hypertension. RVSP not well obtained and could be underestimated. Pulmonic Valve * Normal pulmonic valve structure and function. * No pulmonic regurgitation. Aorta * Normally sized aortic root. Pericardium * There is a trivial pericardial effusion present. IVC * Normal IVC dimensions and inspiratory collapse. Pulmonary Artery * Pulmonary artery not well visualized. Consult Discharge Plan - Plan Referrals: Dalton Monterroso Jr, MD [Primary Care Provider] - 02/19/17 10:00 am ()
[2017-02-11 17:17] LABS: Hematocrit 43.9 % (37.5-50.1); Hemoglobin 13.5 g/dL (12.9-16.9)
[2017-02-11] MEDS ORDERED: 0.9 % Sodium Chloride 250 ML ONE (17:56)
[2017-02-11] MEDS: Famotidine 20 MG TABLET PO SCH (18:02)
[2017-02-11] MEDS: 0.9 % Sodium Chloride 1,000 ML IVC SCH (18:02)
[2017-02-11] MEDS: Pantoprazole 40 MG VIAL IVP SCH (18:02)
[2017-02-11] MEDS: Nicotine 14 MG PATCH.TD24 TD SCH (18:03)
[2017-02-11] MEDS: LENVATINIB PO SCH (18:04)
--- NOTE | 2017-02-11 20:06 | Event Note ---
Date of Encounter: 02/11/17 Time of Encounter: 18:00 Report by RN pt has bright red blood per rectal, with clots. Pt's vitals and H/ H stable. GI consult informed. Keep pt NPO, IVF, IV PPI, hold heparin, EPCD, closely monitor H/H and Vitals. GI will see pt in AM.
[2017-02-11] MEDS: *HR* OxyCODONE/APAP 10/325 TABLET PO PRN (21:06)
[2017-02-11 22:04] LABS: Hematocrit 41.7 % (37.5-50.1)
[2017-02-11] MEDS: Aspirin 81 MG TAB.CHEW PO SCH (23:18)
[2017-02-12] MEDS: MethylPREDNISolone 40 MG/ML VIAL IVP SCH ×2 (00:10→09:07)
--- NOTE | 2017-02-12 00:13 | Event Note ---
Date of Encounter: 02/12/17 Time of Encounter: 00:04 Impressions Brain MRI 02/11/17 07:08 IMPRESSION: 1. Multifocal punctate acute ischemic infarcts throughout the bilateral cerebral white matter, right cerebellar hemisphere, and left occipital lobe. Distribution multiple vascular territories suggests central embolic etiology. 2. Minimal petechial hemorrhage associated with the left occipital infarct. 3. No significant mass effect. 4. No intracranial metastatic disease. MRI findings noted. Embolic etiology uncertain at this time. Echo completed 02/10 barbara not reveal any clots or vegetations in the left ventricle. Patient would benefit form Aspirin therapy but he was noted to have a GI bleed/ large clot in stool earlier today. Heparin was discontinued today. Neurology is following, will defer further management to neurology.
[2017-02-12] MEDS: Ipratropium/Albuterol Neb 3 ML IH SCH ×6 (04:52→20:15)
[2017-02-12] MEDS: Pantoprazole 40 MG VIAL IVP SCH ×2 (06:39→16:56)
[2017-02-12] MEDS: Famotidine 20 MG TABLET PO SCH (06:39)
[2017-02-12 07:36] LABS: BUN/Creatinine Ratio 45 (6-26); Blood Urea Nitrogen 45 mg/dL (8-26); Calcium 7.8 mg/dL (8.6-10.8); Carbon Dioxide 24 mEq/L (19-29); Chloride 105 mEq/L (98-109); Glucose 169 mg/dL (70-99); Osmolality,Calculated 309 (280-300); Potassium 4.9 mEq/L (3.5-4.5); eGFR For African Americans > 60 (> 60); eGFR For Non-African Americans > 60 (> 60)
[2017-02-12 07:42] LABS: Sodium 142 mEq/L (136-145)
[2017-02-12 07:50] LABS: Basophils % 0.1 %; Hematocrit 43.3 % (37.5-50.1); Hemoglobin 13.2 g/dL (12.9-16.9); Immature Granulocytes % 0.8 % (0-4); Lymphocytes # 0.5 K/mcL (0.6-4.6); Lymphocytes % 5.4 %; Mean Corpuscular HGB Conc 30.5 g/dL (31.6-35.5); Mean Corpuscular Hemoglobin 26.9 pg (28.0-33.3); Mean Corpuscular Volume 88.2 fL (83.0-100.0); Mean Platelet Volume 11.7 fL (9.4-12.4); Monocytes # 0.2 K/mcL (0.0-1.3); Monocytes % 2.5 %; Neutrophils # 8.3 K/mcL (1.6-8.9); Platelet Count 115 K/mcL (140-400); Red Blood Count 4.91 M/mcL (4.19-5.50); Red Cell Distribution Width 16.6 % (11.5-14.5); Segmented Neutrophils % 91.2 %
[2017-02-12] MEDS: Budesonide/Formoterol 160/4.5 MDI IH SCH ×2 (08:02→20:15)
[2017-02-12] MEDS: 0.9 % Sodium Chloride 1,000 ML IVC SCH (09:05)
[2017-02-12] MEDS: Nicotine 14 MG PATCH.TD24 TD SCH (09:07)
[2017-02-12] MEDS: Venlafaxine XR (24 HR) 37.5 MG CAP.ER.24H PO SCH (09:07)
--- NOTE | 2017-02-12 09:48 | Palliative Progress Note ---
Date of Encounter: 02/12/17 Time of Encounter: 07:15 - Assessment and plan (1) Severe sepsis Current Visit: Yes Status: Acute Assessment and plan: the patiet is looking better, no fever blood cultures and urine culture are negative thus far. White count is back to normal. Proteus is growing in the sputum, low-grade is susceptible to the current medications being used. (2) Cancer associated pain Current Visit: Yes Status: Acute Assessment and plan: Under control at this time, patient only used one dose yesterday. Nursing staff is concerned the patient is not asking for pain medications but is in pain. Given the fact the patient is now awake and alert and able to ask for the pain meds, and the fact that there have been questions about altered mental status I would schedule pain medication but allow it to be when necessary and encourage use. Continue to watch. (3) Counseling regarding advanced care planning and goals of care Current Visit: Yes Status: Acute Assessment and plan: still a full code will work with family pat and sw re dispo (4) Pancreatic cancer Current Visit: No Status: Acute Assessment and plan: Oncology following him a plan per hospitalist team and oncology. Qualifiers: Pancreatic malignancy location: body of pancreas Qualified Code(s): C25.1 - Malignant neoplasm of body of pancreas (5) Delirium Current Visit: No Status: Resolved Assessment and plan: This appears to have resolved. The MRI did show suggestions of embolic small CVAs. Workup continues. Is being complicated by the possibility of a GI bleed. - Time Spent With Patient Total time spent is greater than 50% in coordination of care (as documented) at patient's floor/unit and/or counseling patient: - Subjective Interval history: The patient has no complaint of this morning except a mild headache. Events of yesterday are noted with the GI bleed, MRI showing probable emboli neurology is following this. Nursing staff is worried the patient is not asking for medications when he is actually having pain. However he is awake and alert and able to ask for them if he wants them. - Constitutional Vitals: Abnormal lab results MCH 26.9 pg (28.0-33.3) L 02/12/17 06:39 MCHC 30.5 g/dL (31.6-35.5) L 02/12/17 06:39 RDW 16.6 % (11.5-14.5) H 02/12/17 06:39 Plt Count 115 K/mcL (140-400) L 02/12/17 06:39 Lymphocytes # 0.5 K/mcL (0.6-4.6) L 02/12/17 06:39 Nucleated RBCs/100 WBC 0.2 /100 WBC (0) H 02/11/17 06:01 Immature Plt Fraction 6.4 % (1.1-6.1) H 02/08/17 04:37 PT 17.2 Seconds (9.4-12.1) H 02/07/17 20:38 ABG pCO2 51 mmHg (35-45) H 02/08/17 15:22 ABG pO2 73 mmHg (85-104) L 02/08/17 15:22 ABG HCO3 29 mEq/L (21-27) H 02/08/17 15:22 ABG Total CO2 30.4 mEq/L (20-26) H 02/08/17 15:22 ABG O2 Saturation 94 % (95-98) L 02/08/17 15:22 Potassium 4.9 mEq/L (3.5-4.5) H 02/12/17 06:39 BUN 45 mg/dL (8-26) H 02/12/17 06:39 BUN/Creatinine Ratio 45 (6-26) H 02/12/17 06:39 Glucose 169 mg/dL (70-99) H 02/12/17 06:39 POC Glucose 248 (58-89) H 02/10/17 20:44 Calculated Osmolality 309 (280-300) H 02/12/17 06:39 Calcium 7.8 mg/dL (8.6-10.8) L 02/12/17 06:39 Phosphorus 5.0 mg/dL (2.3-4.7) H 02/07/17 20:38 Magnesium 1.4 mg/dL (1.6-2.6) L 02/07/17 20:38 Total Bilirubin 2.0 mg/dL (0.2-1.2) H 02/08/17 04:37 Direct Bilirubin 1.3 mg/dL (0.0-0.5) H 02/07/17 20:38 AST 49 Units/L (5-34) H 02/08/17 04:37 Alkaline Phosphatase 576 Units/L (38-126) H 02/08/17 04:37 Troponin I 0.14 ng/mL (0-0.03) H* 02/07/17 20:38 B-Natriuretic Peptide 2057 pg/mL (0-100) H 02/11/17 06:01 Albumin 2.9 g/dL (3.5-5.0) L 02/08/17 04:37 Globulin 3.8 g/dL (2.4-3.5) H 02/08/17 04:37 Albumin/Globulin Ratio 0.8 (1.1-2.2) L 02/08/17 04:37 Procalcitonin 2.02 ng/mL (<=0.10) H 02/08/17 11:54 Urine Clarity Cloudy (Clear) A 02/07/17 19:50 Urine Protein 100 mg/dL (Neg-Trace) H 02/07/17 19:50 Urine Blood Large (Negative) H 02/07/17 19:50 Urine Bilirubin Small (Negative) H 02/07/17 19:50 Ur Leukocyte Esterase Small (Negative) H 02/07/17 19:50 Urine Microscopic RBC 50-100 per hpf (0-3) H 02/07/17 19:50 Urine Microscopic WBC 50-100 per hpf (0-3) H 02/07/17 19:50 Ur Squamous Epith Cells Many per lpf (None-Few) H 02/07/17 19:50 Ur Culture Indicated? YES (NO) A 02/07/17 19:50 Vancomycin Trough 25.5 mcg/mL (10-20) H* 02/09/17 21:16 General appearance: Present: no acute distress - Head Head exam: Present: atraumatic, normal inspection - Eye Eye exam: Present: normal appearance - ENT ENT exam: Present: mucous membranes moist - Neck Neck exam: Absent: normal inspection (Trach in place patient is able to speak when he was the trach. ) - Respiratory Respiratory exam: Present: CTAB - Cardiovascular Cardiovascular exam: Present: RRR - GI/Abdominal GI/Abdominal exam: Present: normal bowel sounds, soft. Absent: tenderness - Extremities Exam Extremities exam: Present: pedal edema. Absent: tenderness - Neurological Exam Neurological exam: Present: alert (Answers questions appropriately. ) - Psychiatric Psychiatric exam: Present: normal affect, normal mood. Absent: agitated, anxious - Skin Skin exam: Present: dry, warm Palliative Quality Palliative Quality: Screen for Code Status: Yes, Screen for Goals of Care: Yes, Screen for Pain: Yes, If Pain Regimen Started, Initiate Bowel Regimen: NA, Screen for Nausea/Vomitting: Yes - Labs CBC & Chem 7: 02/12/17 06:39 02/12/17 06:39 Labs: Laboratory Results - last 24 hr 02/08/17 02/11/17 02/11/17 11:54 17:08 17:08 WBC RBC Hgb 13.5 Hct 43.9 MCV MCH MCHC RDW Plt Count MPV Immature Gran % Seg Neutrophils % Lymphocytes % Monocytes % Eosinophils % Basophils % Neutrophils # Lymphocytes # Monocytes # Eosinophils # Basophils # Sodium Potassium Chloride Carbon Dioxide BUN Creatinine Est GFR ( Amer) Est GFR (Non-Af Amer) BUN/Creatinine Ratio Glucose Calculated Osmolality Calcium Procalcitonin 2.02 H Blood Type A NEGATIVE Antibody Screen NEGATIVE 02/11/17 02/12/17 02/12/17 21:45 06:39 06:39 WBC 9.1 RBC 4.91 Hgb 13.0 13.2 Hct 41.7 43.3 MCV 88.2 MCH 26.9 L MCHC 30.5 L RDW 16.6 H Plt Count 115 L MPV 11.7 Immature Gran % 0.8 Seg Neutrophils % 91.2 Lymphocytes % 5.4 Monocytes % 2.5 Eosinophils % 0.0 Basophils % 0.1 Neutrophils # 8.3 Lymphocytes # 0.5 L Monocytes # 0.2 Eosinophils # 0.0 Basophils # 0.0 Sodium 142 Potassium 4.9 H Chloride 105 Carbon Dioxide 24 BUN 45 H Creatinine 0.99 Est GFR ( Amer) > 60 Est GFR (Non-Af Amer) > 60 BUN/Creatinine Ratio 45 H Glucose 169 H Calculated Osmolality 309 H Calcium 7.8 L Procalcitonin Blood Type Antibody Screen - Impressions Impressions Brain MRI 02/11/17 07:08 IMPRESSION: 1. Multifocal punctate acute ischemic infarcts throughout the bilateral cerebral white matter, right cerebellar hemisphere, and left occipital lobe. Distribution multiple vascular territories suggests central embolic etiology. 2. Minimal petechial hemorrhage associated with the left occipital infarct. 3. No significant mass effect. 4. No intracranial metastatic disease. D/ / Amari Jacobs MD / Amari Jacobs MD Interpreting Provider: Amari Jacobs MD - ABG Interpretation ABG results: ABG ABG pH 7.36 pH Units (7.32-7.45) 02/08/17 15:22 ABG pCO2 51 mmHg (35-45) H 02/08/17 15:22 ABG pO2 73 mmHg (85-104) L 02/08/17 15:22 ABG O2 Saturation 94 % (95-98) L 02/08/17 15:22 PT/INR, D-dimer PT 17.2 Seconds (9.4-12.1) H 02/07/17 20:38 Consult Discharge Plan - Plan Referrals: Dalton Monterroso Jr, MD [Primary Care Provider] - 02/19/17 10:00 am ()
--- NOTE | 2017-02-12 11:07 | Neurology Progress Note ---
Date of Encounter: 02/12/17 Time of Encounter: 07:25 Assessment and Plan (1) CVA (cerebral vascular accident) Current Visit: Yes Status: Acute Patient noted to have evidence of multiple tiny embolic infarct in multiple distribution in the setting of significantly low ejection fraction and dilated ventricles suspected due to central origin of these embolic source. Patient did not have any clinical sign focal motor weakness or any other symptom from there is a stroke that reason we will for MRI was because of fluctuating confusion that patient is experiencing which is likely related to underlying sundowning as well as his multiple other medical conditions. As there is some petechial hemorrhages noted in the occipital lobe infarct I do not think that is in candidate for any anticoagulation in fact at the moment suggested that he can continue him on low-dose of baby aspirin. he do not have any difficulty with swallowing and certainly at this point he is not a candidate for any physical therapy or rehabilitation. I would not recommend starting stroke protocol at this time patient is already been seen by palliative therapy at the moment were trying to keep him comfortable and we have very limited option as far as treatment for these stroke because with any anticoagulation despite again hemorrhages may get worse and can cause significant bleeding in his brain and other places so certainly is not a candidate for any anticoagulation Qualifiers: CVA mechanism: embolism Precerebral and cerebral artery: unspecified cerebral artery (2) Mental status alteration Current Visit: Yes Status: Acute Stable this time no evidence of any seizure Qualifiers: Altered mental status type: delirium Qualified Code(s): R41.0 - Disorientation, unspecified (3) Severe sepsis Current Visit: Yes Status: Acute (4) Pancreatic cancer Current Visit: No Status: Acute Qualifiers: Pancreatic malignancy location: body of pancreas Qualified Code(s): C25.1 - Malignant neoplasm of body of pancreas Subjective Principal diagnosis: Metastatic cancer Interval history: pt stable no new confusion or weakness, had MR of brain due to confusion showed Multifocal punctate acute ischemic infarcts throughout the bilateral cerebral white matter, right cerebellar hemisphere, and left occipital lobe. Distribution multiple vascular territories suggests central embolic etiology at the same time Minimal petechial hemorrhage associated with the left occipital infarct, No significant mass effect and No intracranial metastatic disease noted. Echocardiogram did shows evidence of very low ejection fraction of 20% as well as global hypokinesia and significantly dilated left ventricle. Objective - Constitutional Vitals: Temp Pulse Resp BP Pulse Ox 97.6 F 91 18 137/90 96 02/12/17 07:00 02/12/17 08:50 02/12/17 11:00 02/12/17 07:00 02/12/17 11:00 - Neurological Exam Sensorimotor examination: Present: intact Motor Examination: Present: grossly full strength in all extremities Sensation intact: Present: intact Mental Status Examination: Present: awake, alert, oriented to person, oriented to place, oriented to time, follows commands appropriately, answers questions appropriately, makes eye contact, follows simple commands, localizes noxious stimulation Cranial nerve examination: Present: PERRL, EOMI, visual doyle intact, sensory to face intact Cerebellar examination: Present: no dysmetria (speech OK along with tracheostomy tube) Results - Laboratory Findings CBC and BMP: 02/12/17 06:39 02/12/17 06:39 Abnormal lab findings: Abnormal lab results MCH 26.9 pg (28.0-33.3) L 02/12/17 06:39 MCHC 30.5 g/dL (31.6-35.5) L 02/12/17 06:39 RDW 16.6 % (11.5-14.5) H 02/12/17 06:39 Plt Count 115 K/mcL (140-400) L 02/12/17 06:39 Lymphocytes # 0.5 K/mcL (0.6-4.6) L 02/12/17 06:39 Nucleated RBCs/100 WBC 0.2 /100 WBC (0) H 02/11/17 06:01 Immature Plt Fraction 6.4 % (1.1-6.1) H 02/08/17 04:37 PT 17.2 Seconds (9.4-12.1) H 02/07/17 20:38 ABG pCO2 51 mmHg (35-45) H 02/08/17 15:22 ABG pO2 73 mmHg (85-104) L 02/08/17 15:22 ABG HCO3 29 mEq/L (21-27) H 02/08/17 15:22 ABG Total CO2 30.4 mEq/L (20-26) H 02/08/17 15:22 ABG O2 Saturation 94 % (95-98) L 02/08/17 15:22 Potassium 4.9 mEq/L (3.5-4.5) H 02/12/17 06:39 BUN 45 mg/dL (8-26) H 02/12/17 06:39 BUN/Creatinine Ratio 45 (6-26) H 02/12/17 06:39 Glucose 169 mg/dL (70-99) H 02/12/17 06:39 POC Glucose 248 (58-89) H 02/10/17 20:44 Calculated Osmolality 309 (280-300) H 02/12/17 06:39 Calcium 7.8 mg/dL (8.6-10.8) L 02/12/17 06:39 Phosphorus 5.0 mg/dL (2.3-4.7) H 02/07/17 20:38 Magnesium 1.4 mg/dL (1.6-2.6) L 02/07/17 20:38 Total Bilirubin 2.0 mg/dL (0.2-1.2) H 02/08/17 04:37 Direct Bilirubin 1.3 mg/dL (0.0-0.5) H 02/07/17 20:38 AST 49 Units/L (5-34) H 02/08/17 04:37 Alkaline Phosphatase 576 Units/L (38-126) H 02/08/17 04:37 Troponin I 0.14 ng/mL (0-0.03) H* 02/07/17 20:38 B-Natriuretic Peptide 2057 pg/mL (0-100) H 02/11/17 06:01 Albumin 2.9 g/dL (3.5-5.0) L 02/08/17 04:37 Globulin 3.8 g/dL (2.4-3.5) H 02/08/17 04:37 Albumin/Globulin Ratio 0.8 (1.1-2.2) L 02/08/17 04:37 Procalcitonin 2.02 ng/mL (<=0.10) H 02/08/17 11:54 Urine Clarity Cloudy (Clear) A 02/07/17 19:50 Urine Protein 100 mg/dL (Neg-Trace) H 02/07/17 19:50 Urine Blood Large (Negative) H 02/07/17 19:50 Urine Bilirubin Small (Negative) H 02/07/17 19:50 Ur Leukocyte Esterase Small (Negative) H 02/07/17 19:50 Urine Microscopic RBC 50-100 per hpf (0-3) H 02/07/17 19:50 Urine Microscopic WBC 50-100 per hpf (0-3) H 02/07/17 19:50 Ur Squamous Epith Cells Many per lpf (None-Few) H 02/07/17 19:50 Ur Culture Indicated? YES (NO) A 02/07/17 19:50 Vancomycin Trough 25.5 mcg/mL (10-20) H* 02/09/17 21:16 Consult Discharge Plan - Plan Referrals: Dalton Monterroso Jr, MD [Primary Care Provider] - 02/19/17 10:00 am ()
--- NOTE | 2017-02-12 12:07 | Event Note ---
Date of Encounter: 02/12/17 Time of Encounter: 12:04 Chart reviewed. Patient with multiple comorbidities, recently diagnosed pancreatic cancer with liver and lung metastasis. MRI during this admission shows acute CVA. Hemoglobin is stable. No indication for invasive procedure at this time. If rectal bleeding persists please reconsult us.
--- NOTE | 2017-02-12 14:29 | Internal Med Progress Note ---
Date of Encounter: 02/12/17 Time of Encounter: 11:00 - Assessment and plan (1) Severe sepsis Current Visit: Yes Status: Acute Assessment and plan: Patient to meet criteria of sepsis. With elevated lactate. Consider severe sepsis. Infectious sites might be UTI or pulmonary. Now WBC, HR, and RR all get down, consider sepsis resolved. - We will deescalate abx to rocephin per cx result. - Recheck lactate 2.0. - Ureter stone with hydronephrosis was treated with stenting by urologist - Negative urine culture and blood culture. Sputum culture shows Proteus vulgaris, sensitive to rocephin. (2) UTI (urinary tract infection) Current Visit: Yes Status: Acute Assessment and plan: Continue antibiotic treatment. Had a ureteral stent placed. Qualifiers: Urinary tract infection type: site unspecified Hematuria presence: without hematuria Qualified Code(s): N39.0 - Urinary tract infection, site not specified (3) Elevated troponin I level Current Visit: Yes Status: Acute Assessment and plan: Patient has no chest pain. Cardiology consult appreciated. - 02/10: Echo shows LVEF 20%. No previous echo available to compare. Pt appears euvolemic. Patient is on losartan, will add low-dose beta shelby. Will check BNP and reconsult cardiology. - Cardio consult appreciated. Consider ischemic cardiomyopathy. Will follow cardio further recommendation. (4) Pancreatic cancer Current Visit: No Status: Acute Assessment and plan: Follow-up with oncology. Palliative consult appreciated. Qualifiers: Pancreatic malignancy location: body of pancreas Qualified Code(s): C25.1 - Malignant neoplasm of body of pancreas (5) Liver metastases Current Visit: No Status: Acute Assessment and plan: Had the biopsy recently. Pathology result shows adenocarcinoma, consider metastasis. (6) Follicular thyroid cancer Current Visit: No Status: Chronic Assessment and plan: Patient had tracheostomy. Follow-up with oncology (7) 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 Visit: No Status: Chronic Assessment and plan: Continue tracheostomy care per protocol (8) Hypertension Current Visit: No Status: Chronic Assessment and plan: Continue home medications Qualifiers: Hypertension type: essential hypertension Qualified Code(s): I10 - Essential (primary) hypertension (9) Lung metastasis Current Visit: No Status: Acute Assessment and plan: Follow-up with oncology Qualifiers: Laterality: right Qualified Code(s): C78.01 - Secondary malignant neoplasm of right lung (10) DVT prophylaxis Current Visit: No Status: Acute Assessment and plan: Heparin on hold due to GI bleeding. EPCD (11) Mental status alteration Current Visit: Yes Status: Acute Assessment and plan: Pt has several episodes of AMS/confusion/nonresponsive, neurology consult appreciated. MRI shows multiple embolic infarcts. However, mental status was considered as confusion. Qualifiers: Altered mental status type: delirium Qualified Code(s): R41.0 - Disorientation, unspecified (12) GI bleed Current Visit: Yes Status: Acute Assessment and plan: Patient was reported bright red blood per rectal yesterday. GI consult was called but considering patient's poor general condition, no procedure is planned. Will continue to closely monitor his vitals and H&H. Continue IV PPI. Advance diet to full liquid and see if patient tolerates. Qualifiers: GI bleed type/associated pathology: anorectal hemorrhage Qualified Code(s) : K62.5 - Hemorrhage of anus and rectum (13) CVA (cerebral vascular accident) Current Visit: Yes Status: Acute Assessment and plan: MRI shows multiple embolic infarct, consider central source of embolism. Echo is unremarkable. We will continue to closely monitor patient, no anti- coagulation at this point considering patient has GI bleed and intracranial trace bleeding within infarct Qualifiers: CVA mechanism: embolism Precerebral and cerebral artery: unspecified cerebral artery Qualified Code(s): I63.40 - Cerebral infarction due to embolism of unspecified cerebral artery - Time Spent With Patient Greater than 35 minutes - Subjective Interval history: Patient is a 66-year-old male admitted for fever and shortness of breath. He has history of thyroid cancer, recently diagnosed pancreas adenocarcinoma possibly has liver and/or lung metastasis. Patient has a liver biopsy 3 days ago. Other history include COPD, hyperlipidemia. Patient was seen and examined. Still weak. More alert awake. Improved shortness of breath. Pt's vitals generally stable. We will continue antibiotic treatment for sepsis. Abx has been deescalated to rocephin. Taper down steroid as well. Pt has multiple medical problem, in a general critical condition, prognosis is poor and very guarded. Patient is at high risk considering multiple medical problems and end-stage cancer. - Constitutional Vitals: Temp Pulse Resp BP Pulse Ox 97.7 F 84 17 125/87 93 02/12/17 11:29 02/12/17 11:29 02/12/17 11:29 02/12/17 11:29 02/12/17 11:29 General appearance: Present: cooperative, A&O X 3, no acute distress, answers questions appropriately - Head Head exam: Present: atraumatic, normocephalic - Eye Eye exam: Present: PERRL, conjuntiva pink, sclera anicteric Pupils: Present: PERRL - Neck Neck exam general surgery: Present: supple, trachea midline. Absent: lymphadenopathy Additional comments: Tracheostomy tube in place - Respiratory Respiratory exam: Present: CTAB. Absent: accessory muscle use, rales, rhonchi, wheezes - Cardiovascular Cardiovascular exam: Present: RRR, +S1, +S2. Absent: diastolic murmur, gallop, rubs, systolic murmur - GI/Abdominal GI/Abdominal exam: Present: normal bowel sounds, soft, no peritoneal signs. Absent: distended, tenderness - Extremities Exam Extremities exam: Present: warm, radial pulses palpable and symmetrical. Absent : calf tenderness, cyanotic, pedal edema - Neurological Exam Neurological exam: Present: CN II-XII intact, oriented X3, no focal deficits. Absent: pronater drift, facial droop, speech deficit - Skin Skin exam: Present: dry, intact Internal Medicine: Result - Labs CBC & Chem 7: 02/12/17 06:39 02/12/17 06:39 Labs: Short CBC 02/11/17 02/11/17 02/12/17 Range/Units 17:08 21:45 06:39 WBC 9.1 (4.3-11.1) K/mcL Hgb 13.5 13.0 13.2 (12.9-16.9) g/dL Hct 43.9 41.7 43.3 (37.5-50.1) % Plt Count 115 L (140-400) K/mcL Neutrophils # 8.3 (1.6-8.9) K/mcL BMP 02/12/17 06:39 Sodium 142 Potassium 4.9 H Chloride 105 Carbon Dioxide 24 BUN 45 H Creatinine 0.99 Glucose 169 H Calcium 7.8 L - ABG Interpretation ABG results: ABG ABG pH 7.36 pH Units (7.32-7.45) 02/08/17 15:22 ABG pCO2 51 mmHg (35-45) H 02/08/17 15:22 ABG pO2 73 mmHg (85-104) L 02/08/17 15:22 ABG O2 Saturation 94 % (95-98) L 02/08/17 15:22 PT/INR, D-dimer PT 17.2 Seconds (9.4-12.1) H 02/07/17 20:38 - Impressions Impressions Brain MRI 02/11/17 07:08 IMPRESSION: 1. Multifocal punctate acute ischemic infarcts throughout the bilateral cerebral white matter, right cerebellar hemisphere, and left occipital lobe. Distribution multiple vascular territories suggests central embolic etiology. 2. Minimal petechial hemorrhage associated with the left occipital infarct. 3. No significant mass effect. 4. No intracranial metastatic disease. D/ / Amari Jacobs MD / Amari Jacobs MD Interpreting Provider: Amari Jacobs MD Consult Discharge Plan - Plan Referrals: Dalton Monterroso Jr, MD [Primary Care Provider] - 02/19/17 10:00 am ()
[2017-02-12] MEDS ORDERED: MethylPREDNISolone 40 MG/ML VIAL IVP SCH (14:30)
[2017-02-12] MEDS: LENVATINIB PO SCH (21:00)
[2017-02-12] MEDS: *HR* OxyCODONE/APAP 10/325 TABLET PO PRN (21:00)
[2017-02-13] MEDS: Ipratropium/Albuterol Neb 3 ML IH SCH ×7 (00:49→23:35)
[2017-02-13] MEDS: *HR* OxyCODONE/APAP 10/325 TABLET PO PRN ×3 (03:14→21:08)
[2017-02-13 05:02] LABS: Basophils % 0.1 %; Hematocrit 42.8 % (37.5-50.1); Hemoglobin 13.2 g/dL (12.9-16.9); Immature Granulocytes % 0.7 % (0-4); Lymphocytes # 0.6 K/mcL (0.6-4.6); Lymphocytes % 4.5 %; Mean Corpuscular HGB Conc 30.8 g/dL (31.6-35.5); Mean Corpuscular Hemoglobin 27.3 pg (28.0-33.3); Mean Corpuscular Volume 88.6 fL (83.0-100.0); Mean Platelet Volume 11.2 fL (9.4-12.4); Monocytes # 0.9 K/mcL (0.0-1.3); Monocytes % 7.4 %; Platelet Count 116 K/mcL (140-400); Red Blood Count 4.83 M/mcL (4.19-5.50); Red Cell Distribution Width 16.6 % (11.5-14.5); Segmented Neutrophils % 87.3 %
[2017-02-13 05:19] LABS: BUN/Creatinine Ratio 44 (6-26); Blood Urea Nitrogen 44 mg/dL (8-26); Calcium 7.4 mg/dL (8.6-10.8); Carbon Dioxide 23 mEq/L (19-29); Chloride 102 mEq/L (98-109); Glucose 220 mg/dL (70-99); Osmolality,Calculated 302 (280-300); Potassium 4.5 mEq/L (3.5-4.5); Sodium 137 mEq/L (136-145); eGFR For African Americans > 60 (> 60); eGFR For Non-African Americans > 60 (> 60)
[2017-02-13] MEDS: Pantoprazole 40 MG VIAL IVP SCH (06:45)
[2017-02-13] MEDS: Budesonide/Formoterol 160/4.5 MDI IH SCH ×2 (08:11→20:15)
[2017-02-13] MEDS: Nicotine 14 MG PATCH.TD24 TD SCH (08:27)
[2017-02-13] MEDS: Venlafaxine XR (24 HR) 37.5 MG CAP.ER.24H PO SCH (08:28)
[2017-02-13] MEDS ORDERED: *HR* OxyCODONE/APAP 10/325 TABLET PO SCH (12:00)
--- NOTE | 2017-02-13 12:44 | Neurology Progress Note ---
Date of Encounter: 02/13/17 Time of Encounter: 08:25 Assessment and Plan (1) CVA (cerebral vascular accident) Current Visit: Yes Status: Acute Patient noted to have evidence of multiple tiny embolic infarct in multiple distribution in the setting of significantly low ejection fraction and dilated ventricles suspected due to central origin of these embolic source. Patient did not have any clinical sign focal motor weakness or any other symptom from there is a stroke that reason we will for MRI was because of fluctuating confusion that patient is experiencing which is likely related to underlying sundowning as well as his multiple other medical conditions. As there is some petechial hemorrhages noted in the occipital lobe infarct I do not think that is in candidate for any anticoagulation in fact at the moment suggested that he can continue him on low-dose of baby aspirin. he do not have any difficulty with swallowing and certainly at this point he is not a candidate for any physical therapy or rehabilitation. I would not recommend starting stroke protocol at this time patient is already been seen by palliative therapy at the moment were trying to keep him comfortable and we have very limited option as far as treatment for these stroke because with any anticoagulation despite again hemorrhages may get worse and can cause significant bleeding in his brain and other places so certainly is not a candidate for any anticoagulation at this time continue on low dose ASA, continue other conservative measures, call if needed, thanks (2) Mental status alteration Current Visit: Yes Status: Acute Qualifiers: Altered mental status type: delirium Qualified Code(s): R41.0 - Disorientation, unspecified (3) Severe sepsis Current Visit: Yes Status: Acute (4) Pancreatic cancer Current Visit: No Status: Acute Qualifiers: Pancreatic malignancy location: body of pancreas Qualified Code(s): C25.1 - Malignant neoplasm of body of pancreas Subjective Principal diagnosis: Metastatic cancer Interval history: pt stable no new confusion or weakness, had MR of brain due to confusion showed Multifocal punctate acute ischemic infarcts throughout the bilateral cerebral white matter, right cerebellar hemisphere, and left occipital lobe. Distribution multiple vascular territories suggests central embolic etiology at the same time Minimal petechial hemorrhage associated with the left occipital infarct, No significant mass effect and No intracranial metastatic disease noted. Echocardiogram did shows evidence of very low ejection fraction of 20% as well as global hypokinesia and significantly dilated left ventricle. Objective - Constitutional Vitals: Temp Pulse Resp BP Pulse Ox 97.4 F L 77 20 112/81 94 02/13/17 12:42 02/13/17 11:13 02/13/17 11:43 02/13/17 11:13 02/13/17 11:43 - Neurological Exam Sensorimotor examination: Present: intact Motor Examination: Present: grossly full strength in all extremities Sensation intact: Present: intact Mental Status Examination: Present: awake, alert, oriented to person, oriented to place, oriented to time, follows commands appropriately, answers questions appropriately, makes eye contact, follows simple commands, localizes noxious stimulation Cranial nerve examination: Present: PERRL, EOMI, visual doyle intact, sensory to face intact Cerebellar examination: Present: no dysmetria (speech OK along with tracheostomy tube) - VTE Documentation of Mechanical Device: Intermittent pneumatic compression device Results - Laboratory Findings CBC and BMP: 02/13/17 04:13 02/13/17 04:13 Abnormal lab findings: Abnormal lab results WBC 12.7 K/mcL (4.3-11.1) H 02/13/17 04:13 MCH 27.3 pg (28.0-33.3) L 02/13/17 04:13 MCHC 30.8 g/dL (31.6-35.5) L 02/13/17 04:13 RDW 16.6 % (11.5-14.5) H 02/13/17 04:13 Plt Count 116 K/mcL (140-400) L 02/13/17 04:13 Neutrophils # 11.0 K/mcL (1.6-8.9) H 02/13/17 04:13 Nucleated RBCs/100 WBC 0.2 /100 WBC (0) H 02/11/17 06:01 Immature Plt Fraction 6.4 % (1.1-6.1) H 02/08/17 04:37 PT 17.2 Seconds (9.4-12.1) H 02/07/17 20:38 ABG pCO2 51 mmHg (35-45) H 02/08/17 15:22 ABG pO2 73 mmHg (85-104) L 02/08/17 15:22 ABG HCO3 29 mEq/L (21-27) H 02/08/17 15:22 ABG Total CO2 30.4 mEq/L (20-26) H 02/08/17 15:22 ABG O2 Saturation 94 % (95-98) L 02/08/17 15:22 BUN 44 mg/dL (8-26) H 02/13/17 04:13 BUN/Creatinine Ratio 44 (6-26) H 02/13/17 04:13 Glucose 220 mg/dL (70-99) H 02/13/17 04:13 POC Glucose 169 (58-89) H 02/13/17 05:41 Calculated Osmolality 302 (280-300) H 02/13/17 04:13 Calcium 7.4 mg/dL (8.6-10.8) L 02/13/17 04:13 Phosphorus 5.0 mg/dL (2.3-4.7) H 02/07/17 20:38 Magnesium 1.4 mg/dL (1.6-2.6) L 02/07/17 20:38 Total Bilirubin 2.0 mg/dL (0.2-1.2) H 02/08/17 04:37 Direct Bilirubin 1.3 mg/dL (0.0-0.5) H 02/07/17 20:38 AST 49 Units/L (5-34) H 02/08/17 04:37 Alkaline Phosphatase 576 Units/L (38-126) H 02/08/17 04:37 Troponin I 0.14 ng/mL (0-0.03) H* 02/07/17 20:38 B-Natriuretic Peptide 2057 pg/mL (0-100) H 02/11/17 06:01 Albumin 2.9 g/dL (3.5-5.0) L 02/08/17 04:37 Globulin 3.8 g/dL (2.4-3.5) H 02/08/17 04:37 Albumin/Globulin Ratio 0.8 (1.1-2.2) L 02/08/17 04:37 Procalcitonin 2.02 ng/mL (<=0.10) H 02/08/17 11:54 Urine Clarity Cloudy (Clear) A 02/07/17 19:50 Urine Protein 100 mg/dL (Neg-Trace) H 02/07/17 19:50 Urine Blood Large (Negative) H 02/07/17 19:50 Urine Bilirubin Small (Negative) H 02/07/17 19:50 Ur Leukocyte Esterase Small (Negative) H 02/07/17 19:50 Urine Microscopic RBC 50-100 per hpf (0-3) H 02/07/17 19:50 Urine Microscopic WBC 50-100 per hpf (0-3) H 02/07/17 19:50 Ur Squamous Epith Cells Many per lpf (None-Few) H 02/07/17 19:50 Ur Culture Indicated? YES (NO) A 02/07/17 19:50 Vancomycin Trough 25.5 mcg/mL (10-20) H* 02/09/17 21:16 Consult Discharge Plan - Plan Referrals: Dalton Monterroso Jr, MD [Primary Care Provider] - 02/19/17 10:00 am ()
--- NOTE | 2017-02-13 16:03 | Internal Med Progress Note ---
Date of Encounter: 02/13/17 Time of Encounter: 10:00 - Assessment and plan (1) Severe sepsis Current Visit: Yes Status: Acute Assessment and plan: Patient to meet criteria of sepsis. With elevated lactate. Consider severe sepsis. Infectious sites might be UTI or pulmonary. Now WBC, HR, and RR all get down, consider sepsis resolved. - We will deescalate abx to rocephin per cx result. - Recheck lactate 2.0. - Ureter stone with hydronephrosis was treated with stenting by urologist - Negative urine culture and blood culture. Sputum culture shows Proteus vulgaris, sensitive to rocephin. (2) UTI (urinary tract infection) Current Visit: Yes Status: Acute Assessment and plan: Continue antibiotic treatment. Had a ureteral stent placed. Qualifiers: Urinary tract infection type: site unspecified Hematuria presence: without hematuria Qualified Code(s): N39.0 - Urinary tract infection, site not specified (3) Elevated troponin I level Current Visit: Yes Status: Acute Assessment and plan: Patient has no chest pain. Cardiology consult appreciated. - 02/10: Echo shows LVEF 20%. No previous echo available to compare. Pt appears euvolemic. Patient is on losartan, add low-dose beta shelby. - Cardio consult appreciated. Consider ischemic cardiomyopathy. Continue current treatment (4) Pancreatic cancer Current Visit: No Status: Acute Assessment and plan: Follow-up with oncology. Palliative consult appreciated. Qualifiers: Pancreatic malignancy location: body of pancreas Qualified Code(s): C25.1 - Malignant neoplasm of body of pancreas (5) Liver metastases Current Visit: No Status: Acute Assessment and plan: Had the biopsy recently. Pathology result shows adenocarcinoma, consider metastasis. (6) Follicular thyroid cancer Current Visit: No Status: Chronic Assessment and plan: Patient had tracheostomy. Follow-up with oncology (7) 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 Visit: No Status: Chronic Assessment and plan: Continue tracheostomy care per protocol (8) Hypertension Current Visit: No Status: Chronic Assessment and plan: Continue home medications Qualifiers: Hypertension type: essential hypertension Qualified Code(s): I10 - Essential (primary) hypertension (9) Lung metastasis Current Visit: No Status: Acute Assessment and plan: Follow-up with oncology Qualifiers: Laterality: right Qualified Code(s): C78.01 - Secondary malignant neoplasm of right lung (10) DVT prophylaxis Current Visit: No Status: Acute Assessment and plan: Heparin on hold due to GI bleeding. EPCD (11) Mental status alteration Current Visit: Yes Status: Acute Assessment and plan: Pt has several episodes of AMS/confusion/nonresponsive, neurology consult appreciated. MRI shows multiple embolic infarcts. However, mental status was considered as confusion. Resume baby aspirin per neurology Qualifiers: Altered mental status type: delirium Qualified Code(s): R41.0 - Disorientation, unspecified (12) GI bleed Current Visit: Yes Status: Acute Assessment and plan: Patient was reported bright red blood per rectal yesterday. GI consult was called but considering patient's poor general condition, no procedure is planned. Will continue to closely monitor his vitals and H&H. Continue IV PPI. Advance diet to regular as patient tolerates well. Qualifiers: GI bleed type/associated pathology: anorectal hemorrhage Qualified Code(s) : K62.5 - Hemorrhage of anus and rectum (13) CVA (cerebral vascular accident) Current Visit: Yes Status: Acute Assessment and plan: MRI shows multiple embolic infarct, consider central source of embolism. Echo is unremarkable. We will continue to closely monitor patient, no anti- coagulation at this point considering patient has GI bleed and intracranial trace bleeding within infarct. Resume baby aspirin per neurology. Qualifiers: CVA mechanism: embolism Precerebral and cerebral artery: unspecified cerebral artery Qualified Code(s): I63.40 - Cerebral infarction due to embolism of unspecified cerebral artery - Time Spent With Patient Greater than 35 minutes - Subjective Interval history: Patient is a 66-year-old male admitted for fever and shortness of breath. He has history of thyroid cancer, recently diagnosed pancreas adenocarcinoma possibly has liver and/or lung metastasis. Patient has a liver biopsy 3 days ago. Other history include COPD, hyperlipidemia. Patient was seen and examined. Still weak. Pt is alert awake. Improved shortness of breath probably reached his baseline now. Pt's vitals generally stable. We will continue antibiotic treatment for UTI. Abx has been deescalated to rocephin. Pt has multiple medical problem, in a general critical condition, prognosis is poor and very guarded. Patient is at high risk considering multiple medical problems and end-stage cancer. - Constitutional Vitals: Temp Pulse Resp BP Pulse Ox 97.4 F L 77 18 112/81 94 02/13/17 12:42 02/13/17 11:13 02/13/17 15:49 02/13/17 11:13 02/13/17 15:49 General appearance: Present: cooperative, A&O X 3, no acute distress, answers questions appropriately - Head Head exam: Present: atraumatic, normocephalic - Eye Eye exam: Present: PERRL, conjuntiva pink, sclera anicteric Pupils: Present: PERRL - Neck Neck exam general surgery: Present: supple, trachea midline. Absent: lymphadenopathy Additional comments: Tracheostomy tube in place - Respiratory Respiratory exam: Present: CTAB. Absent: accessory muscle use, rales, rhonchi, wheezes - Cardiovascular Cardiovascular exam: Present: RRR, +S1, +S2. Absent: diastolic murmur, gallop, rubs, systolic murmur - GI/Abdominal GI/Abdominal exam: Present: normal bowel sounds, soft, no peritoneal signs. Absent: distended, tenderness - Extremities Exam Extremities exam: Present: warm, radial pulses palpable and symmetrical. Absent : calf tenderness, cyanotic, pedal edema - Neurological Exam Neurological exam: Present: CN II-XII intact, oriented X3, no focal deficits. Absent: pronater drift, facial droop, speech deficit - Skin Skin exam: Present: dry, intact Internal Medicine: Result - Labs CBC & Chem 7: 02/13/17 04:13 02/13/17 04:13 Labs: Short CBC 02/13/17 Range/Units 04:13 WBC 12.7 H (4.3-11.1) K/mcL Hgb 13.2 (12.9-16.9) g/dL Hct 42.8 (37.5-50.1) % Plt Count 116 L (140-400) K/mcL Neutrophils # 11.0 H (1.6-8.9) K/mcL BMP 02/13/17 04:13 Sodium 137 Potassium 4.5 Chloride 102 Carbon Dioxide 23 BUN 44 H Creatinine 0.99 Glucose 220 H Calcium 7.4 L - ABG Interpretation ABG results: ABG ABG pH 7.36 pH Units (7.32-7.45) 02/08/17 15:22 ABG pCO2 51 mmHg (35-45) H 02/08/17 15:22 ABG pO2 73 mmHg (85-104) L 02/08/17 15:22 ABG O2 Saturation 94 % (95-98) L 02/08/17 15:22 PT/INR, D-dimer PT 17.2 Seconds (9.4-12.1) H 02/07/17 20:38 - VTE Documentation of Mechanical Device: Intermittent pneumatic compression device Consult Discharge Plan - Plan Referrals: Dalton Monterroso Jr, MD [Primary Care Provider] - 02/19/17 10:00 am ()
--- NOTE | 2017-02-13 16:19 | Palliative Progress Note ---
Date of Encounter: 02/13/17 Time of Encounter: 15:50 - Assessment and plan (1) Cancer associated pain Current Visit: Yes Status: Acute Assessment and plan: Continue Percocet pRN - has only utilized 1-2 times daily monitor. (2) Counseling regarding advanced care planning and goals of care Current Visit: Yes Status: Acute Assessment and plan: Long discussion with pt/sister/nephew re: goals of care. I called and spoke with [facility], and he spoke with Dr. Moyer who follows patient. Informed them of results of echo/MRI and neuro consultation. Patient is no longer candidate for chemotherapy for his pancreatic cancer, and they recommend hospice. Difficult situation, hospice would be best option for managing symptoms and monitoring his illness, however, not feasible at this time in that pt has had intermittent periods of confusion and compulsive actions here, is not safe to be alone, and does not have enough family support that they can care for him. 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 He has been participating in therapy here, which may buy him some skilled days at the ECF, and sister desires to proceed to ECF under skilled level of care until they care arrange for care at home. Sister visiting ECF facilities hopefully later today and tomorrow to make decision on location. Discussed code status again with pt/sister, and with new findings, pt decided to transition to DNRCC and does not desire any form of resuscitation should he have a life threatening event. (3) Severe sepsis Current Visit: Yes Status: Acute (4) Pancreatic cancer Current Visit: No Status: Acute Qualifiers: Pancreatic malignancy location: body of pancreas Qualified Code(s): C25.1 - Malignant neoplasm of body of pancreas (5) Follicular thyroid cancer Current Visit: No Status: Chronic - Time Spent With Patient Total time spent is greater than 50% in coordination of care (as documented) at patient's floor/unit and/or counseling patient: Greater than 35 minutes (70 min was spent face to face with pt/family on advanced care planning) - Subjective Interval history: Patient awake and alert. Sister and nephew at bedside. Updated on clinical status and discussed results of recent testing. Patient with no complaints today, other than wanting to eat. - Constitutional Vitals: Abnormal lab results WBC 12.7 K/mcL (4.3-11.1) H 02/13/17 04:13 MCH 27.3 pg (28.0-33.3) L 02/13/17 04:13 MCHC 30.8 g/dL (31.6-35.5) L 02/13/17 04:13 RDW 16.6 % (11.5-14.5) H 02/13/17 04:13 Plt Count 116 K/mcL (140-400) L 02/13/17 04:13 Neutrophils # 11.0 K/mcL (1.6-8.9) H 02/13/17 04:13 Nucleated RBCs/100 WBC 0.2 /100 WBC (0) H 02/11/17 06:01 Immature Plt Fraction 6.4 % (1.1-6.1) H 02/08/17 04:37 PT 17.2 Seconds (9.4-12.1) H 02/07/17 20:38 ABG pCO2 51 mmHg (35-45) H 02/08/17 15:22 ABG pO2 73 mmHg (85-104) L 02/08/17 15:22 ABG HCO3 29 mEq/L (21-27) H 02/08/17 15:22 ABG Total CO2 30.4 mEq/L (20-26) H 02/08/17 15:22 ABG O2 Saturation 94 % (95-98) L 02/08/17 15:22 BUN 44 mg/dL (8-26) H 02/13/17 04:13 BUN/Creatinine Ratio 44 (6-26) H 02/13/17 04:13 Glucose 220 mg/dL (70-99) H 02/13/17 04:13 POC Glucose 169 (58-89) H 02/13/17 05:41 Calculated Osmolality 302 (280-300) H 02/13/17 04:13 Calcium 7.4 mg/dL (8.6-10.8) L 02/13/17 04:13 Phosphorus 5.0 mg/dL (2.3-4.7) H 02/07/17 20:38 Magnesium 1.4 mg/dL (1.6-2.6) L 02/07/17 20:38 Total Bilirubin 2.0 mg/dL (0.2-1.2) H 02/08/17 04:37 Direct Bilirubin 1.3 mg/dL (0.0-0.5) H 02/07/17 20:38 AST 49 Units/L (5-34) H 02/08/17 04:37 Alkaline Phosphatase 576 Units/L (38-126) H 02/08/17 04:37 Troponin I 0.14 ng/mL (0-0.03) H* 02/07/17 20:38 B-Natriuretic Peptide 2057 pg/mL (0-100) H 02/11/17 06:01 Albumin 2.9 g/dL (3.5-5.0) L 02/08/17 04:37 Globulin 3.8 g/dL (2.4-3.5) H 02/08/17 04:37 Albumin/Globulin Ratio 0.8 (1.1-2.2) L 02/08/17 04:37 Procalcitonin 2.02 ng/mL (<=0.10) H 02/08/17 11:54 Urine Clarity Cloudy (Clear) A 02/07/17 19:50 Urine Protein 100 mg/dL (Neg-Trace) H 02/07/17 19:50 Urine Blood Large (Negative) H 02/07/17 19:50 Urine Bilirubin Small (Negative) H 02/07/17 19:50 Ur Leukocyte Esterase Small (Negative) H 02/07/17 19:50 Urine Microscopic RBC 50-100 per hpf (0-3) H 02/07/17 19:50 Urine Microscopic WBC 50-100 per hpf (0-3) H 02/07/17 19:50 Ur Squamous Epith Cells Many per lpf (None-Few) H 02/07/17 19:50 Ur Culture Indicated? YES (NO) A 02/07/17 19:50 Vancomycin Trough 25.5 mcg/mL (10-20) H* 02/09/17 21:16 General appearance: Present: no acute distress - ENT Additional comments: Trach patent - Respiratory Respiratory exam: Present: decreased breath sounds, CTAB - Cardiovascular Cardiovascular exam: Present: +S1, +S2 - GI/Abdominal GI/Abdominal exam: Present: normal bowel sounds, soft - Extremities Exam Extremities exam: Present: normal capillary refill, normal inspection - Neurological Exam Neurological exam: Present: alert, oriented X3, strengths equal and symetr throughout - Skin Skin exam: Present: dry, warm Palliative Quality Palliative Quality: Screen for Code Status: Yes, Screen for Goals of Care: Yes, Screen for Pain: Yes, If Pain Regimen Started, Initiate Bowel Regimen: NA, Screen for Nausea/Vomitting: Yes Code Status: 02/13/17 16:16 DNR [Resuscitation Status: Active] [RES] Routine Comment: Resuscitation Status: DNR-Comfort Care - Labs CBC & Chem 7: 02/13/17 04:13 02/13/17 04:13 Labs: Laboratory Results - last 24 hr 02/11/17 02/11/17 02/12/17 18:17 23:33 06:08 WBC RBC Hgb Hct MCV MCH MCHC RDW Plt Count MPV Immature Gran % Seg Neutrophils % Lymphocytes % Monocytes % Eosinophils % Basophils % Neutrophils # Lymphocytes # Monocytes # Eosinophils # Basophils # Sodium Potassium Chloride Carbon Dioxide BUN Creatinine Est GFR ( Amer) Est GFR (Non-Af Amer) BUN/Creatinine Ratio Glucose POC Glucose 239 H 149 H 151 H Calculated Osmolality Calcium 02/12/17 02/13/17 02/13/17 11:35 00:04 04:13 WBC 12.7 H RBC 4.83 Hgb 13.2 Hct 42.8 MCV 88.6 MCH 27.3 L MCHC 30.8 L RDW 16.6 H Plt Count 116 L MPV 11.2 Immature Gran % 0.7 Seg Neutrophils % 87.3 Lymphocytes % 4.5 Monocytes % 7.4 Eosinophils % 0.0 Basophils % 0.1 Neutrophils # 11.0 H Lymphocytes # 0.6 Monocytes # 0.9 Eosinophils # 0.0 Basophils # 0.0 Sodium Potassium Chloride Carbon Dioxide BUN Creatinine Est GFR ( Amer) Est GFR (Non-Af Amer) BUN/Creatinine Ratio Glucose POC Glucose 142 H 202 H Calculated Osmolality Calcium 02/13/17 02/13/17 04:13 05:41 WBC RBC Hgb Hct MCV MCH MCHC RDW Plt Count MPV Immature Gran % Seg Neutrophils % Lymphocytes % Monocytes % Eosinophils % Basophils % Neutrophils # Lymphocytes # Monocytes # Eosinophils # Basophils # Sodium 137 Potassium 4.5 Chloride 102 Carbon Dioxide 23 BUN 44 H Creatinine 0.99 Est GFR ( Amer) > 60 Est GFR (Non-Af Amer) > 60 BUN/Creatinine Ratio 44 H Glucose 220 H POC Glucose 169 H Calculated Osmolality 302 H Calcium 7.4 L - ABG Interpretation ABG results: ABG ABG pH 7.36 pH Units (7.32-7.45) 02/08/17 15:22 ABG pCO2 51 mmHg (35-45) H 02/08/17 15:22 ABG pO2 73 mmHg (85-104) L 02/08/17 15:22 ABG O2 Saturation 94 % (95-98) L 02/08/17 15:22 PT/INR, D-dimer PT 17.2 Seconds (9.4-12.1) H 02/07/17 20:38 Consult Discharge Plan - Plan Referrals: Dalton Monterroso Jr, MD [Primary Care Provider] - 02/19/17 10:00 am ()
[2017-02-13] MEDS: LENVATINIB PO SCH (16:29)
[2017-02-13] MEDS ORDERED: Dextrose Gel 15 GM PO PRN ×2 (16:30)
[2017-02-13] MEDS ORDERED: *HR* Dextrose 50 % in Water (Syg) 50 ML SYRINGE IVP PRN (16:30)
[2017-02-13] MEDS ORDERED: D5% in Water 1,000 ML IVC PRN (16:30)
[2017-02-13] MEDS: Insulin LISPRO 300 UNITS/3 ML VIAL SQ SCH (17:11)
[2017-02-13] MEDS ORDERED: Insulin LISPRO 300 UNITS/3 ML VIAL SQ SCH (21:00)
[2017-02-14] MEDS: Ipratropium/Albuterol Neb 3 ML IH SCH ×4 (04:49→16:41)
[2017-02-14] MEDS: Budesonide/Formoterol 160/4.5 MDI IH SCH (07:39)
[2017-02-14] MEDS: Insulin LISPRO 300 UNITS/3 ML VIAL SQ SCH ×3 (08:46→16:37)
[2017-02-14] MEDS: Nicotine 14 MG PATCH.TD24 TD SCH (08:49)
[2017-02-14] MEDS: Venlafaxine XR (24 HR) 37.5 MG CAP.ER.24H PO SCH (08:50)
[2017-02-14] MEDS ORDERED: Pantoprazole 40 MG VIAL IVP SCH (09:00)
[2017-02-14] MEDS: Aspirin 81 MG TAB.CHEW PO SCH (09:00)
[2017-02-14] MEDS: *HR* OxyCODONE/APAP 10/325 TABLET PO PRN (11:55)
--- NOTE | 2017-02-14 13:54 | Event Note ---
Date of Encounter: 02/14/17 Time of Encounter: 13:00 Noted patient may transfer to [facility] today. I completed Prescription for Percocet to be sent with pt to [place].
[2017-02-14] MEDS ORDERED: Morphine Oral CONC 5 MG/0.25 ML ORAL.SYG PO PRN (13:58)
[2017-02-14 15:10] VITALS: BP 103/70
--- NOTE | 2017-02-14 16:36 | Discharge Summary ---
Date of Encounter: 02/14/17 Time of Encounter: 15:00 - Discharge Diagnosis (1) Severe sepsis Priority: Primary Status: Acute (2) UTI (urinary tract infection) Priority: Primary Status: Acute Qualifiers: Urinary tract infection type: site unspecified Hematuria presence: without hematuria Qualified Code(s): N39.0 - Urinary tract infection, site not specified (3) Elevated troponin I level Priority: Primary Status: Acute (4) Pancreatic cancer Priority: Secondary Status: Acute Qualifiers: Pancreatic malignancy location: body of pancreas Qualified Code(s): C25.1 - Malignant neoplasm of body of pancreas (5) Liver metastases Priority: Secondary Status: Acute (6) Follicular thyroid cancer Priority: Secondary Status: Chronic (7) Tracheostomy in place Priority: Secondary Status: Chronic (8) Hypertension Priority: Secondary Status: Chronic Qualifiers: Hypertension type: essential hypertension Qualified Code(s): I10 - Essential (primary) hypertension (9) Lung metastasis Priority: Secondary Status: Acute Qualifiers: Laterality: right Qualified Code(s): C78.01 - Secondary malignant neoplasm of right lung (10) DVT prophylaxis Priority: Secondary Status: Acute (11) Mental status alteration Priority: Primary Status: Acute Qualifiers: Altered mental status type: delirium Qualified Code(s): R41.0 - Disorientation, unspecified (12) GI bleed Priority: Primary Status: Acute Qualifiers: GI bleed type/associated pathology: anorectal hemorrhage Qualified Code(s) : K62.5 - Hemorrhage of anus and rectum (13) CVA (cerebral vascular accident) Priority: Primary Status: Acute Qualifiers: CVA mechanism: embolism Precerebral and cerebral artery: unspecified cerebral artery Qualified Code(s): I63.40 - Cerebral infarction due to embolism of unspecified cerebral artery (14) Systolic CHF Priority: Primary Status: Acute Qualifiers: Congestive heart failure chronicity: chronic Qualified Code(s): I50.22 - Chronic systolic (congestive) heart failure - Discharge Medications Prescriptions: Aspirin 81 mg PO DAILY #30 tab.chew Carvedilol [Coreg] 12.5 mg PO BIDWM #120 tablet Nicotine Patch [Nicoderm] 14 mg TD DAILY #14 patch.td24 Oxycodone HCl/Acetaminophen [Percocet 10-325 mg Tablet] 1 each PO Q4-6H PRN #90 tablet PRN Reason: Cancer associated pain Home Medications: Calcitriol [Rocaltrol] 0.5 mcg PO BID 03/08/15 [History] Calcium Carbonate/Vitamin D3 [Calcium 500-Vit D3 400 Tablet] 1 tab PO DAILY [History] Losartan [Cozaar] 25 mg PO DAILY 08/07/16 [History] Albuterol Sulfate [Albuterol Inhaler] 1 puff IH Q6H PRN 11/13/16 [History] Budesonide/Formoterol 160/4.5 [Symbicort 160/4.5] 2 puff IH BID 11/13/16 [ History] Venlafaxine XR (24 HR) [Effexor Xr] 37.5 mg PO DAILY #30 cap.er.24h 11/27/16 [Rx ] Levothyroxine Sodium [Synthroid] 200 mcg PO DAILY 01/22/17 [History] Levothyroxine [Synthroid] 25 mcg PO DAILY #30 tablet 02/04/17 [Rx] Lenvatinib Mesylate [Lenvima] 24 mg PO AD 02/07/17 [History] Oxycodone HCl/Acetaminophen [Percocet 10-325 mg Tablet] 1 tab PO Q6H PRN [History] Aspirin 81 mg PO DAILY #30 tab.chew 02/14/17 [Rx] Carvedilol [Coreg] 12.5 mg PO BIDWM #120 tablet 02/14/17 [Rx] Nicotine Patch [Nicoderm] 14 mg TD DAILY #14 patch.td24 02/14/17 [Rx] Oxycodone HCl/Acetaminophen [Percocet 10-325 mg Tablet] 1 each PO Q4-6H PRN #90 tablet 02/14/17 [Rx] Allergies/Adverse Reactions: 3 Allergy/AdvReac Type Severity Reaction Status Date / Time No Known Allergies Allergy Verified 02/03/17 09:30 - Notes to Outpatient Provider 1. Patient has a left ureteral stent placed by urology. Per urology, stent can be kept there for 6 months. If patient's prognosis and condition improves significantly urology will proceed with ureteroscopic stone extraction as an outpatient. Date of admission: 02/07/17 23:12 Primary care physician: Dalton Monterroso Jr, MD Consults: 02/08/17 00:19 Consult to Nurse Navigator [CONS] Routine Comment: 02/08/17 00:23 Consult to Oncology [CONS] Routine Consulting Provider: Debbie Moyer Reason for Consult: Pancreatic & Thyroid CA Call Completed: No 02/08/17 02:54 Consult to Nutrition [CONS] Routine Comment: Consulting Provider: NUTRITION Reason for Dietary Consult: MST Score Consult to Numerical Tool Programmer [CONS] Routine Reason for SW Consult: patient lives at home alone possible need for HH 02/08/17 14:08 Consult to Urology [CONS] Stat Consulting Provider: [facility] [place] Reason for Consult: Ureter stone Call Completed: Yes 02/08/17 14:09 Consult to Palliative Care [CONS] Routine Comment: Consulting Provider: Palliative Care [facility] Reason for Consult: End stage cancer with multiple comorbidity Call Completed: No 02/10/17 15:54 Consult to Cardiology [CONS] Routine Comment: Consulting Provider: Cardiology Elinor Reason for Consult: LVEF 20%, not sure if it is new Call Completed: No 02/11/17 08:20 Consult to Neurology [CONS] Routine Consulting Provider: Neurology [facility] Reason for Consult: Intermittent confusion or nonresponsive, with urinary incontinance, suspect ocult seizure Call Completed: Yes 02/11/17 16:30 Consult to Gastroenterology [CONS] Routine Consulting Provider: Gastroenterology Elinor Reason for Consult: Rectal bleeding Call Completed: Yes 02/12/17 07:28 Consult to Invasive Line Access Team [CONS] Routine Reason for Consult: limited vasc access Line Type: EPIV 02/13/17 08:53 Consult to Occupational Therapy [CONS] Routine Comment: Evaluate, develop and implement POC Reason for Consult: discharge planning Consult to Physical Therapy [CONS] Routine Comment: Evaluate, develop and implement POC Reason for Consult: discharge planning Discharging clinician: Lisandra Crum Anticipated date of discharge: 02/14/17 - Patient Status Disposition: Transfer SNF Condition: Serious Functional capacity at discharge: uses cane/walker Overall status at discharge: patient is not back to baseline - Discharge Instructions Follow Up With: Dalton Monterroso Jr, MD [Primary Care Provider] - 02/19/17 10:00 am () - Diet and Activity Activity: as per physical therapy Diet: low fat, low cholesterol, low salt diet, other (Fluid restriction 1500 mL per day) Interval History: Mr. Parikh is a 66 year old male with a PMH of tracheostomy due to thyroid cancer , COPD, and newly diagnosed pancreatic cancer presented c/o SOB since this AM with copious secretions out of his tracheostomy. Patient reports congestion and bilateral flank pain. Of note, patient had a tunneled port placed in the right chest 2 days ago and sees oncologist/ Dr. Moyer. Patient denies fever, chills , CP, abd pain, N/V/D, or lower extremity edema. In the ED, patient met 3 SIRS criteria of WBC 11.2, tachycardia HR 101, RR 32, initial lactic acid 3.4 and repeat lactic acid 2.6. UA was positive for UTI. His troponin was 0.14 Hospital course: Mr. Parikh is a 66 year old male admitted for sepsis and UTI. Patient was treated with antibiotics and his sepsis and UTI has resolved. Patient was also found ureteral stone. Urology consult called and patient was placed on stenting. During hospitalization, patient was found systolic CHF, EF 20%. Cardiology consult was called and patient was placed beta shelby, patient is already on ARB. Patient also was found bright red blood per rectum, GI called but in no procedure because patient's general condition is poor. Hemoglobin being stable after the episode of bleeding. Patient also has confusion during hospitalization, MRI brain shows multiple infarcts probably embolic. Neurology consult saw Patient and recommended baby aspirin. PTOT evaluation recommended ECF at discharge. Patient will discharge to [facility] today. I saw and examined the patient today. He is awake alert, oriented 3. Generally weak. Complains whole-body pain. Vitals are stable. No fever. Patient is stable to transfer to ECF for further rehabilitation. He has finished 7 day antibiotic course, no further antibiotics needed at this point. - Time Spent with Patient Total time spent providing and/or coordinating discharge services: 45 minutes. Greater than 30 minutes - Constitutional Vitals: Temp Pulse Resp BP Pulse Ox 97.4 F L 82 20 103/70 95 02/14/17 15:30 02/14/17 15:30 02/14/17 15:30 02/14/17 15:30 02/14/17 15:30 General appearance: Present: cooperative, A&O X 3, no acute distress, answers questions appropriately - Head Head exam: Present: atraumatic, normocephalic - Eye Eye exam: Present: PERRL, conjuntiva pink, sclera anicteric Pupils: Present: PERRL - Neck Neck exam general surgery: Present: supple, trachea midline. Absent: lymphadenopathy Additional comments: Tracheostomy tube in place - Respiratory Respiratory exam: Present: CTAB. Absent: accessory muscle use, rales, rhonchi, wheezes - Cardiovascular Cardiovascular exam: Present: RRR, +S1, +S2. Absent: diastolic murmur, gallop, rubs, systolic murmur - GI/Abdominal GI/Abdominal exam: Present: normal bowel sounds, soft, no peritoneal signs. Absent: distended, tenderness - Extremities Exam Extremities exam: Present: warm, radial pulses palpable and symmetrical. Absent : calf tenderness, cyanotic, pedal edema - Neurological Exam Neurological exam: Present: CN II-XII intact, oriented X3, no focal deficits. Absent: pronater drift, facial droop, speech deficit - Skin Skin exam: Present: dry, intact - VTE Documentation of Mechanical Device: Intermittent pneumatic compression device
--- NOTE | 2017-02-14 16:48 | Physician Discharge Referral ---
ExtendedCare Referral Info Transfer To: F Provider in Charge after Transfer: Other - Diagnosis (1) Severe sepsis Status: Acute (2) UTI (urinary tract infection) Status: Acute (3) Elevated troponin I level Status: Acute (4) Pancreatic cancer Status: Acute (5) Liver metastases Status: Acute (6) Follicular thyroid cancer Status: Chronic (7) Tracheostomy in place Status: Chronic (8) Hypertension Status: Chronic (9) Lung metastasis Status: Acute (10) DVT prophylaxis Status: Acute (11) Mental status alteration Status: Acute (12) GI bleed Status: Acute (13) CVA (cerebral vascular accident) Status: Acute (14) Systolic CHF Status: Acute - Transfer Medications Prescriptions: Aspirin 81 mg PO DAILY #30 tab.chew Carvedilol [Coreg] 12.5 mg PO BIDWM #120 tablet Nicotine Patch [Nicoderm] 14 mg TD DAILY #14 patch.td24 Oxycodone HCl/Acetaminophen [Percocet 10-325 mg Tablet] 1 each PO Q4-6H PRN #90 tablet PRN Reason: Cancer associated pain Home Medications: Calcitriol [Rocaltrol] 0.5 mcg PO BID 03/08/15 [History] Calcium Carbonate/Vitamin D3 [Calcium 500-Vit D3 400 Tablet] 1 tab PO DAILY [History] Losartan [Cozaar] 25 mg PO DAILY 08/07/16 [History] Albuterol Sulfate [Albuterol Inhaler] 1 puff IH Q6H PRN 11/13/16 [History] Budesonide/Formoterol 160/4.5 [Symbicort 160/4.5] 2 puff IH BID 11/13/16 [ History] Venlafaxine XR (24 HR) [Effexor Xr] 37.5 mg PO DAILY #30 cap.er.24h 11/27/16 [Rx ] Levothyroxine Sodium [Synthroid] 200 mcg PO DAILY 01/22/17 [History] Levothyroxine [Synthroid] 25 mcg PO DAILY #30 tablet 02/04/17 [Rx] Lenvatinib Mesylate [Lenvima] 24 mg PO AD 02/07/17 [History] Oxycodone HCl/Acetaminophen [Percocet 10-325 mg Tablet] 1 tab PO Q6H PRN [History] Aspirin 81 mg PO DAILY #30 tab.chew 02/14/17 [Rx] Carvedilol [Coreg] 12.5 mg PO BIDWM #120 tablet 02/14/17 [Rx] Nicotine Patch [Nicoderm] 14 mg TD DAILY #14 patch.td24 02/14/17 [Rx] Oxycodone HCl/Acetaminophen [Percocet 10-325 mg Tablet] 1 each PO Q4-6H PRN #90 tablet 02/14/17 [Rx] Allergies/Adverse Reactions: 3 Allergy/AdvReac Type Severity Reaction Status Date / Time No Known Allergies Allergy Verified 02/03/17 09:30 - Respiratory Orders Oxygen / L per min (4-5) Smoking Cessation: Smoking cessation has been advised. For more information, call the [employer] Tobacco Quit Line at 4-422-ULHN-NOW. - Advance Directives Code Status: DNR-Comfort Care - Rehabiliation Orders Rehab Orders: Evaluation for Physical Therapy, Evaluation for Occupational Therapy - Diet Orders Cardiac (With fluid restriction 1.5 L per day) CERTIFICATION: I certify that the transfer of the above named patient to an Extended Care Facility is necessary for the continuing treatment of the diagnosis listed. The above information is true and accurate reflection of patient's current condition. Confidential - Redisclosure prohibited without a patient's written consent.
== END 2017-02-14 18:12 | DRG 871 ==
LOC: EMEROO 19:09 → 2NNU 19:09 → SUATTDRO 23:12 → 2NNU 23:42
PROVIDERS: ADMIT Pediatrics; ATTEND Internal Medicine